=== PATIENT | male | born 1950 | race Caucasian/White ===

== ENCOUNTER 2023-08-09 17:52 | Inpatient (IN) | payer BC, MEDICARE ==
--- NOTE | 2023-08-09 18:50 | ED ---
Recheck HPI - General Chief Complaint: Chest Pain Stated Complaint: Chest Pain Time Seen by Provider: 08/09/23 18:09 Source: patient, EMS, RN notes reviewed, old records reviewed Mode of arrival: EMS Limitations: no limitations - History of Present Illness Initial Comments: This is a 73-year-old male accepted in transfer patient for elevated troponin wi th chest pain. Patient not feeling well persistent weakness. Patient persistent weakness chest pain shortness of breath. No significant complaints here in our ER except from being uncomfortable. Patient is accepted in transfer to Hospital for elevated troponin Complaint: abnormal lab (Elevated troponin) -: days(s) Initial Visit For: other (0) Returns Today for: Called Because of Abnormal Lab/Test, persistent/worsening pain related to initial visit Symptoms Since Prior Visit: worsening pain Context: called for abnormal lab result Associated Symptoms: shortness of breath, malaise, nausea Treatments Prior to Arrival: other (0) - Related Data Home Medications Medication Instructions Recorded Confirmed Cholecalciferol [Vitamin D3 (25 25 mcg PO DAILY 08/09/23 08/09/23 Mcg = 1000 Iu)] Clopidogrel [Plavix] 75 mg PO DAILY 08/09/23 08/09/23 Cyclobenzaprine [Flexeril] 10 mg PO TID PRN 08/09/23 08/09/23 Empagliflozin [Jardiance] 25 mg PO DAILY 08/09/23 08/09/23 Gabapentin [Neurontin] 100 mg PO TID PRN 08/09/23 08/10/23 HYDROcodone/APAP 7.5-325MG [[place] 1 tab PO Q6H PRN 08/09/23 08/09/23 7.5-325] Insulin Glargine,Hum.rec.anlog 15 units SQ DAILY 08/09/23 08/09/23 [Lantus Solostar Pen] Insulin Lispro [humaLOG Kwikpen] 8 - 10 unit SQ AC-TID MDD 30 units 08/09/23 08/09/23 Meloxicam [Mobic] 15 mg PO DAILY PRN 08/09/23 08/09/23 Midodrine [ProAmatine] 5 mg PO TID 08/09/23 08/09/23 Nystatin 100,000Unit/gm Cream 1 applic TOPICAL BID 08/09/23 08/09/23 [Mycostatin Cream] Propranolol HCl 80 mg PO DAILY 08/09/23 08/09/23 Rosuvastatin [Crestor] 20 mg PO HS 08/09/23 08/09/23 Triamcinolone 0.025% Cream 1 applic TOPICAL BID 08/09/23 08/09/23 [Kenalog 0.025% Cream] Vit C/E/Zn/Coppr/Lutein/Zeaxan 1 cap PO BID 08/09/23 08/09/23 [Preservision Areds 2 Softgel] metFORMIN HCL ER [Glucophage XR] 1,000 mg PO BID 08/09/23 08/09/23 Allergies Allergy/AdvReac Type Severity Reaction Status Date / Time No Known Allergies Allergy Verified 08/09/23 22:15 Review of Systems ROS Statement: Those systems with pertinent positive or pertinent negative responses have been documented in the HPI. ROS Other: All systems not noted in ROS Statement are negative. Past Medical History Past Medical History: Atrial Fibrillation, Diabetes Mellitus Additional Past Medical History / Comment(s): Unable to get proper history, sending hospital did not have any medical history information available. History of Any Multi-Drug Resistant Organisms: None Reported Past Surgical History: Unable to Obtain Additional Past Surgical History / Comment(s): Unable to obtain, no medical history sent from other hospital. Past Psychological History: Anxiety Smoking Status: Former smoker Past Alcohol Use History: Daily Past Drug Use History: None Reported - Past Family History Father Family Medical History: Diabetes Mellitus General Exam Limitations: no limitations General appearance: alert, in no apparent distress, anxious Head exam: Present: atraumatic, normocephalic, normal inspection Eye exam: Present: normal appearance, PERRL, EOMI. Absent: scleral icterus, conjunctival injection, periorbital swelling ENT exam: Present: normal exam, mucous membranes moist Neck exam: Present: normal inspection. Absent: tenderness, meningismus, lymphadenopathy Respiratory exam: Present: normal lung sounds bilaterally. Absent: respiratory distress, wheezes, rales, rhonchi, stridor Cardiovascular Exam: Present: regular rate, normal rhythm, normal heart sounds. Absent: systolic murmur, diastolic murmur, rubs, gallop, clicks GI/Abdominal exam: Present: soft, normal bowel sounds. Absent: distended, tenderness, guarding, rebound, rigid Extremities exam: Present: normal inspection, full ROM, normal capillary refill. Absent: tenderness, pedal edema, joint swelling, calf tenderness Back exam: Present: normal inspection Neurological exam: Present: alert, oriented X3, CN II-XII intact Psychiatric exam: Present: normal affect, normal mood Skin exam: Present: warm, dry, intact, normal color. Absent: rash Course Vital Signs 08/09/23 08/09/23 08/09/23 18:00 18:08 18:11 Temperature 98.2 F Pulse Rate 89 89 Pulse Rate [ 88 [employer] ] Respiratory 18 19 Rate Blood Pressure 126/80 O2 Sat by Pulse 92 L Oximetry 08/09/23 08/09/23 08/09/23 19:00 20:00 20:53 Temperature Pulse Rate 85 92 97 Pulse Rate [ [employer] ] Respiratory 16 18 18 Rate Blood Pressure 147/75 154/78 132/69 O2 Sat by Pulse 94 L 96 Oximetry 08/09/23 08/09/23 08/09/23 20:55 21:00 22:00 Temperature Pulse Rate 93 89 98 Pulse Rate [ [employer] ] Respiratory 19 19 18 Rate Blood Pressure 132/69 132/69 128/66 O2 Sat by Pulse 91 L 92 L Oximetry 08/09/23 08/10/23 08/10/23 23:00 00:00 01:00 Temperature Pulse Rate 98 101 H 78 Pulse Rate [ [employer] ] Respiratory 19 21 20 Rate Blood Pressure 149/84 147/78 115/67 O2 Sat by Pulse 91 L Oximetry 08/10/23 08/10/23 08/10/23 05:21 07:55 08:16 Temperature 102.7 F H Pulse Rate 102 H 114 H 99 Pulse Rate [ [employer] ] Respiratory 18 18 18 Rate Blood Pressure 153/63 148/83 O2 Sat by Pulse 90 L 94 L 91 L Oximetry 08/10/23 08/10/23 08/10/23 08:20 08:56 09:05 Temperature Pulse Rate 116 H 106 H 109 H Pulse Rate [ [employer] ] Respiratory 18 22 22 Rate Blood Pressure 136/63 138/81 129/105 O2 Sat by Pulse 91 L 92 L 93 L Oximetry 08/10/23 08/10/23 08/10/23 10:21 10:32 11:02 Temperature 98.7 F Pulse Rate 117 H 91 Pulse Rate [ [employer] ] Respiratory 18 18 Rate Blood Pressure 110/91 97/52 62/47 O2 Sat by Pulse 95 94 L Oximetry 08/10/23 08/10/23 08/10/23 11:10 12:22 12:41 Temperature Pulse Rate 86 80 87 Pulse Rate [ [employer] ] Respiratory 18 22 20 Rate Blood Pressure 91/61 89/59 72/46 O2 Sat by Pulse 95 93 L 96 Oximetry 08/10/23 08/10/23 08/10/23 13:03 13:18 13:36 Temperature Pulse Rate 101 H 103 H 110 H Pulse Rate [ [employer] ] Respiratory 20 20 22 Rate Blood Pressure 87/58 96/69 95/66 O2 Sat by Pulse 97 98 97 Oximetry 08/10/23 14:00 Temperature 98 F Pulse Rate 115 H Pulse Rate [ [employer] ] Respiratory 22 Rate Blood Pressure 126/76 O2 Sat by Pulse 96 Oximetry - Reevaluation(s) Reevaluation #1: 08/09/23 20:41 Medical records reviewed Transfer paperwork is reviewed Reevaluation #2: 08/09/23 20:41 Patient has no current chest pain Reevaluation #3: 08/09/23 20:41 Patient informed results questions answered Reevaluation #4: 08/09/23 20:41 Was pt. sent in by a medical professional or institution (, PA, DIET TECHNICIAN REGISTERED, urgent care, hospital, or longterm...) When possible be specific @ -no Did you speak to anyone other than the patient for history (EMS, parent, family, police, friend...)? What history was obtained from this source @ -no Did you review nursing and triage notes (agree or disagree)? Why? @ -agree Are old charts reviewed (outside hosp., previous admission, EMS record, old EKG, old radiological studies, urgent care reports/EKG's, longterm records)? Report findings @ -yes Differential Diagnosis (chest pain, altered mental status, abdominal pain women, abdominal pain men, vaginal bleeding, weakness, fever, dyspnea, syncope, headache, dizziness, GI bleed, back pain, seizure, CVA, palpatations, mental health, musculoskeletal)? @ -prior EKG interpreted by me (3pts min.). @ -yes X-rays interpreted by me (1pt min.). @ -yes CT interpreted by me (1pt min.). @ -no U/S interpreted by me (1pt. min.). @ -no What testing was considered but not performed or refused? (CT, X-rays, U/S, labs)? Why? @ -none What meds were considered but not given or refused? Why? @ -none Did you discuss the management of the patient with other professionals (professionals i.e. , PA, DIET TECHNICIAN REGISTERED, lab, RT, psych nurse, health care social worker, processor inspector, teacher, data officer, counter caser)? Give summary @ -no Was smoking cessation discussed for >3mins.? @ -no Was critical care preformed (if so, how long)? @ -yes31 Were there social determinants of health that impacted care today? How? (Homelessness, low income, unemployed, alcoholism, drug addiction, transportation, low edu. Level, literacy, decrease access to med. care, nursing home, rehab)? @ -none Was there de-escalation of care discussed even if they declined (Discuss DNR or withdrawal of care, Hospice)? DNR status @ -no What co-morbidities impacted this encounter? (DM, HTN, Smoking, COPD, CAD, Cancer, CVA, ARF, Chemo, Hep., AIDS, mental health diagnosis, sleep apnea, morbid obesity)? @ -none Was patient admitted / discharged? Hospital course, mention meds given and route, prescriptions, significant lab abnormalities, going to OR and other pertinent info. @ - 73 male be admitted for chest pain elevated troponin, non-ST elevated [place] cardiac evaluation persistent monitoring and anticoagulation Admitted Undiagnosed new problem with uncertain prognosis? @ -no Drug Therapy requiring intensive monitoring for toxicity (Heparin, Nitro, In sulin, Cardizem)? @ -no Were any procedures done? @ -no Diagnosis/symptom? @ -Non-STEMI Acute, or Chronic, or Acute on Chronic? @ -Acute Uncomplicated (without systemic symptoms) or Complicated (systemic symptoms)? @ -Complicated Side effects of treatment? @ -no Exacerbation, Progression, or Severe Exacerbation? @ -exacerbation Poses a threat to life or bodily function? How? (Chest pain, [place], [place], pneumonia, PE, COPD, DKA, ARF, appy, cholecystitis, CVA, Diverticulitis, Homicidal, Suicidal, threat to staff... and all critical care pts) @ -yes 08/16/23 00:12 Reevaluation #5: 08/09/23 20:41 Differential Chest Pain: Stable Angina, Unstable Angina, STEMI, NSTEMI Aortic Dissection, Pneumothorax, Musculoskeletal, Esophageal Spasm GERD, Cholecystitis, Pancreatitis, Zoster, this is not meant to be an all-inclusive list. - Consultations Consultation #1: Spoke with deann who agrees to admit the patient Medical Decision Making - Medical Decision Making 73 male be admitted for chest pain elevated troponin, non-ST elevated [place] cardiac evaluation persistent monitoring and anticoagulation - Lab Data Result diagrams: 08/15/23 05:24 08/15/23 05:24 Lab Results 08/09/23 08/09/23 08/09/23 Range/Units 19:00 19:00 19:00 WBC 11.4 H (3.8-10.6) k/uL RBC 4.37 (4.30-5.90) m/uL Hgb 13.6 (13.0-17.5) gm/dL Hct 41.1 (39.0-53.0) % MCV 93.9 (80.0-100.0) fL MCH 31.1 (25.0-35.0) pg MCHC 33.1 (31.0-37.0) g/dL RDW 14.2 (11.5-15.5) % Plt Count 112 L (150-450) k/uL MPV 8.7 Neutrophils % 92 % Lymphocytes % 2 % Monocytes % 4 % Eosinophils % 0 % Basophils % 0 % Neutrophils # 10.5 H (1.3-7.7) k/uL Lymphocytes # 0.3 L (1.0-4.8) k/uL Monocytes # 0.5 (0-1.0) k/uL Eosinophils # 0.0 (0-0.7) k/uL Basophils # 0.0 (0-0.2) k/uL PT 10.0 (10.0-12.5) sec INR 0.9 (<1.2) APTT 46.6 H (22.0-30.0) sec Sodium 136 L (137-145) mmol/L Potassium 4.2 (3.5-5.1) mmol/L Chloride 105 (98-107) mmol/L Carbon Dioxide 20 L (22-30) mmol/L Anion Gap 11 mmol/L BUN 35 H (9-20) mg/dL Creatinine 1.01 (0.66-1.25) mg/dL Est GFR (CKD-EPI)AfAm 84 (>60 ml/min/1.73 sqM) Est GFR (CKD-EPI)NonAf 73 (>60 ml/min/1.73 sqM) Glucose 126 H (74-99) mg/dL Calcium 8.4 (8.4-10.2) mg/dL Magnesium 2.3 (1.6-2.3) mg/dL Total Bilirubin 0.6 (0.2-1.3) mg/dL AST 33 (17-59) U/L ALT 19 (4-49) U/L Alkaline Phosphatase 84 (38-126) U/L Troponin I (0.000-0.034) ng/mL C-Reactive Protein (<1.0) mg/dL NT-Pro-B Natriuret Pep 5990 pg/mL Total Protein 6.2 L (6.3-8.2) g/dL Albumin 3.3 L (3.5-5.0) g/dL Lipase 18 L (23-300) U/L 08/09/23 08/09/23 Range/Units 19:00 19:00 WBC (3.8-10.6) k/uL RBC (4.30-5.90) m/uL Hgb (13.0-17.5) gm/dL Hct (39.0-53.0) % MCV (80.0-100.0) fL MCH (25.0-35.0) pg MCHC (31.0-37.0) g/dL RDW (11.5-15.5) % Plt Count (150-450) k/uL MPV Neutrophils % % Lymphocytes % % Monocytes % % Eosinophils % % Basophils % % Neutrophils # (1.3-7.7) k/uL Lymphocytes # (1.0-4.8) k/uL Monocytes # (0-1.0) k/uL Eosinophils # (0-0.7) k/uL Basophils # (0-0.2) k/uL PT (10.0-12.5) sec INR (<1.2) APTT (22.0-30.0) sec Sodium (137-145) mmol/L Potassium (3.5-5.1) mmol/L Chloride (98-107) mmol/L Carbon Dioxide (22-30) mmol/L Anion Gap mmol/L BUN (9-20) mg/dL Creatinine (0.66-1.25) mg/dL Est GFR (CKD-EPI)AfAm (>60 ml/min/1.73 sqM) Est GFR (CKD-EPI)NonAf (>60 ml/min/1.73 sqM) Glucose (74-99) mg/dL Calcium (8.4-10.2) mg/dL Magnesium (1.6-2.3) mg/dL Total Bilirubin (0.2-1.3) mg/dL AST (17-59) U/L ALT (4-49) U/L Alkaline Phosphatase (38-126) U/L Troponin I 0.070 H* (0.000-0.034) ng/mL C-Reactive Protein 42.3 H (<1.0) mg/dL NT-Pro-B Natriuret Pep pg/mL Total Protein (6.3-8.2) g/dL Albumin (3.5-5.0) g/dL Lipase (23-300) U/L - Radiology Data Radiology results: report reviewed (Chest x-rays negative for acute disease), image reviewed Critical Care Time Critical Care Time: Yes Total Critical Care Time: 31 Disposition Clinical Impression: Chest pain, Acute non-ST elevation myocardial infarction (NSTEMI) Disposition: ADMITTED IP TO THIS [facility] Condition: Serious Is patient prescribed a controlled substance at d/c from ED?: No Time of Disposition: 19:10
[2023-08-09 19:09] LABS: Basophils % (A) 0 %; Eosinophils % (A) 0 %; HCT 41.1 % (39.0-53.0); HGB 13.6 gm/dL (13.0-17.5); Lymphocytes # (A) 0.3 k/uL (1.0-4.8); Lymphocytes % (A) 2 %; MCH 31.1 pg (25.0-35.0); MCHC 33.1 g/dL (31.0-37.0); MCV 93.9 fL (80.0-100.0); Mean Platelet Volume 8.7; Monocytes # (A) 0.5 k/uL (0-1.0); Monocytes % (A) 4 %; Neutrophils # (A) 10.5 k/uL (1.3-7.7); Neutrophils % (A) 92 %; Platelet Count 112 k/uL (150-450); RBC 4.37 m/uL (4.30-5.90); RDW 14.2 % (11.5-15.5); WBC 11.4 k/uL (3.8-10.6)
[2023-08-09] MEDS ORDERED: NITROGLYCERIN SL TABS 0.4 MG TAB SUBLINGUAL PRN (19:09)
[2023-08-09] MEDS ORDERED: ASPIRIN 81 MG PO STA (19:09)
[2023-08-09 19:21] LABS: ALT 19 U/L (4-49); AST 33 U/L (17-59); African American GFR (CKD) 84 (>60 ml/min/1.73 sqM); Albumin 3.3 g/dL (3.5-5.0); Alkaline Phosphatase 84 U/L (38-126); Anion Gap 11 mmol/L; Blood Urea Nitrogen 35 mg/dL (9-20); Calcium 8.4 mg/dL (8.4-10.2); Carbon Dioxide 20 mmol/L (22-30); Chloride 105 mmol/L (98-107); Glucose 126 mg/dL (74-99); Lipase 18 U/L (23-300); Magnesium 2.3 mg/dL (1.6-2.3); Non-African American GFR(CKD) 73 (>60 ml/min/1.73 sqM); Potassium 4.2 mmol/L (3.5-5.1); Sodium 136 mmol/L (137-145); Total Bilirubin 0.6 mg/dL (0.2-1.3); Total Protein 6.2 g/dL (6.3-8.2)
[2023-08-09 19:24] LABS: INR 0.9 (<1.2); Partial Thromboplastin Time 46.6 sec (22.0-30.0)
[2023-08-09 19:29] LABS: NT-Pro-B-Type Natriuretic Pept 5990 pg/mL
[2023-08-09] MEDS: HEPARIN SOD,PORK IN 0.45% NACL 25,000 UNIT in 0.45% NACL 1 250ML.BAG IV SCH (19:32)
--- NOTE | 2023-08-09 19:51 | XR ---
EXAMINATION TYPE: XR chest 1V portable DATE OF EXAM: 08/09/2023 7:17 PM CLINICAL INDICATION:Male, 73 years old with history of chest pain; [facility] COMPARISON: None TECHNIQUE: XR chest 1V portable Frontal view of the chest. FINDINGS: Lungs/Pleura: There is flattening of the diaphragm with increased lucency of the lungs. No evidence o f pneumothorax, pleural effusion or focal consolidation. Pulmonary vascularity: Unremarkable. Heart/mediastinum: Cardiomediastinal silhouette is unremarkable. Two lead cardiac conduction device o verlying the left hemithorax with lead tips projecting over the right ventricle and right atrium. Musculoskeletal: No acute osseous pathology. IMPRESSION: 1. No acute cardiopulmonary disease process. 2. COPD changes.
[2023-08-09 21:47] LABS: Glucose,Whole Blood 126 mg/dL (70-110)
[2023-08-09] MEDS: MORPHINE SULFATE 4 MG/ML SYRINGE IV PRN (22:31)
--- NOTE | 2023-08-09 23:33 | P.HPIM ---
History of Present Illness H&P Date: 08/09/23 Patient is a 73-year-old male with a PMH of type II DM, hypertension, hyperlipidemia, status post pacemaker placement, and A. fib (not on anticoagulation, unknown reason) who was transferred from [facility] where the patient had presented earlier today with complaints of chest discomfort, shortness of breath, and generalized pain. At time of interview, patient reports sharp epigastric nonpleuritic discomfort, 5 out of 10 on maximal intensity, nonradiating, with no alleviating or exacerbating features. He also has been experiencing generalized pain involving most joints of his body over the past 2-3 days. Denies fever, chills, cough, nausea, vomiting, diarrhea. At [facility], the patient's high sensitivity troponin was elevated and he was subsequently sent to [place]. He denies any prior history of such discomfort. Denies any history of autoimmune diseases. Chest x-ray in the emergency room was unremarkable. EKG revealed of the paced rhythm at 89 bpm. Laboratory evaluation was remarkable for troponin 0.070, proBNP 5990, leukocytosis of 11.4, platelet count 112. ED documentation reviewed and case discussed with ED provider. Review of systems: Pertinent positives and negatives as discussed in HPI, a complete review of syst ems was performed and all other systems are negative. Physical examination: Vital signs reviewed General: non toxic, no distress, appears at stated age, normal weight Derm: no unusual rashes/lesions, warm Head: atraumatic, normocephalic, symmetric Eyes: EOMI, no lid lag, anicteric sclera, pupils equal round reactive to light ENT: Nose and ears atraumatic Neck: No cervical lymphadenopathy, trachea midline, supple Mouth: no lip lesion, mucus membranes moist Cardiovascular: S1S2 reg, no murmur, positive dorsalis pedis pulse bilateral, no edema Lungs: CTA bilateral, no rhonchi, no rales, no accessory muscle use Abdominal: soft, nontender to palpation, no guarding Ext: muscle strength 5 out of 5 in all 4 extremities grossly, no gross muscle atrophy, no contractures, Neuro: CN II-XI grossly intact, no gross focal neuro deficits Psych: Alert, oriented, appropriate affect Assessment: Non-ST elevation [place] Generalized arthralgias Leukocytosis, no signs of active infection at this time Thrombocytopenia, no baseline available for comparison Imaging: Chest x-ray in the emergency room was unremarkable. EKG revealed of the paced rhythm at 89 bpm. Data Review: Laboratory evaluation was remarkable for troponin 0.070, proBNP 5990, leukocytosis of 11.4, platelet count 112. Plan: Continue with heparin infusion Continue aspirin, statin Cardiac monitoring Cartilage consult Trend troponin Monitor CBC Echocardiogram DVT prophylaxis: Heparin infusion The patient is admitted with an anticipated greater than 2 midnight stay for evaluation of NSTEMI CODE STATUS: Full Code Discussed with: Patient Anticipated discharge place: Home Past Medical History Past Medical History: Atrial Fibrillation, Diabetes Mellitus Additional Past Medical History / Comment(s): Unable to get proper history, sending hospital did not have any medical history information available. History of Any Multi-Drug Resistant Organisms: None Reported Past Surgical History: Unable to Obtain Additional Past Surgical History / Comment(s): Unable to obtain, no medical history sent from other hospital. Past Psychological History: Anxiety Smoking Status: Former smoker Past Alcohol Use History: Daily Past Drug Use History: None Reported Medications and Allergies Home Medications Medication Instructions Recorded Confirmed Type Cholecalciferol [Vitamin D3 (25 25 mcg PO DAILY 08/09/23 08/09/23 History Mcg = 1000 Iu)] Clopidogrel [Plavix] 75 mg PO DAILY 08/09/23 08/09/23 History Cyclobenzaprine [Flexeril] 10 mg PO TID PRN 08/09/23 08/09/23 History Empagliflozin [Jardiance] 25 mg PO DAILY 08/09/23 08/09/23 History Gabapentin [Neurontin] 100 mg PO DIRECTED PRN 08/09/23 08/09/23 History HYDROcodone/APAP 7.5-325MG [[place] 1 tab PO Q6H PRN 08/09/23 08/09/23 History 7.5-325] Insulin Glargine,Hum.rec.anlog 15 units SQ DAILY 08/09/23 08/09/23 History [Lantus Solostar Pen] Insulin Lispro [humaLOG Kwikpen] 8 - 10 unit SQ AC-TID MDD 30 units 08/09/23 08/09/23 History Meloxicam [Mobic] 15 mg PO DAILY PRN 08/09/23 08/09/23 History Midodrine [ProAmatine] 5 mg PO TID 08/09/23 08/09/23 History Nystatin 100,000Unit/gm Cream 1 applic TOPICAL BID 08/09/23 08/09/23 History [Mycostatin Cream] Propranolol HCl 80 mg PO DAILY 08/09/23 08/09/23 History Rosuvastatin [Crestor] 20 mg PO HS 08/09/23 08/09/23 History Triamcinolone 0.025% Cream 1 applic TOPICAL BID 08/09/23 08/09/23 History [Kenalog 0.025% Cream] Vit C/E/Zn/Coppr/Lutein/Zeaxan 1 cap PO BID 08/09/23 08/09/23 History [Preservision Areds 2 Softgel] metFORMIN HCL ER [Glucophage XR] 1,000 mg PO BID 08/09/23 08/09/23 History Allergies Allergy/AdvReac Type Severity Reaction Status Date / Time No Known Allergies Allergy Verified 08/09/23 22:15 Physical Exam Vitals: Vital Signs Temp Pulse Pulse Resp BP Pulse Ox 08/09/23 20:53 97 18 132/69 96 08/09/23 20:00 92 18 154/78 08/09/23 19:00 85 16 147/75 94 L 08/09/23 18:11 88 08/09/23 18:08 89 19 08/09/23 18:00 98.2 F 89 18 126/80 92 L Intake and Output 08/09/23 08/09/23 08/10/23 14:59 22:59 06:59 Other: Weight 86.183 kg Results CBC & Chem 7: 08/09/23 19:00 08/09/23 19:00 Labs: Abnormal Lab Results - Last 24 Hours (Table) 08/09/23 08/09/23 08/09/23 Range/Units 19:00 19:00 19:00 WBC 11.4 H (3.8-10.6) k/uL Plt Count 112 L (150-450) k/uL Neutrophils # 10.5 H (1.3-7.7) k/uL Lymphocytes # 0.3 L (1.0-4.8) k/uL APTT 46.6 H (22.0-30.0) sec Sodium 136 L (137-145) mmol/L Carbon Dioxide 20 L (22-30) mmol/L BUN 35 H (9-20) mg/dL Glucose 126 H (74-99) mg/dL POC Glucose (mg/dL) (70-110) mg/dL Troponin I (0.000-0.034) ng/mL Total Protein 6.2 L (6.3-8.2) g/dL Albumin 3.3 L (3.5-5.0) g/dL Lipase 18 L (23-300) U/L 08/09/23 08/09/23 Range/Units 19:00 21:45 WBC (3.8-10.6) k/uL Plt Count (150-450) k/uL Neutrophils # (1.3-7.7) k/uL Lymphocytes # (1.0-4.8) k/uL APTT (22.0-30.0) sec Sodium (137-145) mmol/L Carbon Dioxide (22-30) mmol/L BUN (9-20) mg/dL Glucose (74-99) mg/dL POC Glucose (mg/dL) 126 H (70-110) mg/dL Troponin I 0.070 H* (0.000-0.034) ng/mL Total Protein (6.3-8.2) g/dL Albumin (3.5-5.0) g/dL Lipase (23-300) U/L
[2023-08-09] MEDS: ATORVASTATIN 80 MG TAB PO SCH (23:57)
[2023-08-10] MEDS: MORPHINE SULFATE 4 MG/ML SYRINGE IV PRN ×3 (02:55→16:09)
[2023-08-10 03:24] LABS: HCT 45.3 % (39.0-53.0); HGB 14.4 gm/dL (13.0-17.5); MCH 30.6 pg (25.0-35.0); MCHC 31.8 g/dL (31.0-37.0); MCV 96.2 fL (80.0-100.0); Mean Platelet Volume 9.4; Platelet Count 105 k/uL (150-450); RBC 4.71 m/uL (4.30-5.90); RDW 14.6 % (11.5-15.5); WBC 10.8 k/uL (3.8-10.6)
[2023-08-10] MEDS ORDERED: HEPARIN SODIUM 1,000 UN/ML (10ML VL) IV PRN (05:34)
[2023-08-10 06:18] LABS: Glucose,Whole Blood 142 mg/dL (70-110)
[2023-08-10] MEDS ORDERED: MIDODRINE 5 MG TAB PO SCH (07:30)
[2023-08-10] MEDS: ACETAMINOPHEN TAB 325 MG TAB PO PRN (09:00)
[2023-08-10] MEDS ORDERED: ASPIRIN 325 MG TAB PO SCH (09:00)
[2023-08-10] MEDS ORDERED: SODIUM CHLORIDE 0.9% 1,000 ML IV ONE (09:21)
--- NOTE | 2023-08-10 09:34 | CT ---
EXAMINATION TYPE: CT chest angio for PE CT DLP: 472.5 mGycm, Automated exposure control for dose reduction was used. DATE OF EXAM: 08/10/2023 9:01 AM COMPARISON: None CLINICAL INDICATION:Male, 73 years old with history of hypoxia, chest pain; Chest pain, SOB TECHNIQUE/CONTRAST: CTA scan of the thorax is performed with IV Contrast, patient injected with 100 mL of Isovue 300, MIP images are created and reviewed these are created on a separate workstation.. FINDINGS: Pulmonary Artery: There is no evidence for a filling defect within the pulmonary vasculature to sugge st acute pulmonary embolism. The pulmonary artery is of normal size. Lungs/Pleura: No evidence of focal consolidation, pleural effusion or pneumothorax. Centrilobular and paraseptal emphysema changes predominantly in the lung apices. Airway: Large airways are patent. Heart: Heart is within normal limits for size. Vasculature: No evidence of aortic aneurysm. Mediastinum: No gross evidence of adenopathy. Partially calcified lymph nodes in the right pulmonary hilum. Musculoskeletal: No acute osseous abnormalities Soft Tissues: Unremarkable. Lower neck: No significant findings. Upper Abdomen: Few calcified granulomas in the spleen. IMPRESSION: 1. No evidence of pulmonary embolism. 2. Moderate emphysema changes throughout the lungs.
[2023-08-10] MEDS ORDERED: FUROSEMIDE 10 MG/ML 4 ML VIAL IV STA (09:46)
[2023-08-10 09:54] LABS: Chol/HDL Ratio 3.34 Ratio; LDL Cholesterol,Calculated 24.5 mg/dL (0.0-131.0)
[2023-08-10] MEDS: AZITHROMYCIN 500 MG in SODIUM CHLORIDE 0.9% 250 ML IVPB SCH (09:54)
[2023-08-10] MEDS: ASPIRIN 81 MG PO SCH (10:07)
[2023-08-10] MEDS: FUROSEMIDE 10 MG/ML 2 ML VIAL IV STA ×2 (10:07→10:38)
[2023-08-10] MEDS: CLOPIDOGREL 75 MG TAB PO SCH (10:07)
[2023-08-10] MEDS: PROPRANOLOL 40 MG TAB PO SCH (10:17)
[2023-08-10 10:44] LABS: Appearance,Urine Cloudy (Clear); Bilirubin,Urine Negative (Negative); Blood,Urine Moderate (Negative); Color,Urine Light Yellow; Glucose,Urine (UA) 4+ (Negative); Leukocyte Esterase,Urine Negative (Negative); Mucus,Urine Rare /hpf; Nitrite,Urine Negative (Negative); PH, Urine 5.5 (5.0-8.0); Protein,Urine 2+ (Negative); RBC,Urine 11 /hpf (0-5); Specific Gravity,Urine 1.031 (1.001-1.035); Squamous Epithelial Cell,Urine <1 /hpf (0-4); Urobilinogen,Urine <2.0 mg/dL (<2.0); WBC,Urine 3 /hpf (0-5)
[2023-08-10 10:48] LABS: Ketones,Urine 2+ (Negative)
[2023-08-10] MEDS: NOREPINEPHRINE 4 MG in SODIUM CHLORIDE 0.9% 250 ML IV SCH (13:01)
--- NOTE | 2023-08-10 13:52 | P.CNPUL ---
History of Present Illness Consult date: 08/10/23 Requesting physician: Gustavo Bobby Reason for consult: dyspnea, hypoxemia Chief complaint: Chest pain, shortness of breath History of present illness: This is a pleasant 73-year-old male patient with a known history of diabetes mellitus, hypertension, hyperlipidemia, atrial fibrillation, left bundle branch block, post permanent pacemaker insertion 2 years ago in [place], peripheral vascular disease with stenting to the lower extremities, former smoker however quit 20 oh. 4 days ago the patient had complaints of significant low back pain and weakness and was seen in [facility] treated and discharged home. He represented there again yesterday with low back pain and was found to have elevated troponin levels and subsequently transferred to our emergency department. EKG reveals a ventricular paced rhythm. CT angiogram revealed no evidence of pulmonary embolism. There is moderate emphysematous changes throughout the lung jaquez but otherwise clear. Labs revealed a troponin of 0.076, 0.108. ProBNP 5990. Pro-calcitonin 38.40. Urinalysis with moderate blood and 4+ glucose, 2+ ketones. Influenza screen negative. RSV screen negative. COVID-19 screen negative. White count 10.8. Hemoglobin 14.4. Platelets 105. Sodium 136. Potassium 4.2. Bicarb 20. BUN 35. Creatinine 1.01. Glucose 126. He is seen today in consultation in the emergency department. He's currently sitting up in a stretcher. Awake and alert. He denies any chest pain currently. She denies any worsening shortness of breath however he is requiring 15 L per nonrebreather mask to maintain O2 saturations in the 90s. He was down to 82% at one point. Current O2 saturation 97%. He is febrile with temperature of 102.7. He is clammy. He's been initiated on a heparin drip and. Initiated on ceftriaxone and azithromycin. Echocardiogram is pending. Review of Systems REVIEW OF SYSTEMS: CONSTITUTIONAL: Denies any recent significant weight loss or weight gain. EYES: Denies change in vision. EARS, NOSE, MOUTH, THROAT: Denies headaches, denies sore throat. CARDIOVASCULAR: Positive for chest pain, palpitations no syncopal episodes. RESPIRATORY: Positive for shortness of breath, cough, congestion no hemoptysis. GASTROINTESTINAL: Denies change in appetite, denies abdominal pain GENITOURINARY: Denies hematuria, denies infections. MUSKULOSKELETAL: Positive for low back pain. INTEGUMENTARY: Denies rash, denies eczema. NEUROLOGICAL: Denies recent memory loss, no recent seizure activity. PSYCHIATRIC: Denies anxiety, denies depression. HEMATOLOGIC/LYMPHATIC: Denies anemia, denies enlarged lymph nodes. Past Medical History Past Medical History: Atrial Fibrillation, Chest Pain / Angina, COPD, Diabetes Mellitus, Hyperlipidemia, Hypertension, Myocardial Infarction (ID), Neurologic Disorder, Prostate Disorder, Sleep Apnea/CPAP/BIPAP, Syncope Additional Past Medical History / Comment(s): Has medication for both low and high blood pressure. Diabetic Neuropathy, History of Any Multi-Drug Resistant Organisms: None Reported Past Surgical History: Heart Catheterization With Stent, Joint Replacement, Pacemaker, Prostate Surgery Additional Past Surgical History / Comment(s): stent in lower extremity, prostate removal, with urinary control system. total right knee replacement, Past Psychological History: Anxiety Smoking Status: Former smoker Past Alcohol Use History: Daily Past Drug Use History: None Reported Medications and Allergies Home Medications Medication Instructions Recorded Confirmed Type Cholecalciferol [Vitamin D3 (25 25 mcg PO DAILY 08/09/23 08/09/23 History Mcg = 1000 Iu)] Clopidogrel [Plavix] 75 mg PO DAILY 08/09/23 08/09/23 History Cyclobenzaprine [Flexeril] 10 mg PO TID PRN 08/09/23 08/09/23 History Empagliflozin [Jardiance] 25 mg PO DAILY 08/09/23 08/09/23 History Gabapentin [Neurontin] 100 mg PO DIRECTED PRN 08/09/23 08/09/23 History HYDROcodone/APAP 7.5-325MG [[place] 1 tab PO Q6H PRN 08/09/23 08/09/23 History 7.5-325] Insulin Glargine,Hum.rec.anlog 15 units SQ DAILY 08/09/23 08/09/23 History [Lantus Solostar Pen] Insulin Lispro [humaLOG Kwikpen] 8 - 10 unit SQ AC-TID MDD 30 units 08/09/23 08/09/23 History Meloxicam [Mobic] 15 mg PO DAILY PRN 08/09/23 08/09/23 History Midodrine [ProAmatine] 5 mg PO TID 08/09/23 08/09/23 History Nystatin 100,000Unit/gm Cream 1 applic TOPICAL BID 08/09/23 08/09/23 History [Mycostatin Cream] Propranolol HCl 80 mg PO DAILY 08/09/23 08/09/23 History Rosuvastatin [Crestor] 20 mg PO HS 08/09/23 08/09/23 History Triamcinolone 0.025% Cream 1 applic TOPICAL BID 08/09/23 08/09/23 History [Kenalog 0.025% Cream] Vit C/E/Zn/Coppr/Lutein/Zeaxan 1 cap PO BID 08/09/23 08/09/23 History [Preservision Areds 2 Softgel] metFORMIN HCL ER [Glucophage XR] 1,000 mg PO BID 08/09/23 08/09/23 History Allergies Allergy/AdvReac Type Severity Reaction Status Date / Time No Known Allergies Allergy Verified 08/09/23 22:15 Physical Exam Vitals: Vital Signs Temp Pulse Pulse Resp BP Pulse Ox 08/10/23 13:18 103 H 20 96/69 98 08/10/23 13:03 101 H 20 87/58 97 08/10/23 12:41 87 20 72/46 96 08/10/23 12:22 80 22 89/59 93 L 08/10/23 11:10 86 18 91/61 95 08/10/23 11:02 62/47 08/10/23 10:32 98.7 F 91 18 97/52 94 L 08/10/23 10:21 117 H 18 110/91 95 08/10/23 09:05 109 H 22 129/105 93 L 08/10/23 08:56 106 H 22 138/81 92 L 08/10/23 08:20 116 H 18 136/63 91 L 08/10/23 08:16 99 18 91 L 08/10/23 07:55 102.7 F H 114 H 18 148/83 94 L 08/10/23 05:21 102 H 18 153/63 90 L 08/10/23 01:00 78 20 115/67 08/10/23 00:00 101 H 21 147/78 08/09/23 23:00 98 19 149/84 91 L 08/09/23 22:00 98 18 128/66 92 L 08/09/23 21:00 89 19 132/69 91 L 08/09/23 20:55 93 19 132/69 08/09/23 20:53 97 18 132/69 96 08/09/23 20:00 92 18 154/78 08/09/23 19:00 85 16 147/75 94 L 08/09/23 18:11 88 08/09/23 18:08 89 19 08/09/23 18:00 98.2 F 89 18 126/80 92 L Intake and Output 08/09/23 08/10/23 08/10/23 22:59 06:59 14:59 Intake Total 99.333 Balance 99.333 Intake: Intake, IV Titration 99.333 Amount Heparin Sod,Pork in 0.45% 99.333 NaCl 25,000 unit In 0.45 % NaCl 1 250ml.bag @ 11. 603 UNITS/KG/HR 10 mls/hr IV .Q24H [facility] Rx#: [id number] Other: Weight 86.183 kg GENERAL EXAM: Alert, pleasant 73-year-old male, on 15 L nonrebreather mask, fairly comfortable in no apparent distress. HEAD: Normocephalic. EYES: Normal reaction of pupils, equal size. NOSE: Clear with pink turbinates. THROAT: No erythema or exudates. NECK: No masses, no JVD. CHEST: No chest wall deformity. LUNGS: Equal air entry with no crackles, wheeze, rhonchi or dullness. CVS: S1 and S2 normal with no audible murmur, irregular rhythm. ABDOMEN: No hepatosplenomegaly, normal bowel sounds, no guarding or rigidity. SPINE: No scoliosis or deformity SKIN: No rashes CENTRAL NERVOUS SYSTEM: No focal deficits, tone is normal in all 4 extremities. EXTREMITIES: There is no peripheral edema. No clubbing, no cyanosis. Peripheral pulses are intact. Results - Laboratory Findings CBC and BMP: 08/10/23 02:41 08/09/23 19:00 PT/INR, D-dimer PT 10.0 sec (10.0-12.5) 08/09/23 19:00 INR 0.9 (<1.2) 08/09/23 19:00 Abnormal lab findings: Abnormal Labs 08/09/23 08/09/23 08/09/23 19:00 19:00 19:00 WBC 11.4 H Plt Count 112 L Neutrophils # 10.5 H Lymphocytes # 0.3 L ESR APTT 46.6 H Sodium 136 L Carbon Dioxide 20 L BUN 35 H Glucose 126 H POC Glucose (mg/dL) Plasma Lactic Acid Boy Troponin I C-Reactive Protein Total Protein 6.2 L Albumin 3.3 L Triglycerides VLDL Cholesterol, Calc HDL Cholesterol Lipase 18 L Procalcitonin Urine Protein Urine Glucose (UA) Urine Ketones Urine Blood Urine RBC Urine Mucus 08/09/23 08/09/23 08/09/23 19:00 19:00 21:45 WBC Plt Count Neutrophils # Lymphocytes # ESR APTT Sodium Carbon Dioxide BUN Glucose POC Glucose (mg/dL) 126 H Plasma Lactic Acid Boy Troponin I 0.070 H* C-Reactive Protein 42.3 H Total Protein Albumin Triglycerides VLDL Cholesterol, Calc HDL Cholesterol Lipase Procalcitonin Urine Protein Urine Glucose (UA) Urine Ketones Urine Blood Urine RBC Urine Mucus 08/09/23 08/10/23 08/10/23 22:56 02:41 02:41 WBC Plt Count Neutrophils # Lymphocytes # ESR APTT 40.9 H Sodium Carbon Dioxide BUN Glucose POC Glucose (mg/dL) Plasma Lactic Acid Boy Troponin I 0.076 H* 0.078 H* C-Reactive Protein Total Protein Albumin Triglycerides VLDL Cholesterol, Calc HDL Cholesterol Lipase Procalcitonin Urine Protein Urine Glucose (UA) Urine Ketones Urine Blood Urine RBC Urine Mucus 08/10/23 08/10/23 08/10/23 02:41 02:41 02:41 WBC 10.8 H Plt Count 105 L Neutrophils # Lymphocytes # ESR 63 H APTT Sodium Carbon Dioxide BUN Glucose POC Glucose (mg/dL) Plasma Lactic Acid Boy Troponin I C-Reactive Protein Total Protein Albumin Triglycerides 228.00 H VLDL Cholesterol, Calc 45.60 H HDL Cholesterol 29.90 L Lipase Procalcitonin Urine Protein Urine Glucose (UA) Urine Ketones Urine Blood Urine RBC Urine Mucus 08/10/23 08/10/23 08/10/23 02:58 06:16 07:57 WBC Plt Count Neutrophils # Lymphocytes # ESR APTT Sodium Carbon Dioxide BUN Glucose POC Glucose (mg/dL) 142 H Plasma Lactic Acid Boy Troponin I 0.108 H* C-Reactive Protein Total Protein Albumin Triglycerides VLDL Cholesterol, Calc HDL Cholesterol Lipase Procalcitonin 30.40 H Urine Protein Urine Glucose (UA) Urine Ketones Urine Blood Urine RBC Urine Mucus 08/10/23 08/10/23 08/10/23 08:20 10:20 10:50 WBC Plt Count Neutrophils # Lymphocytes # ESR APTT 57.5 H Sodium Carbon Dioxide BUN Glucose POC Glucose (mg/dL) Plasma Lactic Acid Boy 2.1 H* Troponin I C-Reactive Protein Total Protein Albumin Triglycerides VLDL Cholesterol, Calc HDL Cholesterol Lipase Procalcitonin Urine Protein 2+ H Urine Glucose (UA) 4+ H Urine Ketones 2+ H Urine Blood Moderate H Urine RBC 11 H Urine Mucus Rare H - Diagnostic Findings CT scan - chest: image reviewed Assessment and Plan Assessment: Acute hypoxemic respiratory failure secondary to acute suspected systolic versus diastolic congestive heart failure and possible underlying infection with elevated troponin Troponin leak in a patient with previous chest discomfort, initiated on a he emerson drip, echocardiogram pending Hypotension requiring pressors Mild leukocytosis Febrile illness of unclear etiology Diabetes mellitus Hypertension, history of Hyperlipidemia Atrial fibrillation History of bundle-branch block Status post permanent pacemaker implantation 2 years ago in [place] Peripheral vascular disease with previous stent to the lower extremity Former smoker however quit 20 years ago Plan: The patient was seen and evaluated Computed tomography scan, labs and medications reviewed Echocardiogram is pending Continue ceftriaxone and azithromycin Continue heparin drip Cardiology consulted Requiring pressors and admission to the intensive care unit We will continue to follow and make further recommendations based on his clinical status I have personally seen and examined the patient, performed the documentation and the assessment and plan as written. Number of minutes spent on the visit: 20.
[2023-08-10] MEDS ORDERED: NITROGLYCERIN SL TABS 0.4 MG TAB SUBLINGUAL PRN (13:55)
[2023-08-10] MEDS ORDERED: ALPRAZolam 0.25 MG TAB PO PRN (13:55)
[2023-08-10] MEDS ORDERED: ASPIRIN 325 MG TAB PO STA (13:55)
[2023-08-10] MEDS ORDERED: ATORVASTATIN 80 MG TAB PO STA (13:55)
[2023-08-10 14:06] LABS: Glucose,Whole Blood 276 mg/dL (70-110)
[2023-08-10] MEDS ORDERED: VERAPAMIL 2.5 MG/ML 2 ML AMP ONE (14:28)
--- NOTE | 2023-08-10 14:40 | CA ---
Transthoracic Echo Report Name: Dharmesh Flanagan Age: 73 Gender: M : 1950 Exam Date: 08/10/2023 11:39 Exam Location: [facility] Ht (in): 71 Wt (lb): 190 Ordering Physician: Sanchez Bailey Attending/Referring Phys: Reinsurance Claims Analyst Deanna Vizcarra RDCS Procedure CPT: Indications: nstemi Cardiac Hx: Technical Quality: Technically difficult study Contrast 1: Definity Total Dose (mL): 1 Contrast 2: Total Dose (mL): MEASUREMENTS (Male / Female) Normal Values 2D ECHO LV Diastolic Diameter PLAX 4.1 cm 4.2 - 5.9 / 3.9 - 5.3 cm LV Systolic Diameter PLAX 3.5 cm IVS Diastolic Thickness 1.5 cm 0.6 - 1.0 / 0.6 - 0.9 cm LVPW Diastolic Thickness 1.3 cm 0.6 - 1.0 / 0.6 - 0.9 cm LV Relative Wall Thickness 0.7 RV Internal Dim ED PLAX 3.5 cm LA Systolic Diameter LX 4.0 cm 3.0 - 4.0 / 2.7 - 3.8 cm LA Volume 53.0 cm??? 18 - 58 / 22 - 52 cm??? LA Volume Index 25.4 cm???/m??? 16 - 28 cm???/m??? M-MODE Aortic Root Diameter MM 3.2 cm AV Cusp Separation MM 1.9 cm DOPPLER AV Peak Velocity 102.2 cm/s AV Peak Gradient 4.2 mmHg MV Area PHT 4.4 cm??? MV Deceleration Time 193.0 ms TR Peak Velocity 236.7 cm/s TR Peak Gradient 22.4 mmHg Right Ventricular Systolic Press 27.0 mmHg FINDINGS Left Ventricle Left ventricular ejection fraction is estimated at 35-40 %. Left ventricular cavity size normal. Moderate concentric left ventricular hypertrophy. Right Ventricle Mild right ventricular dilatation. Right ventricular systolic pressure within normal limits. Right Atrium Normal right atrial size. Left Atrium Mildly increased left atrial area. Mitral Valve Mitral valve thickened. Mild mitral regurgitation. Aortic Valve Aortic valve not well visualized. No aortic regurgitation. Tricuspid Valve Structurally normal tricuspid valve. Mild tricuspid regurgitation. Pulmonic Valve Pulmonic valve not well visualized. Pericardium No pericardial effusion. Aorta Normal size aortic root and proximal ascending aorta. CONCLUSIONS Normal LV systolic function Mildly dilated right ventricle Mild mitral and tricuspid regurgitation Previewed by: Dr. Rishabh Cedillo MD (Electronically Signed) Final Date: 10 August 2023 14:39
[2023-08-10] MEDS ORDERED: IV FLUID CONTINUATION 1,000 ML IV ONE (14:46)
[2023-08-10] MEDS ORDERED: HEPARIN SODIUM 1,000 UN/ML (10ML VL) ONE (14:53)
[2023-08-10] MEDS ORDERED: LIDOCAINE 1% INJ 10MG/ML (20 ML MDV) SQ ONE (15:07)
[2023-08-10] MEDS ORDERED: MIDAZOLAM 2 MG/2 ML VIAL IVP ONE (15:08)
[2023-08-10] MEDS ORDERED: VERAPAMIL SYRINGE (5 MG/10 ML) INTRAARTER ONE (15:08)
[2023-08-10] MEDS ORDERED: IOPAMIDOL-370 100ML BTL INJ ONE (15:19)
[2023-08-10] MEDS ORDERED: RX INFO: IV CONTRAST WAS GIVEN 1 EACH MISC MISCELLANE PRN (15:22)
[2023-08-10] MEDS ORDERED: SODIUM CHLORIDE 0.9% 1,000 ML IV SCH (15:30)
--- NOTE | 2023-08-10 15:30 | P.PN ---
Subjective Progress Note Date: 08/10/23 Hospital course: Patient is a very pleasant 73-year-old male with a past medical history of left bundle branch block status post pacemaker placement, hypertension, hyperlipidemia, type 2 insulin-dependent diabetes mellitus, atrial fibrillation not on anticoagulation, and peripheral vascular disease status post stenting in right lower extremity. Patient was transferred to our facility overnight from [facility] for admission and further evaluation for elevated troponin levels. Patient reports he initially presented to the hospital for complaints of chest pain, shortness of breath, and generalized body aches. Patient reports he initially began experiencing these symptoms on and was seen by his PCP who tested him for Covid which she reports was negative. Patient reports he has had persistent generalized body aches, fatigue, chest pain, and shortness of breath since and progressively worsening. Upon arrival to our facility patient underwent evaluation. Labs were completed and reviewed. CBC revealing mild leukocytosis with WBC count of 11.4 and thrombocytopenia with platelet count of 112. BMP showing mild hypocarbia with bicarb of 20, prerenal azotemia with BUN of 35 and hyperglycemia with glucose of 126. Magnesium was normal findings at 2.3. Liver profile unremarkable. Troponin was elevated at 0.070. Patient was started on low intensity heparin infusion for treatment of NSTEMI and admitted under our services with consultation to cardiology. Troponins trended overnight resulting in 0.070, 0.076, and 0.078. Pro-calcitonin was elevated at 30.40. Physical exam: General: Nontoxic, no distress and appears stated age. Derm: Skin warm and dry, normal coloration for ethnicity. Head: Atraumatic, normocephalic and symmetric. Eyes: EOMs intact, no lid lag, and anicteric sclera Mouth: no lip lesions, mucus membranes moist Cardiovascular: Irregularly irregular with normal S1S2, no murmur, positive posterior tibial pulses bilaterally, and cap refill < 2 seconds. Lungs: Respirations even, regular, and unlabored on room air. Lungs diminished, no rhonchi, no rales, no wheezing, and no accessory muscle usage. Abdominal: soft, nontender to palpation, no guarding, no appreciable organomegaly Ext: ROM intact. No gross muscle atrophy, no edema, no contractures Neuro: Speech clear, face symmetrical and CN II-XII grossly intact with no noted focal neuro deficits Psych: Alert and oriented to person, place, time, and situation. Appropriate and pleasant affect. Assessment and Plan of Care: Received notification from RN stating patient reporting significantly worsening chest pain accompanied by shortness of breath and is now hypoxic 82% on 5 L and febrile with temp of 102.7F. Orders place for stat troponin, blood cultures, lactate, influenza A, influenza B, RSV, and Covid PCR. Orders also placed for stat CTA to rule out PE as Well's score showing high risk at 7.5. Acute hypoxic respiratory failure NSTEMI Sepsis with Fever of unknown origin History of left bundle branch block status post pacemaker placement Paroxysmal atrial fibrillation Peripheral vascular disease Hypertension Hyperlipidemia Type 2 insulin-dependent diabetes mellitus -Cardiology following and discussed plan of care with Dr. Saleh. -Consult placed to metal finish inspector and discussed plan of care with both Dr. River and Maria D COVERER -Orders place for stat troponin, blood cultures, lactate, influenza A, influenza B, RSV, and Covid PCR. -Orders also placed for stat CTA to rule out PE as Well's score showing high risk at 7.5. -Patient to remain on heparin infusion, cardiology planning to take patient for cardiac cath later today -Continuous telemetry monitoring -Pro-calcitonin significantly elevated at 30.40 and lactic acid of 2.1. Patient given a 1 L bolus and started on empiric antibiotics with azithromycin 500 mg daily and Rocephin 2 g daily pending further results. Data and imaging reviewed: -Follow up on ordered testing. CBC showing slight improvement of leukocytosis with WBC count of 10.8 and slightly worsening thrombocytopenia with platelet count of 105. ESR elevated at 63. Repeat lactate after bolus 1.8. Repeat troponin worsening at 0.108. -Urinalysis was negative for infection positive for protein, ketones, and blood only 3 WBCs. -Influenza A, influenza B, RSV, and Covid PCR were negative. -CTA negative for pulmonary emboli. Patient was evaluated by pulmonology and cardiology. Patient was given a one- time dose of Lasix 40 mg IVP. Shortly after patient had persistent hypotension with blood pressure dropping as low as 60 systolic. Patient was later started on levophed infusion and transferred to ICU. CODE STATUS: Full code DVT prophylaxis: Heparin Discussed with: Patient, patient's , RN, geophysical e logger, host/hostess restaurant, and pulmonary COVERER Anticipated discharge date: Clinical course to determine Anticipated discharge place: Clinical course to determine Patient was seen independently by Nurse Pracitioner. This document was prepared using [employer] dictation software. Please allow for errors in set painter, while rare they do occur. Sanchez Bailey, COVERER rendered care for this patient independently, reviewed the findings and plan as documented in the note above. I did not physically speak with or examine the patient on this date. Objective - Vital Signs Vital signs: Vital Signs Temp 98.2 F 08/09/23 18:00 Pulse 102 H 08/10/23 05:21 Resp 18 08/10/23 05:21 BP 153/63 08/10/23 05:21 Pulse Ox 90 L 08/10/23 05:21 FiO2 Intake & Output 08/09/23 08/10/23 08/10/23 18:59 06:59 18:59 Intake Total 99.333 Balance 99.333 Weight 86.183 kg Intake: Intake, IV Titration 99.333 Amount Heparin Sod,Pork in 0.45% 99.333 NaCl 25,000 unit In 0.45 % NaCl 1 250ml.bag @ 11. 603 UNITS/KG/HR 10 mls/hr IV .Q24H [facility] Rx#: [id number] - Labs CBC & Chem 7: 08/12/23 05:26 08/12/23 05:26 Labs: Abnormal Lab Results - Last 24 Hours (Table) 08/09/23 08/09/23 08/09/23 Range/Units 19:00 19:00 19:00 WBC 11.4 H (3.8-10.6) k/uL Plt Count 112 L (150-450) k/uL Neutrophils # 10.5 H (1.3-7.7) k/uL Lymphocytes # 0.3 L (1.0-4.8) k/uL APTT 46.6 H (22.0-30.0) sec Sodium 136 L (137-145) mmol/L Carbon Dioxide 20 L (22-30) mmol/L BUN 35 H (9-20) mg/dL Glucose 126 H (74-99) mg/dL POC Glucose (mg/dL) (70-110) mg/dL Troponin I (0.000-0.034) ng/mL C-Reactive Protein (<1.0) mg/dL Total Protein 6.2 L (6.3-8.2) g/dL Albumin 3.3 L (3.5-5.0) g/dL Lipase 18 L (23-300) U/L 08/09/23 08/09/23 08/09/23 Range/Units 19:00 19:00 21:45 WBC (3.8-10.6) k/uL Plt Count (150-450) k/uL Neutrophils # (1.3-7.7) k/uL Lymphocytes # (1.0-4.8) k/uL APTT (22.0-30.0) sec Sodium (137-145) mmol/L Carbon Dioxide (22-30) mmol/L BUN (9-20) mg/dL Glucose (74-99) mg/dL POC Glucose (mg/dL) 126 H (70-110) mg/dL Troponin I 0.070 H* (0.000-0.034) ng/mL C-Reactive Protein 42.3 H (<1.0) mg/dL Total Protein (6.3-8.2) g/dL Albumin (3.5-5.0) g/dL Lipase (23-300) U/L 08/09/23 08/10/23 08/10/23 Range/Units 22:56 02:41 02:41 WBC (3.8-10.6) k/uL Plt Count (150-450) k/uL Neutrophils # (1.3-7.7) k/uL Lymphocytes # (1.0-4.8) k/uL APTT 40.9 H (22.0-30.0) sec Sodium (137-145) mmol/L Carbon Dioxide (22-30) mmol/L BUN (9-20) mg/dL Glucose (74-99) mg/dL POC Glucose (mg/dL) (70-110) mg/dL Troponin I 0.076 H* 0.078 H* (0.000-0.034) ng/mL C-Reactive Protein (<1.0) mg/dL Total Protein (6.3-8.2) g/dL Albumin (3.5-5.0) g/dL Lipase (23-300) U/L 08/10/23 08/10/23 Range/Units 02:41 06:16 WBC 10.8 H (3.8-10.6) k/uL Plt Count 105 L (150-450) k/uL Neutrophils # (1.3-7.7) k/uL Lymphocytes # (1.0-4.8) k/uL APTT (22.0-30.0) sec Sodium (137-145) mmol/L Carbon Dioxide (22-30) mmol/L BUN (9-20) mg/dL Glucose (74-99) mg/dL POC Glucose (mg/dL) 142 H (70-110) mg/dL Troponin I (0.000-0.034) ng/mL C-Reactive Protein (<1.0) mg/dL Total Protein (6.3-8.2) g/dL Albumin (3.5-5.0) g/dL Lipase (23-300) U/L
--- NOTE | 2023-08-10 15:31 | P.PN ---
Progress Note - Text Progress Note Date: 08/10/23
[2023-08-10] MEDS ORDERED: GABAPENTIN 100 MG CAP PO PRN (15:34)
[2023-08-10] MEDS: SODIUM CHLORIDE 0.9% 1,000 ML in EMPTY BAG 1 BAG IV SCH ×2 (16:07→21:26)
[2023-08-10 17:42] LABS: Glucose,Whole Blood 307 mg/dL (70-110)
[2023-08-10] MEDS ORDERED: DEXTROSE 50% SYRINGE 50 ML IVP PRN ×2 (17:46)
--- NOTE | 2023-08-10 17:55 | P.CRDCN ---
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 He was transferred from another facility to this hospital for further evaluation of shortness of breath and chest discomfort and he underwent a workup at [facility] including troponin came in to be abnormal and for that reason the patient was referred. He was seen at bedside in the emergency department where he was having ongoing chest discomfort. The troponin was mildly elevated. The EKG showed LBBB. He was also experiencing shortness of breath and he was hypoxic. He was given Lasix and some morphine as well and his pressure dropped down. The patient was started on some norepinephrine with improvement in the blood pressure. Beside that the risks of the blood work beside troponin came in to be unremarkable. Further investigation was performed including an echo which revealed normal biventricular dimension and systolic function and no significant valvular abnormalities. Because he continues to have ongoing chest discomfort h e underwent a heart catheterization and that revealed normal coronaries with normal left-sided filling pressure. He was seen by the pulmonary/critical care service and he was diagnosed with acute hypoxic respiratory failure. He also might have a component of sepsis. He underwent urinary analysis and that showed what it seems to be possible UTI. The examination is remarkable for diminished breathing sounds bilaterally with regular rate and rhythm and distant heart sounds and mild bilateral lower extremity edema Assessment Acute hypoxic respiratory failure UTI/sepsis Hypotension requiring norepinephrine Elevated temperature/febrile illness Multiple comorbid conditions Evidence of myocardial injury History of lower extremities PAD Permanent pacemaker Multiple comorbid conditions Plan The echo revealed normal biventricular dimension and systolic function Continue supporting the blood pressure The heart catheterization showed normal coronaries was normal left-sided filling pressure Follow-up with the patient Past Medical History Past Medical History: Atrial Fibrillation, Atrial Flutter, Chest Pain / Angina, COPD, Diabetes Mellitus, Eye Disorder, Hyperlipidemia, Hypertension, Myocardial Infarction (CA), Neurologic Disorder, Prostate Disorder, Sleep Apnea/CPAP/BIPAP, Syncope Additional Past Medical History / Comment(s): Has medication for both low and high blood pressure. Diabetic Neuropathy, macular degeneration Last Myocardial Infarction Date:: unknown History of Any Multi-Drug Resistant Organisms: None Reported Past Surgical History: Heart Catheterization, Joint Replacement, Pacemaker, Prostate Surgery Additional Past Surgical History / Comment(s): stent in lower extremity, prostate removal, with urinary control system 2019. total right knee replacement Past Anesthesia/Blood Transfusion Reactions: No Reported Reaction Type of Cardiac Device: Permanent Pacemaker Device Placement Date:: aug 2021 Past Psychological History: Anxiety Smoking Status: Former smoker Past Alcohol Use History: Daily Past Drug Use History: None Reported - Past Family History Father Family Medical History: Diabetes Mellitus Medications and Allergies Home Medications Medication Instructions Recorded Confirmed Type Cholecalciferol [Vitamin D3 (25 25 mcg PO DAILY 08/09/23 08/09/23 History Mcg = 1000 Iu)] Clopidogrel [Plavix] 75 mg PO DAILY 08/09/23 08/09/23 History Cyclobenzaprine [Flexeril] 10 mg PO TID PRN 08/09/23 08/09/23 History Empagliflozin [Jardiance] 25 mg PO DAILY 08/09/23 08/09/23 History Gabapentin [Neurontin] 100 mg PO TID PRN 08/09/23 08/10/23 History HYDROcodone/APAP 7.5-325MG [[place] 1 tab PO Q6H PRN 08/09/23 08/09/23 History 7.5-325] Insulin Glargine,Hum.rec.anlog 15 units SQ DAILY 08/09/23 08/09/23 History [Lantus Solostar Pen] Insulin Lispro [humaLOG Kwikpen] 8 - 10 unit SQ AC-TID MDD 30 units 08/09/23 08/09/23 History Meloxicam [Mobic] 15 mg PO DAILY PRN 08/09/23 08/09/23 History Midodrine [ProAmatine] 5 mg PO TID 08/09/23 08/09/23 History Nystatin 100,000Unit/gm Cream 1 applic TOPICAL BID 08/09/23 08/09/23 History [Mycostatin Cream] Propranolol HCl 80 mg PO DAILY 08/09/23 08/09/23 History Rosuvastatin [Crestor] 20 mg PO HS 08/09/23 08/09/23 History Triamcinolone 0.025% Cream 1 applic TOPICAL BID 08/09/23 08/09/23 History [Kenalog 0.025% Cream] Vit C/E/Zn/Coppr/Lutein/Zeaxan 1 cap PO BID 08/09/23 08/09/23 History [Preservision Areds 2 Softgel] metFORMIN HCL ER [Glucophage XR] 1,000 mg PO BID 08/09/23 08/09/23 History Allergies Allergy/AdvReac Type Severity Reaction Status Date / Time No Known Allergies Allergy Verified 08/09/23 22:15 Physical Exam Vitals: Vital Signs Temp Pulse Pulse Resp BP Pulse Ox 08/10/23 17:00 87 17 94/63 08/10/23 16:45 112 H 23 102/64 93 L 08/10/23 16:30 92 22 118/67 08/10/23 16:15 92 20 08/10/23 16:00 96 25 H 127/86 98 08/10/23 15:45 98 18 120/81 08/10/23 15:30 97.8 F 104 H 18 116/83 96 08/10/23 14:00 98 F 115 H 22 126/76 96 08/10/23 13:36 110 H 22 95/66 97 08/10/23 13:18 103 H 20 96/69 98 08/10/23 13:03 101 H 20 87/58 97 08/10/23 12:41 87 20 72/46 96 08/10/23 12:22 80 22 89/59 93 L 08/10/23 11:10 86 18 91/61 95 08/10/23 11:02 62/47 08/10/23 10:32 98.7 F 91 18 97/52 94 L 08/10/23 10:21 117 H 18 110/91 95 08/10/23 09:05 109 H 22 129/105 93 L 08/10/23 08:56 106 H 22 138/81 92 L 08/10/23 08:20 116 H 18 136/63 91 L 08/10/23 08:16 99 18 91 L 08/10/23 07:55 102.7 F H 114 H 18 148/83 94 L 08/10/23 05:21 102 H 18 153/63 90 L 08/10/23 01:00 78 20 115/67 08/10/23 00:00 101 H 21 147/78 08/09/23 23:00 98 19 149/84 91 L 08/09/23 22:00 98 18 128/66 92 L 08/09/23 21:00 89 19 132/69 91 L 08/09/23 20:55 93 19 132/69 08/09/23 20:53 97 18 132/69 96 08/09/23 20:00 92 18 154/78 08/09/23 19:00 85 16 147/75 94 L 08/09/23 18:11 88 08/09/23 18:08 89 19 08/09/23 18:00 98.2 F 89 18 126/80 92 L Intake and Output 08/10/23 08/10/23 08/10/23 06:59 14:59 22:59 Intake Total 99.333 144.916 289.6 Output Total 500 Balance 99.333 144.916 -210.4 Intake: IV 30 Intake, IV Titration 99.333 114.916 169.6 Amount Heparin Sod,Pork in 0.45% 99.333 105.116 NaCl 25,000 unit In 0.45 % NaCl 1 250ml.bag @ 11. 603 UNITS/KG/HR 10 mls/hr IV .Q24H [facility] Rx#: [id number] Norepinephrine 4 mg In 9.8 19.6 Sodium Chloride 0.9% 250 ml @ 0.03 MCG/KG/MIN 9. 851 mls/hr IV .Q24H [facility] Rx#:[id number] Sodium Chloride 0.9% 1, 150 000 ml @ 75 mls/hr IV . [id number] [facility] Rx#:[id number] Oral 120 Output: Urine 500 Other: Weight 86.183 kg Results 08/10/23 02:41 08/09/23 19:00 Cardiac Enzymes 08/09/23 08/09/23 08/09/23 Range/Units 19:00 19:00 22:56 AST 33 (17-59) U/L Troponin I 0.070 H* 0.076 H* (0.000-0.034) ng/mL 08/10/23 08/10/23 Range/Units 02:41 07:57 AST (17-59) U/L Troponin I 0.078 H* 0.108 H* (0.000-0.034) ng/mL Coagulation 08/09/23 08/10/23 08/10/23 Range/Units 19:00 02:41 10:50 PT 10.0 (10.0-12.5) sec APTT 46.6 H 40.9 H 57.5 H (22.0-30.0) sec Lipids 08/10/23 Range/Units 02:41 Triglycerides 228.00 H (0.00-149.00) mg/dL Cholesterol 100.00 (0.00-200.00) mg/dL HDL Cholesterol 29.90 L (40.00-60.00) mg/dL Cholesterol/HDL Ratio 3.34 Ratio CBC 08/09/23 08/10/23 Range/Units 19:00 02:41 WBC 11.4 H 10.8 H (3.8-10.6) k/uL RBC 4.37 4.71 (4.30-5.90) m/uL Hgb 13.6 14.4 (13.0-17.5) gm/dL Hct 41.1 45.3 (39.0-53.0) % Plt Count 112 L 105 L (150-450) k/uL Comprehensive Metabolic Panel 08/09/23 Range/Units 19:00 Sodium 136 L (137-145) mmol/L Potassium 4.2 (3.5-5.1) mmol/L Chloride 105 (98-107) mmol/L Carbon Dioxide 20 L (22-30) mmol/L BUN 35 H (9-20) mg/dL Creatinine 1.01 (0.66-1.25) mg/dL Glucose 126 H (74-99) mg/dL Calcium 8.4 (8.4-10.2) mg/dL AST 33 (17-59) U/L ALT 19 (4-49) U/L Alkaline Phosphatase 84 (38-126) U/L Total Protein 6.2 L (6.3-8.2) g/dL Albumin 3.3 L (3.5-5.0) g/dL Current Medications Generic Name Dose Route Start Last Admin Trade Name Freq PRN Reason Stop Dose Admin Acetaminophen 650 mg 08/10/23 07:58 08/10/23 09:00 Acetaminophen Tab 325 Mg Tab PO 650 mg Q6HR PRN Administration Mild Pain or Fever > 100.5 Alprazolam 0.25 mg 08/10/23 13:55 Alprazolam 0.25 Mg Tab PO Q6HR PRN Mild Anxiety Alprazolam 0.5 mg 08/10/23 13:55 Alprazolam 0.5 Mg Tab PO Q6HR PRN Moderate Anxiety Aspirin 81 mg 08/10/23 09:00 08/10/23 10:07 Aspirin 81 Mg PO 81 mg DAILY YESSICA Administration Atorvastatin Calcium 80 mg 08/09/23 23:45 08/09/23 23:57 Atorvastatin 80 Mg Tab PO 80 mg HS YESSICA Administration Clopidogrel Bisulfate 75 mg 08/10/23 09:00 08/10/23 10:07 Clopidogrel 75 Mg Tab PO 75 mg DAILY YESSICA Administration Dextrose/Water 25 ml 08/10/23 17:46 Dextrose 50% Syringe 50 Ml IVP PER PROTOCOL PRN Hypoglycemia Protocol Dextrose/Water 50 ml 08/10/23 17:46 Dextrose 50% Syringe 50 Ml IVP PER PROTOCOL PRN Hypoglycemia Protocol Gabapentin 100 mg 08/10/23 15:34 Gabapentin 100 Mg Cap PO TID PRN Pain Heparin Sodium (Porcine) 0 unit 08/10/23 05:34 08/10/23 05:36 Heparin Sodium 1,000 Un/Ml (10ml Vl) IV 2,154 unit PER PROTOCOL PRN Administration Low PTT Protocol Heparin Sodium/Sodium Chloride 250 mls @ 10 mls/hr 08/09/23 19:30 08/10/23 14:26 25,000 unit/ Sodium Chloride IV 0 units/kg/hr .Q24H [facility] 0 mls/hr Titration Protocol 11.603 UNITS/KG/HR Azithromycin 500 mg/ Sodium 250 mls @ 250 mls/hr 08/10/23 09:30 08/10/23 0 9:54 Chloride IVPB 08/12/23 09:59 250 mls/hr DAILY YESSICA Administration Ceftriaxone Sodium 2 gm/ 50 mls @ 100 mls/hr 08/10/23 09:30 08/10/23 10:06 Sodium Chloride IVPB 100 mls/hr Q24HR [facility]ESS[facility] Administration Norepinephrine Bitartrate 4 mg 254 mls @ 9.851 mls/hr 08/10/23 12:45 08/10/23 13:01 / Sodium Chloride IV 0.03 mcg/kg/min .Q24H [facility] 9.851 mls/hr Administration Protocol 0.03 MCG/KG/MIN Heparin Sodium (Porcine) 10, 1,001 mls @ 999 mls/hr 08/11/23 07:00 000 unit/ Sodium Chloride IRRIGATION 08/11/23 23:00 ONCE PRN INTRA-OP Heparin Sodium (Porcine) 2,500 250.5 mls @ 250 mls/hr 08/11/23 07:00 unit/ Sodium Chloride IRRIGATION 08/11/23 23:00 ONCE PRN INTRA-OP Sodium Chloride 1,000 ml/ IV 1,000 mls @ 86.183 mls/hr 08/10/23 14:00 08/10/23 16:07 Solution IV Not Given .[id number] YESSICA 1 ML/KG/HR Sodium Chloride 1,000 mls @ 75 mls/hr 08/10/23 15:30 Saline 0.9% IV 08/10/23 20:31 .[id number] [facility] Insulin Aspart 0 unit 08/10/23 17:49 Insulin Aspart (Novolog) 100 Unit/Ml Vial SQ ACHS [facility] Protocol Miscellaneous Information 1 each 08/10/23 15:22 Rx Info: Iv Contrast Was Given 1 Each Misc MISCELLANE 08/12/23 15:22 DAILY PRN Per Protocol Morphine Sulfate 4 mg 08/09/23 19:09 08/10/23 16:09 Morphine Sulfate 4 Mg/Ml Syringe IV 4 mg Q4HR PRN Administration Chest Pain Nitroglycerin 0.4 mg 08/09/23 19:09 08/10/23 07:52 Nitroglycerin Sl Tabs 0.4 Mg Tab SUBLINGUAL 0.4 mg Q5M PRN Administration Chest Pain Nitroglycerin 0.4 mg 08/10/23 13:55 Nitroglycerin Sl Tabs 0.4 Mg Tab SUBLINGUAL Q5M PRN Chest Pain Propranolol HCl 80 mg 08/10/23 09:00 08/10/23 10:17 Propranolol 40 Mg Tab PO 80 mg DAILY YESSICA Administration Intake and Output 08/10/23 08/10/23 08/10/23 06:59 14:59 22:59 Intake Total 99.333 144.916 289.6 Output Total 500 Balance 99.333 144.916 -210.4 Intake: IV 30 Intake, IV Titration 99.333 114.916 169.6 Amount Heparin Sod,Pork in 0.45% 99.333 105.116 NaCl 25,000 unit In 0.45 % NaCl 1 250ml.bag @ 11. 603 UNITS/KG/HR 10 mls/hr IV .Q24H [facility] Rx#: [id number] Norepinephrine 4 mg In 9.8 19.6 Sodium Chloride 0.9% 250 ml @ 0.03 MCG/KG/MIN 9. 851 mls/hr IV .Q24H [facility] Rx#:[id number] Sodium Chloride 0.9% 1, 150 000 ml @ 75 mls/hr IV . [id number] [facility] Rx#:[id number] Oral 120 Output: Urine 500 Other: Weight 86.183 kg Patient Weight 08/11/23 06:59 Weight 86.183 kg 08/10/23 02:41 08/09/23 19:00
[2023-08-10] MEDS: INSULIN ASPART (NovoLOG) 100 UNIT/ML VIAL SQ SCH ×3 (17:58→20:05)
--- NOTE | 2023-08-10 18:16 | P.PCN ---
Date of Procedure: 08/10/23 Operative Findings: CARDIAC CATHETERIZATION PERFORMING PHYSICIAN: Babatunde Copeland MD, RPVI PROCEDURE PERFORMED: 1. Selective right and left coronary angiogram 2. Left heart catheterization 3. 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 Local anesthesia was performed using lidocaine subcutaneously. The right radial artery was cannulated using Seldinger technique, the guidewire passed easily, following that we advanced a 5-Polish sheath dilator assembly, the wire and dilator were removed and sheath was flushed. Selective right and left coronary angiogram using a 6-Polish JR4 and JL 3.5 catheters. Following that we did left heart catheterization using 6-Polish pigtail catheter. The procedure was completed there was no complication. SELECTIVE CORONARY ANGIOGRAM: The right coronary artery: Large-caliber vessel and a dominant vessel and appeared to be angiographically normal Left main: Is angiographically normal. Bifurcates into an LCx and LAD The left circumflex: Large caliber vessel nondominant vessel. Its angiographically normal. Gives rises into multiple obtuse marginal branches all appear to be normal The left anterior descending artery: The proximal LAD has mild disease only. The mid and distal LAD are normal HEMODYNAMICS: The LVEDP was 10 mmHg to 12 mmHg was no significant gradient across aortic valve CONCLUSION: 1. Mild CAD 2. Normal left-sided filling pressure POSTPROCEDURE MANAGEMENT: Medical treatment
[2023-08-10] MEDS: HEPARIN SOD,PORK IN 0.45% NACL 25,000 UNIT in 0.45% NACL 1 250ML.BAG IV SCH (18:40)
[2023-08-10 19:47] LABS: Glucose,Whole Blood 258 mg/dL (70-110)
[2023-08-10] MEDS: ATORVASTATIN 80 MG TAB PO SCH (20:04)
[2023-08-10] MEDS: VIT A,C & E-LUTEIN-MINERALS 1 EACH TAB PO SCH (20:04)
[2023-08-10] MEDS: INSULIN DETEMIR (LEVEMIR) 100 UNIT/ML SYR SQ SCH (20:29)
[2023-08-10] MEDS: ALPRAZolam 0.5 MG TAB PO PRN (21:56)
[2023-08-11] MEDS ORDERED: VANCOMYCIN IV PER PHARMACY 1 EACH MISC MISCELLANE PRN
[2023-08-11] MEDS ORDERED: VANCOMYCIN 1,750 MG in SODIUM CHLORIDE 0.9% 500 ML 500 ML IVPB ONE (01:00)
[2023-08-11 03:47] LABS: HCT 45.9 % (39.0-53.0); HGB 14.6 gm/dL (13.0-17.5); MCH 30.5 pg (25.0-35.0); MCHC 31.9 g/dL (31.0-37.0); MCV 95.5 fL (80.0-100.0); RBC 4.81 m/uL (4.30-5.90); RDW 14.3 % (11.5-15.5); WBC 7.3 k/uL (3.8-10.6)
[2023-08-11 04:01] LABS: African American GFR (CKD) 68 (>60 ml/min/1.73 sqM); Anion Gap 14 mmol/L; Blood Urea Nitrogen 48 mg/dL (9-20); Calcium 7.9 mg/dL (8.4-10.2); Carbon Dioxide 17 mmol/L (22-30); Chloride 107 mmol/L (98-107); Glucose 137 mg/dL (74-99); Non-African American GFR(CKD) 59 (>60 ml/min/1.73 sqM); Potassium 3.4 mmol/L (3.5-5.1); Sodium 138 mmol/L (137-145)
[2023-08-11 04:10] LABS: Band Neutrophils % 69 %; Lymphocytes # (M) 0.22 k/uL (1.0-4.8); Monocytes # (M) 0.07 k/uL (0-1.0); Neutrophils % (M) 27 %; Nucleated Red Blood Cells 0 /100 WBC (0-0); Total Cells Counted 200
[2023-08-11 04:11] LABS: Platelet Count 62 k/uL (150-450)
[2023-08-11] MEDS: POTASSIUM CHLORIDE ER 20 MEQ TAB.ER PO SCH ×2 (04:50→06:21)
[2023-08-11] MEDS: DILTIAZEM 125 MG in SODIUM CHLORIDE 0.9% 100 ML IV SCH ×2 (06:21→19:01)
[2023-08-11 06:31] LABS: Glucose,Whole Blood 122 mg/dL (70-110)
[2023-08-11] MEDS: INSULIN ASPART (NovoLOG) 100 UNIT/ML VIAL SQ SCH ×7 (06:33→20:02)
[2023-08-11] MEDS ORDERED: HEPARIN SODIUM,PORCINE 10,000 UNIT in SODIUM CHLORIDE 0.9% 1,000 ML IRRIGATION PRN (07:00)
[2023-08-11] MEDS ORDERED: HEPARIN SODIUM,PORCINE (1 ML) 2,500 UNIT in SODIUM CHLORIDE 0.9% 250 ML IRRIGATION PRN (07:00)
[2023-08-11] MEDS ORDERED: NON FORMULARY DRUG (Insulin Lispro [Humalog Kwikpen] 100 UNIT/ML Insuln.Pen) SQ SCH (07:30)
--- NOTE | 2023-08-11 08:24 | P.PN ---
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 He was transferred from another facility to this hospital for further evaluation of shortness of breath and chest discomfort and he underwent a workup at [facility] including troponin came in to be abnormal and for that reason the patient was referred. He was seen at bedside in the emergency department where he was having ongoing chest discomfort. The troponin was mildly elevated. The EKG showed LBBB. He was also experiencing shortness of breath and he was hypoxic. He was given Lasix and some morphine as well and his pressure dropped down. The patient was started on some norepinephrine with improvement in the blood pressure. Beside that the risks of the blood work beside troponin came in to be unremarkable. Further investigation was performed including an echo which revealed normal biventricular dimension and systolic function and no significant valvular abnormalities. Because he continues to have ongoing chest discomfort he underwent a heart catheterization and that revealed normal coronaries with normal left-sided filling pressure. He was seen by the pulmonary/critical care service and he was diagnosed with acute hypoxic respiratory failure. He also might have a component of sepsis. He underwent urinary analysis and that showed what it seems to be possible UTI. The examination is remarkable for diminished breathing sounds bilaterally with regular rate and rhythm and distant heart sounds and mild bilateral lower extremity edema 08/11/2023 The patient was seen and evaluated this morning. He is feeling better. The chest discomfort has resolved. He seems to be in atrial fibrillation on the monitor and I'm going to perform a 12 please EKG to confirm that. Meanwhile he is on Cardizem IV which I'm going to wean him from and start him on beta twin was Toprol tartrate. Also he will be started on oral anticoagulation. He is getting treated for possible sepsis as well. Hemodynamically he is stable and not on any vasopressors at this point. The echo revealed normal LV systolic function was no significant valvular abnormalities. The examination is r emarkable for regular rhythm with distant heart sounds and clear breathing sounds bilaterally and no lower extremity edema noted Assessment Acute hypoxic respiratory failure UTI/sepsis Atrial fibrillation Permanent pacemaker Multiple comorbid conditions Plan Try to wean the patient from Cardizem Start the patient on oral beta twin with metoprolol Start the patient on oral anticoagulation Performed 12 please EKG Follow-up with the patient Objective - Vital Signs Vital signs: Vital Signs Temp 97.6 F 08/11/23 04:00 Pulse 115 H 08/11/23 06:30 Resp 32 H 08/11/23 06:30 BP 119/72 08/11/23 06:30 Pulse Ox 95 08/11/23 06:30 FiO2 Intake & Output 08/10/23 08/11/23 08/11/23 18:59 06:59 18:59 Intake Total 679.920 817.000 Output Total 500 1200 Balance 179.920 -383.000 Weight 86.183 kg 88.4 kg Intake: IV 30 540 0.9 @ KVO 40 Vancomycin 1,750 mg In 500 Sodium Chloride 0.9% 500 ml 500 ml @ 167 mls/hr IVPB ONCE ONE Rx#: [id number] Intake, IV Titration 409.920 277.000 Amount Heparin Sod,Pork in 0.45% 105.116 NaCl 25,000 unit In 0.45 % NaCl 1 250ml.bag @ 11. 603 UNITS/KG/HR 10 mls/hr IV .Q24H [facility] Rx#: [id number] Norepinephrine 4 mg In 79.804 22.000 Sodium Chloride 0.9% 250 ml @ 0.03 MCG/KG/MIN 9. 851 mls/hr IV .Q24H [facility] Rx#:[id number] Sodium Chloride 0.9% 1, 225 255 000 ml @ 75 mls/hr IV . [id number] [facility] Rx#:[id number] Oral 240 Output: Urine 500 1200 Other: Voiding Method Urinal - Labs CBC & Chem 7: 08/11/23 03:00 08/11/23 03:00 Labs: Abnormal Lab Results - Last 24 Hours (Table) 08/10/23 08/10/23 08/10/23 Range/Units 02:41 02:41 02:58 Plt Count (150-450) k/uL Lymphocytes # (Manual) (1.0-4.8) k/uL ESR 63 H (0-20) mm/Hr APTT (22.0-30.0) sec Potassium (3.5-5.1) mmol/L Carbon Dioxide (22-30) mmol/L BUN (9-20) mg/dL Glucose (74-99) mg/dL POC Glucose (mg/dL) (70-110) mg/dL Plasma Lactic Acid Boy (0.7-2.0) mmol/L Calcium (8.4-10.2) mg/dL Troponin I (0.000-0.034) ng/mL Triglycerides 228.00 H (0.00-149.00) mg/dL VLDL Cholesterol, Calc 45.60 H (5.00-40.00) mg/dL HDL Cholesterol 29.90 L (40.00-60.00) mg/dL Procalcitonin 30.40 H (0.02-0.09) ng/mL Urine Protein (Negative) Urine Glucose (UA) (Negative) Urine Ketones (Negative) Urine Blood (Negative) Urine RBC (0-5) /hpf Urine Mucus (None) /hpf 08/10/23 08/10/23 08/10/23 Range/Units 07:57 08:20 10:20 Plt Count (150-450) k/uL Lymphocytes # (Manual) (1.0-4.8) k/uL ESR (0-20) mm/Hr APTT (22.0-30.0) sec Potassium (3.5-5.1) mmol/L Carbon Dioxide (22-30) mmol/L BUN (9-20) mg/dL Glucose (74-99) mg/dL POC Glucose (mg/dL) (70-110) mg/dL Plasma Lactic Acid Boy 2.1 H* (0.7-2.0) mmol/L Calcium (8.4-10.2) mg/dL Troponin I 0.108 H* (0.000-0.034) ng/mL Triglycerides (0.00-149.00) mg/dL VLDL Cholesterol, Calc (5.00-40.00) mg/dL HDL Cholesterol (40.00-60.00) mg/dL Procalcitonin (0.02-0.09) ng/mL Urine Protein 2+ H (Negative) Urine Glucose (UA) 4+ H (Negative) Urine Ketones 2+ H (Negative) Urine Blood Moderate H (Negative) Urine RBC 11 H (0-5) /hpf Urine Mucus Rare H (None) /hpf 08/10/23 08/10/23 08/10/23 Range/Units 10:50 14:03 17:41 Plt Count (150-450) k/uL Lymphocytes # (Manual) (1.0-4.8) k/uL ESR (0-20) mm/Hr APTT 57.5 H (22.0-30.0) sec Potassium (3.5-5.1) mmol/L Carbon Dioxide (22-30) mmol/L BUN (9-20) mg/dL Glucose (74-99) mg/dL POC Glucose (mg/dL) 276 H 307 H (70-110) mg/dL Plasma Lactic Acid Boy (0.7-2.0) mmol/L Calcium (8.4-10.2) mg/dL Troponin I (0.000-0.034) ng/mL Triglycerides (0.00-149.00) mg/dL VLDL Cholesterol, Calc (5.00-40.00) mg/dL HDL Cholesterol (40.00-60.00) mg/dL Procalcitonin (0.02-0.09) ng/mL Urine Protein (Negative) Urine Glucose (UA) (Negative) Urine Ketones (Negative) Urine Blood (Negative) Urine RBC (0-5) /hpf Urine Mucus (None) /hpf 08/10/23 08/11/23 08/11/23 Range/Units 19:46 03:00 03:00 Plt Count 62 L (150-450) k/uL Lymphocytes # (Manual) 0.22 L (1.0-4.8) k/uL ESR (0-20) mm/Hr APTT (22.0-30.0) sec Potassium 3.4 L (3.5-5.1) mmol/L Carbon Dioxide 17 L (22-30) mmol/L BUN 48 H (9-20) mg/dL Glucose 137 H (74-99) mg/dL POC Glucose (mg/dL) 258 H (70-110) mg/dL Plasma Lactic Acid Boy (0.7-2.0) mmol/L Calcium 7.9 L (8.4-10.2) mg/dL Troponin I (0.000-0.034) ng/mL Triglycerides (0.00-149.00) mg/dL VLDL Cholesterol, Calc (5.00-40.00) mg/dL HDL Cholesterol (40.00-60.00) mg/dL Procalcitonin (0.02-0.09) ng/mL Urine Protein (Negative) Urine Glucose (UA) (Negative) Urine Ketones (Negative) Urine Blood (Negative) Urine RBC (0-5) /hpf Urine Mucus (None) /hpf 08/11/23 Range/Units 06:29 Plt Count (150-450) k/uL Lymphocytes # (Manual) (1.0-4.8) k/uL ESR (0-20) mm/Hr APTT (22.0-30.0) sec Potassium (3.5-5.1) mmol/L Carbon Dioxide (22-30) mmol/L BUN (9-20) mg/dL Glucose (74-99) mg/dL POC Glucose (mg/dL) 122 H (70-110) mg/dL Plasma Lactic Acid Boy (0.7-2.0) mmol/L Calcium (8.4-10.2) mg/dL Troponin I (0.000-0.034) ng/mL Triglycerides (0.00-149.00) mg/dL VLDL Cholesterol, Calc (5.00-40.00) mg/dL HDL Cholesterol (40.00-60.00) mg/dL Procalcitonin (0.02-0.09) ng/mL Urine Protein (Negative) Urine Glucose (UA) (Negative) Urine Ketones (Negative) Urine Blood (Negative) Urine RBC (0-5) /hpf Urine Mucus (None) /hpf Microbiology - Last 24 Hours (Table) 08/10/23 08:10 Blood Culture Gram Stain - Preliminary Blood Blood Culture - Preliminary Presumptive Staph aureus 08/10/23 07:55 Blood Culture Gram Stain - Preliminary Blood
--- NOTE | 2023-08-11 09:29 | XR ---
EXAMINATION TYPE: XR chest 1V portable DATE OF EXAM: 08/11/2023 HISTORY: Shortness of breath. COMPARISON: 08/09/2023 TECHNIQUE: Single view of the chest is submitted. FINDINGS: Demonstrated are scattered senescent parenchymal change. There is no evidence for focal infiltrate. Left basilar atelectasis noted. The heart is stable. Hilar and mediastinal structures are within normal limits. Degenerative changes are seen of the dorsal spine. IMPRESSION: 1. Chronic changes without evidence for acute pulmonary disease.
[2023-08-11] MEDS: PROPRANOLOL 40 MG TAB PO SCH (09:53)
[2023-08-11] MEDS: VIT A,C & E-LUTEIN-MINERALS 1 EACH TAB PO SCH ×2 (09:53→20:03)
[2023-08-11] MEDS: APIXABAN 5 MG TAB PO SCH ×2 (09:53→20:03)
[2023-08-11] MEDS: CLOPIDOGREL 75 MG TAB PO SCH (09:53)
[2023-08-11] MEDS: ASPIRIN 81 MG PO SCH (09:53)
[2023-08-11] MEDS: AZITHROMYCIN 500 MG in SODIUM CHLORIDE 0.9% 250 ML IVPB SCH (09:53)
[2023-08-11] MEDS: METOPROLOL TARTRATE 25 MG TAB PO SCH ×2 (11:15→20:03)
--- NOTE | 2023-08-11 11:53 | P.PN ---
Subjective Progress Note Date: 08/11/23 Principal diagnosis: Acute hypoxic respiratory failure, acute gram-positive sepsis, new onset atrial fibrillation with RVR This is a pleasant 73-year-old male patient with a known history of diabetes mellitus, hypertension, hyperlipidemia, atrial fibrillation, left bundle branch block, post permanent pacemaker insertion 2 years ago in [place], peripheral vascular disease with stenting to the lower extremities, former smoker however quit 20 oh. 4 days ago the patient had complaints of significant low back pain and weakness and was seen in [facility] treated and discharged home. He represented there again yesterday with low back pain and was found to have el evated troponin levels and subsequently transferred to our emergency department. EKG reveals a ventricular paced rhythm. CT angiogram revealed no evidence of pulmonary embolism. There is moderate emphysematous changes throughout the lung jaquez but otherwise clear. Labs revealed a troponin of 0.076, 0.108. ProBNP 5990. Pro-calcitonin 38.40. Urinalysis with moderate blood and 4+ glucose, 2+ ketones. Influenza screen negative. RSV screen negative. COVID-19 screen negative. White count 10.8. Hemoglobin 14.4. Platelets 105. Sodium 136. Potassium 4.2. Bicarb 20. BUN 35. Creatinine 1.01. Glucose 126. He is seen today in consultation in the emergency department. He's currently sitting up in a stretcher. Awake and alert. He denies any chest pain currently. She denies any worsening shortness of breath however he is requiring 15 L per nonrebreather mask to maintain O2 saturations in the 90s. He was down to 82% at one point. Current O2 saturation 97%. He is febrile with temperature of 102.7. He is clammy. He's been initiated on a heparin drip and. Initiated on ceftriaxone and azithromycin. Echocardiogram is pending. Patient was reevaluated today on 08/11/23, remains in the ICU. Patient underwent cardiac catheterization yesterday and he was found to have normal coronaries, normal left ventricular end-diastolic pressures which basically rules out congestive heart failure patient was also found to have normal LV function according to Dr. Saleh, however after looking at the echocardiogram which was read by Dr. Vivas, he estimated his ejection fraction of 35-40%, and Dr. Saleh is going to reevaluate that echocardiogram and let us know if the report these to be modified. At any rate since yesterday the patient was found to have gram-positive bacteremia, presumptive staph aureus in the blood, and the patient is now on vancomycin empirically. In the meantime it is necessary to know the primary site of this infection, looking back at the clinical history, patient presented with severe acute onset back pain, which makes me concerned about the possibility of discitis causing his back pain/relatively new onset patient did have history of chronic back pain but this pain that he presented with was hyperacute and debilitating not to mention the patient came in with significantly elevated pro calcitonin level, and mild leukocytosis. His sed rate was 63 on admission. Hence I'm recommending CT of the lumbosacral spine, multiple recommending infectious disease consultation, and will continue to monitor her blood cultures in the meantime. Chest x-ray this morning showed chronic changes but no acute evidence of any active pulmonary disease and no evidence of congestive heart failure. Patient is now on Cardizem for atrial fibrillation with RVR but again no evidence of congestive heart failure. Asking the about his smoking history patient did have remote smoking history and at one point he did have inhalers for underlying COPD severity of which is not clear. Objective - Vital Signs Vital signs: Vital Signs Temp 102.0 F H 08/11/23 08:00 Pulse 85 08/11/23 11:00 Resp 12 08/11/23 11:00 BP 97/70 08/11/23 11:00 Pulse Ox 94 L 08/11/23 11:00 FiO2 Intake & Output 08/10/23 08/11/23 08/11/23 18:59 06:59 18:59 Intake Total 679.920 817.000 20 Output Total 500 1200 300 Balance 179.920 -383.000 -280 Weight 86.183 kg 88.4 kg Intake: IV 30 540 20 0.9 @ KVO 40 20 Vancomycin 1,750 mg In 500 Sodium Chloride 0.9% 500 ml 500 ml @ 167 mls/hr IVPB ONCE ONE Rx#: [id number] Intake, IV Titration 409.920 277.000 Amount Heparin Sod,Pork in 0.45% 105.116 NaCl 25,000 unit In 0.45 % NaCl 1 250ml.bag @ 11. 603 UNITS/KG/HR 10 mls/hr IV .Q24H [facility] Rx#: [id number] Norepinephrine 4 mg In 79.804 22.000 Sodium Chloride 0.9% 250 ml @ 0.03 MCG/KG/MIN 9. 851 mls/hr IV .Q24H [facility] Rx#:[id number] Sodium Chloride 0.9% 1, 225 255 000 ml @ 75 mls/hr IV . [id number] [facility] Rx#:[id number] Oral 240 Output: Urine 500 1200 300 Other: Voiding Method Urinal Urinal - Exam Physical Exam: Revealed 73-year-old white male in no distress, however he seems to be exhausted, and extremely weak. 4 L nasal cannula with O2 saturation of 9 4-95% HEENT:[Neck is supple.] [No neck masses.] [No thyromegaly.] [No JVD.] Chest: [Clear throughout, no crackles, no rhonchi, no wheezes.] Cardiac Exam: Irregular irregular rhythm [Normal S1 and S2, no S3 gallop, no murmur.] Abdomen: [Soft, nontender, no megaly, no rebound, no guarding, normal bowel sounds.] Extremities: [No clubbing, no edema, no cyanosis.] Neurological Exam: [No focal neurologic deficit.] However the patient is generally weak, he does have back pain. Psychiatric: Depressed mood, flat affect, normal mental status otherwise. Skin: No rashes. Patient does have areas of ecchymosis, no evidence of cellulitis - Labs CBC & Chem 7: 08/11/23 03:00 08/11/23 03:00 Labs: Abnormal Lab Results - Last 24 Hours (Table) 08/10/23 08/10/23 08/10/23 Range/Units 10:50 14:03 17:41 Plt Count (150-450) k/uL Lymphocytes # (Manual) (1.0-4.8) k/uL APTT 57.5 H (22.0-30.0) sec Potassium (3.5-5.1) mmol/L Carbon Dioxide (22-30) mmol/L BUN (9-20) mg/dL Glucose (74-99) mg/dL POC Glucose (mg/dL) 276 H 307 H (70-110) mg/dL Hemoglobin A1c (<=6.0) % Calcium (8.4-10.2) mg/dL 1108/11/23 08/11/23 Range/Units 19:46 03:00 03:00 Plt Count 62 L (150-450) k/uL Lymphocytes # (Manual) 0.22 L (1.0-4.8) k/uL APTT (22.0-30.0) sec Potassium (3.5-5.1) mmol/L Carbon Dioxide (22-30) mmol/L BUN (9-20) mg/dL Glucose (74-99) mg/dL POC Glucose (mg/dL) 258 H (70-110) mg/dL Hemoglobin A1c 7.7 H (<=6.0) % Calcium (8.4-10.2) mg/dL 08/11/23 08/11/23 Range/Units 03:00 06:29 Plt Count (150-450) k/uL Lymphocytes # (Manual) (1.0-4.8) k/uL APTT (22.0-30.0) sec Potassium 3.4 L (3.5-5.1) mmol/L Carbon Dioxide 17 L (22-30) mmol/L BUN 48 H (9-20) mg/dL Glucose 137 H (74-99) mg/dL POC Glucose (mg/dL) 122 H (70-110) mg/dL Hemoglobin A1c (<=6.0) % Calcium 7.9 L (8.4-10.2) mg/dL Microbiology - Last 24 Hours (Table) 08/10/23 08:10 Blood Culture Gram Stain - Preliminary Blood Blood Culture - Preliminary Presumptive Staph aureus 08/10/23 07:55 Blood Culture Gram Stain - Preliminary Blood Assessment and Plan Assessment: Impression: Acute gram-positive sepsis with presumptive staph aureus, further identification is pending. Acute hypoxemic respiratory failure secondary to above, and possible underlying component of COPD, no evidence of congestive heart failure on the chest x-ray and no evidence of pneumonia Hypotension secondary to sepsis/gram-positive sepsis Mild leukocytosis, secondary to above. Febrile illness secondary to above Diabetes mellitus Hypertension, history of Hyperlipidemia Atrial fibrillation, patient is on Cardizem this morning for atrial fibrillation with RVR History of bundle-branch block Status post permanent pacemaker implantation 2 years ago in [place] Peripheral vascular disease with previous stent to the lower extremity Former smoker however quit 20 years ago, questionable underlying COPD. Although clinically patient does not seem to have severe COPD. But has been on inhalers according to the in the past Recommendation: Continue vancomycin, will likely discontinue Rocephin when final blood cultures are available and urine cultures are available Consult infectious disease to address his gram-positive sepsis Continue Cardizem for atrial fibrillation with RVR Continue heparin Recheck of blood cultures Check CT of the lumbosacral spine looking for the potential source of his staph aureus infection, patient's initial chief complaint was back pain. And this was relatively sudden Discussed the patient's condition with Dr. Saleh, he will review his echocardiogram and modify the report, he did not feel the patient had LV dysfunction. No more diuretics for now. Continue metoprolol 25 twice a day Continue morphine sulfate when necessary for pain Continue IV fluids Continue to monitor renal profile Will follow Time with Patient: Less than 30
[2023-08-11 11:54] LABS: Glucose,Whole Blood 142 mg/dL (70-110)
[2023-08-11] MEDS: NOREPINEPHRINE 4 MG in SODIUM CHLORIDE 0.9% 250 ML IV SCH (11:59)
--- NOTE | 2023-08-11 12:25 | CT ---
EXAMINATION TYPE: CT lumbar spine wo con DATE OF EXAM: 08/11/2023 12:13 PM COMPARISON: None HISTORY: diskitis/abscess CT DLP: 1258.6 mGycm Automated exposure control for dose reduction was used. Unenhanced CT of the lumbar spine was performed. Bone and soft tissue window settings are submitted as well as coronal and sagittal reconstructions. L1-L2: There is evidence of vacuum disc. No disc herniation protrusion or central stenosis. No facet joint arthropathy. No evidence for foraminal encroachment. L2-L3: Severe degenerative disc space narrowing with vacuum disc. Moderate circumferential disc bulge with hypertrophy of the ligamentum flavum and facet joint arthropathy resulting in moderate central stenosis. Bilateral neural foraminal encroachment. L3-L4: Severe degenerative disc space narrowing with vacuum disc. Moderate circumferential disc bulge with hypertrophy of the ligamentum flavum and facet joint arthropathy resulting in severe central st enosis. Bilateral neural foraminal encroachment. L4-L5: Severe degenerative disc space narrowing with vacuum disc. Moderate circumferential disc bulge with hypertrophy of the ligamentum flavum and facet joint arthropathy resulting in severe central st enosis. Bilateral neural foraminal encroachment. L5-S1: Severe degenerative disc space narrowing with vacuum disc. Moderate circumferential disc bulge with hypertrophy of the ligamentum flavum and facet joint arthropathy resulting in moderate central stenosis. Bilateral neural foraminal encroachment. No evidence for bony destructive process to suggest discitis or osteomyelitis. If symptoms persist co nsider MRI. No fracture. Grade 1 retrolisthesis L1 on L2 of 3.5 mm. IMPRESSION: 1. No CT evidence to suggest discitis or osteomyelitis. Correlate with MRI if symptoms persist. 2. Multilevel degenerative disc disease and multilevel central stenosis as above.
[2023-08-11] MEDS ORDERED: VANCOMYCIN 1,750 MG in SODIUM CHLORIDE 0.9% 500 ML 500 ML IVPB SCH (13:00)
[2023-08-11] MEDS: SODIUM CHLORIDE 0.9% 1,000 ML in EMPTY BAG 1 BAG IV SCH ×2 (13:54→23:29)
[2023-08-11] MEDS: VANCOMYCIN 1,500 MG in SODIUM CHLORIDE 0.9% 500 ML 500 ML IVPB SCH (13:57)
--- NOTE | 2023-08-11 14:27 | P.PN ---
Subjective Progress Note Date: 08/11/23 Hospital Course: 73-year-old male with a past medical history of left bundle branch block status post pacemaker placement, hypertension, hyperlipidemia, type 2 insulin-dependent diabetes mellitus, atrial fibrillation not on anticoagulation, and peripheral vascular disease status post stenting in right lower extremity. Patient was transferred to our facility overnight from [facility] for admission and further evaluation for elevated troponin levels. Patient reports he in itially presented to the hospital for complaints of chest pain, shortness of breath, and generalized body aches. He was also complaining of significant back pain. Patient reports he initially began experiencing these symptoms on and was seen by his PCP who tested him for Covid which she reports was negative. Patient reports he has had persistent generalized body aches, fatigue, chest pain, and shortness of breath since and progressively worsening. Upon arrival to our facility patient underwent evaluation. Labs were completed and reviewed. CBC revealing mild leukocytosis with WBC count of 11.4 and thrombocytopenia with platelet count of 112. BMP showing mild hypocarb ia with bicarb of 20, prerenal azotemia with BUN of 35 and hyperglycemia with glucose of 126. Magnesium was normal findings at 2.3. Liver profile unremarkable. Troponin was elevated at 0.070. Patient was started on low intensity heparin infusion for treatment of NSTEMI and admitted under our ser vices with consultation to cardiology. Troponins trended overnight resulting in 0.070, 0.076, and 0.078. Pro-calcitonin was elevated at 30.40. Patient did go into shock, initially thought to be cardiogenic. Cardiac cath showed mild CAD, LVEDP was 10-12. Echocardiogram showed LVEF of 35-40%. Blood cultures came back positive for staph aureus. ID consulted. Currently patient is on IV cefazolin and vancomycin. No longer requiring pressors. Subjective: Patient seen and examined at bedside. No acute events overnight. He claims that he is doing a lot better today. Pertinent positives and negatives as discussed above, a complete review of systems was performed and all other systems are negative. Vitals Signs Reviewed. General: nontoxic, no distress, appears at stated age Derm: warm, dry Head: atraumatic, normocephalic, symmetric Eyes: EOMI, no lid lag, anicteric sclera Mouth: no lip lesion, mucus membranes moist Cardiovascular: S1S2 reg, no murmur Lungs: CTA bilateral, no rhonchi, no rales , no accessory muscle use, supplemental oxygen Abdominal: soft, nontender to palpation, no guarding, no appreciable organomegaly Ext: no gross muscle atrophy, no edema, no contractures Neuro: CN II-XI grossly intact, no focal neuro deficits Psych: Alert, oriented, appropriate affect Data Reviewed Today: Pertinent Labs: WBC 7.3, hemoglobin 14.6, platelets 62, potassium 3.4, c reatinine 1.2, A1c 7.7, blood sugars range between 122-258 Imaging: Lumbar CT does not show any evidence of discitis or osteomyelitis, chest x-ray independently interpreted, no acute process Assessment and Plan: Staph aureus bacteremia Septic shock, resolved Acute hypoxic respiratory failure NSTEMI History of left bundle branch block status post pacemaker placement Paroxysmal atrial fibrillation with RVR Peripheral vascular disease Hypertension Hyperlipidemia Type 2 insulin-dependent diabetes mellitus Thrombocytopenia -No longer on pressors -ID consulted -Currently on IV cefazolin 2 g every 8 hours, and IV vancomycin, monitor for renal toxicity -Repeat blood cultures pending -Lumbar CT did not show any discitis or osteomyelitis -No vegetation was noted on echocardiogram -Cardiology note reviewed, wean patient off of Cardizem, started on metoprolol 25 BID, eliquis 5 BID -continue statin , aspirin, Plavix -levemir 15 units at night, aspart 8 units 3 times a day, sliding scale insulin, monitor for hypoglycemia -repeat CBC tomorrow -no active bleeding DVT ppx: Eliquis Code status: Full code Anticipated discharge place: Pending clinical course Anticipated discharge time: Pending clinical course Objective - Vital Signs Vital signs: Vital Signs Temp 98.5 F 08/11/23 12:00 Pulse 96 08/11/23 13:00 Resp 17 08/11/23 13:00 BP 104/93 08/11/23 13:00 Pulse Ox 94 L 08/11/23 13:00 FiO2 Intake & Output 08/10/23 08/11/23 08/11/23 18:59 06:59 18:59 Intake Total 679.920 817.000 336.583 Output Total 500 1200 300 Balance 179.920 -383.000 36.583 Weight 86.183 kg 88.4 kg Intake: IV 30 540 290 0.9 @ KVO 40 40 Azithromycin 500 mg In 250 Sodium Chloride 0.9% 250 ml @ 250 mls/hr IVPB DAILY [facility] Rx#:[id number] Vancomycin 1,750 mg In 500 Sodium Chloride 0.9% 500 ml 500 ml @ 167 mls/hr IVPB ONCE ONE Rx#: [id number] Intake, IV Titration 409.920 277.000 46.583 Amount Diltiazem 125 mg In 46.583 Sodium Chloride 0.9% 100 ml @ 10 MG/HR 10 mls/hr IV .[id number] [facility] Rx#: [id number] Heparin Sod,Pork in 0.45% 105.116 NaCl 25,000 unit In 0.45 % NaCl 1 250ml.bag @ 11. 603 UNITS/KG/HR 10 mls/hr IV .Q24H [facility] Rx#: [id number] Norepinephrine 4 mg In 79.804 22.000 Sodium Chloride 0.9% 250 ml @ 0.03 MCG/KG/MIN 9. 851 mls/hr IV .Q24H [facility] Rx#:[id number] Sodium Chloride 0.9% 1, 225 255 000 ml @ 75 mls/hr IV . [id number] [facility] Rx#:[id number] Oral 240 Output: Urine 500 1200 300 Other: Voiding Method Urinal Urinal - Labs CBC & Chem 7: 08/11/23 03:00 08/11/23 03:00 Labs: Abnormal Lab Results - Last 24 Hours (Table) 08/10/23 08/10/23 08/11/23 Range/Units 17:41 19:46 03:00 Plt Count (150-450) k/uL Lymphocytes # (Manual) (1.0-4.8) k/uL Potassium (3.5-5.1) mmol/L Carbon Dioxide (22-30) mmol/L BUN (9-20) mg/dL Glucose (74-99) mg/dL POC Glucose (mg/dL) 307 H 258 H (70-110) mg/dL Hemoglobin A1c 7.7 H (<=6.0) % Calcium (8.4-10.2) mg/dL 08/11/23 08/11/23 08/11/23 Range/Units 03:00 03:00 06:29 Plt Count 62 L (150-450) k/uL Lymphocytes # (Manual) 0.22 L (1.0-4.8) k/uL Potassium 3.4 L (3.5-5.1) mmol/L Carbon Dioxide 17 L (22-30) mmol/L BUN 48 H (9-20) mg/dL Glucose 137 H (74-99) mg/dL POC Glucose (mg/dL) 122 H (70-110) mg/dL Hemoglobin A1c (<=6.0) % Calcium 7.9 L (8.4-10.2) mg/dL 08/11/23 Range/Units 11:52 Plt Count (150-450) k/uL Lymphocytes # (Manual) (1.0-4.8) k/uL Potassium (3.5-5.1) mmol/L Carbon Dioxide (22-30) mmol/L BUN (9-20) mg/dL Glucose (74-99) mg/dL POC Glucose (mg/dL) 142 H (70-110) mg/dL Hemoglobin A1c (<=6.0) % Calcium (8.4-10.2) mg/dL Microbiology - Last 24 Hours (Table) 08/10/23 08:10 Blood Culture Gram Stain - Preliminary Blood Blood Culture - Preliminary Presumptive Staph aureus 08/10/23 07:55 Blood Culture Gram Stain - Preliminary Blood
[2023-08-11 16:22] LABS: Glucose,Whole Blood 131 mg/dL (70-110)
[2023-08-11 19:59] LABS: Glucose,Whole Blood 180 mg/dL (70-110)
[2023-08-11] MEDS: ATORVASTATIN 80 MG TAB PO SCH (20:03)
[2023-08-11] MEDS: INSULIN DETEMIR (LEVEMIR) 100 UNIT/ML SYR SQ SCH (20:46)
--- NOTE | 2023-08-11 22:39 | P.CONS ---
History of Present Illness - Reason for Consult Consult date: 08/11/23 - History of Present Illness Patient is a 73-year-old male with a past medical history significant for diabetes mellitus hypertension hyperlipidemia ME COPD atrial fibrillation patient presenting to the hospital on 08/09/2023 for evaluation of weakness symptoms discomfort and shortness of breath patient apparently has been complaining of lower back pain that has caught worse the day of presentation to the hospital no history of any trauma patient describes the pain to be more of a sharp nature intensity is almost 10-10 without any significant radiation or any weakness to the lower extremity no bowel or bladder problems patient denies having any headache or URI symptoms he is currently breathing comfortably on 5 L nasal cannula oxygen denies any chest pain or significant cough no abdominal pain no diarrhea no urinary symptoms patient on presentation to the hospital did have a fever of 102.7 F and he did have a fever of 102 this morning patient also have tachycardia mild hypertension or need for supplemental oxygen he did have white level 9.4 in addition creatinine is 1.20 lactic acid was elevated troponins are elevated liver isms are normal procalcitonin 30.40 patient did have a CT angiogram of the chest that was negative for PE did shows moderate emphysematous changes but no acute infiltrate patient has been on Rocephin and Zithromax. Blood cultures coming back positive with MSSA infectious disease was consulted for further management of her biotherapy Past Medical History Past Medical History: Atrial Fibrillation, Atrial Flutter, Chest Pain / Angina, COPD, Diabetes Mellitus, Eye Disorder, Hyperlipidemia, Hypertension, Myocardial Infarction (ME), Neurologic Disorder, Prostate Disorder, Sleep Apnea/CPAP/BIPAP, Syncope Additional Past Medical History / Comment(s): Has medication for both low and high blood pressure. Diabetic Neuropathy, macular degeneration Last Myocardial Infarction Date:: unknown History of Any Multi-Drug Resistant Organisms: None Reported Past Surgical History: Heart Catheterization, Joint Replacement, Pacemaker, Pros torres Surgery Additional Past Surgical History / Comment(s): stent in lower extremity, prostate removal, with urinary control system 2019. total right knee replacement Past Anesthesia/Blood Transfusion Reactions: No Reported Reaction Type of Cardiac Device: Permanent Pacemaker Device Placement Date:: aug 2021 Past Psychological History: Anxiety Smoking Status: Former smoker Past Alcohol Use History: Daily Past Drug Use History: None Reported - Past Family History Father Family Medical History: Diabetes Mellitus Medications and Allergies Home Medications Medication Instructions Recorded Confirmed Type Cholecalciferol [Vitamin D3 (25 25 mcg PO DAILY 08/09/23 08/09/23 History Mcg = 1000 Iu)] Clopidogrel [Plavix] 75 mg PO DAILY 08/09/23 08/09/23 History Cyclobenzaprine [Flexeril] 10 mg PO TID PRN 08/09/23 08/09/23 History Empagliflozin [Jardiance] 25 mg PO DAILY 08/09/23 08/09/23 History Gabapentin [Neurontin] 100 mg PO TID PRN 08/09/23 08/10/23 History HYDROcodone/APAP 7.5-325MG [Sterling 1 tab PO Q6H PRN 08/09/23 08/09/23 History 7.5-325] Insulin Glargine,Hum.rec.anlog 15 units SQ DAILY 08/09/23 08/09/23 History [Lantus Solostar Pen] Insulin Lispro [humaLOG Kwikpen] 8 - 10 unit SQ AC-TID MDD 30 units 08/09/23 08/09/23 History Meloxicam [Mobic] 15 mg PO DAILY PRN 08/09/23 08/09/23 History Midodrine [ProAmatine] 5 mg PO TID 08/09/23 08/09/23 History Nystatin 100,000Unit/gm Cream 1 applic TOPICAL BID 08/09/23 08/09/23 History [Mycostatin Cream] Propranolol HCl 80 mg PO DAILY 08/09/23 08/09/23 History Rosuvastatin [Crestor] 20 mg PO HS 08/09/23 08/09/23 History Triamcinolone 0.025% Cream 1 applic TOPICAL BID 08/09/23 08/09/23 History [Kenalog 0.025% Cream] Vit C/E/Zn/Coppr/Lutein/Zeaxan 1 cap PO BID 08/09/23 08/09/23 History [Preservision Areds 2 Softgel] metFORMIN HCL ER [Glucophage XR] 1,000 mg PO BID 08/09/23 08/09/23 History Allergies Allergy/AdvReac Type Severity Reaction Status Date / Time No Known Allergies Allergy Verified 08/09/23 22:15 Physical Exam Vitals: Vital Signs Temp Pulse Resp BP Pulse Ox 08/11/23 11:00 85 12 97/70 94 L 08/11/23 10:30 91 15 113/62 95 08/11/23 10:00 101 H 21 103/73 93 L 08/11/23 09:30 106 H 17 130/90 92 L 08/11/23 09:00 89 18 102/76 93 L 08/11/23 08:30 96 17 102/76 91 L 08/11/23 08:00 102.0 F H 107 H 13 119/70 94 L 08/11/23 07:30 107 H 17 139/94 08/11/23 07:00 117 H 25 H 114/74 94 L 08/11/23 06:30 115 H 32 H 119/72 95 08/11/23 06:00 128 H 26 H 135/88 95 08/11/23 05:30 107 H 32 H 104/77 96 08/11/23 05:00 94 22 117/70 95 08/11/23 04:30 106 H 24 108/71 94 L 08/11/23 04:00 97.6 F 106 H 23 131/81 94 L 08/11/23 03:30 104 H 21 131/70 93 L 08/11/23 03:00 110 H 20 101/79 94 L 08/11/23 02:30 110 H 24 103/91 92 L 08/11/23 02:00 118 H 12 137/73 91 L 08/11/23 01:30 102 H 23 119/74 93 L 08/11/23 01:15 97 12 143/118 90 L 08/11/23 01:00 117 H 20 146/83 90 L 08/11/23 00:45 109 H 20 132/93 90 L 08/11/23 00:30 113 H 14 106/75 89 L 08/11/23 00:15 101 H 18 128/76 90 L 08/11/23 00:00 97.7 F 120 H 14 112/87 91 L 08/10/23 23:45 95 16 114/71 92 L 08/10/23 23:30 104 H 12 106/66 92 L 08/10/23 23:15 95 12 90/76 91 L 08/10/23 23:00 94 18 112/66 93 L 08/10/23 22:45 91 21 111/74 93 L 08/10/23 22:30 85 12 91/56 93 L 08/10/23 22:15 90 12 111/65 94 L 08/10/23 22:00 86 14 133/87 93 L 08/10/23 21:45 97 16 120/69 85 L 08/10/23 21:30 104 H 11 L 111/57 92 L 08/10/23 21:15 98 15 114/81 93 L 08/10/23 21:00 101 H 5 L 101/67 93 L 08/10/23 20:45 92 15 110/67 93 L 08/10/23 20:30 85 14 109/82 95 08/10/23 20:15 77 18 108/62 96 08/10/23 20:00 97.9 F 94 12 115/68 95 08/10/23 19:45 89 20 107/65 94 L 08/10/23 19:30 90 17 137/80 94 L 08/10/23 19:00 100 20 110/77 92 L 08/10/23 18:45 92 23 132/71 94 L 08/10/23 18:30 82 21 108/85 94 L 08/10/23 18:15 105 H 20 115/71 95 08/10/23 18:00 104 H 18 102/68 93 L 08/10/23 17:45 93 16 104/64 08/10/23 17:30 104 H 18 105/83 92 L 08/10/23 17:15 98 21 93/61 91 L 08/10/23 17:00 87 17 94/63 08/10/23 16:45 112 H 23 102/64 93 L 08/10/23 16:30 92 22 118/67 08/10/23 16:15 92 20 08/10/23 16:00 96 25 H 127/86 98 08/10/23 15:45 98 18 120/81 08/10/23 15:30 97.8 F 104 H 18 116/83 96 08/10/23 14:00 98 F 115 H 22 126/76 96 08/10/23 13:36 110 H 22 95/66 97 08/10/23 13:18 103 H 20 96/69 98 08/10/23 13:03 101 H 20 87/58 97 08/10/23 12:41 87 20 72/46 96 08/10/23 12:22 80 22 89/59 93 L Intake and Output 08/10/23 08/11/23 08/11/23 22:59 06:59 14:59 Intake Total 792.004 560 20 Output Total 1000 700 300 Balance -207.996 -140 -280 Intake: IV 540 20 0.9 @ KVO 40 20 Vancomycin 1,750 mg In 500 Sodium Chloride 0.9% 500 ml 500 ml @ 167 mls/hr IVPB ONCE ONE Rx#: [id number] Intake, IV Titration 552.004 20 Amount Norepinephrine 4 mg In 92.004 Sodium Chloride 0.9% 250 ml @ 0.03 MCG/KG/MIN 9. 851 mls/hr IV .Q24H [facility] Rx#:[id number] Sodium Chloride 0.9% 1, 460 20 000 ml @ 75 mls/hr IV . [id number] [facility] Rx#:[id number] Oral 240 Output: Urine 1000 700 300 Other: Voiding Method Urinal Urinal Urinal Weight 86.183 kg 88.4 kg Results CBC & Chem 7: 08/11/23 03:00 08/11/23 03:00 Labs: Abnormal Lab Results - Last 24 Hours (Table) 08/10/23 08/10/23 08/10/23 Range/Units 10:50 14:03 17:41 Plt Count (150-450) k/uL Lymphocytes # (Manual) (1.0-4.8) k/uL APTT 57.5 H (22.0-30.0) sec Potassium (3.5-5.1) mmol/L Carbon Dioxide (22-30) mmol/L BUN (9-20) mg/dL Glucose (74-99) mg/dL POC Glucose (mg/dL) 276 H 307 H (70-110) mg/dL Hemoglobin A1c (<=6.0) % Calcium (8.4-10.2) mg/dL 08/10/23 08/11/23 08/11/23 Range/Units 19:46 03:00 03:00 Plt Count 62 L (150-450) k/uL Lymphocytes # (Manual) 0.22 L (1.0-4.8) k/uL APTT (22.0-30.0) sec Potassium (3.5-5.1) mmol/L Carbon Dioxide (22-30) mmol/L BUN (9-20) mg/dL Glucose (74-99) mg/dL POC Glucose (mg/dL) 258 H (70-110) mg/dL Hemoglobin A1c 7.7 H (<=6.0) % Calcium (8.4-10.2) mg/dL 08/11/23 08/11/23 Range/Units 03:00 06:29 Plt Count (150-450) k/uL Lymphocytes # (Manual) (1.0-4.8) k/uL APTT (22.0-30.0) sec Potassium 3.4 L (3.5-5.1) mmol/L Carbon Dioxide 17 L (22-30) mmol/L BUN 48 H (9-20) mg/dL Glucose 137 H (74-99) mg/dL POC Glucose (mg/dL) 122 H (70-110) mg/dL Hemoglobin A1c (<=6.0) % Calcium 7.9 L (8.4-10.2) mg/dL Microbiology - Last 24 Hours (Table) 08/10/23 08:10 Blood Culture Gram Stain - Preliminary Blood Blood Culture - Preliminary Presumptive Staph aureus 08/10/23 07:55 Blood Culture Gram Stain - Preliminary Blood Assessment and Plan Plan: 1patient with excruciating lower back pain in this patient who did have a fever elevated white count elevated lactic acid meeting criteria for sepsis/SIRS now with evidence of MSSA bacteremia high clinical suspicious for lumbosacral spine disease such as discitis osteomyelitis 2-blood cultures will be repeated document clearance of bacteremia 3-patient benefit from MRI of the lower back with contrast to better define underlying pathology 4-we will discontinue Rocephin and Zithromax 5-start the patient cefazolin 2 g every 8 hours We will follow on clinical condition and cultures to further adjust medication if needed Thank you for this consultation we will follow the patient along with you Dictation was produced using [employer] dictation software. please excuse any grammatical, word or spelling errors. Time with Patient: Greater than 30
[2023-08-12] MEDS: VANCOMYCIN 1,500 MG in SODIUM CHLORIDE 0.9% 500 ML 500 ML IVPB SCH ×2 (00:40→12:14)
[2023-08-12 05:54] LABS: African American GFR (CKD) 71 (>60 ml/min/1.73 sqM); Anion Gap 11 mmol/L; Blood Urea Nitrogen 61 mg/dL (9-20); Calcium 8.1 mg/dL (8.4-10.2); Carbon Dioxide 18 mmol/L (22-30); Chloride 111 mmol/L (98-107); Glucose 162 mg/dL (74-99); Non-African American GFR(CKD) 62 (>60 ml/min/1.73 sqM); Potassium 3.6 mmol/L (3.5-5.1); Sodium 140 mmol/L (137-145)
[2023-08-12 06:17] LABS: HCT 38.8 % (39.0-53.0); HGB 12.8 gm/dL (13.0-17.5); MCH 31.3 pg (25.0-35.0); MCV 94.9 fL (80.0-100.0); Mean Platelet Volume 10.6; RBC 4.09 m/uL (4.30-5.90); RDW 14.7 % (11.5-15.5); WBC 8.4 k/uL (3.8-10.6)
[2023-08-12 06:18] LABS: Platelet Count 81 k/uL (150-450)
[2023-08-12 06:45] LABS: Glucose,Whole Blood 166 mg/dL (70-110)
[2023-08-12] MEDS: INSULIN ASPART (NovoLOG) 100 UNIT/ML VIAL SQ SCH ×7 (06:48→20:25)
[2023-08-12] MEDS: DILTIAZEM 125 MG in SODIUM CHLORIDE 0.9% 100 ML IV SCH ×2 (06:49→17:01)
[2023-08-12] MEDS ORDERED: POTASSIUM CHLORIDE ER 20 MEQ TAB.ER PO SCH (07:00)
[2023-08-12] MEDS: APIXABAN 5 MG TAB PO SCH ×2 (08:11→19:38)
[2023-08-12] MEDS: VIT A,C & E-LUTEIN-MINERALS 1 EACH TAB PO SCH ×2 (08:11→19:53)
[2023-08-12] MEDS: METOPROLOL TARTRATE 25 MG TAB PO SCH ×2 (08:11→19:38)
[2023-08-12] MEDS: CLOPIDOGREL 75 MG TAB PO SCH (08:11)
[2023-08-12] MEDS: ASPIRIN 81 MG PO SCH (08:11)
[2023-08-12] MEDS: SODIUM CHLORIDE 0.9% 1,000 ML in EMPTY BAG 1 BAG IV SCH (08:13)
--- NOTE | 2023-08-12 08:55 | P.PN ---
Subjective Progress Note Date: 08/12/23 Principal diagnosis: Abnormal cardiac enzymes/atrial fibrillation The patient is a 73-year-old gentleman who sees a certified genetic counselor out of this area with a past medical history significant for diabetes and hypertension and dyslipidemia and left bundle branch block and permanent pacemaker as well as lower extremities peripheral arterial disease and history of smoking. He was transferred from another facility to this hospital for further evaluation of shortness of breath and chest discomfort and he underwent a workup at [facility] including troponin came in to be abnormal and for that reason the patient was referred. He was seen at bedside in the emergency department where he was having ongoing chest discomfort. The troponin was mildly elevated. The EKG showed LBBB. He was also experiencing shortness of breath and he was hypoxic. He was given Lasix and some morphine as well and his pressure dropped down. The patient was started on some norepinephrine with improvement in the blood pressure. Beside that the risks of the blood work beside troponin came in to be unremarkable. Further investigation was performed including an echo which revealed normal biventricular dimension and systolic function and no significant valvular abnormalities. Because he continues to have ongoing chest discomfort he underwent a heart catheterization and that revealed normal coronaries with normal left-sided filling pressure. He was seen by the pulmonary/critical care service and he was diagnosed with acute hypoxic respiratory failure. He also might have a component of sepsis. He underwent urinary analysis and that showed what it seems to be possible UTI. The examination is remarkable for diminished breathing sounds bilaterally with regular rate and rhythm and distant heart sounds and mild bilateral lower extremity edema 08/11/2023 The patient was seen and evaluated this morning. He is feeling better. The chest discomfort has resolved. He seems to be in atrial fibrillation on the monitor and I'm going to perform a 12 please EKG to confirm that. Meanwhile he is on Cardizem IV which I'm going to wean him from and start him on beta twin was Toprol tartrate. Also he will be started on oral anticoagulation. He is getting treated for possible sepsis as well. Hemodynamically he is stable and not on any vasopressors at this point. The echo revealed normal LV systolic function was no significant valvular abnormalities. The examination is r emarkable for regular rhythm with distant heart sounds and clear breathing sounds bilaterally and no lower extremity edema noted 08/12/2023 Patient was seen and evaluated this morning. Hemodynamically is stable. He is in atrial fibrillation with controlled heart rate. He is on metoprolol and he is on oral anticoagulation. Beside that he is still hypoxic requiring 2 L of oxygen. The chest x-ray did not show any acute abnormalities from yesterday. He has no pain in the chest. We need to review his echocardiogram to determine the exact ejection fraction. There is concern about an infection etiology and that is in process of workup on it. The examination is remarkable for irregular rhythm with diminished breathing sounds bilaterally and no edema in the lower extremities Assessment Acute hypoxic respiratory failure UTI/sepsis Atrial fibrillation Permanent pacemaker Multiple comorbid conditions Plan Continue the current medical regimen Continue the current dose of metoprolol and oral anticoagulation Review the echocardiogram Follow-up with the patient Objective - Vital Signs Vital signs: Vital Signs Temp 98.5 F 08/12/23 08:00 Pulse 97 08/12/23 08:30 Resp 26 H 08/12/23 08:30 BP 140/99 08/12/23 08:30 Pulse Ox 95 08/12/23 08:30 FiO2 Intake & Output 08/11/23 08/12/23 08/12/23 18:59 06:59 18:59 Intake Total 906.583 640 10 Output Total 500 700 0 Balance 406.583 -60 10 Weight 88.6 kg Intake: IV 860 640 10 0.9 @ KVO 60 90 10 Azithromycin 500 mg In 250 Sodium Chloride 0.9% 250 ml @ 250 mls/hr IVPB DAILY [facility] Rx#:[id number] Vancomycin 1,500 mg In 500 Sodium Chloride 0.9% 500 ml 500 ml @ 167 mls/hr IVPB Q12H [facility] Rx#: [id number] Vancomycin 1,750 mg In 500 Sodium Chloride 0.9% 500 ml 500 ml @ 167 mls/hr IVPB ONCE ONE Rx#: [id number] ceFAZolin 2 gm In Sodium 50 50 Chloride 0.9% 50 ml @ 100 mls/hr IVPB Q8HR [facility] Rx# :[id number] Intake, IV Titration 46.583 Amount Diltiazem 125 mg In 46.583 Sodium Chloride 0.9% 100 ml @ 10 MG/HR 10 mls/hr IV .[id number] [facility] Rx#: [id number] Output: Urine 500 700 0 Other: Voiding Method Urinal Urinal Urinal - Labs CBC & Chem 7: 08/12/23 05:26 08/12/23 05:26 Labs: Abnormal Lab Results - Last 24 Hours (Table) 08/11/23 08/11/23 08/11/23 Range/Units 03:00 11:52 16:21 RBC (4.30-5.90) m/uL Hgb (13.0-17.5) gm/dL Hct (39.0-53.0) % Plt Count (150-450) k/uL Chloride (98-107) mmol/L Carbon Dioxide (22-30) mmol/L BUN (9-20) mg/dL Glucose (74-99) mg/dL POC Glucose (mg/dL) 142 H 131 H (70-110) mg/dL Hemoglobin A1c 7.7 H (<=6.0) % Calcium (8.4-10.2) mg/dL 08/11/23 08/12/23 08/12/23 Range/Units 19:57 05:26 05:26 RBC 4.09 L (4.30-5.90) m/uL Hgb 12.8 L (13.0-17.5) gm/dL Hct 38.8 L (39.0-53.0) % Plt Count 81 L (150-450) k/uL Chloride 111 H (98-107) mmol/L Carbon Dioxide 18 L (22-30) mmol/L BUN 61 H (9-20) mg/dL Glucose 162 H (74-99) mg/dL POC Glucose (mg/dL) 180 H (70-110) mg/dL Hemoglobin A1c (<=6.0) % Calcium 8.1 L (8.4-10.2) mg/dL 08/12/23 Range/Units 06:44 RBC (4.30-5.90) m/uL Hgb (13.0-17.5) gm/dL Hct (39.0-53.0) % Plt Count (150-450) k/uL Chloride (98-107) mmol/L Carbon Dioxide (22-30) mmol/L BUN (9-20) mg/dL Glucose (74-99) mg/dL POC Glucose (mg/dL) 166 H (70-110) mg/dL Hemoglobin A1c (<=6.0) % Calcium (8.4-10.2) mg/dL Microbiology - Last 24 Hours (Table) 08/11/23 03:05 Blood Culture Gram Stain - Preliminary Blood 08/10/23 08:10 Blood Culture Gram Stain - Preliminary Blood Blood Culture - Preliminary Presumptive Staph aureus
[2023-08-12 11:18] LABS: Glucose,Whole Blood 130 mg/dL (70-110)
--- NOTE | 2023-08-12 11:26 | P.PN ---
Subjective Progress Note Date: 08/12/23 Hospital Course: 73-year-old male with a past medical history of left bundle branch block status post pacemaker placement, hypertension, hyperlipidemia, type 2 insulin-dependent diabetes mellitus, atrial fibrillation not on anticoagulation, and peripheral vascular disease status post stenting in right lower extremity. Patient was transferred to our facility overnight from [facility] for admission and further evaluation for elevated troponin levels. Patient reports he initially presented to the hospital for complaints of chest pain, shortness of breath, and generalized body aches. He was also complaining of significant back pain. Patient reports he initially began experiencing these symptoms on and was seen by his PCP who tested him for Covid which she reports was negative. Patient reports he has had persistent generalized body aches, fatigue, chest pain, and shortness of breath since and progressively worsening. Upon arrival to our facility patient underwent evaluation. Labs were completed and reviewed. CBC revealing mild leukocytosis with WBC count of 11.4 and thrombocytopenia with platelet count of 112. BMP showing mild hypocarbia with bicarb of 20, prerenal azotemia with BUN of 35 and hyperglycemia with glucose of 126. Magnesium was normal findings at 2.3. Liver profile unremarkable. Troponin was elevated at 0.070. Patient was started on low intensity heparin infusion for treatment of NSTEMI and admitted under our services with consultation to cardiology. Troponins trended overnight resulting in 0.070, 0.076, and 0.078. Pro-calcitonin was elevated at 30.40. Patient did go into shock, initially thought to be cardiogenic. Cardiac cath showed mild CAD, LVEDP was 10-12. Echocardiogram showed LVEF of 35-40%. Blood cultures came back positive for staph aureus. ID consulted. Currently patient is on IV cefazolin and vancomycin. No longer requiring pressors. Lumbar CT did not show any evidence of discitis or osteomyelitis. Lumbar spine MRI pending. Subjective: Patient seen and examined at bedside. No acute events overnight. He claims that he is doing a lot better today. He does have some pain in his right knee. Pertinent positives and negatives as discussed above, a complete review of systems was performed and all other systems are negative. Vitals Signs Reviewed. General: nontoxic, no distress, appears at stated age Derm: warm, dry Head: atraumatic, normocephalic, symmetric Eyes: EOMI, no lid lag, anicteric sclera Mouth: no lip lesion, mucus membranes moist Cardiovascular: S1S2 reg, no murmur Lungs: CTA bilateral, no rhonchi, no rales , no accessory muscle use, supplemental oxygen Abdominal: soft, nontender to palpation, no guarding, no appreciable organomegaly Ext: no gross muscle atrophy, no edema, no contractures Neuro: CN II-XI grossly intact, no focal neuro deficits Psych: Alert, oriented, appropriate affect Data Reviewed Today: Pertinent Labs: WBC 8.4, hemoglobin 12.8, platelet 81, bicarb 18, creatinine 1.16, blood sugars range between 10/19/2079 Imaging: No new imaging Assessment and Plan: MSSA bacteremia Septic shock, resolved Acute hypoxic respiratory failure NSTEMI History of left bundle branch block status post pacemaker placement Paroxysmal atrial fibrillation with RVR Peripheral vascular disease Hypertension Hyperlipidemia Type 2 insulin-dependent diabetes mellitus Thrombocytopenia, resolving -ID following, lumbar spine MRI pending -Currently on IV cefazolin 2 g every 8 hours, and IV vancomycin, monitor for renal toxicity -Repeat blood cultures pending -In terms of foreign bodies, patient has a bladder stimulator, right knee replacement, and pacemaker -Unclear source of bacteremia -Patient also had routine dental cleaning about 3 weeks ago. -Lumbar spine pending, if negative, should consider a WBC tagged scan -No vegetation was noted on echocardiogram -Cardiology note reviewed, continue metoprolol 25 BID, eliquis 5 BID -continue statin , aspirin, Plavix -Consider discontinuing one of the antiplatelet -levemir 15 units at night, aspart 8 units 3 times a day, sliding scale insulin, monitor for hypoglycemia -repeat CBC and BMP tomorrow -no active bleeding DVT ppx: Eliquis Code status: Full code Anticipated discharge place: Pending clinical course Anticipated discharge time: Pending clinical course Objective - Vital Signs Vital signs: Vital Signs Temp 98.5 F 08/12/23 08:00 Pulse 98 08/12/23 11:00 Resp 23 08/12/23 11:00 BP 136/78 08/12/23 11:00 Pulse Ox 95 08/12/23 11:00 FiO2 Intake & Output 08/11/23 08/12/23 08/12/23 18:59 06:59 18:59 Intake Total 906.583 640 40 Output Total 500 700 400 Balance 406.583 -60 -360 Weight 88.6 kg Intake: IV 860 640 40 0.9 @ KVO 60 90 40 Azithromycin 500 mg In 250 Sodium Chloride 0.9% 250 ml @ 250 mls/hr IVPB DAILY [facility] Rx#:[id number] Vancomycin 1,500 mg In 500 Sodium Chloride 0.9% 500 ml 500 ml @ 167 mls/hr IVPB Q12H [facility] Rx#: [id number] Vancomycin 1,750 mg In 500 Sodium Chloride 0.9% 500 ml 500 ml @ 167 mls/hr IVPB ONCE ONE Rx#: [id number] ceFAZolin 2 gm In Sodium 50 50 Chloride 0.9% 50 ml @ 100 mls/hr IVPB Q8HR [facility] Rx# :[id number] Intake, IV Titration 46.583 Amount Diltiazem 125 mg In 46.583 Sodium Chloride 0.9% 100 ml @ 10 MG/HR 10 mls/hr IV .[id number] [facility] Rx#: [id number] Output: Urine 500 700 400 Other: Voiding Method Urinal Urinal Urinal - Labs CBC & Chem 7: 08/12/23 05:26 08/12/23 05:26 Labs: Abnormal Lab Results - Last 24 Hours (Table) 08/11/23 08/11/23 08/11/23 Range/Units 11:52 16:21 19:57 RBC (4.30-5.90) m/uL Hgb (13.0-17.5) gm/dL Hct (39.0-53.0) % Plt Count (150-450) k/uL Chloride (98-107) mmol/L Carbon Dioxide (22-30) mmol/L BUN (9-20) mg/dL Glucose (74-99) mg/dL POC Glucose (mg/dL) 142 H 131 H 180 H (70-110) mg/dL Calcium (8.4-10.2) mg/dL 08/12/23 08/12/23 08/12/23 Range/Units 05:26 05:26 06:44 RBC 4.09 L (4.30-5.90) m/uL Hgb 12.8 L (13.0-17.5) gm/dL Hct 38.8 L (39.0-53.0) % Plt Count 81 L (150-450) k/uL Chloride 111 H (98-107) mmol/L Carbon Dioxide 18 L (22-30) mmol/L BUN 61 H (9-20) mg/dL Glucose 162 H (74-99) mg/dL POC Glucose (mg/dL) 166 H (70-110) mg/dL Calcium 8.1 L (8.4-10.2) mg/dL 08/12/23 Range/Units 11:16 RBC (4.30-5.90) m/uL Hgb (13.0-17.5) gm/dL Hct (39.0-53.0) % Plt Count (150-450) k/uL Chloride (98-107) mmol/L Carbon Dioxide (22-30) mmol/L BUN (9-20) mg/dL Glucose (74-99) mg/dL POC Glucose (mg/dL) 130 H (70-110) mg/dL Calcium (8.4-10.2) mg/dL Microbiology - Last 24 Hours (Table) 08/11/23 03:05 Blood Culture Gram Stain - Preliminary Blood Blood Culture - Preliminary Presumptive Staph aureus 08/10/23 08:10 Blood Culture Gram Stain - Preliminary Blood Blood Culture - Preliminary Presumptive Staph aureus
[2023-08-12] MEDS: NOREPINEPHRINE 4 MG in SODIUM CHLORIDE 0.9% 250 ML IV SCH (11:53)
--- NOTE | 2023-08-12 14:13 | P.PN ---
Subjective Progress Note Date: 08/12/23 Principal diagnosis: Acute hypoxic respiratory failure, acute gram-positive sepsis, new onset atrial fibrillation with RVR This is a pleasant 73-year-old male patient with a known history of diabetes mellitus, hypertension, hyperlipidemia, atrial fibrillation, left bundle branch block, post permanent pacemaker insertion 2 years ago in [place], peripheral vascular disease with stenting to the lower extremities, former smoker however quit 20 oh. 4 days ago the patient had complaints of significant low back pain and weakness and was seen in [facility] treated and discharged home. He represented there again yesterday with low back pain and was found to have el evated troponin levels and subsequently transferred to our emergency department. EKG reveals a ventricular paced rhythm. CT angiogram revealed no evidence of pulmonary embolism. There is moderate emphysematous changes throughout the lung jaquez but otherwise clear. Labs revealed a troponin of 0.076, 0.108. ProBNP 5990. Pro-calcitonin 38.40. Urinalysis with moderate blood and 4+ glucose, 2+ ketones. Influenza screen negative. RSV screen negative. COVID-19 screen negative. White count 10.8. Hemoglobin 14.4. Platelets 105. Sodium 136. Potassium 4.2. Bicarb 20. BUN 35. Creatinine 1.01. Glucose 126. He is seen today in consultation in the emergency department. He's currently sitting up in a stretcher. Awake and alert. He denies any chest pain currently. She denies any worsening shortness of breath however he is requiring 15 L per nonrebreather mask to maintain O2 saturations in the 90s. He was down to 82% at one point. Current O2 saturation 97%. He is febrile with temperature of 102.7. He is clammy. He's been initiated on a heparin drip and. Initiated on ceftriaxone and azithromycin. Echocardiogram is pending. Patient was reevaluated today on 08/11/23, remains in the ICU. Patient underwent cardiac catheterization yesterday and he was found to have normal coronaries, normal left ventricular end-diastolic pressures which basically rules out congestive heart failure patient was also found to have normal LV function according to Dr. Saleh, however after looking at the echocardiogram which was read by Dr. Vivas, he estimated his ejection fraction of 35-40%, and Dr. Saleh is going to reevaluate that echocardiogram and let us know if the report these to be modified. At any rate since yesterday the patient was found to have gram-positive bacteremia, presumptive staph aureus in the blood, and the patient is now on vancomycin empirically. In the meantime it is necessary to know the primary site of this infection, looking back at the clinical history, patient presented with severe acute onset back pain, which makes me concerned about the possibility of discitis causing his back pain/relatively new onset patient did have history of chronic back pain but this pain that he presented with was hyperacute and debilitating not to mention the patient came in with significantly elevated pro calcitonin level, and mild leukocytosis. His sed rate was 63 on admission. Hence I'm recommending CT of the lumbosacral spine, multiple recommending infectious disease consultation, and will continue to monitor her blood cultures in the meantime. Chest x-ray this morning showed chronic changes but no acute evidence of any active pulmonary disease and no evidence of congestive heart failure. Patient is now on Cardizem for atrial fibrillation with RVR but again no evidence of congestive heart failure. Asking the about his smoking history patient did have remote smoking history and at one point he did have inhalers for underlying COPD severity of which is not clear. Reevaluated today on 08/12/23, patient remains in the ICU, he was in December, continues to have positive blood cultures/MSSA, we are still trying to determine the primary site of infection, differential diagnoses includes lumbar/sacral discitis or osteomyelitis or abscess although CT of the lumbosacral spine was unremarkable and did not show such findings. Infectious diseases recommending MRI of the spine, and that is pending. In the meantime the patient is on antibiotics, his transthoracic echo did not reveal any vegetations, however if we continue to have no answer to explain the site of his bacteremia, the patient may have to have a transesophageal echocardiogram repeat blood cultures again came back positive and that is concerning. Clinically however the patient is feeling better, breathing easier, his CBC is relatively normal basic metabolic profile is normal BUN is 61 and creatinine 1.16, slightly improved compared to yesterday of 1.20. is at bedside, and I updated the and the patient on where we are and our concern about his gram-positive bacteremia and would like to find the source Objective - Vital Signs Vital signs: Vital Signs Temp 99.0 F 08/12/23 12:00 Pulse 96 08/12/23 14:00 Resp 17 08/12/23 14:00 BP 121/70 08/12/23 14:00 Pulse Ox 97 08/12/23 14:00 FiO2 Intake & Output 08/11/23 08/12/23 08/12/23 18:59 06:59 18:59 Intake Total 906.583 640 70 Output Total 500 700 750 Balance 406.583 -60 -680 Weight 88.6 kg Intake: IV 860 640 70 0.9 @ KVO 60 90 70 Azithromycin 500 mg In 250 Sodium Chloride 0.9% 250 ml @ 250 mls/hr IVPB DAILY [facility] Rx#:[id number] Vancomycin 1,500 mg In 500 Sodium Chloride 0.9% 500 ml 500 ml @ 167 mls/hr IVPB Q12H [facility] Rx#: [id number] Vancomycin 1,750 mg In 500 Sodium Chloride 0.9% 500 ml 500 ml @ 167 mls/hr IVPB ONCE ONE Rx#: [id number] ceFAZolin 2 gm In Sodium 50 50 Chloride 0.9% 50 ml @ 100 mls/hr IVPB Q8HR [facility] Rx# :[id number] Intake, IV Titration 46.583 Amount Diltiazem 125 mg In 46.583 Sodium Chloride 0.9% 100 ml @ 10 MG/HR 10 mls/hr IV .[id number] [facility] Rx#: [id number] Output: Urine 500 700 750 Other: Voiding Method Urinal Urinal Urinal # Voids 1 - Exam Physical Exam: Revealed 73-year-old white male in no distress, however he seems to be exhausted, and extremely weak. 4 L nasal cannula with O2 saturation 97% HEENT:[Neck is supple.] [No neck masses.] [No thyromegaly.] [No JVD.] Chest: [Clear throughout, no crackles, no rhonchi, no wheezes.] Cardiac Exam: Irregular irregular rhythm [Normal S1 and S2, no S3 gallop, no murmur.] Abdomen: [Soft, nontender, no megaly, no rebound, no guarding, normal bowel sounds.] Extremities: [No clubbing, no edema, no cyanosis.] Neurological Exam: [No focal neurologic deficit.] However the patient is generally weak, he does have back pain. Psychiatric: Depressed mood, flat affect, normal mental status otherwise. Skin: No rashes. Patient does have areas of ecchymosis, no evidence of cellulitis - Labs CBC & Chem 7: 08/12/23 05:26 08/12/23 05:26 Labs: Abnormal Lab Results - Last 24 Hours (Table) 08/11/23 08/11/23 08/12/23 Range/Units 16:21 19:57 05:26 RBC 4.09 L (4.30-5.90) m/uL Hgb 12.8 L (13.0-17.5) gm/dL Hct 38.8 L (39.0-53.0) % Plt Count 81 L (150-450) k/uL Chloride (98-107) mmol/L Carbon Dioxide (22-30) mmol/L BUN (9-20) mg/dL Glucose (74-99) mg/dL POC Glucose (mg/dL) 131 H 180 H (70-110) mg/dL Calcium (8.4-10.2) mg/dL 08/12/23 08/12/23 08/12/23 Range/Units 05:26 06:44 11:16 RBC (4.30-5.90) m/uL Hgb (13.0-17.5) gm/dL Hct (39.0-53.0) % Plt Count (150-450) k/uL Chloride 111 H (98-107) mmol/L Carbon Dioxide 18 L (22-30) mmol/L BUN 61 H (9-20) mg/dL Glucose 162 H (74-99) mg/dL POC Glucose (mg/dL) 166 H 130 H (70-110) mg/dL Calcium 8.1 L (8.4-10.2) mg/dL Microbiology - Last 24 Hours (Table) 08/10/23 08:10 Blood Culture Gram Stain - Final Blood Blood Culture - Final Staphylococcus aureus 08/10/23 07:55 Blood Culture Gram Stain - Final Blood Blood Culture - Final Staphylococcus aureus 08/11/23 03:05 Blood Culture Gram Stain - Preliminary Blood Blood Culture - Preliminary Presumptive Staph aureus Assessment and Plan Assessment: Impression: Acute gram-positive sepsis /MSSA Acute hypoxemic respiratory failure secondary to above, and possible underlying component of COPD, no evidence of congestive heart failure on the chest x-ray and no evidence of pneumonia Hypotension secondary to sepsis/gram-positive sepsis/MSSA Mild leukocytosis, resolved Febrile illness secondary to above Diabetes mellitus Hypertension, history of Hyperlipidemia Atrial fibrillation, being addressed by cardiology on the case History of bundle-branch block Status post permanent pacemaker implantation 2 years ago in [place] Peripheral vascular disease with previous stent to the lower extremity Former smoker however quit 20 years ago, questionable underlying COPD. inactive. Recommendation: Continue cefazolin and discontinue vancomycin Continue heparin Continue to monitor blood culture Agree with MRI of the spine Updated the on his condition and our concern at this point is to find out to the primary source of his gram-positive bacteremia Continue metoprolol 25 twice a day Continue morphine sulfate when necessary for pain Continue IV fluids, hold diuretics If the patient continues to have positive blood cultures, and could not find the source in the back, may have to consider LAURA Keep patient in the ICU for now Will follow Time with Patient: Less than 30
--- NOTE | 2023-08-12 15:10 | P.PN ---
Subjective Progress Note Date: 08/12/23 Principal diagnosis: Reason for follow-up is MSSA bacteremia Patient is a 73-year-old male with a past medical history significant for diabetes mellitus hypertension hyperlipidemia SC COPD atrial fibrillation patient presenting to the hospital on 08/09/2023 for evaluation of weakness and significant pain to the lower back area patient was febrile and did have a positive blood culture with MSSA, CT of the lumbar spine without contrast no evidence of discitis or osteomyelitis MRI could not be done as the patient did have a pacemaker On today's visit and that is08/12/2023, the patient denies any fever or any chills, the patient is breathing comfortably on 4 L nasal cannula supplemental oxygen, patient denies chest pain has been complaining of shortness of breath and no significant cough or sputum production, patient denies Abdominal pain, no nausea/vomiting and denies having any diarrhea, still complaining of lower back pain Patient white count is 8.4, creatinine 1.16, blood cultures 08/10/2023 as well as 08/11/2023 are positive Objective - Vital Signs Vital signs: Vital Signs Temp 98.5 F 08/12/23 08:00 Pulse 98 08/12/23 11:00 Resp 23 08/12/23 11:00 BP 136/78 08/12/23 11:00 Pulse Ox 95 08/12/23 11:00 FiO2 Intake & Output 08/11/23 08/12/23 08/12/23 18:59 06:59 18:59 Intake Total 906.583 640 40 Output Total 500 700 400 Balance 406.583 -60 -360 Weight 88.6 kg Intake: IV 860 640 40 0.9 @ KVO 60 90 40 Azithromycin 500 mg In 250 Sodium Chloride 0.9% 250 ml @ 250 mls/hr IVPB DAILY [facility] Rx#:[id number] Vancomycin 1,500 mg In 500 Sodium Chloride 0.9% 500 ml 500 ml @ 167 mls/hr IVPB Q12H [facility] Rx#: [id number] Vancomycin 1,750 mg In 500 Sodium Chloride 0.9% 500 ml 500 ml @ 167 mls/hr IVPB ONCE ONE Rx#: [id number] ceFAZolin 2 gm In Sodium 50 50 Chloride 0.9% 50 ml @ 100 mls/hr IVPB Q8HR [facility] Rx# :[id number] Intake, IV Titration 46.583 Amount Diltiazem 125 mg In 46.583 Sodium Chloride 0.9% 100 ml @ 10 MG/HR 10 mls/hr IV .[id number] [facility] Rx#: [id number] Output: Urine 500 700 400 Other: Voiding Method Urinal Urinal Urinal - Exam GENERAL DESCRIPTION: An elderly male lying in bed in no distress RESPIRATORY SYSTEM: Unlabored breathing , decreased breath sound at the base HEART: S1 S2 regular rate and rhythm , ABDOMEN: Soft , no tenderness EXTREMITIES: No edema feet - Labs CBC & Chem 7: 08/12/23 05:26 08/12/23 05:26 Labs: Abnormal Lab Results - Last 24 Hours (Table) 08/11/23 08/11/23 08/12/23 Range/Units 16:21 19:57 05:26 RBC 4.09 L (4.30-5.90) m/uL Hgb 12.8 L (13.0-17.5) gm/dL Hct 38.8 L (39.0-53.0) % Plt Count 81 L (150-450) k/uL Chloride (98-107) mmol/L Carbon Dioxide (22-30) mmol/L BUN (9-20) mg/dL Glucose (74-99) mg/dL POC Glucose (mg/dL) 131 H 180 H (70-110) mg/dL Calcium (8.4-10.2) mg/dL 08/12/23 08/12/23 08/12/23 Range/Units 05:26 06:44 11:16 RBC (4.30-5.90) m/uL Hgb (13.0-17.5) gm/dL Hct (39.0-53.0) % Plt Count (150-450) k/uL Chloride 111 H (98-107) mmol/L Carbon Dioxide 18 L (22-30) mmol/L BUN 61 H (9-20) mg/dL Glucose 162 H (74-99) mg/dL POC Glucose (mg/dL) 166 H 130 H (70-110) mg/dL Calcium 8.1 L (8.4-10.2) mg/dL Microbiology - Last 24 Hours (Table) 08/11/23 03:05 Blood Culture Gram Stain - Preliminary Blood Blood Culture - Preliminary Presumptive Staph aureus Assessment and Plan (1) MSSA bacteremia Current Visit: Yes Status: Acute Code(s): R78.81 - BACTEREMIA; B95.61 - METHICILLIN SUSCEP STAPH INFCT CAUSING DIS CLASSD [id number] SNOMED Code(s): 651318614 (2) Sepsis Current Visit: Yes Status: Acute Code(s): A41.9 - SEPSIS, UNSPECIFIED ORGANISM SNOMED Code(s): 59975072 Plan: 1patient with excruciating lower back pain in this patient who did have a fever elevated white count elevated lactic acid meeting criteria for sepsis/SIRS now with evidence of MSSA bacteremia high clinical suspicious for lumbosacral spine disease such as discitis osteomyelitis 2-blood cultures repeated on 08/11/2023 a coming back positive, blood culture be repeated daily to document clearance 3-patient benefit from MRI of the lower back with contrast to better define underlying pathology, however MRI could not be done at this facility as the patient did have a pacemaker 4-patient to continue with cefazolin 2 g every 8 hours, if persistent bacteremia patient will need LAURA Dictation was produced using [employer] dictation software. please excuse any grammatical, word or spelling errors.
[2023-08-12] MEDS: ACETAMINOPHEN TAB 325 MG TAB PO PRN (15:36)
[2023-08-12 16:59] LABS: Glucose,Whole Blood 146 mg/dL (70-110)
[2023-08-12 19:49] LABS: Glucose,Whole Blood 153 mg/dL (70-110)
[2023-08-12] MEDS: ATORVASTATIN 80 MG TAB PO SCH (19:53)
[2023-08-12] MEDS ORDERED: SODIUM CHLORIDE 0.9% 1,000 ML IV SCH (20:00)
[2023-08-12] MEDS: INSULIN DETEMIR (LEVEMIR) 100 UNIT/ML SYR SQ SCH (20:25)
[2023-08-13] MEDS: ACETAMINOPHEN TAB 325 MG TAB PO PRN ×2 (05:00→17:53)
[2023-08-13 06:24] LABS: Basophils % (A) 0 %; Eosinophils % (A) 0 %; HCT 39.1 % (39.0-53.0); HGB 12.6 gm/dL (13.0-17.5); Lymphocytes # (A) 0.4 k/uL (1.0-4.8); Lymphocytes % (A) 5 %; MCH 30.3 pg (25.0-35.0); MCHC 32.2 g/dL (31.0-37.0); MCV 94.1 fL (80.0-100.0); Mean Platelet Volume 11.1; Monocytes # (A) 0.4 k/uL (0-1.0); Monocytes % (A) 4 %; Neutrophils # (A) 8.3 k/uL (1.3-7.7); Neutrophils % (A) 87 %; RBC 4.15 m/uL (4.30-5.90); RDW 14.6 % (11.5-15.5); WBC 9.5 k/uL (3.8-10.6)
[2023-08-13 06:26] LABS: Platelet Count 88 k/uL (150-450)
[2023-08-13 06:30] LABS: Glucose,Whole Blood 110 mg/dL (70-110)
[2023-08-13] MEDS: INSULIN ASPART (NovoLOG) 100 UNIT/ML VIAL SQ SCH ×7 (06:33→20:08)
[2023-08-13 06:42] LABS: African American GFR (CKD) 76 (>60 ml/min/1.73 sqM); Anion Gap 13 mmol/L; Blood Urea Nitrogen 61 mg/dL (9-20); Calcium 8.4 mg/dL (8.4-10.2); Carbon Dioxide 16 mmol/L (22-30); Chloride 115 mmol/L (98-107); Glucose 114 mg/dL (74-99); Non-African American GFR(CKD) 65 (>60 ml/min/1.73 sqM); Potassium 3.6 mmol/L (3.5-5.1); Sodium 144 mmol/L (137-145)
[2023-08-13] MEDS: POTASSIUM CHLORIDE 10 MEQ in WATER FOR INJECTION 1 100ML.BAG IVPB SCH ×4 (06:56→17:54)
[2023-08-13] MEDS: ASPIRIN 81 MG PO SCH (08:47)
[2023-08-13] MEDS: METOPROLOL TARTRATE 25 MG TAB PO SCH (08:47)
[2023-08-13] MEDS: VIT A,C & E-LUTEIN-MINERALS 1 EACH TAB PO SCH ×2 (08:47→20:08)
[2023-08-13] MEDS: APIXABAN 5 MG TAB PO SCH ×2 (08:47→20:02)
[2023-08-13] MEDS: CLOPIDOGREL 75 MG TAB PO SCH (08:47)
[2023-08-13] MEDS: DILTIAZEM 125 MG in SODIUM CHLORIDE 0.9% 100 ML IV SCH ×2 (08:48→20:08)
--- NOTE | 2023-08-13 09:10 | P.PN ---
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 He was transferred from another facility to this hospital for further evaluation of shortness of breath and chest discomfort and he underwent a workup at [facility] including troponin came in to be abnormal and for that reason the patient was referred. He was seen at bedside in the emergency department where he was having ongoing chest discomfort. The troponin was mildly elevated. The EKG showed LBBB. He was also experiencing shortness of breath and he was hypoxic. He was given Lasix and some morphine as well and his pressure dropped down. The patient was started on some norepinephrine with improvement in the blood pressure. Beside that the risks of the blood work beside troponin came in to be unremarkable. Further investigation was performed including an echo which revealed normal biventricular dimension and systolic function and no significant valvular abnormalities. Because he continues to have ongoing chest discomfort he underwent a heart catheterization and that revealed normal coronaries with normal left-sided filling pressure. He was seen by the pulmonary/critical care service and he was diagnosed with acute hypoxic respiratory failure. He also might have a component of sepsis. He underwent urinary analysis and that showed what it seems to be possible UTI. The examination is remarkable for diminished breathing sounds bilaterally with regular rate and rhythm and distant heart sounds and mild bilateral lower extremity edema 08/11/2023 The patient was seen and evaluated this morning. He is feeling better. The chest discomfort has resolved. He seems to be in atrial fibrillation on the monitor and I'm going to perform a 12 please EKG to confirm that. Meanwhile he is on Cardizem IV which I'm going to wean him from and start him on beta twin was Toprol tartrate. Also he will be started on oral anticoagulation. He is getting treated for possible sepsis as well. Hemodynamically he is stable and not on any vasopressors at this point. The echo revealed normal LV systolic function was no significant valvular abnormalities. The examination is remarkable for regular rhythm with distant heart sounds and clear breathing sounds bilaterally and no lower extremity edema noted 08/12/2023 Patient was seen and evaluated this morning. Hemodynamically is stable. He is in atrial fibrillation with controlled heart rate. He is on metoprolol and he is on oral anticoagulation. Beside that he is still hypoxic requiring 2 L of oxygen. The chest x-ray did not show any acute abnormalities from yesterday. He has no pain in the chest. We need to review his echocardiogram to determine the exact ejection fraction. There is concern about an infection etiology and that is in process of workup on it. The examination is remarkable for irregular rhythm with diminished breathing sounds bilaterally and no edema in the lower extremities 08/13/2023 The patient was seen and evaluated this morning. He still tachycardic with heart rate above 100 treatment. Her pressure is stable. I'm going to increase the dose of metoprolol. Continue oral anticoagulation. The source of infection is still not clear as of yet. This possible need for transesophageal echocardiogram which is not unreasonable. The patient continues to be weak. Physical therapy is on the case. The examination is remarkable for irregular rhythm with diminished breathing sounds bilaterally and no lower extremity is edema noted. Assessment Acute hypoxic respiratory failure Sepsis of unknown source Atrial fibrillation Permanent pacemaker Multiple comorbid conditions Plan Continue the current medical regimen Possible need for transesophageal echocardiogram Increase the dose of metoprolol Objective - Vital Signs Vital signs: Vital Signs Temp 97.7 F 08/13/23 04:00 Pulse 117 H 08/13/23 07:00 Resp 21 08/13/23 07:00 BP 138/86 08/13/23 07:00 Pulse Ox 98 08/13/23 07:00 FiO2 Intake & Output 08/12/23 08/13/23 08/13/23 18:59 06:59 18:59 Intake Total 160 820 Output Total 950 700 Balance -790 120 Weight 89.9 kg Intake: IV 160 820 0.9 @ KVO 110 120 Potassium Chloride 10 meq 100 In Water For Injection 1 100ml.bag @ 100 mls/hr IVPB Q1H [facility] Rx#: [id number] Sodium Chloride 0.9% 1, 550 000 ml @ 50 mls/hr IV . Q20H [facility] Rx#:[id number] ceFAZolin 2 gm In Sodium 50 50 Chloride 0.9% 50 ml @ 100 mls/hr IVPB Q8HR [facility] Rx# :[id number] Output: Urine 950 700 Other: Voiding Method Urinal Urinal # Voids 1 - Labs CBC & Chem 7: 08/13/23 05:46 08/13/23 05:46 Labs: Abnormal Lab Results - Last 24 Hours (Table) 08/12/23 08/12/23 08/12/23 Range/Units 11:16 16:58 19:48 RBC (4.30-5.90) m/uL Hgb (13.0-17.5) gm/dL Plt Count (150-450) k/uL Neutrophils # (1.3-7.7) k/uL Lymphocytes # (1.0-4.8) k/uL Chloride (98-107) mmol/L Carbon Dioxide (22-30) mmol/L BUN (9-20) mg/dL Glucose (74-99) mg/dL POC Glucose (mg/dL) 130 H 146 H 153 H (70-110) mg/dL 08/13/23 08/13/23 Range/Units 05:46 05:46 RBC 4.15 L (4.30-5.90) m/uL Hgb 12.6 L (13.0-17.5) gm/dL Plt Count 88 L (150-450) k/uL Neutrophils # 8.3 H (1.3-7.7) k/uL Lymphocytes # 0.4 L (1.0-4.8) k/uL Chloride 115 H (98-107) mmol/L Carbon Dioxide 16 L (22-30) mmol/L BUN 61 H (9-20) mg/dL Glucose 114 H (74-99) mg/dL POC Glucose (mg/dL) (70-110) mg/dL Microbiology - Last 24 Hours (Table) 08/11/23 11:04 Blood Culture - Preliminary Blood 08/11/23 11:03 Blood Culture Gram Stain - Preliminary Blood 08/10/23 08:10 Blood Culture Gram Stain - Final Blood Blood Culture - Final Staphylococcus aureus 08/10/23 07:55 Blood Culture Gram Stain - Final Blood Blood Culture - Final Staphylococcus aureus 08/11/23 03:05 Blood Culture Gram Stain - Preliminary Blood Blood Culture - Preliminary Presumptive Staph aureus
[2023-08-13 12:11] LABS: Glucose,Whole Blood 155 mg/dL (70-110)
[2023-08-13] MEDS: NOREPINEPHRINE 4 MG in SODIUM CHLORIDE 0.9% 250 ML IV SCH (12:57)
[2023-08-13] MEDS ORDERED: MIDAZOLAM 1 MG/ML 5 ML VIAL IV ONE (13:00)
[2023-08-13] MEDS ORDERED: fentaNYL (PF) 50 MCG/ML 2 ML AMP IVP ONE ×2 (13:00→13:20)
--- NOTE | 2023-08-13 13:24 | P.PN ---
Subjective Progress Note Date: 08/13/23 Hospital Course: 73-year-old male with a past medical history of left bundle branch block status post pacemaker placement, hypertension, hyperlipidemia, type 2 insulin-dependent diabetes mellitus, atrial fibrillation not on anticoagulation, and peripheral vascular disease status post stenting in right lower extremity. Patient was transferred to our facility overnight from [facility] for admission and further evaluation for elevated troponin levels. Patient reports he emmett craig presented to the hospital for complaints of chest pain, shortness of breath, and generalized body aches. He was also complaining of significant back pain. Patient reports he initially began experiencing these symptoms on and was seen by his PCP who tested him for Covid which she reports was negative. Patient reports he has had persistent generalized body aches, fatigue, chest pain, and shortness of breath since and progressively worsening. Upon arrival to our facility patient underwent evaluation. Labs were completed and reviewed. CBC revealing mild leukocytosis with WBC count of 11.4 and thrombocytopenia with platelet count of 112. BMP showing mild hypocarbia with bicarb of 20, prerenal azotemia with BUN of 35 and hyperglycemia with glucose of 126. Magnesium was normal findings at 2.3. Liver profile unremarkable. Troponin was elevated at 0.070. Patient was started on low intensity heparin infusion for treatment of NSTEMI and admitted under our serv ices with consultation to cardiology. Troponins trended overnight resulting in 0.070, 0.076, and 0.078. Pro-calcitonin was elevated at 30.40. Patient did go into shock, initially thought to be cardiogenic. Cardiac cath showed mild CAD, LVEDP was 10-12. Echocardiogram showed LVEF of 35-40%. Blood cultures came back positive for staph aureus. ID consulted. Currently patient is on IV cefazolin and vancomycin. No longer requiring pressors. Lumbar CT did not show any evidence of discitis or osteomyelitis. Unable to get lumbar spine MRI given pacemaker. Source of Gram-positive bacteremia still not clear Subjective: Patient seen and examined at bedside. No acute events overnight. He does have significant cervical stiffness. Pertinent positives and negatives as discussed above, a complete review of systems was performed and all other systems are negative. Vitals Signs Reviewed. General: nontoxic, in mild distress, appears at stated age Derm: warm, dry Head: atraumatic, normocephalic, symmetric, significant cervical stiffness and reduced range of motion Eyes: EOMI, no lid lag, anicteric sclera Mouth: no lip lesion, mucus membranes moist Cardiovascular: S1S2 reg, no murmur Lungs: CTA bilateral, no rhonchi, no rales , no accessory muscle use, supplemental oxygen Abdominal: soft, nontender to palpation, no guarding, no appreciable organomegaly Ext: no gross muscle atrophy, no edema, no contractures Neuro: CN II-XI grossly intact, no focal neuro deficits Psych: Alert, oriented, appropriate affect Data Reviewed Today: Pertinent Labs: WBC 9.5, hemoglobin 12.6, platelet 88, bicarb 16, BUN 61, creatinine 1.1, blood sugars range between 114-155 Imaging: No new imaging Assessment and Plan: MSSA bacteremia Septic shock, resolved Acute hypoxic respiratory failure NSTEMI History of left bundle branch block status post pacemaker placement Paroxysmal atrial fibrillation with RVR Peripheral vascular disease Hypertension Hyperlipidemia Type 2 insulin-dependent diabetes mellitus Thrombocytopenia, resolving Metabolic acidosis, non-anion gap -ID following, unable to get MRI due to pacemaker, pending LAURA -Currently on IV cefazolin 2 g every 8 hours -Repeat blood cultures no growth to date -In terms of foreign bodies, patient has a bladder stimulator, right knee replacement, and pacemaker -Unclear source of bacteremia at the moment -Patient also had routine dental cleaning about 3 weeks ago. -If LAURA negative, should consider WBC tagged scan -Cardiology note reviewed, increase metoprolol to 50 BID, eliquis 5 BID -continue statin , aspirin, Plavix -Consider discontinuing one of the antiplatelet -levemir 15 units at night, aspart 8 units 3 times a day, sliding scale insulin, monitor for hypoglycemia -repeat CBC and BMP tomorrow -no active bleeding -ICU following. DVT ppx: Eliquis Code status: Full code Anticipated discharge place: Pending clinical course Anticipated discharge time: Pending clinical course Objective - Vital Signs Vital signs: Vital Signs Temp 97.7 F 08/13/23 08:00 Pulse 110 H 08/13/23 12:00 Resp 16 08/13/23 12:00 BP 105/83 08/13/23 12:00 Pulse Ox 96 08/13/23 12:00 FiO2 Intake & Output 08/12/23 08/13/23 08/13/23 18:59 06:59 18:59 Intake Total 160 820 250 Output Total 950 700 200 Balance -790 120 50 Weight 89.9 kg Intake: IV 160 820 200 0.9 @ KVO 110 120 50 Potassium Chloride 10 meq 100 100 In Water For Injection 1 100ml.bag @ 100 mls/hr IVPB Q1H [facility] Rx#: [id number] Sodium Chloride 0.9% 1, 550 0 000 ml @ 50 mls/hr IV . Q20H [facility] Rx#:[id number] ceFAZolin 2 gm In Sodium 50 50 50 Chloride 0.9% 50 ml @ 100 mls/hr IVPB Q8HR [facility] Rx# :[id number] Tube Feeding 50 Output: Urine 950 700 200 Other: Voiding Method Urinal Urinal Urinal # Voids 1 - Labs CBC & Chem 7: 08/13/23 05:46 08/13/23 05:46 Labs: Abnormal Lab Results - Last 24 Hours (Table) 08/12/23 08/12/23 08/13/23 Range/Units 16:58 19:48 05:46 RBC 4.15 L (4.30-5.90) m/uL Hgb 12.6 L (13.0-17.5) gm/dL Plt Count 88 L (150-450) k/uL Neutrophils # 8.3 H (1.3-7.7) k/uL Lymphocytes # 0.4 L (1.0-4.8) k/uL Chloride (98-107) mmol/L Carbon Dioxide (22-30) mmol/L BUN (9-20) mg/dL Glucose (74-99) mg/dL POC Glucose (mg/dL) 146 H 153 H (70-110) mg/dL 08/13/23 08/13/23 Range/Units 05:46 12:10 RBC (4.30-5.90) m/uL Hgb (13.0-17.5) gm/dL Plt Count (150-450) k/uL Neutrophils # (1.3-7.7) k/uL Lymphocytes # (1.0-4.8) k/uL Chloride 115 H (98-107) mmol/L Carbon Dioxide 16 L (22-30) mmol/L BUN 61 H (9-20) mg/dL Glucose 114 H (74-99) mg/dL POC Glucose (mg/dL) 155 H (70-110) mg/dL Microbiology - Last 24 Hours (Table) 08/11/23 11:04 Blood Culture - Preliminary Blood 08/11/23 11:03 Blood Culture Gram Stain - Preliminary Blood 08/10/23 08:10 Blood Culture Gram Stain - Final Blood Blood Culture - Final Staphylococcus aureus 08/10/23 07:55 Blood Culture Gram Stain - Final Blood Blood Culture - Final Staphylococcus aureus 08/11/23 03:05 Blood Culture Gram Stain - Preliminary Blood Blood Culture - Preliminary Presumptive Staph aureus
--- NOTE | 2023-08-13 13:28 | P.PN ---
Subjective Progress Note Date: 08/13/23 Principal diagnosis: Acute hypoxic respiratory failure, acute gram-positive sepsis, new onset atrial fibrillation with RVR This is a pleasant 73-year-old male patient with a known history of diabetes mellitus, hypertension, hyperlipidemia, atrial fibrillation, left bundle branch block, post permanent pacemaker insertion 2 years ago in [place], peripheral vascular disease with stenting to the lower extremities, former smoker however quit 20 oh. 4 days ago the patient had complaints of significant low back pain and weakness and was seen in [facility] treated and discharged home. He represented there again yesterday with low back pain and was found to have el evated troponin levels and subsequently transferred to our emergency department. EKG reveals a ventricular paced rhythm. CT angiogram revealed no evidence of pulmonary embolism. There is moderate emphysematous changes throughout the lung jaquez but otherwise clear. Labs revealed a troponin of 0.076, 0.108. ProBNP 5990. Pro-calcitonin 38.40. Urinalysis with moderate blood and 4+ glucose, 2+ ketones. Influenza screen negative. RSV screen negative. COVID-19 screen negative. White count 10.8. Hemoglobin 14.4. Platelets 105. Sodium 136. Potassium 4.2. Bicarb 20. BUN 35. Creatinine 1.01. Glucose 126. He is seen today in consultation in the emergency department. He's currently sitting up in a stretcher. Awake and alert. He denies any chest pain currently. She denies any worsening shortness of breath however he is requiring 15 L per nonrebreather mask to maintain O2 saturations in the 90s. He was down to 82% at one point. Current O2 saturation 97%. He is febrile with temperature of 102.7. He is clammy. He's been initiated on a heparin drip and. Initiated on ceftriaxone and azithromycin. Echocardiogram is pending. Patient was reevaluated today on 08/11/23, remains in the ICU. Patient underwent cardiac catheterization yesterday and he was found to have normal coronaries, normal left ventricular end-diastolic pressures which basically rules out congestive heart failure patient was also found to have normal LV function according to Dr. Saleh, however after looking at the echocardiogram which was read by Dr. Vivas, he estimated his ejection fraction of 35-40%, and Dr. Saleh is going to reevaluate that echocardiogram and let us know if the report these to be modified. At any rate since yesterday the patient was found to have gram-positive bacteremia, presumptive staph aureus in the blood, and the patient is now on vancomycin empirically. In the meantime it is necessary to know the primary site of this infection, looking back at the clinical history, patient presented with severe acute onset back pain, which makes me concerned about the possibility of discitis causing his back pain/relatively new onset patient did have history of chronic back pain but this pain that he presented with was hyperacute and debilitating not to mention the patient came in with significantly elevated pro calcitonin level, and mild leukocytosis. His sed rate was 63 on admission. Hence I'm recommending CT of the lumbosacral spine, multiple recommending infectious disease consultation, and will continue to monitor her blood cultures in the meantime. Chest x-ray this morning showed chronic changes but no acute evidence of any active pulmonary disease and no evidence of congestive heart failure. Patient is now on Cardizem for atrial fibrillation with RVR but again no evidence of congestive heart failure. Asking the about his smoking history patient did have remote smoking history and at one point he did have inhalers for underlying COPD severity of which is not clear. Reevaluated today on 08/12/23, patient remains in the ICU, he was in December, continues to have positive blood cultures/MSSA, we are still trying to determine the primary site of infection, differential diagnoses includes lumbar/sacral discitis or osteomyelitis or abscess although CT of the lumbosacral spine was unremarkable and did not show such findings. Infectious diseases recommending MRI of the spine, and that is pending. In the meantime the patient is on antibiotics, his transthoracic echo did not reveal any vegetations, however if we continue to have no answer to explain the site of his bacteremia, the patient may have to have a transesophageal echocardiogram repeat blood cultures again came back positive and that is concerning. Clinically however the patient is feeling better, breathing easier, his CBC is relatively normal basic metabolic profile is normal BUN is 61 and creatinine 1.16, slightly improved compared to yesterday of 1.20. is at bedside, and I updated the and the patient on where we are and our concern about his gram-positive bacteremia and would like to find the source reevaluated today on 08/13/23, patient remains in the ICU, he is extremely weak, and now he has severe cervical pain, and low back pain, continues to have positive blood cultures patient is on antibiotics for his MSSA bacteremia, could not apparently have MRI because of his pacemaker although the glue jointer operator cleared him to have an MRI, but radiology declined. Considering the persistent positive blood cultures I'm recommending CT of the cervical spine and I'm also recommending LAURA on this patient, discussed this with Dr. Saleh on the case. Labs today W says 9.5 hemoglobin 12.6 basic metabolic profile is normal bicarb is 16 BUN is 61 creatinine 1.1 Objective - Vital Signs Vital signs: Vital Signs Temp 97.7 F 08/13/23 08:00 Pulse 110 H 08/13/23 12:00 Resp 16 08/13/23 12:00 BP 105/83 08/13/23 12:00 Pulse Ox 96 08/13/23 12:00 FiO2 Intake & Output 08/12/23 08/13/23 08/13/23 18:59 06:59 18:59 Intake Total 160 820 250 Output Total 950 700 200 Balance -790 120 50 Weight 89.9 kg Intake: IV 160 820 200 0.9 @ KVO 110 120 50 Potassium Chloride 10 meq 100 100 In Water For Injection 1 100ml.bag @ 100 mls/hr IVPB Q1H [facility] Rx#: [id number] Sodium Chloride 0.9% 1, 550 0 000 ml @ 50 mls/hr IV . Q20H [facility] Rx#:[id number] ceFAZolin 2 gm In Sodium 50 50 50 Chloride 0.9% 50 ml @ 100 mls/hr IVPB Q8HR [facility] Rx# :[id number] Tube Feeding 50 Output: Urine 950 700 200 Other: Voiding Method Urinal Urinal Urinal # Voids 1 - Exam Physical Exam: Revealed 73-year-old white male in no distress, however he seems to be exhausted, and extremely weak. On room air HEENT:[Neck is stiff today..] [No neck masses.] [No thyromegaly.] [No JVD.] Patient seems to have significant limitation and moving his neck with cervical spine pain Chest: [Clear throughout, no crackles, no rhonchi, no wheezes.] Cardiac Exam: Irregular irregular rhythm [Normal S1 and S2, no S3 gallop, no murmur.] Abdomen: [Soft, nontender, no megaly, no rebound, no guarding, normal bowel sounds.] Extremities: [No clubbing, no edema, no cyanosis.] Neurological Exam: [No focal neurologic deficit.] However the patient is generally weak, he does have back pain. Psychiatric: Depressed mood, flat affect, normal mental status otherwise. Skin: No rashes. Patient does have areas of ecchymosis, no evidence of celluli tis - Labs CBC & Chem 7: 08/13/23 05:46 08/13/23 05:46 Labs: Abnormal Lab Results - Last 24 Hours (Table) 08/12/23 08/12/23 08/13/23 Range/Units 16:58 19:48 05:46 RBC 4.15 L (4.30-5.90) m/uL Hgb 12.6 L (13.0-17.5) gm/dL Plt Count 88 L (150-450) k/uL Neutrophils # 8.3 H (1.3-7.7) k/uL Lymphocytes # 0.4 L (1.0-4.8) k/uL Chloride (98-107) mmol/L Carbon Dioxide (22-30) mmol/L BUN (9-20) mg/dL Glucose (74-99) mg/dL POC Glucose (mg/dL) 146 H 153 H (70-110) mg/dL 08/13/23 08/13/23 Range/Units 05:46 12:10 RBC (4.30-5.90) m/uL Hgb (13.0-17.5) gm/dL Plt Count (150-450) k/uL Neutrophils # (1.3-7.7) k/uL Lymphocytes # (1.0-4.8) k/uL Chloride 115 H (98-107) mmol/L Carbon Dioxide 16 L (22-30) mmol/L BUN 61 H (9-20) mg/dL Glucose 114 H (74-99) mg/dL POC Glucose (mg/dL) 155 H (70-110) mg/dL Microbiology - Last 24 Hours (Table) 08/11/23 11:04 Blood Culture - Preliminary Blood 08/11/23 11:03 Blood Culture Gram Stain - Preliminary Blood 08/10/23 08:10 Blood Culture Gram Stain - Final Blood Blood Culture - Final Staphylococcus aureus 08/10/23 07:55 Blood Culture Gram Stain - Final Blood Blood Culture - Final Staphylococcus aureus 08/11/23 03:05 Blood Culture Gram Stain - Preliminary Blood Blood Culture - Preliminary Presumptive Staph aureus Assessment and Plan Assessment: Impression: Acute gram-positive sepsis /MSSA Acute hypoxemic respiratory failure secondary to above, and possible underlying component of COPD, no evidence of congestive heart failure on the chest x-ray and no evidence of pneumonia Hypotension secondary to sepsis/gram-positive sepsis/MSSA Mild leukocytosis, resolved Febrile illness secondary to above Diabetes mellitus Hypertension, history of Hyperlipidemia Atrial fibrillation, being addressed by cardiology on the case History of bundle-branch block Status post permanent pacemaker implantation 2 years ago in [place] Peripheral vascular disease with previous stent to the lower extremity Former smoker however quit 20 years ago, questionable underlying COPD. inactive. Severe cervical spine pain and limitation in range of motion of cervical spine hence I'm recommending his CT of the cervical spine and orthopedic consultation with Dr. dr wynn Recommendation: CT cervical spine, rule out abscess, rule out osteomyelitis Transesophageal echocardiogram, rule out vegetations Continue cefazolin Continue heparin Continue to monitor blood culture Discussed his condition with him and his as well as Dr. Saleh Continue metoprolol , being addressed by cardiology Continue morphine sulfate when necessary for pain Continue IV fluids, hold diuretics Keep patient in the ICU for now Will follow Time with Patient: Less than 30
--- NOTE | 2023-08-13 16:13 | P.PCN ---
Date of Procedure: 08/13/23 Operative Findings: TRANSESOPHAGEAL ECHOCARDIOGRAM POULTRY HELPER: MOHAMUD JUAREZ MD, RPVI INDICATION: Rule out infective endocarditis SEDATION: Conscious sedation COMPLICATION: None LEVEL OF SEDATION Moderate to sedation length of 15 minutes PROCEDURE DESCRIPTION: The procedure was performed in the ICU after obtaining an informed consent. Pulse oximetry and heart monitors were attached to the patient. The patient throat was sprayed using lidocaine. The patient was turned into left lateral position. After that a bite guard was placed. After an appropriate conscious sedation was initiated, the transesophageal echocardiogram was advanced through a bite guard into the mid esophagus. A 2-D echocardiogram images, color Doppler images, continuous wave images, pulse-wave images, of various cardiac structure were performed. After that the transesophageal echocardiogram probe was advanced into the stomach and fixed to obtain transgastric view was. The probe was brought into the mid esophagus. Inter-atrial septum was interrogated using 2D images, color Doppler images, and then contrast study. After that transesophageal echocardiogram was withdrawn out and upon withdrawing the descending thoracic aorta all the way up to the arch was evaluated. CONCLUSION: 1. No evidence of endocarditis 2. Mildly impaired LV function with EF around 40-45% 3. Aortic sclerosis was no stenosis with mild insufficiency 4. Mildly thickened mitral valve leaflets with mild MR 5. Normal tricuspid valve and pulmonic valve 6. Intact interatrial septum
[2023-08-13 16:22] LABS: Glucose,Whole Blood 94 mg/dL (70-110)
--- NOTE | 2023-08-13 16:52 | P.PN ---
Subjective Progress Note Date: 08/13/23 Principal diagnosis: Reason for follow-up is MSSA bacteremia Patient is a 73-year-old male with a past medical history significant for diabetes mellitus hypertension hyperlipidemia AL COPD atrial fibrillation patient presenting to the hospital on 08/09/2023 for evaluation of weakness and significant pain to the lower back area patient was febrile and did have a positive blood culture with MSSA, CT of the lumbar spine without contrast no evidence of discitis or osteomyelitis MRI could not be done as the patient did have a pacemaker On today's visit and that is 08/13/2023, the patient did have a low grade fever of 99.5, , the patient is breathing comfortably on 2 L nasal cannula supplemental oxygen, patient denies chest pain still complaining of shortness of breath and no significant cough or sputum production, patient denies Abdominal pain, no nausea/vomiting and denies having any diarrhea, pt has been c/o lower back pain Patient white count is 9.5, creatinine 1.10, blood cultures 08/10/2023 as well as 08/11/2023 are positive Objective - Vital Signs Vital signs: Vital Signs Temp 97.7 F 08/13/23 08:00 Pulse 90 08/13/23 10:00 Resp 23 08/13/23 10:00 BP 143/84 08/13/23 10:00 Pulse Ox 96 08/13/23 10:00 FiO2 Intake & Output 08/12/23 08/13/23 08/13/23 18:59 06:59 18:59 Intake Total 160 820 230 Output Total 950 700 200 Balance -790 120 30 Weight 89.9 kg Intake: IV 160 820 180 0.9 @ KVO 110 120 30 Potassium Chloride 10 meq 100 100 In Water For Injection 1 100ml.bag @ 100 mls/hr IVPB Q1H [facility] Rx#: [id number] Sodium Chloride 0.9% 1, 550 0 000 ml @ 50 mls/hr IV . Q20H [facility] Rx#:[id number] ceFAZolin 2 gm In Sodium 50 50 50 Chloride 0.9% 50 ml @ 100 mls/hr IVPB Q8HR [facility] Rx# :[id number] Tube Feeding 50 Output: Urine 950 700 200 Other: Voiding Method Urinal Urinal Urinal # Voids 1 - Exam GENERAL DESCRIPTION: An elderly male lying in bed in no distress RESPIRATORY SYSTEM: Unlabored breathing , decreased breath sound at the base HEART: S1 S2 regular rate and rhythm , ABDOMEN: Soft , no tenderness EXTREMITIES: No edema feet - Labs CBC & Chem 7: 08/13/23 05:46 08/13/23 15:54 Labs: Abnormal Lab Results - Last 24 Hours (Table) 08/12/23 08/12/23 08/12/23 Range/Units 11:16 16:58 19:48 RBC (4.30-5.90) m/uL Hgb (13.0-17.5) gm/dL Plt Count (150-450) k/uL Neutrophils # (1.3-7.7) k/uL Lymphocytes # (1.0-4.8) k/uL Chloride (98-107) mmol/L Carbon Dioxide (22-30) mmol/L BUN (9-20) mg/dL Glucose (74-99) mg/dL POC Glucose (mg/dL) 130 H 146 H 153 H (70-110) mg/dL 08/13/23 08/13/23 Range/Units 05:46 05:46 RBC 4.15 L (4.30-5.90) m/uL Hgb 12.6 L (13.0-17.5) gm/dL Plt Count 88 L (150-450) k/uL Neutrophils # 8.3 H (1.3-7.7) k/uL Lymphocytes # 0.4 L (1.0-4.8) k/uL Chloride 115 H (98-107) mmol/L Carbon Dioxide 16 L (22-30) mmol/L BUN 61 H (9-20) mg/dL Glucose 114 H (74-99) mg/dL POC Glucose (mg/dL) (70-110) mg/dL Microbiology - Last 24 Hours (Table) 08/11/23 11:04 Blood Culture - Preliminary Blood 08/11/23 11:03 Blood Culture Gram Stain - Preliminary Blood 08/10/23 08:10 Blood Culture Gram Stain - Final Blood Blood Culture - Final Staphylococcus aureus 08/10/23 07:55 Blood Culture Gram Stain - Final Blood Blood Culture - Final Staphylococcus aureus 08/11/23 03:05 Blood Culture Gram Stain - Preliminary Blood Blood Culture - Preliminary Presumptive Staph aureus Assessment and Plan (1) MSSA bacteremia Current Visit: Yes Status: Acute Code(s): R78.81 - BACTEREMIA; B95.61 - METHICILLIN SUSCEP STAPH INFCT CAUSING DIS CLASSD [id number] SNOMED Code(s): 534355662 (2) Sepsis Current Visit: Yes Status: Acute Code(s): A41.9 - SEPSIS, UNSPECIFIED ORG ANISM SNOMED Code(s): 90425423 Plan: 1patient with excruciating lower back pain in this patient who did have a fever elevated white count elevated lactic acid meeting criteria for sepsis/SIRS now with evidence of MSSA bacteremia high clinical suspicious for lumbosacral spine disease such as discitis osteomyelitis 2-blood cultures repeated on 08/11/2023 a coming back positive, blood culture has been repeated to document clearance 3-patient benefit from MRI of the lower back with contrast to better define underlying pathology, however MRI could not be done at this facility as the patient did have a pacemaker 4-patient to continue with cefazolin 2 g every 8 hours, Pt is scheduled for LAURA this afternoon per nursing staff Dictation was produced using [employer] dictation software. please excuse any grammatical, word or spelling errors. Time with Patient: Less than 30
[2023-08-13] MEDS ORDERED: Potassium Replacement Protocol 1 EACH MISC MISCELLANE PRN (16:54)
--- NOTE | 2023-08-13 17:41 | CT ---
EXAMINATION TYPE: CT cervical spine wo con DATE OF EXAM: 08/13/2023 COMPARISON: 08/09/2023 from outside institution. HISTORY: bacteremia/severe cervical pain CT DLP: 332.1 mGycm Automated exposure control for dose reduction was used. TECHNIQUE: CT scan of the cervical spine is obtained without contrast, axial images are obtained, sa gittal and coronal reformatted images are also reviewed. FINDINGS: The craniovertebral junction relationships and prevertebral soft tissues are normal. The cervical vertebral segments are normal in height and alignment and there is no fracture subluxati on. There is marked degenerative disease at C5-6 level where there is marked disc space narrowing and spo ndylosis. There is mild degenerative disease at the C4-5 and C6-7 levels. Secondary to posterior spondylosis C5-6 level there is moderate to severe cervical stenosis. There is severe neural foraminal encroachment at C5-6 on the right secondary to degeneration of the uncoverte bral joint. There is moderate facet arthropathy and moderate degenerative change of the uncovertebral joints at t he C4-5, C5-6 and C6-7 levels. The paraspinal soft tissues are unremarkable. IMPRESSION: 1. Degenerative changes as described above. 2. Moderate to severe cervical stenosis at C5-6 secondary to marked posterior hypertrophic spurring a t C5-6. 3. severe neural foraminal stenosis at C5-6 on the right.
[2023-08-13] MEDS: METOPROLOL TARTRATE 50 MG TAB PO SCH (20:02)
[2023-08-13] MEDS: ATORVASTATIN 80 MG TAB PO SCH (20:02)
[2023-08-13] MEDS: INSULIN DETEMIR (LEVEMIR) 100 UNIT/ML SYR SQ SCH (20:03)
[2023-08-13 20:06] LABS: Glucose,Whole Blood 112 mg/dL (70-110)
[2023-08-14 06:23] LABS: Basophils % (A) 0 %; Eosinophils % (A) 0 %; HGB 12.4 gm/dL (13.0-17.5); Hypochromasia Slight; Lymphocytes # (A) 0.6 k/uL (1.0-4.8); Lymphocytes % (A) 5 %; MCH 30.8 pg (25.0-35.0); MCHC 32.5 g/dL (31.0-37.0); MCV 94.5 fL (80.0-100.0); Mean Platelet Volume 10.3; Monocytes # (A) 0.5 k/uL (0-1.0); Monocytes % (A) 4 %; Neutrophils # (A) 10.8 k/uL (1.3-7.7); Neutrophils % (A) 87 %; Platelet Count 130 k/uL (150-450); RBC 4.02 m/uL (4.30-5.90); RDW 14.8 % (11.5-15.5); WBC 12.5 k/uL (3.8-10.6)
[2023-08-14 06:35] LABS: African American GFR (CKD) 80 (>60 ml/min/1.73 sqM); Anion Gap 13 mmol/L; Blood Urea Nitrogen 53 mg/dL (9-20); Calcium 8.4 mg/dL (8.4-10.2); Carbon Dioxide 17 mmol/L (22-30); Chloride 117 mmol/L (98-107); Glucose 112 mg/dL (74-99); Magnesium 2.4 mg/dL (1.6-2.3); Non-African American GFR(CKD) 69 (>60 ml/min/1.73 sqM); Potassium 3.8 mmol/L (3.5-5.1); Sodium 147 mmol/L (137-145)
[2023-08-14 06:40] LABS: Glucose,Whole Blood 109 mg/dL (70-110)
[2023-08-14] MEDS: INSULIN ASPART (NovoLOG) 100 UNIT/ML VIAL SQ SCH ×7 (06:42→20:31)
[2023-08-14] MEDS: POTASSIUM CHLORIDE 10 MEQ in WATER FOR INJECTION 1 100ML.BAG IVPB SCH ×2 (06:43→09:14)
[2023-08-14] MEDS: VIT A,C & E-LUTEIN-MINERALS 1 EACH TAB PO SCH ×2 (09:14→20:35)
[2023-08-14] MEDS: ASPIRIN 81 MG PO SCH (09:15)
[2023-08-14] MEDS: APIXABAN 5 MG TAB PO SCH ×2 (09:15→20:31)
[2023-08-14] MEDS: CLOPIDOGREL 75 MG TAB PO SCH (09:15)
[2023-08-14] MEDS: METOPROLOL TARTRATE 50 MG TAB PO SCH ×2 (09:15→20:30)
[2023-08-14] MEDS: DILTIAZEM 125 MG in SODIUM CHLORIDE 0.9% 100 ML IV SCH (09:15)
[2023-08-14] MEDS: ACETAMINOPHEN TAB 325 MG TAB PO PRN ×2 (09:27→21:30)
--- NOTE | 2023-08-14 12:00 | P.PN ---
Subjective Progress Note Date: 08/14/23 Hospital Course: 73-year-old male with a past medical history of left bundle branch block status post pacemaker placement, hypertension, hyperlipidemia, type 2 insulin-dependent diabetes mellitus, atrial fibrillation not on anticoagulation, and peripheral vascular disease status post stenting in right lower extremity. Patient was transferred to our facility overnight from [facility] for admission and further evaluation for elevated troponin levels. Patient reports he in itially presented to the hospital for complaints of chest pain, shortness of breath, and generalized body aches. He was also complaining of significant back pain. Patient reports he initially began experiencing these symptoms on and was seen by his PCP who tested him for Covid which she reports was negative. Patient reports he has had persistent generalized body aches, fatigue, chest pain, and shortness of breath since and progressively worsening. Upon arrival to our facility patient underwent evaluation. Labs were completed and reviewed. CBC revealing mild leukocytosis with WBC count of 11.4 and thrombocytopenia with platelet count of 112. BMP showing mild hypocarb ia with bicarb of 20, prerenal azotemia with BUN of 35 and hyperglycemia with glucose of 126. Magnesium was normal findings at 2.3. Liver profile unremarkable. Troponin was elevated at 0.070. Patient was started on low intensity heparin infusion for treatment of NSTEMI and admitted under our ser vices with consultation to cardiology. Troponins trended overnight resulting in 0.070, 0.076, and 0.078. Pro-calcitonin was elevated at 30.40. Patient did go into shock, initially thought to be cardiogenic. Cardiac cath showed mild CAD, LVEDP was 10-12. Echocardiogram showed LVEF of 35-40%. Blood cultures came back positive for staph aureus. ID consulted. Currently patient is on IV cefazolin and vancomycin. No longer requiring pressors. Lumbar CT did not show any evidence of discitis or osteomyelitis. Unable to get lumbar spine MRI given pacemaker. Source of Gram-positive bacteremia still not clear. LAURA did not show any evidence of which patient or endocarditis Subjective: Patient seen and examined at bedside. No acute events overnight. Pertinent positives and negatives as discussed above, a complete review of systems was performed and all other systems are negative. Vitals Signs Reviewed. General: nontoxic, in mild distress, appears at stated age Derm: warm, dry Head: atraumatic, normocephalic, symmetric, significant cervical stiffness and reduced range of motion Eyes: EOMI, no lid lag, anicteric sclera Mouth: no lip lesion, mucus membranes moist Cardiovascular: S1S2 reg, no murmur Lungs: CTA bilateral, no rhonchi, no rales , no accessory muscle use, sup plemental oxygen Abdominal: soft, nontender to palpation, no guarding, no appreciable organomegaly Ext: no gross muscle atrophy, no edema, no contractures Neuro: CN II-XI grossly intact, no focal neuro deficits Psych: Alert, oriented, appropriate affect Data Reviewed Today: Pertinent Labs: WBC 9.5, hemoglobin 12.6, platelet 88, bicarb 16, BUN 61, creatinine 1.1, blood sugars range between 114-155 Imaging: Cervical spine CT report reviewed, shows severe neural foraminal stenosis at C5 to 6 on the right, moderate to severe cervical stenosis at C5 to 6, degenerative disc disease Assessment and Plan: MSSA bacteremia, unclear source Septic shock, resolved Acute hypoxic respiratory failure NSTEMI History of left bundle branch block status post pacemaker placement Paroxysmal atrial fibrillation with RVR Peripheral vascular disease Hypertension Hyperlipidemia Type 2 insulin-dependent diabetes mellitus Thrombocytopenia, resolving Metabolic acidosis, non-anion gap Cervical stenosis, severe -Discussed management with infectious disease, recommending nafcillin 2 g IV every 4 hours, we'll need to confirm with regards to MRI compatibility for his pacemaker on Tuesday. -Repeat blood cultures -Discussed management with cardiology, reviewed images for LAURA, no evidence of endocarditis or vegetation on the valves or pacer leads. May need to repeat LAURA in 48 hours -Continue metoprolol to 50 BID, eliquis 5 BID -continue statin , aspirin, Plavix -Consider discontinuing one of the antiplatelet -levemir 15 units at night, aspart 8 units 3 times a day, sliding scale insulin, monitor for hypoglycemia -repeat CBC and BMP tomorrow -no active bleeding -ICU following -Neck pain improved, orthospine has been consulted. DVT ppx: Eliquis Code status: Full code Anticipated discharge place: Pending clinical course Anticipated discharge time: Pending clinical course Objective - Vital Signs Vital signs: Vital Signs Temp 99.1 F 08/14/23 08:00 Pulse 105 H 08/14/23 11:00 Resp 26 H 08/14/23 11:00 BP 107/70 08/14/23 11:00 Pulse Ox 97 08/14/23 11:00 FiO2 Intake & Output 08/13/23 08/14/23 08/14/23 18:59 06:59 18:59 Intake Total 410 700 400 Output Total 1050 600 300 Balance -640 100 100 Weight 87.6 kg Intake: IV 260 700 250 0.9 @ KVO 110 50 200 Potassium Chloride 10 meq 100 100 In Water For Injection 1 100ml.bag @ 100 mls/hr IVPB Q1H YESSICA Rx#: [id number] Sodium Chloride 0.9% 1, 0 500 000 ml @ 50 mls/hr IV . Q20H YESSICA Rx#:[id number] ceFAZolin 2 gm In Sodium 50 50 50 Chloride 0.9% 50 ml @ 100 mls/hr IVPB Q8HR YESSICA Rx# :[id number] Intake, IV Titration 100 Amount Potassium Chloride 10 meq 100 In Water For Injection 1 100ml.bag @ 100 mls/hr IVPB Q1H YESSICA Rx#: [id number] Oral 50 Tube Feeding 150 Output: Urine 1050 600 300 Other: Voiding Method Urinal Urinal Urinal - Labs CBC & Chem 7: 08/14/23 06:00 08/14/23 06:00 Labs: Abnormal Lab Results - Last 24 Hours (Table) 08/13/23 08/13/23 08/14/23 Range/Units 12:10 20:05 06:00 WBC 12.5 H (3.8-10.6) k/uL RBC 4.02 L (4.30-5.90) m/uL Hgb 12.4 L (13.0-17.5) gm/dL Hct 38.0 L (39.0-53.0) % Plt Count 130 L (150-450) k/uL Neutrophils # 10.8 H (1.3-7.7) k/uL Lymphocytes # 0.6 L (1.0-4.8) k/uL Sodium (137-145) mmol/L Chloride (98-107) mmol/L Carbon Dioxide (22-30) mmol/L BUN (9-20) mg/dL Glucose (74-99) mg/dL POC Glucose (mg/dL) 155 H 112 H (70-110) mg/dL Magnesium (1.6-2.3) mg/dL 08/14/23 Range/Units 06:00 WBC (3.8-10.6) k/uL RBC (4.30-5.90) m/uL Hgb (13.0-17.5) gm/dL Hct (39.0-53.0) % Plt Count (150-450) k/uL Neutrophils # (1.3-7.7) k/uL Lymphocytes # (1.0-4.8) k/uL Sodium 147 H (137-145) mmol/L Chloride 117 H (98-107) mmol/L Carbon Dioxide 17 L (22-30) mmol/L BUN 53 H (9-20) mg/dL Glucose 112 H (74-99) mg/dL POC Glucose (mg/dL) (70-110) mg/dL Magnesium 2.4 H (1.6-2.3) mg/dL Microbiology - Last 24 Hours (Table) 08/11/23 11:04 Blood Culture - Preliminary Blood 08/11/23 11:03 Blood Culture Gram Stain - Final Blood Blood Culture - Final Staphylococcus aureus 08/11/23 03:05 Blood Culture Gram Stain - Final Blood Blood Culture - Final Staphylococcus aureus
[2023-08-14 12:37] LABS: Glucose,Whole Blood 131 mg/dL (70-110)
[2023-08-14] MEDS: NAFCILLIN 2 GM in DEXTROSE 5% IN WATER 100 ML IVPB SCH ×6 (12:37→20:35)
--- NOTE | 2023-08-14 14:20 | P.PN ---
Subjective Progress Note Date: 08/14/23 Principal diagnosis: Acute hypoxic respiratory failure, acute gram-positive sepsis, new onset atrial fibrillation with RVR This is a pleasant 73-year-old male patient with a known history of diabetes mellitus, hypertension, hyperlipidemia, atrial fibrillation, left bundle branch block, post permanent pacemaker insertion 2 years ago in [place], peripheral vascular disease with stenting to the lower extremities, former smoker however quit 20 oh. 4 days ago the patient had complaints of significant low back pain and weakness and was seen in [facility] treated and discharged home. He represented there again yesterday with low back pain and was found to have el evated troponin levels and subsequently transferred to our emergency department. EKG reveals a ventricular paced rhythm. CT angiogram revealed no evidence of pulmonary embolism. There is moderate emphysematous changes throughout the lung jaquez but otherwise clear. Labs revealed a troponin of 0.076, 0.108. ProBNP 5990. Pro-calcitonin 38.40. Urinalysis with moderate blood and 4+ glucose, 2+ ketones. Influenza screen negative. RSV screen negative. COVID-19 screen negative. White count 10.8. Hemoglobin 14.4. Platelets 105. Sodium 136. Potassium 4.2. Bicarb 20. BUN 35. Creatinine 1.01. Glucose 126. He is seen today in consultation in the emergency department. He's currently sitting up in a stretcher. Awake and alert. He denies any chest pain currently. She denies any worsening shortness of breath however he is requiring 15 L per nonrebreather mask to maintain O2 saturations in the 90s. He was down to 82% at one point. Current O2 saturation 97%. He is febrile with temperature of 102.7. He is clammy. He's been initiated on a heparin drip and. Initiated on ceftriaxone and azithromycin. Echocardiogram is pending. Patient was reevaluated today on 08/11/23, remains in the ICU. Patient underwent cardiac catheterization yesterday and he was found to have normal coronaries, normal left ventricular end-diastolic pressures which basically rules out congestive heart failure patient was also found to have normal LV function according to Dr. Saleh, however after looking at the echocardiogram which was read by Dr. Vivas, he estimated his ejection fraction of 35-40%, and Dr. Saleh is going to reevaluate that echocardiogram and let us know if the report these to be modified. At any rate since yesterday the patient was found to have gram-positive bacteremia, presumptive staph aureus in the blood, and the patient is now on vancomycin empirically. In the meantime it is necessary to know the primary site of this infection, looking back at the clinical history, patient presented with severe acute onset back pain, which makes me concerned about the possibility of discitis causing his back pain/relatively new onset patient did have history of chronic back pain but this pain that he presented with was hyperacute and debilitating not to mention the patient came in with significantly elevated pro calcitonin level, and mild leukocytosis. His sed rate was 63 on admission. Hence I'm recommending CT of the lumbosacral spine, multiple recommending infectious disease consultation, and will continue to monitor her blood cultures in the meantime. Chest x-ray this morning showed chronic changes but no acute evidence of any active pulmonary disease and no evidence of congestive heart failure. Patient is now on Cardizem for atrial fibrillation with RVR but again no evidence of congestive heart failure. Asking the about his smoking history patient did have remote smoking history and at one point he did have inhalers for underlying COPD severity of which is not clear. Reevaluated today on 08/12/23, patient remains in the ICU, he was in December, continues to have positive blood cultures/MSSA, we are still trying to determine the primary site of infection, differential diagnoses includes lumbar/sacral discitis or osteomyelitis or abscess although CT of the lumbosacral spine was unremarkable and did not show such findings. Infectious diseases recommending MRI of the spine, and that is pending. In the meantime the patient is on antibiotics, his transthoracic echo did not reveal any vegetations, however if we continue to have no answer to explain the site of his bacteremia, the patient may have to have a transesophageal echocardiogram repeat blood cultures again came back positive and that is concerning. Clinically however the patient is feeling better, breathing easier, his CBC is relatively normal basic metabolic profile is normal BUN is 61 and creatinine 1.16, slightly improved compared to yesterday of 1.20. is at bedside, and I updated the and the patient on where we are and our concern about his gram-positive bacteremia and would like to find the source reevaluated today on 08/13/23, patient remains in the ICU, he is extremely weak, and now he has severe cervical pain, and low back pain, continues to have positive blood cultures patient is on antibiotics for his MSSA bacteremia, could not apparently have MRI because of his pacemaker although the automotive service management teacher cleared him to have an MRI, but radiology declined. Considering the persistent positive blood cultures I'm recommending CT of the cervical spine and I'm also recommending LAURA on this patient, discussed this with Dr. Saleh on the case. Labs today W says 9.5 hemoglobin 12.6 basic metabolic profile is normal bicarb is 16 BUN is 61 creatinine 1.1 Reevaluated today on 08/14/23, patient is about the same, remains in the ICU, presently on room air, CT of the cervical spine is also nondiagnostic for his gram-positive sepsis, his LAURA showed no evidence of vegetations, patient didn't have significant findings on the cervical spine explaining his cervical pain, showed mostly degenerative changes and moderate severe stenosis at C5-C6 and spurring at C5-C6 with severe neural foraminal stenosis at C5-C6, but no osteomyelitis and no abscess is still believe the patient will likely need an MRI of the spine however radiology is reluctant to agree to MRI because of his pacemaker although the patient had a pacemaker which is compatible with MRI and should be no problem. Cardiology felt strongly that the patient could have MRI and should be no issue with the pacemaker in addition to this the told me that the patient had MRI in the past without any problems. WBC count today is 12.5 hemoglobin 12.4 basic metabolic profile is normal bicarb is a bit low at 17 BUN is 53 creatinine 1.06. Her blood cultures remain positive. And more blood cultures are pending from the Objective - Vital Signs Vital signs: Vital Signs Temp 98 F 08/14/23 12:00 Pulse 107 H 08/14/23 13:00 Resp 29 H 08/14/23 13:00 BP 95/61 08/14/23 13:00 Pulse Ox 96 08/14/23 13:00 FiO2 Intake & Output 08/13/23 08/14/23 08/14/23 18:59 06:59 18:59 Intake Total 410 700 500 Output Total 1050 600 300 Balance -640 100 200 Weight 87.6 kg Intake: IV 260 700 350 0.9 @ KVO 110 50 300 Potassium Chloride 10 meq 100 100 In Water For Injection 1 100ml.bag @ 100 mls/hr IVPB Q1H YESSICA Rx#: [id number] Sodium Chloride 0.9% 1, 0 500 000 ml @ 50 mls/hr IV . Q20H YESSICA Rx#:[id number] ceFAZolin 2 gm In Sodium 50 50 50 Chloride 0.9% 50 ml @ 100 mls/hr IVPB Q8HR YESSICA Rx# :[id number] Intake, IV Titration 100 Amount Potassium Chloride 10 meq 100 In Water For Injection 1 100ml.bag @ 100 mls/hr IVPB Q1H YESSICA Rx#: [id number] Oral 50 Tube Feeding 150 Output: Urine 1050 600 300 Other: Voiding Method Urinal Urinal Urinal - Exam Physical Exam: Revealed 73-year-old white male in no distress, generally weak. On room air, no pulmonary distress HEENT:[Neck is stiff today..] [No neck masses.] [No thyromegaly.] [No JVD.] Patient seems to have significant limitation and moving his neck with cervical spine pain Chest: [Clear throughout, no crackles, no rhonchi, no wheezes.] Cardiac Exam: Irregular irregular rhythm [Normal S1 and S2, no S3 gallop, no m urmur.] Abdomen: [Soft, nontender, no megaly, no rebound, no guarding, normal bowel sounds.] Extremities: [No clubbing, no edema, no cyanosis.] Neurological Exam: [No focal neurologic deficit.] However the patient is generally weak, he does have back pain. Psychiatric: Depressed mood, flat affect, normal mental status otherwise. Skin: No rashes. Patient does have areas of ecchymosis, no evidence of cellulitis - Labs CBC & Chem 7: 08/14/23 06:00 08/14/23 06:00 Labs: Abnormal Lab Results - Last 24 Hours (Table) 08/13/23 08/14/23 08/14/23 Range/Units 20:05 06:00 06:00 WBC 12.5 H (3.8-10.6) k/uL RBC 4.02 L (4.30-5.90) m/uL Hgb 12.4 L (13.0-17.5) gm/dL Hct 38.0 L (39.0-53.0) % Plt Count 130 L (150-450) k/uL Neutrophils # 10.8 H (1.3-7.7) k/uL Lymphocytes # 0.6 L (1.0-4.8) k/uL Sodium 147 H (137-145) mmol/L Chloride 117 H (98-107) mmol/L Carbon Dioxide 17 L (22-30) mmol/L BUN 53 H (9-20) mg/dL Glucose 112 H (74-99) mg/dL POC Glucose (mg/dL) 112 H (70-110) mg/dL Magnesium 2.4 H (1.6-2.3) mg/dL 08/14/23 Range/Units 12:36 WBC (3.8-10.6) k/uL RBC (4.30-5.90) m/uL Hgb (13.0-17.5) gm/dL Hct (39.0-53.0) % Plt Count (150-450) k/uL Neutrophils # (1.3-7.7) k/uL Lymphocytes # (1.0-4.8) k/uL Sodium (137-145) mmol/L Chloride (98-107) mmol/L Carbon Dioxide (22-30) mmol/L BUN (9-20) mg/dL Glucose (74-99) mg/dL POC Glucose (mg/dL) 131 H (70-110) mg/dL Magnesium (1.6-2.3) mg/dL Microbiology - Last 24 Hours (Table) 08/13/23 05:46 Blood Culture - Preliminary Blood 08/11/23 11:04 Blood Culture - Preliminary Blood 08/11/23 11:03 Blood Culture Gram Stain - Final Blood Blood Culture - Final Staphylococcus aureus 08/11/23 03:05 Blood Culture Gram Stain - Final Blood Blood Culture - Final Staphylococcus aureus Assessment and Plan Assessment: Impression: Acute gram-positive sepsis /MSSA Acute hypoxemic respiratory failure secondary to above, and possible underlying component of COPD, resolved presently on room air Hypotension secondary to sepsis/gram-positive sepsis/MSSA Mild leukocytosis, resolved Febrile illness secondary to above Diabetes mellitus Hypertension, history of Hyperlipidemia Atrial fibrillation, being addressed by cardiology on the case History of bundle-branch block Status post permanent pacemaker implantation 2 years ago in [place] Peripheral vascular disease with previous stent to the lower extremity Former smoker however quit 20 years ago, questionable underlying COPD. inactive. Severe cervical spine pain and limitation in range of motion of cervical spine hence I'm recommending his CT of the cervical spine and orthopedic consultation with Dr. dr wynn Recommendation: Reviewed the results of the cervical spine CT Reviewed the results of this transesophageal echo, and obviously no vegetations Still recommend MRI of the spine Still recommend evaluation by spine surgery for his severe pain Continue cefazolin Heparin was changed to eliquis Continue to monitor blood culture Discussed his condition with him and his as well as Dr. Saleh Continue morphine sulfate when necessary for pain Continue IV fluids, no diuretics are felt necessary Keep patient in the ICU for now Will follow Time with Patient: Less than 30
--- NOTE | 2023-08-14 15:16 | P.PN ---
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 He was transferred from another facility to this hospital for further evaluation of shortness of breath and chest discomfort and he underwent a workup at [facility] including troponin came in to be abnormal and for that reason the patient was referred. He was seen at bedside in the emergency department where he was having ongoing chest discomfort. The troponin was mildly elevated. The EKG showed LBBB. He was also experiencing shortness of breath and he was hypoxic. He was given Lasix and some morphine as well and his pressure dropped down. The patient was started on some norepinephrine with improvement in the blood pressure. Beside that the risks of the blood work beside troponin came in to be unremarkable. Further investigation was performed including an echo which revealed normal biventricular dimension and systolic function and no significant valvular abnormalities. Because he continues to have ongoing chest discomfort he underwent a heart catheterization and that revealed normal coronaries with normal left-sided filling pressure. He was seen by the pulmonary/critical care service and he was diagnosed with acute hypoxic respiratory failure. He also might have a component of sepsis. He underwent urinary analysis and that showed what it seems to be possible UTI. The examination is remarkable for diminished breathing sounds bilaterally with regular rate and rhythm and distant heart sounds and mild bilateral lower extremity edema 08/11/2023 The patient was seen and evaluated this morning. He is feeling better. The chest discomfort has resolved. He seems to be in atrial fibrillation on the monitor and I'm going to perform a 12 please EKG to confirm that. Meanwhile he is on Cardizem IV which I'm going to wean him from and start him on beta twin was Toprol tartrate. Also he will be started on oral anticoagulation. He is getting treated for possible sepsis as well. Hemodynamically he is stable and not on any vasopressors at this point. The echo revealed normal LV systolic function was no significant valvular abnormalities. The examination is r emarkable for regular rhythm with distant heart sounds and clear breathing sounds bilaterally and no lower extremity edema noted 08/12/2023 Patient was seen and evaluated this morning. Hemodynamically is stable. He is in atrial fibrillation with controlled heart rate. He is on metoprolol and he is on oral anticoagulation. Beside that he is still hypoxic requiring 2 L of oxygen. The chest x-ray did not show any acute abnormalities from yesterday. He has no pain in the chest. We need to review his echocardiogram to determine the exact ejection fraction. There is concern about an infection etiology and that is in process of workup on it. The examination is remarkable for irregular rhythm with diminished breathing sounds bilaterally and no edema in the lower extremities 08/13/2023 The patient was seen and evaluated this morning. He still tachycardic with heart rate above 100 treatment. Her pressure is stable. I'm going to increase the dose of metoprolol. Continue oral anticoagulation. The source of infection is still not clear as of yet. This possible need for transesophageal echocardiogram which is not unreasonable. The patient continues to be weak. Physical therapy is on the case. The examination is remarkable for irregular rhythm with diminished breathing sounds bilaterally and no lower extremity is edema noted. 08/14/2023 The patient was seen and evaluated this morning. He remains stable beside mild tachycardia with atrial fibrillation but the pressure remains a stable. He is on metoprolol as well as oral anticoagulation. The LAURA was performed yesterday and showed no evidence of endocarditis. The pacer lead appeared to have no vegetation attached to it. I would suggest continue workup to find that the source of infection meanwhile we can consider repeating the transesophageal echocardiogram in 48 hours to see if there is any changes. Meanwhile continue the current medical regimen. The examination is remarkable for irregular rhythm with diminished breathing sounds bilaterally and no lower extremity is edema noted Assessment Acute hypoxic respiratory failure Sepsis of unknown source Atrial fibrillation Permanent pacemaker Multiple comorbid conditions Plan Continue the current medical regimen Consider repeating that there is no identified source of infection Objective - Vital Signs Vital signs: Vital Signs Temp 98 F 08/14/23 12:00 Pulse 125 H 08/14/23 15:00 Resp 18 08/14/23 15:00 BP 112/66 08/14/23 15:00 Pulse Ox 96 08/14/23 15:00 FiO2 Intake & Output 08/13/23 08/14/23 08/14/23 18:59 06:59 18:59 Intake Total 410 700 600 Output Total 1050 600 500 Balance -640 100 100 Weight 87.6 kg Intake: IV 260 700 450 0.9 @ KVO 110 50 400 Potassium Chloride 10 meq 100 100 In Water For Injection 1 100ml.bag @ 100 mls/hr IVPB Q1H YESSICA Rx#: [id number] Sodium Chloride 0.9% 1, 0 500 000 ml @ 50 mls/hr IV . Q20H YESSICA Rx#:[id number] ceFAZolin 2 gm In Sodium 50 50 50 Chloride 0.9% 50 ml @ 100 mls/hr IVPB Q8HR YESSICA Rx# :[id number] Intake, IV Titration 100 Amount Potassium Chloride 10 meq 100 In Water For Injection 1 100ml.bag @ 100 mls/hr IVPB Q1H YESSICA Rx#: [id number] Oral 50 Tube Feeding 150 Output: Urine 1050 600 500 Other: Voiding Method Urinal Urinal Urinal - Labs CBC & Chem 7: 08/14/23 06:00 08/14/23 06:00 Labs: Abnormal Lab Results - Last 24 Hours (Table) 08/13/23 08/14/23 08/14/23 Range/Units 20:05 06:00 06:00 WBC 12.5 H (3.8-10.6) k/uL RBC 4.02 L (4.30-5.90) m/uL Hgb 12.4 L (13.0-17.5) gm/dL Hct 38.0 L (39.0-53.0) % Plt Count 130 L (150-450) k/uL Neutrophils # 10.8 H (1.3-7.7) k/uL Lymphocytes # 0.6 L (1.0-4.8) k/uL Sodium 147 H (137-145) mmol/L Chloride 117 H (98-107) mmol/L Carbon Dioxide 17 L (22-30) mmol/L BUN 53 H (9-20) mg/dL Glucose 112 H (74-99) mg/dL POC Glucose (mg/dL) 112 H (70-110) mg/dL Magnesium 2.4 H (1.6-2.3) mg/dL 08/14/23 Range/Units 12:36 WBC (3.8-10.6) k/uL RBC (4.30-5.90) m/uL Hgb (13.0-17.5) gm/dL Hct (39.0-53.0) % Plt Count (150-450) k/uL Neutrophils # (1.3-7.7) k/uL Lymphocytes # (1.0-4.8) k/uL Sodium (137-145) mmol/L Chloride (98-107) mmol/L Carbon Dioxide (22-30) mmol/L BUN (9-20) mg/dL Glucose (74-99) mg/dL POC Glucose (mg/dL) 131 H (70-110) mg/dL Magnesium (1.6-2.3) mg/dL Microbiology - Last 24 Hours (Table) 08/13/23 05:46 Blood Culture - Preliminary Blood 08/11/23 11:04 Blood Culture - Preliminary Blood 08/11/23 11:03 Blood Culture Gram Stain - Final Blood Blood Culture - Final Staphylococcus aureus 08/11/23 03:05 Blood Culture Gram Stain - Final Blood Blood Culture - Final Staphylococcus aureus
[2023-08-14 17:24] LABS: Glucose,Whole Blood 155 mg/dL (70-110)
[2023-08-14 20:28] LABS: Glucose,Whole Blood 181 mg/dL (70-110)
[2023-08-14] MEDS: ALPRAZolam 0.5 MG TAB PO PRN (20:30)
[2023-08-14] MEDS: ATORVASTATIN 80 MG TAB PO SCH (20:31)
[2023-08-14] MEDS: INSULIN DETEMIR (LEVEMIR) 100 UNIT/ML SYR SQ SCH (20:31)
[2023-08-15] MEDS: NAFCILLIN 2 GM in DEXTROSE 5% IN WATER 100 ML IVPB SCH ×12 (00:50→20:48)
[2023-08-15] MEDS: MORPHINE SULFATE 4 MG/ML SYRINGE IV PRN ×2 (00:50→10:14)
[2023-08-15 05:48] LABS: Basophils % (A) 0 %; Eosinophils # (A) 0.1 k/uL (0-0.7); Eosinophils % (A) 0 %; HCT 36.1 % (39.0-53.0); HGB 11.5 gm/dL (13.0-17.5); Hypochromasia Slight; Lymphocytes # (A) 0.9 k/uL (1.0-4.8); Lymphocytes % (A) 6 %; MCH 30.3 pg (25.0-35.0); MCHC 31.8 g/dL (31.0-37.0); MCV 95.2 fL (80.0-100.0); Mean Platelet Volume 10.4; Monocytes # (A) 0.6 k/uL (0-1.0); Monocytes % (A) 4 %; Neutrophils # (A) 11.9 k/uL (1.3-7.7); Neutrophils % (A) 85 %; RBC 3.79 m/uL (4.30-5.90); RDW 15.2 % (11.5-15.5)
[2023-08-15 05:52] LABS: Platelet Count 200 k/uL (150-450)
[2023-08-15] MEDS: DILTIAZEM 125 MG in SODIUM CHLORIDE 0.9% 100 ML IV SCH ×2 (06:08→13:39)
[2023-08-15 06:32] LABS: Glucose,Whole Blood 176 mg/dL (70-110)
[2023-08-15 06:34] LABS: African American GFR (CKD) 67 (>60 ml/min/1.73 sqM); Anion Gap 8 mmol/L; Blood Urea Nitrogen 68 mg/dL (9-20); Calcium 8.2 mg/dL (8.4-10.2); Carbon Dioxide 21 mmol/L (22-30); Chloride 116 mmol/L (98-107); Glucose 215 mg/dL (74-99); Magnesium 2.5 mg/dL (1.6-2.3); Non-African American GFR(CKD) 58 (>60 ml/min/1.73 sqM); Potassium 4.4 mmol/L (3.5-5.1); Sodium 145 mmol/L (137-145)
[2023-08-15] MEDS: INSULIN ASPART (NovoLOG) 100 UNIT/ML VIAL SQ SCH ×7 (06:44→20:49)
[2023-08-15] MEDS: CLOPIDOGREL 75 MG TAB PO SCH (08:23)
[2023-08-15] MEDS: ASPIRIN 81 MG PO SCH (08:23)
[2023-08-15] MEDS: APIXABAN 5 MG TAB PO SCH ×2 (08:23→20:48)
[2023-08-15] MEDS: VIT A,C & E-LUTEIN-MINERALS 1 EACH TAB PO SCH ×2 (08:27→20:48)
[2023-08-15] MEDS: METOPROLOL TARTRATE 50 MG TAB PO SCH ×2 (08:28→20:48)
--- NOTE | 2023-08-15 11:15 | P.PN ---
Subjective Progress Note Date: 08/15/23 Hospital Course: 73-year-old male with a past medical history of left bundle branch block status post pacemaker placement, hypertension, hyperlipidemia, type 2 insulin-dependent diabetes mellitus, atrial fibrillation not on anticoagulation, and peripheral vascular disease status post stenting in right lower extremity. Patient was transferred to our facility overnight from [facility] for admission and further evaluation for elevated troponin levels. Patient reports he in itially presented to the hospital for complaints of chest pain, shortness of breath, and generalized body aches. He was also complaining of significant back pain. Patient reports he initially began experiencing these symptoms on and was seen by his PCP who tested him for Covid which she reports was negative. Patient reports he has had persistent generalized body aches, fatigue, chest pain, and shortness of breath since and progressively worsening. Upon arrival to our facility patient underwent evaluation. Labs were completed and reviewed. CBC revealing mild leukocytosis with WBC count of 11.4 and thrombocytopenia with platelet count of 112. BMP showing mild hypocarb ia with bicarb of 20, prerenal azotemia with BUN of 35 and hyperglycemia with glucose of 126. Magnesium was normal findings at 2.3. Liver profile unremarkable. Troponin was elevated at 0.070. Patient was started on low intensity heparin infusion for treatment of NSTEMI and admitted under our ser vices with consultation to cardiology. Troponins trended overnight resulting in 0.070, 0.076, and 0.078. Pro-calcitonin was elevated at 30.40. Patient did go into shock, initially thought to be cardiogenic. Cardiac cath showed mild CAD, LVEDP was 10-12. Echocardiogram showed LVEF of 35-40%. Blood cultures came back positive for staph aureus. ID consulted. Currently patient is on IV cefazolin and vancomycin. No longer requiring pressors. Lumbar CT did not show any evidence of discitis or osteomyelitis, but did show multilevel degenerative disc disease and multilevel central canal stenosis. Unable to get lumbar spine MRI given pacemaker. Source of Gram-positive bacteremia still not clear. LAURA did not show any evidence of which patient or endocarditis. Cervical spine CT report reviewed, shows severe neural foraminal stenosis at C5 to 6 on the right, moderate to severe cervical stenosis at C5 to 6, degenerative disc disease. Orthospine also consulted. Subjective: Patient seen and examined at bedside. No acute events overnight. Went into A. fib with RVR this morning, started back on Cardizem drip. Pertinent positives and negatives as discussed above, a complete review of systems was performed and all other systems are negative. Vitals Signs Reviewed. General: nontoxic, in mild distress, appears at stated age Derm: warm, dry Head: atraumatic, normocephalic, symmetric, significant cervical stiffness and reduced range of motion Eyes: EOMI, no lid lag, anicteric sclera Mouth: no lip lesion, mucus membranes moist Cardiovascular: S1S2, tachycardic, irregular no murmur Lungs: CTA bilateral, no rhonchi, no rales , no accessory muscle use, supplemental oxygen Abdominal: soft, nontender to palpation, no guarding, no appreciable organomegaly Ext: no gross muscle atrophy, bilateral upper extremities edema, no contractures Neuro: CN II-XI grossly intact, no focal neuro deficits Psych: Alert, oriented, appropriate affect Data Reviewed Today: Pertinent Labs: WBC 14, hemoglobin 11, bicarb 21, creatinine 1.22, blood glucose range between 131 to 215 Imaging: No new imaging Assessment and Plan: Patient remains critically ill, prognosis guarded MSSA bacteremia, unclear source Leukocytosis Septic shock, resolved Acute hypoxic respiratory failure NSTEMI History of left bundle branch block status post pacemaker placement Paroxysmal atrial fibrillation with RVR Peripheral vascular disease Hypertension Hyperlipidemia Type 2 insulin-dependent diabetes mellitus Thrombocytopenia, resolved Metabolic acidosis, non-anion gap, improving Cervical and lumbar spinal stenosis, severe -Discussed management with infectious disease, on nafcillin 2 g IV every 4 hours -Had a discussion with electronic development technician, they will reach out to radiologist on site to see if patient can get MRI lumbar spine with his pacemaker -Cardiology following, no evidence of endocarditis or vegetation on the valves or pacer leads. May need to repeat LAURA in 48 hours -Continue metoprolol to 50 BID, eliquis 5 BID -Consider increasing metoprolol, currently on Cardizem drip, monitor blood press ure -continue statin , aspirin, Plavix -Consider discontinuing one of the antiplatelet -levemir 15 units at night, aspart 8 units 3 times a day, sliding scale insulin, monitor for hypoglycemia -repeat CBC and BMP tomorrow -ICU following -Orthospine surgery consulted DVT ppx: Eliquis Code status: Full code Anticipated discharge place: Pending clinical course Anticipated discharge time: Pending clinical course Objective - Vital Signs Vital signs: Vital Signs Temp 98.2 F 08/15/23 00:00 Pulse 144 H 08/15/23 07:00 Resp 18 08/15/23 07:00 BP 108/74 08/15/23 07:00 Pulse Ox 94 L 08/15/23 07:00 FiO2 Intake & Output 08/14/23 08/15/23 08/15/23 18:59 06:59 18:59 Intake Total 750 900 64.833 Output Total 700 400 150 Balance 50 500 -85.167 Weight 89.1 kg Intake: IV 600 900 50 0.9 @ KVO 550 600 50 Nafcillin 2 gm In 300 Dextrose 5% in Water 100 ml @ 50 mls/hr IVPB Q4HR YESSICA Rx#:[id number] ceFAZolin 2 gm In Sodium 50 Chloride 0.9% 50 ml @ 100 mls/hr IVPB Q8HR YESSICA Rx# :[id number] Intake, IV Titration 100 14.833 Amount Diltiazem 125 mg In 14.833 Sodium Chloride 0.9% 100 ml @ Per Protocol IV .Q0M YESSICA Rx#:[id number] Potassium Chloride 10 meq 100 In Water For Injection 1 100ml.bag @ 100 mls/hr IVPB Q1H YESSICA Rx#: [id number] Oral 50 Output: Urine 700 400 150 Other: Voiding Method Urinal Urinal # Voids 0 1 - Labs CBC & Chem 7: 08/15/23 05:24 08/15/23 05:24 Labs: Abnormal Lab Results - Last 24 Hours (Table) 08/14/23 08/14/23 08/14/23 Range/Units 12:36 17:23 20:27 WBC (3.8-10.6) k/uL RBC (4.30-5.90) m/uL Hgb (13.0-17.5) gm/dL Hct (39.0-53.0) % Neutrophils # (1.3-7.7) k/uL Lymphocytes # (1.0-4.8) k/uL Chloride (98-107) mmol/L Carbon Dioxide (22-30) mmol/L BUN (9-20) mg/dL Glucose (74-99) mg/dL POC Glucose (mg/dL) 131 H 155 H 181 H (70-110) mg/dL Calcium (8.4-10.2) mg/dL Magnesium (1.6-2.3) mg/dL 08/15/23 08/15/23 08/15/23 Range/Units 05:24 05:24 06:31 WBC 14.0 H (3.8-10.6) k/uL RBC 3.79 L (4.30-5.90) m/uL Hgb 11.5 L (13.0-17.5) gm/dL Hct 36.1 L (39.0-53.0) % Neutrophils # 11.9 H (1.3-7.7) k/uL Lymphocytes # 0.9 L (1.0-4.8) k/uL Chloride 116 H (98-107) mmol/L Carbon Dioxide 21 L (22-30) mmol/L BUN 68 H (9-20) mg/dL Glucose 215 H (74-99) mg/dL POC Glucose (mg/dL) 176 H (70-110) mg/dL Calcium 8.2 L (8.4-10.2) mg/dL Magnesium 2.5 H (1.6-2.3) mg/dL Microbiology - Last 24 Hours (Table) 08/11/23 11:04 Blood Culture - Preliminary Blood 08/13/23 05:46 Blood Culture - Preliminary Blood
[2023-08-15 11:32] LABS: Glucose,Whole Blood 273 mg/dL (70-110)
--- NOTE | 2023-08-15 11:38 | P.PN ---
Subjective Progress Note Date: 08/15/23 This is a pleasant 73-year-old male patient with a known history of diabetes mellitus, hypertension, hyperlipidemia, atrial fibrillation, left bundle branch block, post permanent pacemaker insertion 2 years ago in [place], peripheral vascular disease with stenting to the lower extremities, former smoker however quit 20 oh. 4 days ago the patient had complaints of significant low back pain and weakness and was seen in [facility] treated and discharged home. He represented there again yesterday with low back pain and was found to have elevated troponin levels and subsequently transferred to our emergency department. EKG reveals a ventricular paced rhythm. CT angiogram revealed no evidence of pulmonary embolism. There is moderate emphysematous changes throughout the lung jaquez but otherwise clear. Labs revealed a troponin of 0.076, 0.108. ProBNP 5990. Pro-calcitonin 38.40. Urinalysis with moderate blood and 4+ glucose, 2+ ketones. Influenza screen negative. RSV screen ne gative. COVID-19 screen negative. White count 10.8. Hemoglobin 14.4. Platelets 105. Sodium 136. Potassium 4.2. Bicarb 20. BUN 35. Creatinine 1.01. Glucose 126. He is seen today in consultation in the emergency department. He's currently sitting up in a stretcher. Awake and alert. He de nies any chest pain currently. She denies any worsening shortness of breath however he is requiring 15 L per nonrebreather mask to maintain O2 saturations in the 90s. He was down to 82% at one point. Current O2 saturation 97%. He is febrile with temperature of 102.7. He is clammy. He's been initiated on a heparin drip and. Initiated on ceftriaxone and azithromycin. Echocardiogram is pending. Patient was reevaluated today on 08/11/23, remains in the ICU. Patient underwent cardiac catheterization yesterday and he was found to have normal coronaries, normal left ventricular end-diastolic pressures which basically rules out congestive heart failure patient was also found to have normal LV function according to Dr. Saleh, however after looking at the echocardiogram which was read by Dr. Vivas, he estimated his ejection fraction of 35-40%, and Dr. Saleh is going to reevaluate that echocardiogram and let us know if the report these to be modified. At any rate since yesterday the patient was found to have gram-positive bacteremia, presumptive staph aureus in the blood, and the patient is now on vancomycin empirically. In the meantime it is necessary to know the primary site of this infection, looking back at the clinical history, patient presented with severe acute onset back pain, which makes me concerned about the possibility of discitis causing his back pain/relatively new onset patient did have history of chronic back pain but this pain that he presented with was hyperacute and debilitating not to mention the patient came in with significantly elevated pro calcitonin level, and mild leukocytosis. His sed rate was 63 on admission. Hence I'm recommending CT of the lumbosacral spine, multiple recommending infectious disease consultation, and will continue to monitor her blood cultures in the meantime. Chest x-ray this morning showed chronic changes but no acute evidence of any active pulmonary disease and no evidence of congestive heart failure. Patient is now on Cardizem for atrial fibrillation with RVR but again no evidence of congestive heart failure. Asking the about his smoking history patient did have remote smoking history and at one point he did have inhalers for underlying COPD severity of which is not clear. Reevaluated today on 08/12/23, patient remains in the ICU, he was in December, continues to have positive blood cultures/MSSA, we are still trying to determine the primary site of infection, differential diagnoses includes lumbar/sacral discitis or osteomyelitis or abscess although CT of the lumbosacral spine was unremarkable and did not show such findings. Infectious diseases recommending MRI of the spine, and that is pending. In the meantime the patient is on antibiotics, his transthoracic echo did not reveal any vegetations, however if we continue to have no answer to explain the site of his bacteremia, the patient may have to have a transesophageal echocardiogram repeat blood cultures again came back positive and that is concerning. Clinically however the patient is feeling better, breathing easier, his CBC is relatively normal basic metabolic profile is normal BUN is 61 and creatinine 1.16, slightly improved compared to yesterday of 1.20. is at bedside, and I updated the and the patient on where we are and our concern about his gram-positive bacteremia and would like to find the source reevaluated today on 08/13/23, patient remains in the ICU, he is extremely weak, and now he has severe cervical pain, and low back pain, continues to have positive blood cultures patient is on antibiotics for his MSSA bacteremia, could not apparently have MRI because of his pacemaker although the human resources trainer cleared him to have an MRI, but radiology declined. Considering the persistent positive blood cultures I'm recommending CT of the cervical spine and I'm also recommending LAURA on this patient, discussed this with Dr. Saleh on the case. Labs today W says 9.5 hemoglobin 12.6 basic metabolic profile is normal bicarb is 16 BUN is 61 creatinine 1.1 Reevaluated today on 08/14/23, patient is about the same, remains in the ICU, presently on room air, CT of the cervical spine is also nondiagnostic for his gram-positive sepsis, his LAURA showed no evidence of vegetations, patient didn't have significant findings on the cervical spine explaining his cervical pain, showed mostly degenerative changes and moderate severe stenosis at C5-C6 and spurring at C5-C6 with severe neural foraminal stenosis at C5-C6, but no osteomyelitis and no abscess is still believe the patient will likely need an MRI of the spine however radiology is reluctant to agree to MRI because of his pacemaker although the patient had a pacemaker which is compatible with MRI and should be no problem. Cardiology felt strongly that the patient could have MRI and should be no issue with the pacemaker in addition to this the told me that the patient had MRI in the past without any problems. WBC count today is 12.5 hemoglobin 12.4 basic metabolic profile is normal bicarb is a bit low at 17 BUN is 53 creatinine 1.06. Her blood cultures remain positive. And more blood cultures are pending from the The patient is seen today 08/15/2023 in follow-up in the intensive care unit. He is currently resting in bed. Awake and alert. Maintaining good O2 saturations in the 90s on room air. He's afebrile. He is still quite uncomfortable with his neck pain and back pain. His blood cultures are positive for methicillin sensitive Staphylococcus aureus. Follow-up blood cultures are pending. White count 14.0. Hemoglobin 11.5. Platelets 200,000. Sodium 145. Potassium 4.4. Bicarb 21. BUN 68. Creatinine 1.22. Glucose 215. He is continued on nafcillin. Anticoagulated with Eliquis. Still trying to identify the source of his infection. Cervical C-spine, lumbar C-spine and LAURA rule out infection. MRI is recommended. He is currently tolerating a dysphagia level II ground diet with one-to-one supervision. Aspiration precautions remain in place. Objective - Vital Signs Vital signs: Vital Signs Temp 98.2 F 08/15/23 00:00 Pulse 144 H 08/15/23 07:00 Resp 18 08/15/23 07:00 BP 108/74 08/15/23 07:00 Pulse Ox 94 L 08/15/23 07:00 FiO2 Intake & Output 08/14/23 08/15/23 08/15/23 18:59 06:59 18:59 Intake Total 750 900 64.833 Output Total 700 400 150 Balance 50 500 -85.167 Weight 89.1 kg 89.1 kg Intake: IV 600 900 50 0.9 @ KVO 550 600 50 Nafcillin 2 gm In 300 Dextrose 5% in Water 100 ml @ 50 mls/hr IVPB Q4HR YESSICA Rx#:[id number] ceFAZolin 2 gm In Sodium 50 Chloride 0.9% 50 ml @ 100 mls/hr IVPB Q8HR YESSICA Rx# :[id number] Intake, IV Titration 100 14.833 Amount Diltiazem 125 mg In 14.833 Sodium Chloride 0.9% 100 ml @ Per Protocol IV .Q0M YESSICA Rx#:[id number] Potassium Chloride 10 meq 100 In Water For Injection 1 100ml.bag @ 100 mls/hr IVPB Q1H YESSICA Rx#: [id number] Oral 50 Output: Urine 700 400 150 Other: Voiding Method Urinal Urinal # Voids 0 1 - Exam GENERAL EXAM: Alert, frail 73-year-old male, on room air, fairly comfortable in no apparent distress. HEAD: Normocephalic. EYES: Normal reaction of pupils, equal size. NOSE: Clear with pink turbinates. THROAT: No erythema or exudates. NECK: No masses, no JVD. CHEST: No chest wall deformity. LUNGS: Equal air entry with no crackles, wheeze, rhonchi or dullness. CVS: S1 and S2 normal with no audible murmur, regular rhythm. ABDOMEN: No hepatosplenomegaly, normal bowel sounds, no guarding or rigidity. SPINE: Neck and low spine pain SKIN: No rashes CENTRAL NERVOUS SYSTEM: No focal deficits, tone is normal in all 4 extremities. EXTREMITIES: There is no peripheral edema. No clubbing, no cyanosis. Peripheral pulses are intact. - Labs CBC & Chem 7: 08/15/23 05:24 08/15/23 05:24 Labs: Abnormal Lab Results - Last 24 Hours (Table) 08/14/23 08/14/23 08/14/23 Range/Units 12:36 17:23 20:27 WBC (3.8-10.6) k/uL RBC (4.30-5.90) m/uL Hgb (13.0-17.5) gm/dL Hct (39.0-53.0) % Neutrophils # (1.3-7.7) k/uL Lymphocytes # (1.0-4.8) k/uL Chloride (98-107) mmol/L Carbon Dioxide (22-30) mmol/L BUN (9-20) mg/dL Glucose (74-99) mg/dL POC Glucose (mg/dL) 131 H 155 H 181 H (70-110) mg/dL Calcium (8.4-10.2) mg/dL Magnesium (1.6-2.3) mg/dL 08/15/23 08/15/23 08/15/23 Range/Units 05:24 05:24 06:31 WBC 14.0 H (3.8-10.6) k/uL RBC 3.79 L (4.30-5.90) m/uL Hgb 11.5 L (13.0-17.5) gm/dL Hct 36.1 L (39.0-53.0) % Neutrophils # 11.9 H (1.3-7.7) k/uL Lymphocytes # 0.9 L (1.0-4.8) k/uL Chloride 116 H (98-107) mmol/L Carbon Dioxide 21 L (22-30) mmol/L BUN 68 H (9-20) mg/dL Glucose 215 H (74-99) mg/dL POC Glucose (mg/dL) 176 H (70-110) mg/dL Calcium 8.2 L (8.4-10.2) mg/dL Magnesium 2.5 H (1.6-2.3) mg/dL Microbiology - Last 24 Hours (Table) 08/11/23 11:04 Blood Culture - Preliminary Blood 08/13/23 05:46 Blood Culture - Preliminary Blood Assessment and Plan Assessment: Acute gram-positive sepsis /MSSA of unclear etiology Acute hypoxemic respiratory failure secondary to above, and possible underlying component of COPD, resolved presently on room air Hypotension secondary to sepsis/gram-positive sepsis/MSSA Mild leukocytosis, resolved Febrile illness secondary to above Diabetes mellitus Hypertension, history of Hyperlipidemia Atrial fibrillation, being addressed by cardiology on the case History of bundle-branch block Status post permanent pacemaker implantation 2 years ago in [place] Peripheral vascular disease with previous stent to the lower extremity Former smoker however quit 20 years ago, questionable underlying COPD. inactive. Severe cervical spine pain and limitation in range of motion of cervical spine hence I'm recommending his CT of the cervical spine and orthopedic consultation with Dr. dr wynn Plan: The patient was seen and evaluated Labs and medications reviewed Continue nafcillin Anticoagulated with Eliquis Remains stable and on room air We will continue to follow I have personally seen and examined the patient, performed the documentation and the assessment and plan as written. Number of minutes spent on the visit: 10.
--- NOTE | 2023-08-15 13:54 | P.CNOR ---
History of Present Illness - HPI Consult date: 08/15/23 Consult reason: neck pain History of present illness: Dharmesh is a 73-year-old male who has been in the ICU at [facility] after a NSTEMI. He has had global weakness since admission. He has been complaining of severe n venecia pain over the past several days. He denies any neurologic symptoms or pain to his upper extremities.He has had a CT scan of the C-spine. He has had a slightly elevated white blood cell count for the past couple of days. His blood cell count today is 14. He had a slightly elevated plasma lactic acid and sedimentation rate/CRP. He also has a positive blood culture for MSSA bacteremia. LAURA performed was negative for vegetations. We are consulted for Orthopedic spine evaluation. Past Medical History Past Medical History: Atrial Fibrillation, Atrial Flutter, Chest Pain / Angina, COPD, Diabetes Mellitus, Eye Disorder, Hyperlipidemia, Hypertension, Myocardial Infarction (IA), Neurologic Disorder, Prostate Disorder, Sleep Apnea/CPAP/BIPAP, Syncope Additional Past Medical History / Comment(s): Has medication for both low and high blood pressure. Diabetic Neuropathy, macular degeneration Last Myocardial Infarction Date:: unknown History of Any Multi-Drug Resistant Organisms: None Reported Past Surgical History: Heart Catheterization, Joint Replacement, Pacemaker, Prostate Surgery Additional Past Surgical History / Comment(s): stent in lower extremity, prostate removal, with urinary control system 2019. total right knee replacement Past Anesthesia/Blood Transfusion Reactions: No Reported Reaction Type of Cardiac Device: Permanent Pacemaker Device Placement Date:: aug 2021 Past Psychological History: Anxiety Smoking Status: Former smoker Past Alcohol Use History: Daily Past Drug Use History: None Reported - Past Family History Father Family Medical History: Diabetes Mellitus Medications and Allergies Home Medications Medication Instructions Recorded Confirmed Type Cholecalciferol [Vitamin D3 (25 25 mcg PO DAILY 08/09/23 08/09/23 History Mcg = 1000 Iu)] Clopidogrel [Plavix] 75 mg PO DAILY 08/09/23 08/09/23 History Cyclobenzaprine [Flexeril] 10 mg PO TID PRN 08/09/23 08/09/23 History Empagliflozin [Jardiance] 25 mg PO DAILY 08/09/23 08/09/23 History Gabapentin [Neurontin] 100 mg PO TID PRN 08/09/23 08/10/23 History HYDROcodone/APAP 7.5-325MG [Rogers 1 tab PO Q6H PRN 08/09/23 08/09/23 History 7.5-325] Insulin Glargine,Hum.rec.anlog 15 units SQ DAILY 08/09/23 08/09/23 History [Lantus Solostar Pen] Insulin Lispro [humaLOG Kwikpen] 8 - 10 unit SQ AC-TID MDD 30 units 08/09/23 08/09/23 History Meloxicam [Mobic] 15 mg PO DAILY PRN 08/09/23 08/09/23 History Midodrine [ProAmatine] 5 mg PO TID 08/09/23 08/09/23 History Nystatin 100,000Unit/gm Cream 1 applic TOPICAL BID 08/09/23 08/09/23 History [Mycostatin Cream] Propranolol HCl 80 mg PO DAILY 08/09/23 08/09/23 History Rosuvastatin [Crestor] 20 mg PO HS 08/09/23 08/09/23 History Triamcinolone 0.025% Cream 1 applic TOPICAL BID 08/09/23 08/09/23 History [Kenalog 0.025% Cream] Vit C/E/Zn/Coppr/Lutein/Zeaxan 1 cap PO BID 08/09/23 08/09/23 History [Preservision Areds 2 Softgel] metFORMIN HCL ER [Glucophage XR] 1,000 mg PO BID 08/09/23 08/09/23 History Allergies Allergy/AdvReac Type Severity Reaction Status Date / Time No Known Allergies Allergy Verified 08/09/23 22:15 Physical Examination This is a pleasant 73-year-old male in no acute distress. There is obvious discomfort from the cervical spine. He has difficulty with cervical rotation. His is present at bedside. Exam of the head and neck reveal no obvious deformity or trauma. He has significantly limited cervical rotation, side bend and flexion and extension. With attempts to passively flex the cervical spine he has significant pain consistent with nuchal rigidity. Exam of the upper extremities reveals no obvious deformity. He has full forward flexion at the shoulders with full elbow, wrist and finger motion bilaterally. There is significant weakness to both arms. No obvious neurologic deficits to the upper extremities. Exam of the lower extremities reveals no obvious deformity. He is able to lift each leg off the bed independently. There is slight pain with straight leg raise on the right. He has full foot and ankle motion bilaterally without pain or difficulty. Neurovascular status to the lower extremities is intact. Results CT scan of the cervical spine reveals degenerative changes with loss of disc height at C5-6 and anterior spurring. There is foraminal stenosis noted throughout the cervical spine. No obvious abscess or fluid collection noted. No acute fracture noted. Blood culture positive for MSSA. - Labs Labs: Abnormal Lab Results - Last 24 Hours (Table) 08/14/23 08/14/23 08/15/23 Range/Units 17:23 20:27 05:24 WBC 14.0 H (3.8-10.6) k/uL RBC 3.79 L (4.30-5.90) m/uL Hgb 11.5 L (13.0-17.5) gm/dL Hct 36.1 L (39.0-53.0) % Neutrophils # 11.9 H (1.3-7.7) k/uL Lymphocytes # 0.9 L (1.0-4.8) k/uL Chloride (98-107) mmol/L Carbon Dioxide (22-30) mmol/L BUN (9-20) mg/dL Glucose (74-99) mg/dL POC Glucose (mg/dL) 155 H 181 H (70-110) mg/dL Calcium (8.4-10.2) mg/dL Magnesium (1.6-2.3) mg/dL 08/15/23 08/15/23 08/15/23 Range/Units 05:24 06:31 11:31 WBC (3.8-10.6) k/uL RBC (4.30-5.90) m/uL Hgb (13.0-17.5) gm/dL Hct (39.0-53.0) % Neutrophils # (1.3-7.7) k/uL Lymphocytes # (1.0-4.8) k/uL Chloride 116 H (98-107) mmol/L Carbon Dioxide 21 L (22-30) mmol/L BUN 68 H (9-20) mg/dL Glucose 215 H (74-99) mg/dL POC Glucose (mg/dL) 176 H 273 H (70-110) mg/dL Calcium 8.2 L (8.4-10.2) mg/dL Magnesium 2.5 H (1.6-2.3) mg/dL Microbiology - Last 24 Hours (Table) 08/14/23 06:00 Blood Culture - Preliminary Blood 08/13/23 05:46 Blood Culture - Preliminary Blood 08/11/23 11:04 Blood Culture - Preliminary Blood H & H 08/09/23 08/10/23 08/11/23 Range/Units 19:00 02:41 03:00 Hgb 13.6 14.4 14.6 (13.0-17.5) gm/dL Hct 41.1 45.3 45.9 (39.0-53.0) % 08/12/23 08/13/23 08/14/23 Range/Units 05:26 05:46 06:00 Hgb 12.8 L 12.6 L 12.4 L (13.0-17.5) gm/dL Hct 38.8 L 39.1 38.0 L (39.0-53.0) % 08/15/23 Range/Units 05:24 Hgb 11.5 L (13.0-17.5) gm/dL Hct 36.1 L (39.0-53.0) % Coagulation 08/09/23 Range/Units 19:00 INR 0.9 (<1.2) Result Diagrams: 08/15/23 05:24 08/15/23 05:24 Assessment and Plan (1) Cervicalgia Current Visit: Yes Status: Acute Code(s): M54.2 - CERVICALGIA SNOMED Code(s): 31035296 (2) Acute non-ST elevation myocardial infarction (NSTEMI) Current Visit: Yes Status: Acute Code(s): I21.4 - NON-ST ELEVATION (NSTEMI) MYOCARDIAL INFARCTION SNOMED Code(s): 788547355 (3) Chest pain Current Visit: Yes Status: Acute Code(s): R07.9 - CHEST PAIN, UNSPECIFIED SNOMED Code(s): 63984207 (4) MSSA bacteremia Current Visit: Yes Status: Acute Code(s): R78.81 - BACTEREMIA; B95.61 - METHICILLIN SUSCEP STAPH INFCT CAUSING DIS CLASSD [id number] SNOMED Code(s): 980040455 Plan: The clinical and radiographic findings are discussed with the patient and his . The patient is evaluated by Dr. Olivares as well today who agrees that he currently has no neurologic deficits to the upper extremities and is experiencing no radiculopathy at this time. In order to rule out a discitis or epidural abscess he does need an MRI. He apparently May be unable to have the MRI at [facility] due to his pacemaker. If that is the case, I would suggest transfer to a tertiary care center that may be able to perform the MRI. His states that he did have an MRI in [place] not too long ago. I would also suggest a lumbar puncture to rule out meningitis secondary to his nuchal rigidity.
[2023-08-15] MEDS: NOREPINEPHRINE 4 MG in SODIUM CHLORIDE 0.9% 250 ML IV SCH (14:43)
[2023-08-15] MEDS ORDERED: METOPROLOL TARTRATE 50 MG TAB PO STA (15:08)
[2023-08-15] MEDS ORDERED: MIDODRINE 5 MG TAB PO ONE (15:09)
[2023-08-15 16:52] LABS: Glucose,Whole Blood 257 mg/dL (70-110)
[2023-08-15 20:11] LABS: Glucose,Whole Blood 280 mg/dL (70-110)
[2023-08-15] MEDS: INSULIN DETEMIR (LEVEMIR) 100 UNIT/ML SYR SQ SCH (20:48)
[2023-08-15] MEDS: ACETAMINOPHEN TAB 325 MG TAB PO PRN (20:48)
[2023-08-15] MEDS: ATORVASTATIN 80 MG TAB PO SCH (20:48)
[2023-08-16] MEDS: NAFCILLIN 2 GM in DEXTROSE 5% IN WATER 100 ML IVPB SCH ×12 (00:30→21:45)
--- NOTE | 2023-08-16 01:44 | PN ---
PROGRESS NOTE HISTORY OF PRESENT ILLNESS: This is a 73-year-old gentleman who I am seeing for the first time. The patient had been in the hospital since . He had an echocardiogram that did not reveal any vegetation. Subsequently, Dr. Copeland performed a cardiac catheterization that revealed mild nonobstructive CAD and a LAURA that did not reveal any evidence of endocarditis. The patient remains in atrial fibrillation with poorly controlled ventricular rate and his blood pressures were marginal. The exact source Staph aureus bacteremia is unclear. He is currently in the process of being transferred to [facility] for further care. We will start the patient on Levophed for better blood pressure control. PHYSICAL EXAMINATION: VITAL SIGNS: On exam, heart rate is around 130 beats per minute. Blood pressure is 90/60, respiratory rate is 20, O2 saturation is 97%. CHEST: Reveals good air entry bilaterally. I do not hear any crackles or rhonchi. HEART: Reveals first and second heart sounds. Irregular rhythm. ABDOMEN: Soft. EXTREMITIES: Exam of extremities did not reveal any edema. LABORATORY DATA: Labs show a white cell count is elevated. Hemoglobin is 11.5, platelet count is 200. Potassium is 4.4, BUN is 68, creatinine is 1.2. ASSESSMENT: Persistent atrial fibrillation with poorly controlled ventricular rate, history of permanent pacemaker, diabetes, hypertension, dyslipidemia, Staph aureus septicemia. PLAN: The patient is on antibiotic. Transesophageal echo did not reveal evidence of vegetation. He is to be transferred to a tertiary care center for further care. MMODL / IJN: [id number] /
[2023-08-16] MEDS: MORPHINE SULFATE 4 MG/ML SYRINGE IV PRN ×3 (02:02→19:08)
[2023-08-16] MEDS ORDERED: polyethylene glycoL 3350 17 GM POWD.PACK PO STA (05:50)
[2023-08-16 07:40] LABS: Glucose,Whole Blood 181 mg/dL (70-110)
[2023-08-16 07:44] LABS: Basophils % (A) 0 %; Eosinophils % (A) 0 %; HCT 34.5 % (39.0-53.0); HGB 11.2 gm/dL (13.0-17.5); Lymphocytes # (A) 0.8 k/uL (1.0-4.8); Lymphocytes % (A) 4 %; MCH 30.4 pg (25.0-35.0); MCHC 32.4 g/dL (31.0-37.0); Mean Platelet Volume 10.7; Monocytes # (A) 1.3 k/uL (0-1.0); Monocytes % (A) 7 %; Neutrophils # (A) 16.4 k/uL (1.3-7.7); Neutrophils % (A) 87 %; Platelet Count 278 k/uL (150-450); RBC 3.67 m/uL (4.30-5.90); RDW 15.4 % (11.5-15.5); WBC 18.9 k/uL (3.8-10.6)
[2023-08-16 07:52] LABS: African American GFR (CKD) 41 (>60 ml/min/1.73 sqM); Anion Gap 11 mmol/L; Blood Urea Nitrogen 77 mg/dL (9-20); Calcium 7.7 mg/dL (8.4-10.2); Carbon Dioxide 17 mmol/L (22-30); Chloride 119 mmol/L (98-107); Glucose 233 mg/dL (74-99); Magnesium 2.6 mg/dL (1.6-2.3); Non-African American GFR(CKD) 36 (>60 ml/min/1.73 sqM); Potassium 3.9 mmol/L (3.5-5.1); Sodium 147 mmol/L (137-145)
[2023-08-16] MEDS ORDERED: bisacodyL 10 MG SUPP RECTAL STA (08:34)
[2023-08-16] MEDS: INSULIN ASPART (NovoLOG) 100 UNIT/ML VIAL SQ SCH ×7 (09:33→21:18)
[2023-08-16] MEDS: CLOPIDOGREL 75 MG TAB PO SCH (09:34)
[2023-08-16] MEDS: ASPIRIN 81 MG PO SCH (09:34)
[2023-08-16] MEDS: APIXABAN 5 MG TAB PO SCH ×2 (09:34→21:45)
[2023-08-16] MEDS: METOPROLOL TARTRATE 50 MG TAB PO SCH ×2 (09:35→21:45)
[2023-08-16] MEDS: VIT A,C & E-LUTEIN-MINERALS 1 EACH TAB PO SCH ×2 (09:35→21:46)
--- NOTE | 2023-08-16 10:57 | P.PN ---
Subjective Progress Note Date: 08/16/23 This is a pleasant 73-year-old male patient with a known history of diabetes mellitus, hypertension, hyperlipidemia, atrial fibrillation, left bundle branch block, post permanent pacemaker insertion 2 years ago in [place], peripheral vascular disease with stenting to the lower extremities, former smoker however quit 20 oh. 4 days ago the patient had complaints of significant low back pain and weakness and was seen in [facility] treated and discharged home. He represented there again yesterday with low back pain and was found to have elevated troponin levels and subsequently transferred to our emergency department. EKG reveals a ventricular paced rhythm. CT angiogram revealed no evidence of pulmonary embolism. There is moderate emphysematous changes throughout the lung jaquez but otherwise clear. Labs revealed a troponin of 0.076, 0.108. ProBNP 5990. Pro-calcitonin 38.40. Urinalysis with moderate blood and 4+ glucose, 2+ ketones. Influenza screen negative. RSV screen ne gative. COVID-19 screen negative. White count 10.8. Hemoglobin 14.4. Platelets 105. Sodium 136. Potassium 4.2. Bicarb 20. BUN 35. Creatinine 1.01. Glucose 126. He is seen today in consultation in the emergency department. He's currently sitting up in a stretcher. Awake and alert. He de nies any chest pain currently. She denies any worsening shortness of breath however he is requiring 15 L per nonrebreather mask to maintain O2 saturations in the 90s. He was down to 82% at one point. Current O2 saturation 97%. He is febrile with temperature of 102.7. He is clammy. He's been initiated on a heparin drip and. Initiated on ceftriaxone and azithromycin. Echocardiogram is pending. Patient was reevaluated today on 08/11/23, remains in the ICU. Patient underwent cardiac catheterization yesterday and he was found to have normal coronaries, normal left ventricular end-diastolic pressures which basically rules out congestive heart failure patient was also found to have normal LV function according to Dr. Saleh, however after looking at the echocardiogram which was read by Dr. Vivas, he estimated his ejection fraction of 35-40%, and Dr. Saleh is going to reevaluate that echocardiogram and let us know if the report these to be modified. At any rate since yesterday the patient was found to have gram-positive bacteremia, presumptive staph aureus in the blood, and the patient is now on vancomycin empirically. In the meantime it is necessary to know the primary site of this infection, looking back at the clinical history, patient presented with severe acute onset back pain, which makes me concerned about the possibility of discitis causing his back pain/relatively new onset patient did have history of chronic back pain but this pain that he presented with was hyperacute and debilitating not to mention the patient came in with significantly elevated pro calcitonin level, and mild leukocytosis. His sed rate was 63 on admission. Hence I'm recommending CT of the lumbosacral spine, multiple recommending infectious disease consultation, and will continue to monitor her blood cultures in the meantime. Chest x-ray this morning showed chronic changes but no acute evidence of any active pulmonary disease and no evidence of congestive heart failure. Patient is now on Cardizem for atrial fibrillation with RVR but again no evidence of congestive heart failure. Asking the about his smoking history patient did have remote smoking history and at one point he did have inhalers for underlying COPD severity of which is not clear. Reevaluated today on 08/12/23, patient remains in the ICU, he was in December, continues to have positive blood cultures/MSSA, we are still trying to determine the primary site of infection, differential diagnoses includes lumbar/sacral discitis or osteomyelitis or abscess although CT of the lumbosacral spine was unremarkable and did not show such findings. Infectious diseases recommending MRI of the spine, and that is pending. In the meantime the patient is on antibiotics, his transthoracic echo did not reveal any vegetations, however if we continue to have no answer to explain the site of his bacteremia, the patient may have to have a transesophageal echocardiogram repeat blood cultures again came back positive and that is concerning. Clinically however the patient is feeling better, breathing easier, his CBC is relatively normal basic metabolic profile is normal BUN is 61 and creatinine 1.16, slightly improved compared to yesterday of 1.20. is at bedside, and I updated the and the patient on where we are and our concern about his gram-positive bacteremia and would like to find the source reevaluated today on 08/13/23, patient remains in the ICU, he is extremely weak, and now he has severe cervical pain, and low back pain, continues to have positive blood cultures patient is on antibiotics for his MSSA bacteremia, could not apparently have MRI because of his pacemaker although the machine ii cutter cleared him to have an MRI, but radiology declined. Considering the persistent positive blood cultures I'm recommending CT of the cervical spine and I'm also recommending LAURA on this patient, discussed this with Dr. Saleh on the case. Labs today W says 9.5 hemoglobin 12.6 basic metabolic profile is normal bicarb is 16 BUN is 61 creatinine 1.1 Reevaluated today on 08/14/23, patient is about the same, remains in the ICU, presently on room air, CT of the cervical spine is also nondiagnostic for his gram-positive sepsis, his LAURA showed no evidence of vegetations, patient didn't have significant findings on the cervical spine explaining his cervical pain, showed mostly degenerative changes and moderate severe stenosis at C5-C6 and spurring at C5-C6 with severe neural foraminal stenosis at C5-C6, but no osteomyelitis and no abscess is still believe the patient will likely need an MRI of the spine however radiology is reluctant to agree to MRI because of his pacemaker although the patient had a pacemaker which is compatible with MRI and should be no problem. Cardiology felt strongly that the patient could have MRI and should be no issue with the pacemaker in addition to this the told me that the patient had MRI in the past without any problems. WBC count today is 12.5 hemoglobin 12.4 basic metabolic profile is normal bicarb is a bit low at 17 BUN is 53 creatinine 1.06. Her blood cultures remain positive. And more blood cultures are pending from the The patient is seen today 08/15/2023 in follow-up in the intensive care unit. He is currently resting in bed. Awake and alert. Maintaining good O2 saturations in the 90s on room air. He's afebrile. He is still quite uncomfortable with his neck pain and back pain. His blood cultures are positive for methicillin sensitive Staphylococcus aureus. Follow-up blood cultures are pending. White count 14.0. Hemoglobin 11.5. Platelets 200,000. Sodium 145. Potassium 4.4. Bicarb 21. BUN 68. Creatinine 1.22. Glucose 215. He is continued on nafcillin. Anticoagulated with Eliquis. Still trying to identify the source of his infection. Cervical C-spine, lumbar C-spine and LAURA rule out infection. MRI is recommended. He is currently tolerating a dysphagia level II ground diet with one-to-one supervision. Aspiration precautions remain in place. The patient is seen today 08/16/2023 in follow-up in the intensive care unit. He is currently awake and alert. Continues with complaints of neck and low back pain. Initial blood cultures were positive for methicillin sensitive Staphylococcus aureus. Source still pending. White count 18.9. Hemoglobin 11.2. Platelets 278. Sodium 147. Potassium 3.9. Bicarb 17. BUN 77. Creatinine 1.81. Glucose 233. He remains on nafcillin. Anticoagulated with Eliquis. Objective - Vital Signs Vital signs: Vital Signs Temp 98.9 F 08/16/23 08:00 Pulse 106 H 08/16/23 10:00 Resp 18 08/16/23 10:00 BP 106/61 08/16/23 10:00 Pulse Ox 95 08/16/23 10:00 FiO2 Intake & Output 08/15/23 08/16/23 08/16/23 18:59 06:59 18:59 Intake Total 5236.913 6977.333 300 Output Total 900 200 0 Balance 117.723 9373.333 300 Weight 89.1 kg 88.3 kg Intake: IV 850 900 300 0.9 @ KVO 50 Nafcillin 2 gm In 300 300 100 Dextrose 5% in Water 100 ml @ 50 mls/hr IVPB Q4HR YESSICA Rx#:[id number] Sodium Chloride 0.9% 1, 500 600 200 000 ml @ 50 mls/hr IV . Q20H YESSICA Rx#:[id number] Intake, IV Titration 154.882 34.333 Amount Diltiazem 125 mg In 135.249 34.333 Sodium Chloride 0.9% 100 ml @ Per Protocol IV .Q0M YESSICA Rx#:[id number] Norepinephrine 4 mg In 19.633 Sodium Chloride 0.9% 250 ml @ 0.03 MCG/KG/MIN 10. 184 mls/hr IV .Q24H YESSICA Rx#:[id number] Oral 500 Output: Urine 900 200 0 Other: Voiding Method Urinal Urinal # Voids 1 0 1 - Exam GENERAL EXAM: Alert, 73-year-old male, resting in bed, on room air, fairly comfortable in no apparent distress. HEAD: Normocephalic. EYES: Normal reaction of pupils, equal size. NOSE: Clear with pink turbinates. THROAT: No erythema or exudates. NECK: No masses, no JVD. CHEST: No chest wall deformity. LUNGS: Equal air entry with no crackles, wheeze, rhonchi or dullness. CVS: S1 and S2 normal with no audible murmur, regular rhythm. ABDOMEN: No hepatosplenomegaly, normal bowel sounds, no guarding or rigidity. SPINE: Neck and low spine pain SKIN: No rashes CENTRAL NERVOUS SYSTEM: No focal deficits, tone is normal in all 4 extremities. EXTREMITIES: There is no peripheral edema. No clubbing, no cyanosis. Peripheral pulses are intact. - Labs CBC & Chem 7: 08/16/23 07:24 08/16/23 07:24 Labs: Abnormal Lab Results - Last 24 Hours (Table) 08/15/23 08/15/23 08/15/23 Range/Units 11:31 16:50 20:09 WBC (3.8-10.6) k/uL RBC (4.30-5.90) m/uL Hgb (13.0-17.5) gm/dL Hct (39.0-53.0) % Neutrophils # (1.3-7.7) k/uL Lymphocytes # (1.0-4.8) k/uL Monocytes # (0-1.0) k/uL Sodium (137-145) mmol/L Chloride (98-107) mmol/L Carbon Dioxide (22-30) mmol/L BUN (9-20) mg/dL Creatinine (0.66-1.25) mg/dL Glucose (74-99) mg/dL POC Glucose (mg/dL) 273 H 257 H 280 H (70-110) mg/dL Calcium (8.4-10.2) mg/dL Magnesium (1.6-2.3) mg/dL 08/16/23 08/16/23 08/16/23 Range/Units 07:24 07:24 07:39 WBC 18.9 H (3.8-10.6) k/uL RBC 3.67 L (4.30-5.90) m/uL Hgb 11.2 L (13.0-17.5) gm/dL Hct 34.5 L (39.0-53.0) % Neutrophils # 16.4 H (1.3-7.7) k/uL Lymphocytes # 0.8 L (1.0-4.8) k/uL Monocytes # 1.3 H (0-1.0) k/uL Sodium 147 H (137-145) mmol/L Chloride 119 H (98-107) mmol/L Carbon Dioxide 17 L (22-30) mmol/L BUN 77 H (9-20) mg/dL Creatinine 1.81 H (0.66-1.25) mg/dL Glucose 233 H (74-99) mg/dL POC Glucose (mg/dL) 181 H (70-110) mg/dL Calcium 7.7 L (8.4-10.2) mg/dL Magnesium 2.6 H (1.6-2.3) mg/dL Microbiology - Last 24 Hours (Table) 08/14/23 06:00 Blood Culture - Preliminary Blood 08/13/23 05:46 Blood Culture - Preliminary Blood Assessment and Plan Assessment: Acute gram-positive sepsis /MSSA of unclear etiology Acute hypoxemic respiratory failure secondary to above, and possible underlying component of COPD, resolved and on room air Hypotension secondary to sepsis/gram-positive sepsis/MSSA Mild leukocytosis, resolved Febrile illness secondary to above Diabetes mellitus Hypertension, history of Hyperlipidemia Atrial fibrillation, being addressed by cardiology on the case History of bundle-branch block Status post permanent pacemaker implantation 2 years ago in [place] Peripheral vascular disease with previous stent to the lower extremity Former smoker however quit 20 years ago, questionable underlying COPD. inactive. Severe cervical spine pain and limitation in range of motion of cervical spine Plan: The patient was seen and evaluated Labs and medications reviewed Continue nafcillin Anticoagulated with Eliquis Plan as transferred to [facility] for further workup I have personally seen and examined the patient, performed the documentation and the assessment and plan as written. Number of minutes spent on the visit: 10.
[2023-08-16 12:00] LABS: Glucose,Whole Blood 185 mg/dL (70-110)
[2023-08-16] MEDS ORDERED: NA PHOS,M-B/NA PHOS,DI-BA 133 ML ENEMA RECTAL ONE (12:00)
--- NOTE | 2023-08-16 14:43 | P.PN ---
Subjective Progress Note Date: 08/16/23 Hospital Course: 73-year-old male with a past medical history of left bundle branch block status post pacemaker placement, hypertension, hyperlipidemia, type 2 insulin-dependent diabetes mellitus, atrial fibrillation not on anticoagulation, and peripheral vascular disease status post stenting in right lower extremity. Patient was transferred to our facility overnight from [facility] for admission and further evaluation for elevated troponin levels. Patient reports he in itially presented to the hospital for complaints of chest pain, shortness of breath, and generalized body aches. He was also complaining of significant back pain. Patient reports he initially began experiencing these symptoms on and was seen by his PCP who tested him for Covid which she reports was negative. Patient reports he has had persistent generalized body aches, fatigue, chest pain, and shortness of breath since and progressively worsening. Upon arrival to our facility patient underwent evaluation. Labs were completed and reviewed. CBC revealing mild leukocytosis with WBC count of 11.4 and thrombocytopenia with platelet count of 112. BMP showing mild hypocarb ia with bicarb of 20, prerenal azotemia with BUN of 35 and hyperglycemia with glucose of 126. Magnesium was normal findings at 2.3. Liver profile unremarkable. Troponin was elevated at 0.070. Patient was started on low intensity heparin infusion for treatment of NSTEMI and admitted under our ser vices with consultation to cardiology. Troponins trended overnight resulting in 0.070, 0.076, and 0.078. Pro-calcitonin was elevated at 30.40. Patient did go into shock, initially thought to be cardiogenic. Cardiac cath showed mild CAD, LVEDP was 10-12. Echocardiogram showed LVEF of 35-40%. Blood cultures came back positive for staph aureus. ID consulted. Currently patient is on IV cefazolin and vancomycin. No longer requiring pressors. Lumbar CT did not show any evidence of discitis or osteomyelitis, but did show multilevel degenerative disc disease and multilevel central canal stenosis. Unable to get lumbar spine MRI at our facility given pacemaker. Source of Gram-positive bacteremia still not clear. LAURA did not show any evidence of which patient or endocarditis. Cervical spine CT report reviewed, shows severe neural foraminal stenosis at C5 to 6 on the right, moderate to severe cervical stenosis at C5 to 6, degenerative disc disease. Orthospine also consulted. Attempted to get patient transferred to [facility]. Currently in cue for ICU bed, the patient may be able to go to [facility] floor with telemetry at [facility]. Subjective: Patient seen and examined at bedside. No acute events overnight. He has not had a bowel movement. Currently off of vasopressors and Pertinent positives and negatives as discussed above, a complete review of s ystems was performed and all other systems are negative. Vitals Signs Reviewed. General: nontoxic, in mild distress, appears at stated age Derm: warm, dry Head: atraumatic, normocephalic, symmetric, significant cervical stiffness and reduced range of motion Eyes: EOMI, no lid lag, anicteric sclera Mouth: no lip lesion, mucus membranes moist Cardiovascular: S1S2, reg, irregular no murmur Lungs: CTA bilateral, no rhonchi, no rales , no accessory muscle use, supplemental oxygen Abdominal: soft, nontender to palpation, no guarding, no appreciable organomegaly Ext: no gross muscle atrophy, bilateral upper extremities edema, no contractures Neuro: CN II-XI grossly intact, no focal neuro deficits Psych: Alert, oriented, appropriate affect Data Reviewed Today: Pertinent Labs: WBC 18.9, hemoglobin 11.2, sodium 147, potassium 3.9, bicarb 17, creatinine 1.81, blood glucose range between 185-280, magnesium 2.6 Imaging: No new imaging Assessment and Plan: Patient remains critically ill, prognosis guarded MSSA bacteremia, unclear source Leukocytosis Septic shock, resolved Acute hypoxic respiratory failure NSTEMI, mild CAD Paroxysmal atrial fibrillation with RVR History of pacemaker Peripheral vascular disease History of Hypertension Hyperlipidemia Type 2 insulin-dependent diabetes mellitus Thrombocytopenia, resolved Metabolic acidosis, non-anion gap, improving Cervical and lumbar spinal stenosis, severe Acute kidney injury, likely postrenal Mild hypernatremia Constipation -Discussed management with infectious disease, on nafcillin 2 g IV every 4 hours, patient definitely needs an MRI lumbar spine -Attempting transfer to [facility], currently accepted to ICU but no bed available -Cardiology following, no evidence of endocarditis or vegetation on the valves or pacer leads. -Continue metoprolol to 50 BID, eliquis 5 BID -Consider increasing metoprolol, no longer requiring Cardizem drip or vasopressors -continue statin , aspirin, Plavix -Consider discontinuing one of the antiplatelet -levemir 15 units at night, aspart 8 units 3 times a day, sliding scale insulin, monitor for hypoglycemia -repeat CBC and BMP tomorrow -ICU note reviewed, continue current management -Orthospine surgery following, patient needs an MRI -Patient had malfunctioned bladder stimulator, urology consulted, now resolved -Able to urinate, continue to monitor urine function -Given suppository bisacodyl once, and Fleet enema DVT ppx: Eliquis Code status: Full code Anticipated discharge place: Pending clinical course Anticipated discharge time: Pending clinical course Objective - Vital Signs Vital signs: Vital Signs Temp 98.9 F 08/16/23 12:00 Pulse 100 08/16/23 13:00 Resp 17 08/16/23 13:00 BP 110/65 08/16/23 13:00 Pulse Ox 95 08/16/23 13:00 FiO2 Intake & Output 08/15/23 08/16/23 08/16/23 18:59 06:59 18:59 Intake Total 1793.798 3094.333 550 Output Total 900 200 0 Balance 806.369 5560.333 550 Weight 89.1 kg 88.3 kg Intake: IV 850 900 550 0.9 @ KVO 50 Nafcillin 2 gm In 300 300 200 Dextrose 5% in Water 100 ml @ 50 mls/hr IVPB Q4HR YESSICA Rx#:[id number] Sodium Chloride 0.9% 1, 500 600 350 000 ml @ 50 mls/hr IV . Q20H YESSICA Rx#:[id number] Intake, IV Titration 154.882 34.333 Amount Diltiazem 125 mg In 135.249 34.333 Sodium Chloride 0.9% 100 ml @ Per Protocol IV .Q0M YESSICA Rx#:[id number] Norepinephrine 4 mg In 19.633 Sodium Chloride 0.9% 250 ml @ 0.03 MCG/KG/MIN 10. 184 mls/hr IV .Q24H YESSICA Rx#:[id number] Oral 500 Output: Urine 900 200 0 Other: Voiding Method Urinal Urinal # Voids 1 0 1 # Bowel Movements 2 - Labs CBC & Chem 7: 08/16/23 07:24 08/16/23 07:24 Labs: Abnormal Lab Results - Last 24 Hours (Table) 08/15/23 08/15/23 08/16/23 Range/Units 16:50 20:09 07:24 WBC 18.9 H (3.8-10.6) k/uL RBC 3.67 L (4.30-5.90) m/uL Hgb 11.2 L (13.0-17.5) gm/dL Hct 34.5 L (39.0-53.0) % Neutrophils # 16.4 H (1.3-7.7) k/uL Lymphocytes # 0.8 L (1.0-4.8) k/uL Monocytes # 1.3 H (0-1.0) k/uL Sodium (137-145) mmol/L Chloride (98-107) mmol/L Carbon Dioxide (22-30) mmol/L BUN (9-20) mg/dL Creatinine (0.66-1.25) mg/dL Glucose (74-99) mg/dL POC Glucose (mg/dL) 257 H 280 H (70-110) mg/dL Calcium (8.4-10.2) mg/dL Magnesium (1.6-2.3) mg/dL 08/16/23 08/16/23 08/16/23 Range/Units 07:24 07:39 11:59 WBC (3.8-10.6) k/uL RBC (4.30-5.90) m/uL Hgb (13.0-17.5) gm/dL Hct (39.0-53.0) % Neutrophils # (1.3-7.7) k/uL Lymphocytes # (1.0-4.8) k/uL Monocytes # (0-1.0) k/uL Sodium 147 H (137-145) mmol/L Chloride 119 H (98-107) mmol/L Carbon Dioxide 17 L (22-30) mmol/L BUN 77 H (9-20) mg/dL Creatinine 1.81 H (0.66-1.25) mg/dL Glucose 233 H (74-99) mg/dL POC Glucose (mg/dL) 181 H 185 H (70-110) mg/dL Calcium 7.7 L (8.4-10.2) mg/dL Magnesium 2.6 H (1.6-2.3) mg/dL Microbiology - Last 24 Hours (Table) 08/15/23 05:24 Blood Culture - Preliminary Blood 08/14/23 06:00 Blood Culture - Preliminary Blood 08/13/23 05:46 Blood Culture - Preliminary Blood
--- NOTE | 2023-08-16 14:54 | P.PN ---
Subjective Progress Note Date: 08/14/23 Principal diagnosis: Reason for follow-up is MSSA bacteremia Patient is a 73-year-old male with a past medical history significant for diabetes mellitus hypertension hyperlipidemia [place] COPD atrial fibrillation patient presenting to the hospital on 08/09/2023 for evaluation of weakness and significant pain to the lower back area patient was febrile and did have a positive blood culture with MSSA, CT of the lumbar spine without contrast no evidence of discitis or osteomyelitis MRI could not be done as the patient did have a pacemaker, patient did have a LAURA that was negative for any vegetation On today's visit and that is 08/14/2023, the patient denies any fever or any chills, the patient is breathing comfortably on 2 L nasal cannula supplemental oxygen, patient denies chest pain shortness of breath and no significant cough or sputum production, patient denies Abdominal pain, no nausea/vomiting and denies having any diarrhea, patient still complaining of lower back pain Patient white count is 12.5, creatinine is 1.06, blood cultures 08/10/2023 as well as 08/11/2023 are positive, blood cultures is 08/13/2023 and 08/14/2023 so far negative Objective - Vital Signs Vital signs: Vital Signs Temp 99 F 08/14/23 04:00 Pulse 104 H 08/14/23 07:00 Resp 27 H 08/14/23 07:00 BP 136/75 08/14/23 07:00 Pulse Ox 92 L 08/14/23 07:00 FiO2 Intake & Output 08/13/23 08/14/23 08/14/23 18:59 06:59 18:59 Intake Total 410 700 Output Total 1050 600 Balance -640 100 Weight 87.6 kg Intake: IV 260 700 0.9 @ KVO 110 50 Potassium Chloride 10 meq 100 100 In Water For Injection 1 100ml.bag @ 100 mls/hr IVPB Q1H YESSICA Rx#: [id number] Sodium Chloride 0.9% 1, 0 500 000 ml @ 50 mls/hr IV . Q20H YESSICA Rx#:[id number] ceFAZolin 2 gm In Sodium 50 50 Chloride 0.9% 50 ml @ 100 mls/hr IVPB Q8HR YESSICA Rx# :[id number] Tube Feeding 150 Output: Urine 1050 600 Other: Voiding Method Urinal Urinal - Exam GENERAL DESCRIPTION: An elderly male lying in bed in no distress RESPIRATORY SYSTEM: Unlabored breathing , decreased breath sound at the base HEART: S1 S2 regular rate and rhythm , ABDOMEN: Soft , no tenderness EXTREMITIES: No edema feet - Labs CBC & Chem 7: 08/16/23 07:24 08/16/23 07:24 Labs: Abnormal Lab Results - Last 24 Hours (Table) 08/13/23 08/13/23 08/14/23 Range/Units 12:10 20:05 06:00 WBC 12.5 H (3.8-10.6) k/uL RBC 4.02 L (4.30-5.90) m/uL Hgb 12.4 L (13.0-17.5) gm/dL Hct 38.0 L (39.0-53.0) % Plt Count 130 L (150-450) k/uL Neutrophils # 10.8 H (1.3-7.7) k/uL Lymphocytes # 0.6 L (1.0-4.8) k/uL Sodium (137-145) mmol/L Chloride (98-107) mmol/L Carbon Dioxide (22-30) mmol/L BUN (9-20) mg/dL Glucose (74-99) mg/dL POC Glucose (mg/dL) 155 H 112 H (70-110) mg/dL Magnesium (1.6-2.3) mg/dL 08/14/23 Range/Units 06:00 WBC (3.8-10.6) k/uL RBC (4.30-5.90) m/uL Hgb (13.0-17.5) gm/dL Hct (39.0-53.0) % Plt Count (150-450) k/uL Neutrophils # (1.3-7.7) k/uL Lymphocytes # (1.0-4.8) k/uL Sodium 147 H (137-145) mmol/L Chloride 117 H (98-107) mmol/L Carbon Dioxide 17 L (22-30) mmol/L BUN 53 H (9-20) mg/dL Glucose 112 H (74-99) mg/dL POC Glucose (mg/dL) (70-110) mg/dL Magnesium 2.4 H (1.6-2.3) mg/dL Microbiology - Last 24 Hours (Table) 08/11/23 11:04 Blood Culture - Preliminary Blood 08/11/23 11:03 Blood Culture Gram Stain - Final Blood Blood Culture - Final Staphylococcus aureus 08/11/23 03:05 Blood Culture Gram Stain - Final Blood Blood Culture - Final Staphylococcus aureus Assessment and Plan (1) MSSA bacteremia Current Visit: Yes Status: Acute Code(s): R78.81 - BACTEREMIA; B95.61 - METHICILLIN SUSCEP STAPH INFCT CAUSING DIS CLASSD ELSWHR SNOMED Code(s): 685116021 (2) Sepsis Current Visit: Yes Status: Acute Code(s): A41.9 - SEPSIS, UNSPECIFIED ORGANISM SNOMED Code(s): 90860088 Plan: 1patient with excruciating lower back pain in this patient who did have a fever elevated white count elevated lactic acid meeting criteria for sepsis/SIRS now with evidence of MSSA bacteremia high clinical suspicious for lumbosacral spine disease such as discitis osteomyelitis 2-blood cultures repeated on 08/11/2023 a coming back positive, blood culture has been repeated to document clearance 3-patient benefit from MRI of the lower back with contrast to better define underlying pathology, however MRI could not be done at this facility as the patient did have a pacemaker, possible transfer to tertiary care 4Patient antibiotics has been adjusted to Naficillin to continue Dictation was produced using [employer] dictation software. please excuse any grammatical, word or spelling errors. Time with Patient: Less than 30
--- NOTE | 2023-08-16 14:55 | P.PN ---
Subjective Progress Note Date: 08/15/23 Principal diagnosis: Reason for follow-up is MSSA bacteremia Patient is a 73-year-old male with a past medical history significant for diabetes mellitus hypertension hyperlipidemia [place] COPD atrial fibrillation patient presenting to the hospital on 08/09/2023 for evaluation of weakness and significant pain to the lower back area patient was febrile and did have a positive blood culture with MSSA, CT of the lumbar spine without contrast no evidence of discitis or osteomyelitis MRI could not be done as the patient did have a pacemaker, patient did have a LAURA that was negative for any vegetation On today's visit and that is 08/15/2023, the patient remains to be afebrile, the patient is breathing comfortably on room air and denies any shortness of breath, the patient denies any chest pain, no significant cough or sputum production, patient denies nausea/vomiting /diarrhea and no abdominal pain, the patient lower back pain has slightly decreased in intensity Patient white count is 14k, creatinine 1.22, blood cultures 08/10/2023 as well as 08/11/2023 are positive, blood culture from 08/13/2023 at 08/14/2023 are so far negative Objective - Vital Signs Vital signs: Vital Signs Temp 98.2 F 08/15/23 00:00 Pulse 144 H 08/15/23 07:00 Resp 18 08/15/23 07:00 BP 108/74 08/15/23 07:00 Pulse Ox 94 L 08/15/23 07:00 FiO2 Intake & Output 08/14/23 08/15/23 08/15/23 18:59 06:59 18:59 Intake Total 750 900 64.833 Output Total 700 400 150 Balance 50 500 -85.167 Weight 89.1 kg 89.1 kg Intake: IV 600 900 50 0.9 @ KVO 550 600 50 Nafcillin 2 gm In 300 Dextrose 5% in Water 100 ml @ 50 mls/hr IVPB Q4HR YESSICA Rx#:[id number] ceFAZolin 2 gm In Sodium 50 Chloride 0.9% 50 ml @ 100 mls/hr IVPB Q8HR YESSICA Rx# :[id number] Intake, IV Titration 100 14.833 Amount Diltiazem 125 mg In 14.833 Sodium Chloride 0.9% 100 ml @ Per Protocol IV .Q0M YESSICA Rx#:[id number] Potassium Chloride 10 meq 100 In Water For Injection 1 100ml.bag @ 100 mls/hr IVPB Q1H YESSICA Rx#: [id number] Oral 50 Output: Urine 700 400 150 Other: Voiding Method Urinal Urinal # Voids 0 1 - Exam GENERAL DESCRIPTION: An elderly male lying in bed in no distress RESPIRATORY SYSTEM: Unlabored breathing , decreased breath sound at the base HEART: S1 S2 regular rate and rhythm , ABDOMEN: Soft , no tenderness EXTREMITIES: No edema feet - Labs CBC & Chem 7: 08/16/23 07:24 08/16/23 07:24 Labs: Abnormal Lab Results - Last 24 Hours (Table) 08/14/23 08/14/23 08/14/23 Range/Units 12:36 17:23 20:27 WBC (3.8-10.6) k/uL RBC (4.30-5.90) m/uL Hgb (13.0-17.5) gm/dL Hct (39.0-53.0) % Neutrophils # (1.3-7.7) k/uL Lymphocytes # (1.0-4.8) k/uL Chloride (98-107) mmol/L Carbon Dioxide (22-30) mmol/L BUN (9-20) mg/dL Glucose (74-99) mg/dL POC Glucose (mg/dL) 131 H 155 H 181 H (70-110) mg/dL Calcium (8.4-10.2) mg/dL Magnesium (1.6-2.3) mg/dL 08/15/23 08/15/23 08/15/23 Range/Units 05:24 05:24 06:31 WBC 14.0 H (3.8-10.6) k/uL RBC 3.79 L (4.30-5.90) m/uL Hgb 11.5 L (13.0-17.5) gm/dL Hct 36.1 L (39.0-53.0) % Neutrophils # 11.9 H (1.3-7.7) k/uL Lymphocytes # 0.9 L (1.0-4.8) k/uL Chloride 116 H (98-107) mmol/L Carbon Dioxide 21 L (22-30) mmol/L BUN 68 H (9-20) mg/dL Glucose 215 H (74-99) mg/dL POC Glucose (mg/dL) 176 H (70-110) mg/dL Calcium 8.2 L (8.4-10.2) mg/dL Magnesium 2.5 H (1.6-2.3) mg/dL 08/15/23 Range/Units 11:31 WBC (3.8-10.6) k/uL RBC (4.30-5.90) m/uL Hgb (13.0-17.5) gm/dL Hct (39.0-53.0) % Neutrophils # (1.3-7.7) k/uL Lymphocytes # (1.0-4.8) k/uL Chloride (98-107) mmol/L Carbon Dioxide (22-30) mmol/L BUN (9-20) mg/dL Glucose (74-99) mg/dL POC Glucose (mg/dL) 273 H (70-110) mg/dL Calcium (8.4-10.2) mg/dL Magnesium (1.6-2.3) mg/dL Microbiology - Last 24 Hours (Table) 08/11/23 11:04 Blood Culture - Preliminary Blood 08/13/23 05:46 Blood Culture - Preliminary Blood Assessment and Plan (1) MSSA bacteremia Current Visit: Yes Status: Acute Code(s): R78.81 - BACTEREMIA; B95.61 - METHICILLIN SUSCEP STAPH INFCT CAUSING DIS CLASSD ELSWHR SNOMED Code(s): 422616345 (2) Sepsis Current Visit: Yes Status: Acute Code(s): A41.9 - SEPSIS, UNSPECIFIED ORGANISM SNOMED Code(s): 83815208 Plan: 1patient with excruciating lower back pain in this patient who did have a fever elevated white count elevated lactic acid meeting criteria for sepsis/SIRS now with evidence of MSSA bacteremia high clinical suspicious for lumbosacral spine disease such as discitis osteomyelitis 2-blood cultures repeated on 08/11/2023 a coming back positive, blood culture has been repeated to document clearance 3-patient benefit from MRI of the lower back with contrast to better define underlying pathology, however MRI could not be done at this facility as the patient did have a pacemaker , even though MRI machine is compatible with pacemaker 4Patient to continue with Naficillin and monitor clinical course closely Dictation was produced using [employer] dictation software. please excuse any grammatical, word or spelling errors. Time with Patient: Less than 30
--- NOTE | 2023-08-16 14:57 | P.PN ---
Subjective Progress Note Date: 08/16/23 Principal diagnosis: Reason for follow-up is MSSA bacteremia Patient is a 73-year-old male with a past medical history significant for diabetes mellitus hypertension hyperlipidemia [place] COPD atrial fibrillation patient presenting to the hospital on 08/09/2023 for evaluation of weakness and significant pain to the lower back area patient was febrile and did have a positive blood culture with MSSA, CT of the lumbar spine without contrast no evidence of discitis or osteomyelitis MRI could not be done as the patient did have a pacemaker, patient did have a LAURA that was negative for any vegetation On today's visit and that is 08/16/2023, the patient denies any fever or any chills, the patient is breathing comfortably on room air, patient denies chest pain shortness of breath, the patient denies cough or sputum production, patient denies Abdominal pain, no nausea/vomiting or diarrhea, the patient lower back pain has slightly decreased in intensity, no new symptoms Patient white count is is up to 18.9 , creatinine 1.81 , blood cultures 08/10/2023 as well as 08/11/2023 are positive, blood culture from 08/13/2023 at 08/14/2023 are so far negative Objective - Vital Signs Vital signs: Vital Signs Temp 98.9 F 08/16/23 12:00 Pulse 100 08/16/23 13:00 Resp 17 08/16/23 13:00 BP 110/65 08/16/23 13:00 Pulse Ox 95 08/16/23 13:00 FiO2 Intake & Output 08/15/23 08/16/23 08/16/23 18:59 06:59 18:59 Intake Total 8999.850 4408.333 550 Output Total 900 200 0 Balance 404.184 6347.333 550 Weight 89.1 kg 88.3 kg Intake: IV 850 900 550 0.9 @ KVO 50 Nafcillin 2 gm In 300 300 200 Dextrose 5% in Water 100 ml @ 50 mls/hr IVPB Q4HR YESSICA Rx#:[id number] Sodium Chloride 0.9% 1, 500 600 350 000 ml @ 50 mls/hr IV . Q20H YESSICA Rx#:[id number] Intake, IV Titration 154.882 34.333 Amount Diltiazem 125 mg In 135.249 34.333 Sodium Chloride 0.9% 100 ml @ Per Protocol IV .Q0M YESSICA Rx#:[id number] Norepinephrine 4 mg In 19.633 Sodium Chloride 0.9% 250 ml @ 0.03 MCG/KG/MIN 10. 184 mls/hr IV .Q24H YESSICA Rx#:[id number] Oral 500 Output: Urine 900 200 0 Other: Voiding Method Urinal Urinal # Voids 1 0 1 # Bowel Movements 2 - Exam GENERAL DESCRIPTION: An elderly male lying in bed in no distress RESPIRATORY SYSTEM: Unlabored breathing , decreased breath sound at the base HEART: S1 S2 regular rate and rhythm , ABDOMEN: Soft , no tenderness EXTREMITIES: No edema feet - Labs CBC & Chem 7: 08/16/23 07:24 08/16/23 07:24 Labs: Abnormal Lab Results - Last 24 Hours (Table) 08/15/23 08/15/23 08/16/23 Range/Units 16:50 20:09 07:24 WBC 18.9 H (3.8-10.6) k/uL RBC 3.67 L (4.30-5.90) m/uL Hgb 11.2 L (13.0-17.5) gm/dL Hct 34.5 L (39.0-53.0) % Neutrophils # 16.4 H (1.3-7.7) k/uL Lymphocytes # 0.8 L (1.0-4.8) k/uL Monocytes # 1.3 H (0-1.0) k/uL Sodium (137-145) mmol/L Chloride (98-107) mmol/L Carbon Dioxide (22-30) mmol/L BUN (9-20) mg/dL Creatinine (0.66-1.25) mg/dL Glucose (74-99) mg/dL POC Glucose (mg/dL) 257 H 280 H (70-110) mg/dL Calcium (8.4-10.2) mg/dL Magnesium (1.6-2.3) mg/dL 08/16/23 08/16/23 08/16/23 Range/Units 07:24 07:39 11:59 WBC (3.8-10.6) k/uL RBC (4.30-5.90) m/uL Hgb (13.0-17.5) gm/dL Hct (39.0-53.0) % Neutrophils # (1.3-7.7) k/uL Lymphocytes # (1.0-4.8) k/uL Monocytes # (0-1.0) k/uL Sodium 147 H (137-145) mmol/L Chloride 119 H (98-107) mmol/L Carbon Dioxide 17 L (22-30) mmol/L BUN 77 H (9-20) mg/dL Creatinine 1.81 H (0.66-1.25) mg/dL Glucose 233 H (74-99) mg/dL POC Glucose (mg/dL) 181 H 185 H (70-110) mg/dL Calcium 7.7 L (8.4-10.2) mg/dL Magnesium 2.6 H (1.6-2.3) mg/dL Microbiology - Last 24 Hours (Table) 08/15/23 05:24 Blood Culture - Preliminary Blood 08/14/23 06:00 Blood Culture - Preliminary Blood 08/13/23 05:46 Blood Culture - Preliminary Blood Assessment and Plan (1) MSSA bacteremia Current Visit: Yes Status: Acute Code(s): R78.81 - BACTEREMIA; B95.61 - METHICILLIN SUSCEP STAPH INFCT CAUSING DIS CLASSD ELSWHR SNOMED Code(s): 000694195 (2) Sepsis Current Visit: Yes Status: Acute Code(s): A41.9 - SEPSIS, UNSPECIFIED ORGANISM SNOMED Code(s): 65991245 Plan: 1patient with excruciating lower back pain in this patient who did have a fever elevated white count elevated lactic acid meeting criteria for sepsis/SIRS now with evidence of MSSA bacteremia high clinical suspicious for lumbosacral spine disease such as discitis osteomyelitis 2-blood cultures repeated on 08/11/2023 a coming back positive, blood culture has been repeated to document clearance 3-patient benefit from MRI of the lower back with contrast to better define underlying pathology, however MRI could not be done at this facility as the patient did have a pacemaker, possible plan is for transfer the patient to tertiary care 4Patient to continue with Naficillin, patient did have slight worsening of his white count also notices slight worsening of his kidney function is well and both were monitored closely Dictation was produced using [employer] dictation software. please excuse any grammatical, word or spelling errors. Time with Patient: Less than 30
--- NOTE | 2023-08-16 15:14 | P.GSCN ---
History of Present Illness Consult date: 08/16/23 Reason for Consult: Urinary incontinence, AUS malfunction History of present illness: This is a 73-year-old male with history of urinary incontinence, had an artificial urinary sphincter placed approximately 6 years ago at an outside facility. Urology was consulted for urinary incontinence. It was noticed that the AUS device appeared to be deactivated, attempted to reactivate the device by the patient and the nursing was unsuccessful, subsequent urology was consulted. Per patient His AUS was placed approximately 6 years ago, and has not had any issues with urinary incontinence or device malfunction since insertion. Indicated earlier the hospital admission he was able to cycle the device without any difficulties, but noticed to be deactivated this morning and is unable to the reactivate it . He is currently incontinent, denies any dysuria or gross hematuria Review of Systems - Constitutional Denies fever, Denies weight loss - EENT Ears, nose, mouth and throat: Denies dysphagia - Cardiovascular Denies chest pain, Denies shortness of breath - Respiratory Denies cough, Denies 7 - Gastrointestinal Reports as per HPI - Genitourinary Reports incontinence, Denies dysuria, Denies flank pain, Denies hematuria - Neurological Denies headaches, Denies syncope Past Medical History Past Medical History: Atrial Fibrillation, Diabetes Mellitus Additional Past Medical History / Comment(s): Unable to get proper history, sending hospital did not have any medical history information available. Last Myocardial Infarction Date:: unknown History of Any Multi-Drug Resistant Organisms: None Reported Past Surgical History: Unable to Obtain Additional Past Surgical History / Comment(s): Unable to obtain, no medical history sent from other hospital. Past Anesthesia/Blood Transfusion Reactions: No Reported Reaction Type of Cardiac Device: Permanent Pacemaker Device Placement Date:: aug 2021 Past Psychological History: Anxiety Smoking Status: Former smoker Past Alcohol Use History: Daily Past Drug Use History: None Reported - Past Family History Father Family Medical History: Diabetes Mellitus Medications and Allergies Home Medications Medication Instructions Recorded Confirmed Type Cholecalciferol [Vitamin D3 (25 25 mcg PO DAILY 08/09/23 08/09/23 History Mcg = 1000 Iu)] Clopidogrel [Plavix] 75 mg PO DAILY 08/09/23 08/09/23 History Cyclobenzaprine [Flexeril] 10 mg PO TID PRN 08/09/23 08/09/23 History Empagliflozin [Jardiance] 25 mg PO DAILY 08/09/23 08/09/23 History Gabapentin [Neurontin] 100 mg PO TID PRN 08/09/23 08/10/23 History HYDROcodone/APAP 7.5-325MG [Estelline 1 tab PO Q6H PRN 08/09/23 08/09/23 History 7.5-325] Insulin Glargine,Hum.rec.anlog 15 units SQ DAILY 08/09/23 08/09/23 History [Lantus Solostar Pen] Insulin Lispro [humaLOG Kwikpen] 8 - 10 unit SQ AC-TID MDD 30 units 08/09/23 08/09/23 History Meloxicam [Mobic] 15 mg PO DAILY PRN 08/09/23 08/09/23 History Midodrine [ProAmatine] 5 mg PO TID 08/09/23 08/09/23 History Nystatin 100,000Unit/gm Cream 1 applic TOPICAL BID 08/09/23 08/09/23 History [Mycostatin Cream] Propranolol HCl 80 mg PO DAILY 08/09/23 08/09/23 History Rosuvastatin [Crestor] 20 mg PO HS 08/09/23 08/09/23 History Triamcinolone 0.025% Cream 1 applic TOPICAL BID 08/09/23 08/09/23 History [Kenalog 0.025% Cream] Vit C/E/Zn/Coppr/Lutein/Zeaxan 1 cap PO BID 08/09/23 08/09/23 History [Preservision Areds 2 Softgel] metFORMIN HCL ER [Glucophage XR] 1,000 mg PO BID 08/09/23 08/09/23 History Allergies Allergy/AdvReac Type Severity Reaction Status Date / Time No Known Allergies Allergy Verified 08/09/23 22:15 Surgical - Exam Vital Signs Temp Pulse Resp BP Pulse Ox 98.2 F 89 18 126/80 92 L 08/09/23 18:00 08/09/23 18:00 08/09/23 18:00 08/09/23 18:00 08/09/23 18:00 - General no distress, no pain - Eyes normal ocular movement, no pale - ENT normal nares, normal mucosa - Respiratory normal expansion, normal respiratory effort - Abdomen Abdomen: soft, non tender - Genitourinary AUS pump palpated, it's in a deactivated state normal penis with no external lesions - Psychiatric oriented to time, oriented to person, oriented to place Results - Labs 08/16/23 07:24 08/16/23 07:24 Abnormal Lab Results - Last 24 Hours (Table) 08/15/23 08/15/23 08/16/23 Range/Units 16:50 20:09 07:24 WBC 18.9 H (3.8-10.6) k/uL RBC 3.67 L (4.30-5.90) m/uL Hgb 11.2 L (13.0-17.5) gm/dL Hct 34.5 L (39.0-53.0) % Neutrophils # 16.4 H (1.3-7.7) k/uL Lymphocytes # 0.8 L (1.0-4.8) k/uL Monocytes # 1.3 H (0-1.0) k/uL Sodium (137-145) mmol/L Chloride (98-107) mmol/L Carbon Dioxide (22-30) mmol/L BUN (9-20) mg/dL Creatinine (0.66-1.25) mg/dL Glucose (74-99) mg/dL POC Glucose (mg/dL) 257 H 280 H (70-110) mg/dL Calcium (8.4-10.2) mg/dL Magnesium (1.6-2.3) mg/dL 08/16/23 08/16/23 08/16/23 Range/Units 07:24 07:39 11:59 WBC (3.8-10.6) k/uL RBC (4.30-5.90) m/uL Hgb (13.0-17.5) gm/dL Hct (39.0-53.0) % Neutrophils # (1.3-7.7) k/uL Lymphocytes # (1.0-4.8) k/uL Monocytes # (0-1.0) k/uL Sodium 147 H (137-145) mmol/L Chloride 119 H (98-107) mmol/L Carbon Dioxide 17 L (22-30) mmol/L BUN 77 H (9-20) mg/dL Creatinine 1.81 H (0.66-1.25) mg/dL Glucose 233 H (74-99) mg/dL POC Glucose (mg/dL) 181 H 185 H (70-110) mg/dL Calcium 7.7 L (8.4-10.2) mg/dL Magnesium 2.6 H (1.6-2.3) mg/dL Microbiology - Last 24 Hours (Table) 08/15/23 05:24 Blood Culture - Preliminary Blood 08/14/23 06:00 Blood Culture - Preliminary Blood 08/13/23 05:46 Blood Culture - Preliminary Blood Diabetes panel 08/16/23 Range/Units 07:24 Sodium 147 H (137-145) mmol/L Potassium 3.9 (3.5-5.1) mmol/L Chloride 119 H (98-107) mmol/L Carbon Dioxide 17 L (22-30) mmol/L BUN 77 H (9-20) mg/dL Creatinine 1.81 H (0.66-1.25) mg/dL Glucose 233 H (74-99) mg/dL Calcium 7.7 L (8.4-10.2) mg/dL Calcium panel 08/16/23 Range/Units 07:24 Calcium 7.7 L (8.4-10.2) mg/dL Pituitary panel 08/16/23 Range/Units 07:24 Sodium 147 H (137-145) mmol/L Potassium 3.9 (3.5-5.1) mmol/L Chloride 119 H (98-107) mmol/L Carbon Dioxide 17 L (22-30) mmol/L BUN 77 H (9-20) mg/dL Creatinine 1.81 H (0.66-1.25) mg/dL Glucose 233 H (74-99) mg/dL Calcium 7.7 L (8.4-10.2) mg/dL Adrenal panel 08/16/23 Range/Units 07:24 Sodium 147 H (137-145) mmol/L Potassium 3.9 (3.5-5.1) mmol/L Chloride 119 H (98-107) mmol/L Carbon Dioxide 17 L (22-30) mmol/L BUN 77 H (9-20) mg/dL Creatinine 1.81 H (0.66-1.25) mg/dL Glucose 233 H (74-99) mg/dL Calcium 7.7 L (8.4-10.2) mg/dL Assessment and Plan Assessment: 73-year-old male history of urinary incontinence be in managed by an artificial urinary sphincter, on evaluation the device is deactivated. I was able to reactivate the device, after evacuating the device the device was cycled without any difficulties. -Keep the AUS in a activated state, patient can cycle when he needs to void. If there is any further difficulties with his device urology can be called back
[2023-08-16] MEDS: NOREPINEPHRINE 4 MG in SODIUM CHLORIDE 0.9% 250 ML IV SCH (16:28)
[2023-08-16 17:21] LABS: Glucose,Whole Blood 284 mg/dL (70-110)
--- NOTE | 2023-08-16 17:44 | P.PN ---
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 He was transferred from another facility to this hospital for further evaluation of shortness of breath and chest discomfort and he underwent a workup at [facility] including troponin came in to be abnormal and for that reason the patient was referred. He was seen at bedside in the emergency department where he was having ongoing chest discomfort. The troponin was mildly elevated. The EKG showed LBBB. He was also experiencing shortness of breath and he was hypoxic. He was given Lasix and some morphine as well and his pressure dropped down. The patient was started on some norepinephrine with improvement in the blood pressure. Beside that the risks of the blood work beside troponin came in to be unremarkable. Further investigation was performed including an echo which revealed normal biventricular dimension and systolic function and no significant valvular abnormalities. Because he continues to have ongoing chest discomfort he underwent a heart catheterization and that revealed normal coronaries with normal left-sided filling pressure. He was seen by the pulmonary/critical care service and he was diagnosed with acute hypoxic respiratory failure. He also might have a component of sepsis. He underwent urinary analysis and that showed what it seems to be possible UTI. The examination is remarkable for diminished breathing sounds bilaterally with regular rate and rhythm and distant heart sounds and mild bilateral lower extremity edema 08/11/2023 The patient was seen and evaluated this morning. He is feeling better. The chest discomfort has resolved. He seems to be in atrial fibrillation on the monitor and I'm going to perform a 12 please EKG to confirm that. Meanwhile he is on Cardizem IV which I'm going to wean him from and start him on beta twin was Toprol tartrate. Also he will be started on oral anticoagulation. He is getting treated for possible sepsis as well. Hemodynamically he is stable and not on any vasopressors at this point. The echo revealed normal LV systolic function was no significant valvular abnormalities. The examination is remarkable for regular rhythm with distant heart sounds and clear breathing sounds bilaterally and no lower extremity edema noted 08/12/2023 Patient was seen and evaluated this morning. Hemodynamically is stable. He is in atrial fibrillation with controlled heart rate. He is on metoprolol and he is on oral anticoagulation. Beside that he is still hypoxic requiring 2 L of oxygen. The chest x-ray did not show any acute abnormalities from yesterday. He has no pain in the chest. We need to review his echocardiogram to determine the exact ejection fraction. There is concern about an infection etiology and that is in process of workup on it. The examination is remarkable for irregular rhythm with diminished breathing sounds bilaterally and no edema in the lower extremities 08/13/2023 The patient was seen and evaluated this morning. He still tachycardic with heart rate above 100 treatment. Her pressure is stable. I'm going to increase the dose of metoprolol. Continue oral anticoagulation. The source of infection is still not clear as of yet. This possible need for transesophageal echocardiogram which is not unreasonable. The patient continues to be weak. Physical therapy is on the case. The examination is remarkable for irregular rhythm with diminished breathing sounds bilaterally and no lower extremity is edema noted. 08/14/2023 The patient was seen and evaluated this morning. He remains stable beside mild tachycardia with atrial fibrillation but the pressure remains a stable. He is on metoprolol as well as oral anticoagulation. The LAURA was performed yesterday and showed no evidence of endocarditis. The pacer lead appeared to have no vegetation attached to it. I would suggest continue workup to find that the source of infection meanwhile we can consider repeating the transesophageal echocardiogram in 48 hours to see if there is any changes. Meanwhile continue the current medical regimen. The examination is remarkable for irregular rhythm with diminished breathing sounds bilaterally and no lower extremity is edema noted 08/16/23 Patient continues to be in atrial fibrillation with rate controlled heart rate. Previously was on Cardizem drip and norepinephrine drip. He has been off these drips were last 24 hours. There is a plan for possible obtaining an MRI for number abscess evaluation in setting of bacteremia without any obvious source. As he is not able to get his MRI at [facility] due to a PPM, plan is to possibly transfer him to Center which is more comfortable doing inpatient MRI with PPM in place. His pacemaker is compatible. Assessment Acute hypoxic respiratory failure Metabolic encephalopathy Sepsis of unknown source, LAURA negative for any evidence of endocarditis Cardiomyopathy with EF 35-40%, moderate LVH, unknown eitology Atrial fibrillation, rate controlled Permanent pacemaker Multiple comorbid conditions PAD smoker HTN Type II DM Plan Continue the current medical regimen Patient is cleared to undergo MRI from cardiac vessel standpoint. His pacemaker is compatible with MRI. IV antibiotics and other comorbidities management as per primary team. Patient would benefit from rhythm control strategy especially due to his underlying cardiomyopathy. Would reevaluate him. He is not the best candidate for amiodarone therapy due to metabolic encephalopathy. Best time to offer rhythm control would be once his infection improves and his blood cultures are negative Prognosis is guarded Objective - Vital Signs Vital signs: Vital Signs Temp 99.6 F 08/16/23 16:00 Pulse 102 H 08/16/23 17:00 Resp 16 08/16/23 17:00 BP 118/72 08/16/23 17:00 Pulse Ox 95 08/16/23 17:00 FiO2 Intake & Output 08/15/23 08/16/23 08/16/23 18:59 06:59 18:59 Intake Total 0060.496 6748.333 850 Output Total 900 200 100 Balance 754.149 4930.333 750 Weight 89.1 kg 88.3 kg Intake: IV 850 900 850 0.9 @ KVO 50 Nafcillin 2 gm In 300 300 300 Dextrose 5% in Water 100 ml @ 50 mls/hr IVPB Q4HR YESSICA Rx#:[id number] Sodium Chloride 0.9% 1, 500 600 550 000 ml @ 50 mls/hr IV . Q20H YESSICA Rx#:[id number] Intake, IV Titration 154.882 34.333 Amount Diltiazem 125 mg In 135.249 34.333 Sodium Chloride 0.9% 100 ml @ Per Protocol IV .Q0M YESSICA Rx#:[id number] Norepinephrine 4 mg In 19.633 Sodium Chloride 0.9% 250 ml @ 0.03 MCG/KG/MIN 10. 184 mls/hr IV .Q24H YESSICA Rx#:[id number] Oral 500 Output: Urine 900 200 100 Other: Voiding Method Urinal Urinal # Voids 1 0 1 # Bowel Movements 3 - Labs CBC & Chem 7: 08/16/23 07:24 08/16/23 07:24 Labs: Abnormal Lab Results - Last 24 Hours (Table) 08/15/23 08/16/23 08/16/23 Range/Units 20:09 07:24 07:24 WBC 18.9 H (3.8-10.6) k/uL RBC 3.67 L (4.30-5.90) m/uL Hgb 11.2 L (13.0-17.5) gm/dL Hct 34.5 L (39.0-53.0) % Neutrophils # 16.4 H (1.3-7.7) k/uL Lymphocytes # 0.8 L (1.0-4.8) k/uL Monocytes # 1.3 H (0-1.0) k/uL Sodium 147 H (137-145) mmol/L Chloride 119 H (98-107) mmol/L Carbon Dioxide 17 L (22-30) mmol/L BUN 77 H (9-20) mg/dL Creatinine 1.81 H (0.66-1.25) mg/dL Glucose 233 H (74-99) mg/dL POC Glucose (mg/dL) 280 H (70-110) mg/dL Calcium 7.7 L (8.4-10.2) mg/dL Magnesium 2.6 H (1.6-2.3) mg/dL 08/16/23 08/16/23 08/16/23 Range/Units 07:39 11:59 17:20 WBC (3.8-10.6) k/uL RBC (4.30-5.90) m/uL Hgb (13.0-17.5) gm/dL Hct (39.0-53.0) % Neutrophils # (1.3-7.7) k/uL Lymphocytes # (1.0-4.8) k/uL Monocytes # (0-1.0) k/uL Sodium (137-145) mmol/L Chloride (98-107) mmol/L Carbon Dioxide (22-30) mmol/L BUN (9-20) mg/dL Creatinine (0.66-1.25) mg/dL Glucose (74-99) mg/dL POC Glucose (mg/dL) 181 H 185 H 284 H (70-110) mg/dL Calcium (8.4-10.2) mg/dL Magnesium (1.6-2.3) mg/dL Microbiology - Last 24 Hours (Table) 08/15/23 05:24 Blood Culture - Preliminary Blood 08/14/23 06:00 Blood Culture - Preliminary Blood 08/13/23 05:46 Blood Culture - Preliminary Blood
[2023-08-16 20:02] LABS: Glucose,Whole Blood 121 mg/dL (70-110)
[2023-08-16] MEDS: ATORVASTATIN 80 MG TAB PO SCH (21:45)
[2023-08-16] MEDS: INSULIN DETEMIR (LEVEMIR) 100 UNIT/ML SYR SQ SCH (21:46)
[2023-08-16] MEDS: ACETAMINOPHEN TAB 325 MG TAB PO PRN (21:51)
[2023-08-17] MEDS: NAFCILLIN 2 GM in DEXTROSE 5% IN WATER 100 ML IVPB SCH ×12 (00:30→21:07)
[2023-08-17 06:21] LABS: Glucose,Whole Blood 39 mg/dL (70-110)
[2023-08-17 06:22] LABS: Glucose,Whole Blood 30 mg/dL (70-110)
[2023-08-17 06:46] LABS: Glucose,Whole Blood 146 mg/dL (70-110)
[2023-08-17] MEDS: INSULIN ASPART (NovoLOG) 100 UNIT/ML VIAL SQ SCH ×5 (06:53→21:13)
[2023-08-17] MEDS: CLOPIDOGREL 75 MG TAB PO SCH (08:06)
[2023-08-17] MEDS: ASPIRIN 81 MG PO SCH (08:06)
[2023-08-17] MEDS: VIT A,C & E-LUTEIN-MINERALS 1 EACH TAB PO SCH ×2 (08:06→21:08)
[2023-08-17] MEDS: METOPROLOL TARTRATE 50 MG TAB PO SCH ×2 (08:06→21:08)
[2023-08-17] MEDS: APIXABAN 5 MG TAB PO SCH ×2 (08:06→21:08)
[2023-08-17] MEDS: ACETAMINOPHEN TAB 325 MG TAB PO PRN ×2 (08:10→21:08)
[2023-08-17 08:54] LABS: ALT 24 U/L (4-49); African American GFR (CKD) 34 (>60 ml/min/1.73 sqM); Anion Gap 14 mmol/L; Blood Urea Nitrogen 88 mg/dL (9-20); Carbon Dioxide 14 mmol/L (22-30); Chloride 121 mmol/L (98-107); Glucose 192 mg/dL (74-99); Non-African American GFR(CKD) 30 (>60 ml/min/1.73 sqM); Sodium 149 mmol/L (137-145); Total Bilirubin 2.2 mg/dL (0.2-1.3)
[2023-08-17 08:55] LABS: AST 79 U/L (17-59)
[2023-08-17 08:56] LABS: Albumin 1.9 g/dL (3.5-5.0); Alkaline Phosphatase 130 U/L (38-126); Potassium 4.6 mmol/L (3.5-5.1); Total Protein 4.9 g/dL (6.3-8.2)
[2023-08-17 09:21] LABS: HCT 35.6 % (39.0-53.0); Hypochromasia Slight; MCH 31.9 pg (25.0-35.0); MCHC 33.7 g/dL (31.0-37.0); MCV 94.6 fL (80.0-100.0); Mean Platelet Volume 10.1; Platelet Count 288 k/uL (150-450); RBC 3.76 m/uL (4.30-5.90); RDW 15.1 % (11.5-15.5)
[2023-08-17] MEDS ORDERED: SODIUM CHLORIDE 0.9% 1,000 ML IV SCH (09:30)
--- NOTE | 2023-08-17 10:17 | XR ---
EXAMINATION TYPE: XR knee complete RT DATE OF EXAM: 08/17/2023 COMPARISON: NONE HISTORY: Soft tissue swelling TECHNIQUE: Three views are submitted. FINDINGS: Postsurgical changes compatible with total knee replacement surgery. Vascular calcifications are seen . There is ectasia of the distal superficial femoral artery measuring 11 mm.. Osseous structures are intact. No acute fracture seen. IMPRESSION: 1. No acute fracture or dislocation. 2. Postsurgical change. 3. There is fusiform prominence of the distal left superficial femoral artery measuring 11 mm.
[2023-08-17 10:34] LABS: Band Neutrophils % 4 %; Lymphocytes # (M) 1.32 k/uL (1.0-4.8); Monocytes # (M) 1.76 k/uL (0-1.0); Neutrophils % (M) 90 %; Nucleated Red Blood Cells 0 /100 WBC (0-0); Total Cells Counted 200
[2023-08-17 10:37] LABS: Toxic Vacuolation Present
[2023-08-17 11:11] LABS: C Reactive Protein 19.4 mg/dL (<1.0)
[2023-08-17 11:31] LABS: Toxic Granulation Present
[2023-08-17] MEDS ORDERED: FUROSEMIDE 10 MG/ML 4 ML VIAL IV STA (11:33)
--- NOTE | 2023-08-17 11:35 | P.PN ---
Subjective Progress Note Date: 08/17/23 This is a pleasant 73-year-old male patient with a known history of diabetes mellitus, hypertension, hyperlipidemia, atrial fibrillation, left bundle branch block, post permanent pacemaker insertion 2 years ago in [place], peripheral vascular disease with stenting to the lower extremities, former smoker however quit 20 oh. 4 days ago the patient had complaints of significant low back pain and weakness and was seen in [facility] treated and discharged home. He represented there again yesterday with low back pain and was found to have elevated troponin levels and subsequently transferred to our emergency department. EKG reveals a ventricular paced rhythm. CT angiogram revealed no evidence of pulmonary embolism. There is moderate emphysematous changes throughout the lung jaquez but otherwise clear. Labs revealed a troponin of 0.076, 0.108. ProBNP 5990. Pro-calcitonin 38.40. Urinalysis with moderate blood and 4+ glucose, 2+ ketones. Influenza screen negative. RSV screen ne gative. COVID-19 screen negative. White count 10.8. Hemoglobin 14.4. Platelets 105. Sodium 136. Potassium 4.2. Bicarb 20. BUN 35. Creatinine 1.01. Glucose 126. He is seen today in consultation in the emergency department. He's currently sitting up in a stretcher. Awake and alert. He de nies any chest pain currently. She denies any worsening shortness of breath however he is requiring 15 L per nonrebreather mask to maintain O2 saturations in the 90s. He was down to 82% at one point. Current O2 saturation 97%. He is febrile with temperature of 102.7. He is clammy. He's been initiated on a heparin drip and. Initiated on ceftriaxone and azithromycin. Echocardiogram is pending. Patient was reevaluated today on 08/11/23, remains in the ICU. Patient underwent cardiac catheterization yesterday and he was found to have normal coronaries, normal left ventricular end-diastolic pressures which basically rules out congestive heart failure patient was also found to have normal LV function according to Dr. Saleh, however after looking at the echocardiogram which was read by Dr. Vivas, he estimated his ejection fraction of 35-40%, and Dr. Saleh is going to reevaluate that echocardiogram and let us know if the report these to be modified. At any rate since yesterday the patient was found to have gram-positive bacteremia, presumptive staph aureus in the blood, and the patient is now on vancomycin empirically. In the meantime it is necessary to know the primary site of this infection, looking back at the clinical history, patient presented with severe acute onset back pain, which makes me concerned about the possibility of discitis causing his back pain/relatively new onset patient did have history of chronic back pain but this pain that he presented with was hyperacute and debilitating not to mention the patient came in with significantly elevated pro calcitonin level, and mild leukocytosis. His sed rate was 63 on admission. Hence I'm recommending CT of the lumbosacral spine, multiple recommending infectious disease consultation, and will continue to monitor her blood cultures in the meantime. Chest x-ray this morning showed chronic changes but no acute evidence of any active pulmonary disease and no evidence of congestive heart failure. Patient is now on Cardizem for atrial fibrillation with RVR but again no evidence of congestive heart failure. Asking the about his smoking history patient did have remote smoking history and at one point he did have inhalers for underlying COPD severity of which is not clear. Reevaluated today on 08/12/23, patient remains in the ICU, he was in December, continues to have positive blood cultures/MSSA, we are still trying to determine the primary site of infection, differential diagnoses includes lumbar/sacral discitis or osteomyelitis or abscess although CT of the lumbosacral spine was unremarkable and did not show such findings. Infectious diseases recommending MRI of the spine, and that is pending. In the meantime the patient is on antibiotics, his transthoracic echo did not reveal any vegetations, however if we continue to have no answer to explain the site of his bacteremia, the patient may have to have a transesophageal echocardiogram repeat blood cultures again came back positive and that is concerning. Clinically however the patient is feeling better, breathing easier, his CBC is relatively normal basic metabolic profile is normal BUN is 61 and creatinine 1.16, slightly improved compared to yesterday of 1.20. is at bedside, and I updated the and the patient on where we are and our concern about his gram-positive bacteremia and would like to find the source reevaluated today on 08/13/23, patient remains in the ICU, he is extremely weak, and now he has severe cervical pain, and low back pain, continues to have positive blood cultures patient is on antibiotics for his MSSA bacteremia, could not apparently have MRI because of his pacemaker although the cash accountant cleared him to have an MRI, but radiology declined. Considering the persistent positive blood cultures I'm recommending CT of the cervical spine and I'm also recommending LAURA on this patient, discussed this with Dr. Saleh on the case. Labs today W says 9.5 hemoglobin 12.6 basic metabolic profile is normal bicarb is 16 BUN is 61 creatinine 1.1 Reevaluated today on 08/14/23, patient is about the same, remains in the ICU, presently on room air, CT of the cervical spine is also nondiagnostic for his gram-positive sepsis, his LAURA showed no evidence of vegetations, patient didn't have significant findings on the cervical spine explaining his cervical pain, showed mostly degenerative changes and moderate severe stenosis at C5-C6 and spurring at C5-C6 with severe neural foraminal stenosis at C5-C6, but no osteomyelitis and no abscess is still believe the patient will likely need an MRI of the spine however radiology is reluctant to agree to MRI because of his pacemaker although the patient had a pacemaker which is compatible with MRI and should be no problem. Cardiology felt strongly that the patient could have MRI and should be no issue with the pacemaker in addition to this the told me that the patient had MRI in the past without any problems. WBC count today is 12.5 hemoglobin 12.4 basic metabolic profile is normal bicarb is a bit low at 17 BUN is 53 creatinine 1.06. Her blood cultures remain positive. And more blood cultures are pending from the The patient is seen today 08/15/2023 in follow-up in the intensive care unit. He is currently resting in bed. Awake and alert. Maintaining good O2 saturations in the 90s on room air. He's afebrile. He is still quite uncomfortable with his neck pain and back pain. His blood cultures are positive for methicillin sensitive Staphylococcus aureus. Follow-up blood cultures are pending. White count 14.0. Hemoglobin 11.5. Platelets 200,000. Sodium 145. Potassium 4.4. Bicarb 21. BUN 68. Creatinine 1.22. Glucose 215. He is continued on nafcillin. Anticoagulated with Eliquis. Still trying to identify the source of his infection. Cervical C-spine, lumbar C-spine and LAURA rule out infection. MRI is recommended. He is currently tolerating a dysphagia level II ground diet with one-to-one supervision. Aspiration precautions remain in place. The patient is seen today 08/16/2023 in follow-up in the intensive care unit. He is currently awake and alert. Continues with complaints of neck and low back pain. Initial blood cultures were positive for methicillin sensitive Staphylococcus aureus. Source still pending. White count 18.9. Hemoglobin 11.2. Platelets 278. Sodium 147. Potassium 3.9. Bicarb 17. BUN 77. Creatinine 1.81. Glucose 233. He remains on nafcillin. Anticoagulated with Eliquis. The patient is seen today 08/17/2023 in follow-up in the intensive care unit. He is currently resting in bed. Awake and alert. Maintaining O2 saturations in the mid to upper 90s on 2 L/m per nasal cannula. Afebrile. Hemodynamically stable. He has normal saline at 50 MLS per hour. White count 44.0. Hemoglobin 12.0. Platelets 288. Sodium 149. Potassium 4.6. Bicarb 14. BUN 88. Creatinine 2.19. Glucose 192. AST 79. ALT 24. Alk phos 130. C-reactive protein 19.4. He remains on nafcillin. Anticoagulated with Eliquis. He did have some swelling of the right knee. X-ray revealed no acute fracture or dislocation. He does have an artificial urinary sphincter that had not been functioning. Urology had seen and consulted yesterday and was able to reactivate the device. Objective - Vital Signs Vital signs: Vital Signs Temp 99.5 F 08/17/23 08:00 Pulse 96 08/17/23 11:00 Resp 25 H 08/17/23 11:00 BP 103/57 08/17/23 11:00 Pulse Ox 98 08/17/23 11:00 FiO2 Intake & Output 08/16/23 08/17/23 08/17/23 18:59 06:59 18:59 Intake Total 900 650 350 Output Total 100 550 350 Balance 800 100 0 Weight 86 kg Intake: IV 900 650 250 0.9 250 Nafcillin 2 gm In 300 300 Dextrose 5% in Water 100 ml @ 50 mls/hr IVPB Q4HR YESSICA Rx#:[id number] Sodium Chloride 0.9% 1, 600 350 000 ml @ 50 mls/hr IV . Q20H YESSICA Rx#:[id number] Oral 100 Output: Urine 100 550 350 Other: Voiding Method Urinal Urinal Urinal # Voids 1 0 # Bowel Movements 1 1 - Exam GENERAL EXAM: Alert, frail 73-year-old male, resting in bed, on 2 L nasal cannula, fairly comfortable in no apparent distress. HEAD: Normocephalic. EYES: Normal reaction of pupils, equal size. NOSE: Clear with pink turbinates. THROAT: No erythema or exudates. NECK: No masses, no JVD. CHEST: No chest wall deformity. LUNGS: Equal air entry with no crackles, wheeze, rhonchi or dullness. CVS: S1 and S2 normal with no audible murmur, regular rhythm. ABDOMEN: No hepatosplenomegaly, normal bowel sounds, no guarding or rigidity. SPINE: Neck and low spine pain SKIN: No rashes CENTRAL NERVOUS SYSTEM: No focal deficits, tone is normal in all 4 extremities. EXTREMITIES: There is no peripheral edema. No clubbing, no cyanosis. Peripheral pulses are intact. - Labs CBC & Chem 7: 08/17/23 08:09 08/17/23 08:09 Labs: Abnormal Lab Results - Last 24 Hours (Table) 08/16/23 08/16/23 08/16/23 Range/Units 11:59 17:20 20:01 WBC (3.8-10.6) k/uL RBC (4.30-5.90) m/uL Hgb (13.0-17.5) gm/dL Hct (39.0-53.0) % Sodium (137-145) mmol/L Chloride (98-107) mmol/L Carbon Dioxide (22-30) mmol/L BUN (9-20) mg/dL Creatinine (0.66-1.25) mg/dL Glucose (74-99) mg/dL POC Glucose (mg/dL) 185 H 284 H 121 H (70-110) mg/dL Calcium (8.4-10.2) mg/dL Total Bilirubin (0.2-1.3) mg/dL AST (17-59) U/L Alkaline Phosphatase (38-126) U/L C-Reactive Protein (<1.0) mg/dL Total Protein (6.3-8.2) g/dL Albumin (3.5-5.0) g/dL 08/17/23 08/17/23 08/17/23 Range/Units 06:19 06:21 06:44 WBC (3.8-10.6) k/uL RBC (4.30-5.90) m/uL Hgb (13.0-17.5) gm/dL Hct (39.0-53.0) % Sodium (137-145) mmol/L Chloride (98-107) mmol/L Carbon Dioxide (22-30) mmol/L BUN (9-20) mg/dL Creatinine (0.66-1.25) mg/dL Glucose (74-99) mg/dL POC Glucose (mg/dL) 39 L 30 L 146 H (70-110) mg/dL Calcium (8.4-10.2) mg/dL Total Bilirubin (0.2-1.3) mg/dL AST (17-59) U/L Alkaline Phosphatase (38-126) U/L C-Reactive Protein (<1.0) mg/dL Total Protein (6.3-8.2) g/dL Albumin (3.5-5.0) g/dL 08/17/23 08/17/23 Range/Units 08:09 08:09 WBC 44.0 H (3.8-10.6) k/uL RBC 3.76 L (4.30-5.90) m/uL Hgb 12.0 L (13.0-17.5) gm/dL Hct 35.6 L (39.0-53.0) % Sodium 149 H (137-145) mmol/L Chloride 121 H (98-107) mmol/L Carbon Dioxide 14 L (22-30) mmol/L BUN 88 H (9-20) mg/dL Creatinine 2.12 H (0.66-1.25) mg/dL Glucose 192 H (74-99) mg/dL POC Glucose (mg/dL) (70-110) mg/dL Calcium 7.0 L (8.4-10.2) mg/dL Total Bilirubin 2.2 H (0.2-1.3) mg/dL AST 79 H (17-59) U/L Alkaline Phosphatase 130 H (38-126) U/L C-Reactive Protein 19.4 H (<1.0) mg/dL Total Protein 4.9 L (6.3-8.2) g/dL Albumin 1.9 L (3.5-5.0) g/dL Microbiology - Last 24 Hours (Table) 08/11/23 11:04 Blood Culture - Final Blood 08/15/23 05:24 Blood Culture Gram Stain - Preliminary Blood Blood Culture - Preliminary 08/14/23 06:00 Blood Culture - Preliminary Blood 08/13/23 05:46 Blood Culture - Preliminary Blood Assessment and Plan Assessment: Acute gram-positive sepsis /MSSA of unclear etiology Acute hypoxemic respiratory failure secondary to above, and possible underlying component of COPD, improved on 2 L nasal cannula Hypotension secondary to sepsis/gram-positive sepsis/MSSA Recurrent significant leukocytosis, currently white count 44.0, on nafcillin. Febrile illness secondary to above Diabetes mellitus Hypertension, history of Hyperlipidemia Atrial fibrillation, being addressed by cardiology on the case History of bundle-branch block Status post permanent pacemaker implantation 2 years ago in [place] Peripheral vascular disease with previous stent to the lower extremity Former smoker however quit 20 years ago, questionable underlying COPD. inactive. Severe cervical spine pain and limitation in range of motion of cervical spine Artificial urinary sphincter placed approximately 6 years ago, reactivated by urology 08/16/2023 Plan: The patient was seen and evaluated Labs and medications reviewed Continue nafcillin, ID is following Anticoagulated with Eliquis AUS was reactivated by urology Plan as still transfer to [facility] for further workup I have personally seen and examined the patient, performed the documentation and the assessment and plan as written. Number of minutes spent on the visit: 10.
[2023-08-17] MEDS ORDERED: SODIUM BICARB 8.4% 50 ML SYR (1 MEQ/ML) IV STA (11:41)
--- NOTE | 2023-08-17 11:45 | P.NPCON ---
History of Present Illness - Reason for Consult acute renal failure - History of Present Illness Reason for consultation: Acute kidney injury History of present illness: Patient is a 73-year-old male seen in consultation for acute kidney injury. Patient presented to another facility with chest pain and was subsequently transferred here. Patient denies syncopal episodes or any falls. Patient underwent CT angiogram on 08/10/2023 which showed no evidence of PE. He also underwent cardiac catheterization on 08/10/2023 which revealed mild coronary artery disease. LAURA was done on 08/13/2023 which showed mild aortic insufficiency and ejection fraction of 40-45%. Patient is noted to have persistent MSSA bacteremia and is maintained on IV antibiotics. He's been followed by infectious disease. MRI of the back is being considered but due to pacemaker he will need to be transferred to another facility. Patient denies history of kidney disease. Creatinine on admission was 1.01 and is up to 2.12 today. Patient did require Levophed and Cardizem drip temporarily but both are discontinued at this time. Sodium today is 149 and bicarb is 14. He denies vomiting or diarrhea. Oral intake is just fair. Patient has history of artificial urinary sphincter for urinary incontinence which was evaluated and activated by urology this admission. He does admit to taking Modic daily. He denies history of coronary artery disease. He does have history of diabetes. Patient does admit to taking mobic daily at home. Denies gross hematuria. Family present at bedside. He's currently on normal saline. Vital signs are stable. Blood pressure on the lower side. General: No acute distress. HEENT: Head exam is unremarkable. On nasal cannula. LUNGS: No audible rhonchi or wheezes. HEART: Rate and Rhythm are regular. ABDOMEN: Nontender. EXTREMITITES: 2+ edema right lower extremity. Trace edema left lower extremity. Past Medical History Past Medical History: Atrial Fibrillation, Diabetes Mellitus Additional Past Medical History / Comment(s): Unable to get proper history, sending hospital did not have any medical history information available. Last Myocardial Infarction Date:: unknown History of Any Multi-Drug Resistant Organisms: None Reported Past Surgical History: Unable to Obtain Additional Past Surgical History / Comment(s): Unable to obtain, no medical history sent from other hospital. Past Anesthesia/Blood Transfusion Reactions: No Reported Reaction Type of Cardiac Device: Permanent Pacemaker Device Placement Date:: aug 2021 Past Psychological History: Anxiety Smoking Status: Former smoker Past Alcohol Use History: Daily Past Drug Use History: None Reported - Past Family History Father Family Medical History: Diabetes Mellitus Medications and Allergies Home Medications Medication Instructions Recorded Confirmed Type Cholecalciferol [Vitamin D3 (25 25 mcg PO DAILY 08/09/23 08/09/23 History Mcg = 1000 Iu)] Clopidogrel [Plavix] 75 mg PO DAILY 08/09/23 08/09/23 History Cyclobenzaprine [Flexeril] 10 mg PO TID PRN 08/09/23 08/09/23 History Empagliflozin [Jardiance] 25 mg PO DAILY 08/09/23 08/09/23 History Gabapentin [Neurontin] 100 mg PO TID PRN 08/09/23 08/10/23 History HYDROcodone/APAP 7.5-325MG [Fate 1 tab PO Q6H PRN 08/09/23 08/09/23 History 7.5-325] Insulin Glargine,Hum.rec.anlog 15 units SQ DAILY 08/09/23 08/09/23 History [Lantus Solostar Pen] Insulin Lispro [humaLOG Kwikpen] 8 - 10 unit SQ AC-TID MDD 30 units 08/09/23 08/09/23 History Meloxicam [Mobic] 15 mg PO DAILY PRN 08/09/23 08/09/23 History Midodrine [ProAmatine] 5 mg PO TID 08/09/23 08/09/23 History Nystatin 100,000Unit/gm Cream 1 applic TOPICAL BID 08/09/23 08/09/23 History [Mycostatin Cream] Propranolol HCl 80 mg PO DAILY 08/09/23 08/09/23 History Rosuvastatin [Crestor] 20 mg PO HS 08/09/23 08/09/23 History Triamcinolone 0.025% Cream 1 applic TOPICAL BID 08/09/23 08/09/23 History [Kenalog 0.025% Cream] Vit C/E/Zn/Coppr/Lutein/Zeaxan 1 cap PO BID 08/09/23 08/09/23 History [Preservision Areds 2 Softgel] metFORMIN HCL ER [Glucophage XR] 1,000 mg PO BID 08/09/23 08/09/23 History Allergies Allergy/AdvReac Type Severity Reaction Status Date / Time No Known Allergies Allergy Verified 08/09/23 22:15 Physical Exam Vitals: Vital Signs Temp Pulse Resp BP Pulse Ox 08/17/23 11:00 96 25 H 103/57 98 08/17/23 10:00 89 23 96/58 97 08/17/23 09:07 97 08/17/23 09:00 114 H 12 90/71 96 08/17/23 08:00 99.5 F 101 H 12 110/81 98 08/17/23 07:00 128 H 16 89/71 98 08/17/23 06:00 110 H 13 89/72 97 08/17/23 05:00 104 H 14 116/82 94 L 08/17/23 04:00 97.2 F L 98 16 87/77 96 08/17/23 03:00 100 15 100/68 94 L 08/17/23 02:00 92 13 97/55 94 L 08/17/23 01:00 96 19 96/54 94 L 08/17/23 00:00 99.4 F 91 20 93/53 98 08/16/23 23:15 92 19 100/57 97 08/16/23 23:00 110 H 20 101/60 97 08/16/23 22:00 141 H 19 102/64 95 08/16/23 21:00 102 H 16 120/68 95 08/16/23 20:00 99 F 97 19 114/77 94 L 08/16/23 19:00 95 18 107/59 94 L 08/16/23 18:00 104 H 21 107/62 94 L 08/16/23 17:00 102 H 16 118/72 95 08/16/23 16:00 99.6 F 103 H 21 125/75 97 08/16/23 15:44 97 08/16/23 15:00 96 15 100/78 98 08/16/23 14:00 107 H 26 H 97/55 97 08/16/23 13:00 100 17 110/65 95 08/16/23 12:00 98.9 F 96 18 96/79 96 Intake and Output 08/16/23 08/17/23 08/17/23 22:59 06:59 14:59 Intake Total 600 350 350 Output Total 200 450 350 Balance 400 -100 0 Intake: IV 600 350 250 0.9 250 Nafcillin 2 gm In 200 200 Dextrose 5% in Water 100 ml @ 50 mls/hr IVPB Q4HR [facility] Rx#:[id number] Sodium Chloride 0.9% 1, 400 150 000 ml @ 50 mls/hr IV . Q20H [facility] Rx#:[id number] Oral 100 Output: Urine 200 450 350 Other: Voiding Method Urinal Urinal Urinal # Voids 1 0 # Bowel Movements 1 1 Weight 86 kg Results - Lab Results Most recent lab results Calcium 7.0 mg/dL (8.4-10.2) L 08/17/23 08:09 Magnesium 2.6 mg/dL (1.6-2.3) H 08/16/23 07:24 08/17/23 08:09 08/17/23 08:09 Assessment and Plan Plan: Assessment: 1. Acute kidney injury secondary to ATN secondary to severe sepsis. Also rec eived IV contrast on August 10 for CTA and cardiac catheterization. Creatinine 1 on admission and is up to 2.12 today. 2. MSSA bacteremia being followed by ID. Possible source knee versus lower b ack. No vegetation noted on LAURA. 3. Acute on chronic systolic CHF ejection fraction of 40-45% with mild aortic insufficiency. 4. Lower extremity edema. 5. Hypernatremia from lack of oral water intake. 6. Metabolic acidosis secondary to acute kidney injury and IV fluids. 7. A. fib. Currently rate controlled. 8. Diabetes mellitus. 9. Urinary incontinence. Patient has an artificial urinary sphincter. Seen by urology. Plan: Stop normal saline. Start D5W at 75 mL an hour. 2 A sodium bicarbonate IV push now. Add oral bicarb. Lasix 40 mg IV once now. Add midodrine. Hold for systolic blood pressure greater than 110. Check renal ultrasound. Check bladder scan to rule out urinary retention. Avoid nephrotoxins. Continue to monitor renal function and urine output. Thank you for the consultation. I will continue to follow the patient with you during his hospital stay.
[2023-08-17 11:53] LABS: Glucose,Whole Blood 149 mg/dL (70-110)
[2023-08-17] MEDS: DEXTROSE 5% IN WATER 1,000 ML IV SCH (12:15)
[2023-08-17] MEDS: MIDODRINE 5 MG TAB PO SCH ×2 (12:15→16:30)
[2023-08-17] MEDS: SODIUM BICARBONATE TAB 650 MG TAB PO SCH ×3 (12:16→21:13)
--- NOTE | 2023-08-17 12:33 | P.PN ---
Progress Note - Text no acute overnight events, as able to use the AUS without any difficulties. No further intervention from urology standpoint , if there is any difficulties with the AUS we can be contacted
--- NOTE | 2023-08-17 12:55 | US ---
EXAMINATION TYPE: US renals and bladder DATE OF EXAM: 08/17/2023 COMPARISON: NONE CLINICAL INDICATION: Male, 73 years old with history of brett; BRETT EXAM MEASUREMENTS: Right Kidney: 10.4 x 5.2 x 5.3 cm Left Kidney: 9.7 x 5.6 x 5.0 cm Right Kidney: No hydronephrosis or masses seen Left Kidney: No evidence of hydro, limited views due to overlying bowel gas and immobile pt in ICU Bladder: wnl Bilateral Jets seen: No There is no evidence for hydronephrosis at this point in time. No nephrolithiasis is seen. No timo s are identified. The urinary bladder is anechoic. Bilateral ureteral jets are seen. IMPRESSION: 1. No evidence of hydronephrosis or shadowing renal stones. 2. No solid renal mass identified.
[2023-08-17] MEDS ORDERED: IOPAMIDOL CONTRAST (ORAL USE) VIAL PO PRN (12:59)
--- NOTE | 2023-08-17 13:06 | P.PN ---
Subjective Progress Note Date: 08/17/23 Principal diagnosis: Right knee Patient is seen at bedside this morning at request to evaluate his right knee for possible septic joint/origin of his sepsis. He is s/p right TKA 20 years ago done elsewhere. He states that he is not having pain at the right knee and denies trauma to it. Objective - Vital Signs Vital signs: Vital Signs Temp 97.4 F L 08/17/23 12:00 Pulse 82 08/17/23 12:00 Resp 12 08/17/23 12:00 BP 94/61 08/17/23 12:00 Pulse Ox 94 L 08/17/23 12:00 FiO2 Intake & Output 08/16/23 08/17/23 08/17/23 18:59 06:59 18:59 Intake Total 900 650 350 Output Total 100 550 450 Balance 800 100 -100 Weight 86 kg 86 kg Intake: IV 900 650 250 0.9 250 Nafcillin 2 gm In 300 300 Dextrose 5% in Water 100 ml @ 50 mls/hr IVPB Q4HR [facility] Rx#:[id number] Sodium Chloride 0.9% 1, 600 350 000 ml @ 50 mls/hr IV . Q20H [facility] Rx#:[id number] Oral 100 Output: Urine 100 550 450 Other: Voiding Method Urinal Urinal Urinal # Voids 1 0 # Bowel Movements 1 1 - Exam Inspection of the right knee reveals a well healed benign surgical wound. There is a mild effusion. It is not red or overly hot to touch. It is nontender. He has no pain with passive ROM with Flexion to 100 degrees and extension to 0 degreees. The knee is ligamentously stable. Neurovascular status appears grossly intact throughout the lower extremity with motor and sensation. Calf is soft and nontender. 2+ dorsalis pedis pulse and less than 2 second cap refill is present. - Constitutional General appearance: Present: no acute distress - Labs CBC & Chem 7: 08/18/23 07:55 08/18/23 07:55 Labs: Abnormal Lab Results - Last 24 Hours (Table) 08/16/23 08/16/23 08/17/23 Range/Units 17:20 20:01 06:19 WBC (3.8-10.6) k/uL RBC (4.30-5.90) m/uL Hgb (13.0-17.5) gm/dL Hct (39.0-53.0) % Neutrophils # (Manual) (1.3-7.7) k/uL Monocytes # (Manual) (0-1.0) k/uL Sodium (137-145) mmol/L Chloride (98-107) mmol/L Carbon Dioxide (22-30) mmol/L BUN (9-20) mg/dL Creatinine (0.66-1.25) mg/dL Glucose (74-99) mg/dL POC Glucose (mg/dL) 284 H 121 H 39 L (70-110) mg/dL Calcium (8.4-10.2) mg/dL Total Bilirubin (0.2-1.3) mg/dL AST (17-59) U/L Alkaline Phosphatase (38-126) U/L C-Reactive Protein (<1.0) mg/dL Total Protein (6.3-8.2) g/dL Albumin (3.5-5.0) g/dL 08/17/23 08/17/23 08/17/23 Range/Units 06:21 06:44 08:09 WBC 44.0 H (3.8-10.6) k/uL RBC 3.76 L (4.30-5.90) m/uL Hgb 12.0 L (13.0-17.5) gm/dL Hct 35.6 L (39.0-53.0) % Neutrophils # (Manual) 41.30 H (1.3-7.7) k/uL Monocytes # (Manual) 1.76 H (0-1.0) k/uL Sodium (137-145) mmol/L Chloride (98-107) mmol/L Carbon Dioxide (22-30) mmol/L BUN (9-20) mg/dL Creatinine (0.66-1.25) mg/dL Glucose (74-99) mg/dL POC Glucose (mg/dL) 30 L 146 H (70-110) mg/dL Calcium (8.4-10.2) mg/dL Total Bilirubin (0.2-1.3) mg/dL AST (17-59) U/L Alkaline Phosphatase (38-126) U/L C-Reactive Protein (<1.0) mg/dL Total Protein (6.3-8.2) g/dL Albumin (3.5-5.0) g/dL 08/17/23 08/17/23 Range/Units 08:09 11:52 WBC (3.8-10.6) k/uL RBC (4.30-5.90) m/uL Hgb (13.0-17.5) gm/dL Hct (39.0-53.0) % Neutrophils # (Manual) (1.3-7.7) k/uL Monocytes # (Manual) (0-1.0) k/uL Sodium 149 H (137-145) mmol/L Chloride 121 H (98-107) mmol/L Carbon Dioxide 14 L (22-30) mmol/L BUN 88 H (9-20) mg/dL Creatinine 2.12 H (0.66-1.25) mg/dL Glucose 192 H (74-99) mg/dL POC Glucose (mg/dL) 149 H (70-110) mg/dL Calcium 7.0 L (8.4-10.2) mg/dL Total Bilirubin 2.2 H (0.2-1.3) mg/dL AST 79 H (17-59) U/L Alkaline Phosphatase 130 H (38-126) U/L C-Reactive Protein 19.4 H (<1.0) mg/dL Total Protein 4.9 L (6.3-8.2) g/dL Albumin 1.9 L (3.5-5.0) g/dL Microbiology - Last 24 Hours (Table) 08/15/23 05:24 Blood Culture Gram Stain - Preliminary Blood Blood Culture - Preliminary Presumptive Staph aureus 08/11/23 11:04 Blood Culture - Final Blood 08/14/23 06:00 Blood Culture - Preliminary Blood 08/13/23 05:46 Blood Culture - Preliminary Blood - Imaging and Cardiology xrays show stable TKA components, no fractures. No gas Assessment and Plan (1) Sepsis Narrative/Plan: Patient reviewed with Dr. Olivares. We don't feel the right knee is septic at this point or warrants an aspiration given his history of TKA and bacteremia/sepsis as this may introduce infection to the knee. Should his knee worsen and or become symptomatic we will revisit. Current Visit: Yes Status: Acute Priority: Medium Code(s): A41.9 - SEPSIS, UNSPECIFIED ORGANISM SNOMED Code(s): 36805960 Plan: I was able to evaluate the patient yesterday and I agree with the dictation above. There is no clinical appearance of infection at the knee at this point and with his medical status I think that may put his knee at some risk if we were to try aspiration at bedside. Time with Patient: Less than 30
[2023-08-17 13:10] VITALS: BMI 26.4
--- NOTE | 2023-08-17 13:19 | P.PN ---
Progress Note - Text Progress Note Date: 08/17/23 We evaluated the patient's knee in regards to his increased white blood count. He has a history of total knee arthroplasty and x-rays reviewed. It does not show evidence of bony erosion loosening or significant effusion. On exam he does not clinically appear to have a septic knee. There is no significant erythema there is no redness there it is not hot. It is not particularly painful to move. He has some diffuse stiffness around his legs and hips which is essentially unchanged. Clinically it does not appear to be septic. Given the patient's condition with sepsis and the implants involved I think that it puts the patient at increased risk if he were to have aspiration rather than allowing us to have further information towards possibility of infectious process. I think that there is risk of infecting his total knee prosthesis if we provide aspiration and I think that he is not clinically infected at his knee toward aspiration at bedside in the sense of care unit. He should continue with this management and evaluation workup. I do not think that there is orthopedic issue for sepsis has knee at this point.
[2023-08-17] MEDS ORDERED: SENNOSIDES 8.6 MG TAB PO PRN (14:25)
--- NOTE | 2023-08-17 14:27 | P.PN ---
Subjective Progress Note Date: 08/17/23 Hospital Course: 73-year-old male with a past medical history of left bundle branch block status post pacemaker placement, hypertension, hyperlipidemia, type 2 insulin-dependent diabetes mellitus, atrial fibrillation not on anticoagulation, and peripheral vascular disease status post stenting in right lower extremity. Patient was transferred to our facility overnight from [facility] for admission and further evaluation for elevated troponin levels. Patient reports he in itially presented to the hospital for complaints of chest pain, shortness of breath, and generalized body aches. He was also complaining of significant back pain. Patient reports he initially began experiencing these symptoms on and was seen by his PCP who tested him for Covid which she reports was negative. Patient reports he has had persistent generalized body aches, fatigue, chest pain, and shortness of breath since and progressively worsening. Upon arrival to our facility patient underwent evaluation. Labs were completed and reviewed. CBC revealing mild leukocytosis with WBC count of 11.4 and thrombocytopenia with platelet count of 112. BMP showing mild hypocarb ia with bicarb of 20, prerenal azotemia with BUN of 35 and hyperglycemia with glucose of 126. Magnesium was normal findings at 2.3. Liver profile unremarkable. Troponin was elevated at 0.070. Patient was started on low intensity heparin infusion for treatment of NSTEMI and admitted under our ser vices with consultation to cardiology. Troponins trended overnight resulting in 0.070, 0.076, and 0.078. Pro-calcitonin was elevated at 30.40. Patient did go into shock, initially thought to be cardiogenic. Cardiac cath showed mild CAD, LVEDP was 10-12. Echocardiogram showed LVEF of 35-40%. Blood cultures came back positive for staph aureus. ID consulted. Currently patient is on IV cefazolin and vancomycin. No longer requiring pressors. Lumbar CT did not show any evidence of discitis or osteomyelitis, but did show multilevel degenerative disc disease and multilevel central canal stenosis. Unable to get lumbar spine MRI at our facility given pacemaker. Source of Gram-positive bacteremia still not clear. LAURA did not show any evidence of which patient or endocarditis. Cervical spine CT report reviewed, shows severe neural foraminal stenosis at C5 to 6 on the right, moderate to severe cervical stenosis at C5 to 6, degenerative disc disease. [facility] also consulted. Attempted to get patient transferred to [facility]. Currently in cue for ICU bed, [facility]. We will attempt to get an MRI at our facility today. Subjective: Patient seen and examined at bedside. No acute events overnight. Remains off of vasopressors. Continues to have cervical spine pain, right knee pain as well as low back pain. Pertinent positives and negatives as discussed above, a complete review of syste ms was performed and all other systems are negative. Vitals Signs Reviewed. General: nontoxic, in mild distress, appears at stated age Derm: warm, dry Head: atraumatic, normocephalic, symmetric, significant cervical stiffness and reduced range of motion Eyes: EOMI, no lid lag, anicteric sclera Mouth: no lip lesion, mucus membranes moist Cardiovascular: S1S2, reg, irregular no murmur Lungs: CTA bilateral, no rhonchi, no rales , no accessory muscle use, supplemental oxygen Abdominal: soft, nontender to palpation, no guarding, no appreciable organomegaly Ext: no gross muscle atrophy, bilateral upper extremities edema, no contractures, right knee edematous and tender to palpation Neuro: CN II-XI grossly intact, no focal neuro deficits Psych: Alert, oriented, appropriate affect Data Reviewed Today: Pertinent Labs: WBC 44, hemoglobin 12, sodium 149, creatinine 2.12, blood sugars range between 30-192 Imaging: Renal ultrasound shows no hydronephrosis or renal stones Assessment and Plan: Patient remains critically ill, prognosis guarded Persistent MSSA bacteremia, unclear source, Severe Leukocytosis Septic shock, resolved Acute hypoxic respiratory failure NSTEMI, mild CAD Paroxysmal atrial fibrillation with RVR History of pacemaker Peripheral vascular disease History of Hypertension Hyperlipidemia Type 2 insulin-dependent diabetes mellitus Hypoglycemia while on insulin Thrombocytopenia, resolved Metabolic acidosis, non-anion gap, improving Cervical and lumbar spinal stenosis, severe Acute kidney injury, likely postrenal, worsening Mild hypernatremia Constipation -Discussed management with infectious disease, on nafcillin 2 g IV every 4 hours, we'll attempt to get an MRI cervical spine and lumbar spine without without contrast here -Cardiology following, no evidence of endocarditis or vegetation on the valves or pacer leads. -Continue metoprolol 50 BID, eliquis 5 BID -continue statin , aspirin, Plavix -Consider discontinuing one of the antiplatelet -Discontinued Levemir and scheduled aspart, continue sliding scale insulin, monitor for hypoglycemia -repeat CBC and BMP tomorrow -ICU note reviewed, continue current management -Orthopedic surgery note reviewed, knee unlikely to be the source of sepsis -Patient had malfunctioned bladder stimulator, urology consulted, now resolved -Discussed management with nephrology, was given sodium bicarbonate, started on D5 water at 75 mL an hour and also given 40 of IV Lasix monitoring also added -Senna twice a day as needed DVT ppx: Eliquis Code status: Full code Anticipated discharge place: Pending clinical course Anticipated discharge time: Pending clinical course Objective - Vital Signs Vital signs: Vital Signs Temp 97.4 F L 08/17/23 12:00 Pulse 92 08/17/23 14:00 Resp 12 08/17/23 14:00 BP 95/36 08/17/23 14:00 Pulse Ox 95 08/17/23 14:00 FiO2 Intake & Output 08/16/23 08/17/23 08/17/23 18:59 06:59 18:59 Intake Total 900 650 500 Output Total 100 550 650 Balance 800 100 -150 Weight 86 kg 86 kg Intake: IV 900 650 400 0.9 250 Dextrose 5% in Water 1, 150 000 ml @ 75 mls/hr IV . [id number] [facility] Rx#:[id number] Nafcillin 2 gm In 300 300 Dextrose 5% in Water 100 ml @ 50 mls/hr IVPB Q4HR [facility] Rx#:[id number] Sodium Chloride 0.9% 1, 600 350 000 ml @ 50 mls/hr IV . Q20H [facility] Rx#:[id number] Oral 100 Output: Urine 100 550 650 Other: Voiding Method Urinal Urinal Urinal # Voids 1 0 # Bowel Movements 1 1 - Labs CBC & Chem 7: 08/17/23 08:09 08/17/23 08:09 Labs: Abnormal Lab Results - Last 24 Hours (Table) 08/16/23 08/16/23 08/17/23 Range/Units 17:20 20:01 06:19 WBC (3.8-10.6) k/uL RBC (4.30-5.90) m/uL Hgb (13.0-17.5) gm/dL Hct (39.0-53.0) % Neutrophils # (Manual) (1.3-7.7) k/uL Monocytes # (Manual) (0-1.0) k/uL Sodium (137-145) mmol/L Chloride (98-107) mmol/L Carbon Dioxide (22-30) mmol/L BUN (9-20) mg/dL Creatinine (0.66-1.25) mg/dL Glucose (74-99) mg/dL POC Glucose (mg/dL) 284 H 121 H 39 L (70-110) mg/dL Calcium (8.4-10.2) mg/dL Total Bilirubin (0.2-1.3) mg/dL AST (17-59) U/L Alkaline Phosphatase (38-126) U/L C-Reactive Protein (<1.0) mg/dL Total Protein (6.3-8.2) g/dL Albumin (3.5-5.0) g/dL 08/17/23 08/17/23 08/17/23 Range/Units 06:21 06:44 08:09 WBC 44.0 H (3.8-10.6) k/uL RBC 3.76 L (4.30-5.90) m/uL Hgb 12.0 L (13.0-17.5) gm/dL Hct 35.6 L (39.0-53.0) % Neutrophils # (Manual) 41.30 H (1.3-7.7) k/uL Monocytes # (Manual) 1.76 H (0-1.0) k/uL Sodium (137-145) mmol/L Chloride (98-107) mmol/L Carbon Dioxide (22-30) mmol/L BUN (9-20) mg/dL Creatinine (0.66-1.25) mg/dL Glucose (74-99) mg/dL POC Glucose (mg/dL) 30 L 146 H (70-110) mg/dL Calcium (8.4-10.2) mg/dL Total Bilirubin (0.2-1.3) mg/dL AST (17-59) U/L Alkaline Phosphatase (38-126) U/L C-Reactive Protein (<1.0) mg/dL Total Protein (6.3-8.2) g/dL Albumin (3.5-5.0) g/dL 08/17/23 08/17/23 Range/Units 08:09 11:52 WBC (3.8-10.6) k/uL RBC (4.30-5.90) m/uL Hgb (13.0-17.5) gm/dL Hct (39.0-53.0) % Neutrophils # (Manual) (1.3-7.7) k/uL Monocytes # (Manual) (0-1.0) k/uL Sodium 149 H (137-145) mmol/L Chloride 121 H (98-107) mmol/L Carbon Dioxide 14 L (22-30) mmol/L BUN 88 H (9-20) mg/dL Creatinine 2.12 H (0.66-1.25) mg/dL Glucose 192 H (74-99) mg/dL POC Glucose (mg/dL) 149 H (70-110) mg/dL Calcium 7.0 L (8.4-10.2) mg/dL Total Bilirubin 2.2 H (0.2-1.3) mg/dL AST 79 H (17-59) U/L Alkaline Phosphatase 130 H (38-126) U/L C-Reactive Protein 19.4 H (<1.0) mg/dL Total Protein 4.9 L (6.3-8.2) g/dL Albumin 1.9 L (3.5-5.0) g/dL Microbiology - Last 24 Hours (Table) 08/14/23 06:00 Blood Culture - Preliminary Blood 08/15/23 05:24 Blood Culture Gram Stain - Preliminary Blood Blood Culture - Preliminary Presumptive Staph aureus 08/11/23 11:04 Blood Culture - Final Blood 08/13/23 05:46 Blood Culture - Preliminary Blood
--- NOTE | 2023-08-17 15:52 | CT ---
EXAMINATION: CT ABDOMEN AND PELVIS WITHOUT IV CONTRAST DATE OF EXAMINATION: 08/17/2023. COMPARISON: None available. INDICATION: Sepsis. Abdominal pain. PROCEDURE: Axial CT of the abdomen and pelvis was performed with sagittal and coronal reformatted i mages without contrast enhancement. The exam is limited because some types of pathology may not be ad equately demonstrated due to lack of contrast enhancement. CT dose lowering techniques were used, to include: automated exposure control, adjustment for patient size, and/or use of iterative reconstruct ion. There are small bilateral pleural effusions. FINDINGS: LOWER CHEST : The lung bases otherwise appear clear. There is no pericardial effusion. ABDOMEN: Liver and Biliary system: Normal. Adrenal glands: Normal. Kidneys and ureters: There are no renal stones or hydronephrosis. No ureteral stones are present.. Spleen: Normal. Pancreas: Normal. Gallbladder: Normal. Lymph nodes, Peritoneum and mesentery: There is no mesenteric or retroperitoneal lymphadenopathy. Gastrointestinal tract: There are no dilated loops of bowel or free intraperitoneal air. . The appe ndix is normal. Aorta/IVC: There is moderate vascular calcification throughout the abdominal aorta without evidence of aneurysmal dilation. IVC normal. Abdominal wall: Normal. PELVIS: Fluid: There is no free fluid in the pelvis. Lymph Nodes: There is no pelvic or inguinal lymphadenopathy.. Urinary bladder: Normal. BONES: Scattered degenerative disc and facet changes are seen throughout the spine. There are no acu te osseous abnormalities. ADDITIONAL SIGNIFICANT FINDINGS: Penile implant reservoir is seen within the right inguinal region. . IMPRESSION: 1. No renal stones or hydronephrosis.. 2. No bowel obstruction or appendicitis. 3. Small bilateral pleural effusions.
[2023-08-17 16:04] LABS: Glucose,Whole Blood 173 mg/dL (70-110)
[2023-08-17 16:19] LABS: Appearance,Urine Clear (Clear); Bacteria,Urine Rare /hpf; Bilirubin,Urine Negative (Negative); Blood,Urine Trace (Negative); Color,Urine Light Yellow; Glucose,Urine (UA) 2+ (Negative); Ketones,Urine Negative (Negative); Leukocyte Esterase,Urine Negative (Negative); Mucus,Urine Rare /hpf; Nitrite,Urine Negative (Negative); PH, Urine 5.5 (5.0-8.0); Protein,Urine Negative (Negative); RBC,Urine <1 /hpf (0-5); Urobilinogen,Urine <2.0 mg/dL (<2.0); WBC,Urine 6 /hpf (0-5)
--- NOTE | 2023-08-17 18:05 | P.PN ---
Subjective Progress Note Date: 08/17/23 Abnormal cardiac enzymes/atrial fibrillation The patient is a 73-year-old gentleman who sees a mop man out of this area with a past medical history significant for diabetes and hypertension and dyslip idemia and left bundle branch block and permanent pacemaker as well as lower extremities peripheral arterial disease and history of smoking. He was transferred from another facility to this hospital for further evaluation of shortness of breath and chest discomfort and he underwent a workup at [facility] including troponin came in to be abnormal and for that reason the patient was referred. He was seen at bedside in the emergency department where he was having ongoing chest discomfort. The troponin was mildly elevated. The EKG showed LBBB. He was also experiencing shortness of breath and he was hypoxic. He was given Lasix and some morphine as well and his pressure dropped down. The patient was started on some norepinephrine with improvement in the blood pressure. Beside that the risks of the blood work beside troponin came in to be unremarkable. Further investigation was performed including an echo which revealed normal biventricular dimension and systolic function and no significant valvular abnormalities. Because he continues to have ongoing chest discomfort he underwent a heart catheterization and that revealed normal coronaries with normal left-sided filling pressure. He was seen by the pulmonary/critical care service and he was diagnosed with acute hypoxic respiratory failure. He also might have a component of sepsis. He underwent urinary analysis and that showed what it seems to be possible UTI. The examination is remarkable for diminished breathing sounds bilaterally with regular rate and rhythm and distant heart sounds and mild bilateral lower extremity edema 08/11/2023 The patient was seen and evaluated this morning. He is feeling better. The chest discomfort has resolved. He seems to be in atrial fibrillation on the monitor and I'm going to perform a 12 please EKG to confirm that. Meanwhile he is on Cardizem IV which I'm going to wean him from and start him on beta twin was Toprol tartrate. Also he will be started on oral anticoagulation. He is getting treated for possible sepsis as well. Hemodynamically he is stable and not on any vasopressors at this point. The echo revealed normal LV systolic function was no significant valvular abnormalities. The examination is remarkable for regular rhythm with distant heart sounds and clear breathing sounds bilaterally and no lower extremity edema noted 08/12/2023 Patient was seen and evaluated this morning. Hemodynamically is stable. He is in atrial fibrillation with controlled heart rate. He is on metoprolol and he is on oral anticoagulation. Beside that he is still hypoxic requiring 2 L of oxygen. The chest x-ray did not show any acute abnormalities from yesterday. He has no pain in the chest. We need to review his echocardiogram to determine the exact ejection fraction. There is concern about an infection etiology and that is in process of workup on it. The examination is remarkable for irregular rhythm with diminished breathing sounds bilaterally and no edema in the lower extremities 08/13/2023 The patient was seen and evaluated this morning. He still tachycardic with heart rate above 100 treatment. Her pressure is stable. I'm going to increase the dose of metoprolol. Continue oral anticoagulation. The source of infection is still not clear as of yet. This possible need for transesophageal echocardiogram which is not unreasonable. The patient continues to be weak. Physical therapy is on the case. The examination is remarkable for irregular rhythm with diminished breathing sounds bilaterally and no lower extremity is edema noted. 08/14/2023 The patient was seen and evaluated this morning. He remains stable beside mild tachycardia with atrial fibrillation but the pressure remains a stable. He is on metoprolol as well as oral anticoagulation. The LAURA was performed yesterday and showed no evidence of endocarditis. The pacer lead appeared to have no vegetation attached to it. I would suggest continue workup to find that the source of infection meanwhile we can consider repeating the transesophageal echocardiogram in 48 hours to see if there is any changes. Meanwhile continue the current medical regimen. The examination is remarkable for irregular rhythm with diminished breathing sounds bilaterally and no lower extremity is edema noted 08/16/23 Patient continues to be in atrial fibrillation with rate controlled heart rate. Previously was on Cardizem drip and norepinephrine drip. He has been off these drips were last 24 hours. There is a plan for possible obtaining an MRI for spinal abscess evaluation in setting of bacteremia without any obvious source. As he is not able to get his MRI at [facility] due to a PPM, plan is to possibly transfer him to Center which is more comfortable doing inpatient MRI with PPM in place. His pacemaker is compatible. 08/17/2023 Patient continues to be in rate controlled atrial fibrillation. Blood pressure 109/65, heart rate 98. Creatinine 2.1-20. Yesterday was 1.8. Patient received 1 dose of 40 mg of IV Lasix as per Dr. Galdamez today. Patient has isolated right lower extremity swelling 1+ pitting edema. No swelling and left lower extremity. Patient is on appropriate dose of anticoagulation. Assessment Acute hypoxic respiratory failure Metabolic encephalopathy Sepsis of unknown source, LAURA negative for any evidence of endocarditis Cardiomyopathy with EF 35-40%, moderate LVH, unknown eitology Atrial fibrillation, rate controlled Permanent pacemaker Multiple comorbid conditions PAD smoker HTN Type II DM Plan Continue the current medical regimen Patient would benefit from rhythm control strategy especially due to his underlying cardiomyopathy. He is not the best candidate for amiodarone therapy due to metabolic encephalopathy. Best time to offer rhythm control would be once his infection improves and his blood cultures are negative Patient is cleared to undergo MRI from cardiac vessel standpoint. His pacemaker is compatible with MRI. We are not able to perform MRI because of lack of appropriate equipment daily with pacemakers at this time. If patient has high suspicion of spinal abscess, he should be transferred to a higher level of care facility where he can get surgical source control (spinal surgery) IV antibiotics and other comorbidities management as per primary team. Prognosis is guarded Objective - Vital Signs Vital signs: Vital Signs Temp 98.3 F 08/17/23 16:00 Pulse 98 08/17/23 17:00 Resp 12 08/17/23 17:00 BP 101/80 08/17/23 17:00 Pulse Ox 96 08/17/23 17:00 FiO2 Intake & Output 08/16/23 08/17/23 08/17/23 18:59 06:59 18:59 Intake Total 900 650 900 Output Total 047 764 5750 Balance 800 100 -215 Weight 86 kg 86 kg Intake: IV 900 650 700 0.9 250 Dextrose 5% in Water 1, 450 000 ml @ 75 mls/hr IV . [id number] YESSICA Rx#:[id number] Nafcillin 2 gm In 300 300 Dextrose 5% in Water 100 ml @ 50 mls/hr IVPB Q4HR YESSICA Rx#:[id number] Sodium Chloride 0.9% 1, 600 350 000 ml @ 50 mls/hr IV . Q20H YESSICA Rx#:[id number] Oral 200 Output: Urine 287 521 3302 Other: Voiding Method Urinal Urinal Urinal # Voids 1 0 # Bowel Movements 1 1 - Labs CBC & Chem 7: 08/17/23 08:09 08/17/23 08:09 Labs: Abnormal Lab Results - Last 24 Hours (Table) 08/16/23 08/17/23 08/17/23 Range/Units 20:01 06:19 06:21 WBC (3.8-10.6) k/uL RBC (4.30-5.90) m/uL Hgb (13.0-17.5) gm/dL Hct (39.0-53.0) % Neutrophils # (Manual) (1.3-7.7) k/uL Monocytes # (Manual) (0-1.0) k/uL Sodium (137-145) mmol/L Chloride (98-107) mmol/L Carbon Dioxide (22-30) mmol/L BUN (9-20) mg/dL Creatinine (0.66-1.25) mg/dL Glucose (74-99) mg/dL POC Glucose (mg/dL) 121 H 39 L 30 L (70-110) mg/dL Calcium (8.4-10.2) mg/dL Total Bilirubin (0.2-1.3) mg/dL AST (17-59) U/L Alkaline Phosphatase (38-126) U/L C-Reactive Protein (<1.0) mg/dL Total Protein (6.3-8.2) g/dL Albumin (3.5-5.0) g/dL Urine Glucose (UA) (Negative) Urine Blood (Negative) Urine WBC (0-5) /hpf Urine Bacteria (None) /hpf Urine Mucus (None) /hpf 08/17/23 08/17/23 08/17/23 Range/Units 06:44 08:09 08:09 WBC 44.0 H (3.8-10.6) k/uL RBC 3.76 L (4.30-5.90) m/uL Hgb 12.0 L (13.0-17.5) gm/dL Hct 35.6 L (39.0-53.0) % Neutrophils # (Manual) 41.30 H (1.3-7.7) k/uL Monocytes # (Manual) 1.76 H (0-1.0) k/uL Sodium 149 H (137-145) mmol/L Chloride 121 H (98-107) mmol/L Carbon Dioxide 14 L (22-30) mmol/L BUN 88 H (9-20) mg/dL Creatinine 2.12 H (0.66-1.25) mg/dL Glucose 192 H (74-99) mg/dL POC Glucose (mg/dL) 146 H (70-110) mg/dL Calcium 7.0 L (8.4-10.2) mg/dL Total Bilirubin 2.2 H (0.2-1.3) mg/dL AST 79 H (17-59) U/L Alkaline Phosphatase 130 H (38-126) U/L C-Reactive Protein 19.4 H (<1.0) mg/dL Total Protein 4.9 L (6.3-8.2) g/dL Albumin 1.9 L (3.5-5.0) g/dL Urine Glucose (UA) (Negative) Urine Blood (Negative) Urine WBC (0-5) /hpf Urine Bacteria (None) /hpf Urine Mucus (None) /hpf 08/17/23 08/17/23 08/17/23 Range/Units 11:52 16:00 16:03 WBC (3.8-10.6) k/uL RBC (4.30-5.90) m/uL Hgb (13.0-17.5) gm/dL Hct (39.0-53.0) % Neutrophils # (Manual) (1.3-7.7) k/uL Monocytes # (Manual) (0-1.0) k/uL Sodium (137-145) mmol/L Chloride (98-107) mmol/L Carbon Dioxide (22-30) mmol/L BUN (9-20) mg/dL Creatinine (0.66-1.25) mg/dL Glucose (74-99) mg/dL POC Glucose (mg/dL) 149 H 173 H (70-110) mg/dL Calcium (8.4-10.2) mg/dL Total Bilirubin (0.2-1.3) mg/dL AST (17-59) U/L Alkaline Phosphatase (38-126) U/L C-Reactive Protein (<1.0) mg/dL Total Protein (6.3-8.2) g/dL Albumin (3.5-5.0) g/dL Urine Glucose (UA) 2+ H (Negative) Urine Blood Trace H (Negative) Urine WBC 6 H (0-5) /hpf Urine Bacteria Rare H (None) /hpf Urine Mucus Rare H (None) /hpf Microbiology - Last 24 Hours (Table) 08/14/23 06:00 Blood Culture - Preliminary Blood 08/15/23 05:24 Blood Culture Gram Stain - Preliminary Blood Blood Culture - Preliminary Presumptive Staph aureus 08/11/23 11:04 Blood Culture - Final Blood
--- NOTE | 2023-08-17 19:16 | P.PCN ---
Date of Procedure: 08/17/23 Preoperative Diagnosis: urinary retention Postoperative Diagnosis: same Procedure(s) Performed: stephenson catheter placement Indications for Procedure: patient clinical status continues to worsen, his white count is up to 40 now. His postvoid residual is 500, continues to have incomplete bladder emptying despite deactivating AUS. At this time given this finding decision was made to proceed with the Stephenson catheter placement Description of Procedure: the AUS cuff was deflated, and was maintained in a locked position. It was insured on exam that the AUS was deactivated. After deactivating the AUS the penis was prepped . Next a 12-Armenian Stephenson catheter was placed without resistance with return of clear urine, the balloon was inflated to 10 mL. Patient tolerated procedure well. We will keep the Stephenson catheter in for a short time given his AUS
[2023-08-17 20:28] LABS: Glucose,Whole Blood 177 mg/dL (70-110)
[2023-08-17] MEDS: ATORVASTATIN 80 MG TAB PO SCH (21:08)
[2023-08-17] MEDS: ALPRAZolam 0.5 MG TAB PO PRN (21:40)
[2023-08-18] MEDS: NAFCILLIN 2 GM in DEXTROSE 5% IN WATER 100 ML IVPB SCH ×8 (00:30→12:10)
[2023-08-18] MEDS: MORPHINE SULFATE 4 MG/ML SYRINGE IV PRN (00:30)
[2023-08-18] MEDS: DEXTROSE 5% IN WATER 1,000 ML IV SCH ×2 (02:27→04:03)
[2023-08-18 06:31] LABS: Glucose,Whole Blood 391 mg/dL (70-110)
[2023-08-18 06:33] LABS: Glucose,Whole Blood 329 mg/dL (70-110)
[2023-08-18] MEDS: INSULIN ASPART (NovoLOG) 100 UNIT/ML VIAL SQ SCH ×7 (06:38→20:08)
[2023-08-18] MEDS: MIDODRINE 5 MG TAB PO SCH ×3 (06:38→18:53)
[2023-08-18 08:04] LABS: Anisocytosis Slight; Basophils % (A) 0 %; Eosinophils # (A) 0.1 k/uL (0-0.7); Eosinophils % (A) 0 %; HCT 32.2 % (39.0-53.0); HGB 10.2 gm/dL (13.0-17.5); Hypochromasia Slight; Lymphocytes # (A) 0.7 k/uL (1.0-4.8); Lymphocytes % (A) 3 %; MCH 30.7 pg (25.0-35.0); MCHC 31.8 g/dL (31.0-37.0); MCV 96.4 fL (80.0-100.0); Mean Platelet Volume 10.5; Monocytes # (A) 0.7 k/uL (0-1.0); Monocytes % (A) 3 %; Neutrophils # (A) 21.9 k/uL (1.3-7.7); Neutrophils % (A) 93 %; Platelet Count 267 k/uL (150-450); RBC 3.34 m/uL (4.30-5.90); RDW 16.1 % (11.5-15.5); WBC 23.6 k/uL (3.8-10.6)
[2023-08-18 08:20] LABS: African American GFR (CKD) 26 (>60 ml/min/1.73 sqM); Anion Gap 15 mmol/L; Carbon Dioxide 21 mmol/L (22-30); Chloride 111 mmol/L (98-107); Glucose 350 mg/dL (74-99); Magnesium 2.8 mg/dL (1.6-2.3); Non-African American GFR(CKD) 22 (>60 ml/min/1.73 sqM); Potassium 3.9 mmol/L (3.5-5.1); Sodium 147 mmol/L (137-145)
[2023-08-18 08:24] LABS: Blood Urea Nitrogen 101 mg/dL (9-20)
[2023-08-18] MEDS ORDERED: HYDROmorphone 1 MG/ML 1 ML SYRINGE IVP PRN (10:11)
[2023-08-18] MEDS ORDERED: HYDROmorphone 0.5 MG/0.5 ML SYRINGE IVP PRN (10:11)
[2023-08-18] MEDS: ACETAMINOPHEN IV (For NPO) 1,000 MG in EMPTY BAG 1 BAG IVPB PRN ×2 (10:35→19:04)
--- NOTE | 2023-08-18 10:45 | P.PN ---
Subjective Patient is seen in follow-up for acute kidney injury. Renal function worsening. Creatinine 2.67 today. Now has a Lee catheter. Nonoliguric. Received IV Lasix yesterday. On D5W. Sodium level trending down. Unable to take oral meds today. Vital signs are stable. General: Resting in bed. Lethargic. HEENT: Head exam is unremarkable. On nasal cannula. LUNGS: No audible rhonchi or wheezes. HEART: Rate and Rhythm are regular. ABDOMEN: Nontender. EXTREMITITES: 1+ edema. Objective - Vital Signs Vital signs: Vital Signs Temp 98 F 08/18/23 08:00 Pulse 96 08/18/23 10:00 Resp 12 08/18/23 10:00 BP 97/67 08/18/23 10:00 Pulse Ox 96 08/18/23 10:00 FiO2 Intake & Output 08/17/23 08/18/23 08/18/23 18:59 06:59 18:59 Intake Total 975 1525 150 Output Total 1645 805 100 Balance -670 720 50 Weight 86 kg 92 kg Intake: IV 775 1175 150 0.9 250 50 Dextrose 5% in Water 1, 525 825 150 000 ml @ 75 mls/hr IV . [id number] YESSICA Rx#:[id number] Nafcillin 2 gm In 300 Dextrose 5% in Water 100 ml @ 50 mls/hr IVPB Q4HR YESSICA Rx#:[id number] Oral 200 350 Output: Urine 1645 805 100 Other: Voiding Method Urinal Indwelling Catheter Indwelling Catheter # Bowel Movements 1 1 - Labs CBC & Chem 7: 08/18/23 07:55 08/18/23 07:55 Labs: Abnormal Lab Results - Last 24 Hours (Table) 08/17/23 08/17/23 08/17/23 Range/Units 08:09 08:09 11:52 WBC (3.8-10.6) k/uL RBC (4.30-5.90) m/uL Hgb (13.0-17.5) gm/dL Hct (39.0-53.0) % RDW (11.5-15.5) % Neutrophils # (1.3-7.7) k/uL Neutrophils # (Manual) 41.30 H (1.3-7.7) k/uL Lymphocytes # (1.0-4.8) k/uL Monocytes # (Manual) 1.76 H (0-1.0) k/uL Sodium (137-145) mmol/L Chloride (98-107) mmol/L Carbon Dioxide (22-30) mmol/L BUN (9-20) mg/dL Creatinine (0.66-1.25) mg/dL Glucose (74-99) mg/dL POC Glucose (mg/dL) 149 H (70-110) mg/dL Calcium (8.4-10.2) mg/dL Magnesium (1.6-2.3) mg/dL C-Reactive Protein 19.4 H (<1.0) mg/dL Urine Glucose (UA) (Negative) Urine Blood (Negative) Urine WBC (0-5) /hpf Urine Bacteria (None) /hpf Urine Mucus (None) /hpf 08/17/23 08/17/23 08/17/23 Range/Units 16:00 16:03 20:27 WBC (3.8-10.6) k/uL RBC (4.30-5.90) m/uL Hgb (13.0-17.5) gm/dL Hct (39.0-53.0) % RDW (11.5-15.5) % Neutrophils # (1.3-7.7) k/uL Neutrophils # (Manual) (1.3-7.7) k/uL Lymphocytes # (1.0-4.8) k/uL Monocytes # (Manual) (0-1.0) k/uL Sodium (137-145) mmol/L Chloride (98-107) mmol/L Carbon Dioxide (22-30) mmol/L BUN (9-20) mg/dL Creatinine (0.66-1.25) mg/dL Glucose (74-99) mg/dL POC Glucose (mg/dL) 173 H 177 H (70-110) mg/dL Calcium (8.4-10.2) mg/dL Magnesium (1.6-2.3) mg/dL C-Reactive Protein (<1.0) mg/dL Urine Glucose (UA) 2+ H (Negative) Urine Blood Trace H (Negative) Urine WBC 6 H (0-5) /hpf Urine Bacteria Rare H (None) /hpf Urine Mucus Rare H (None) /hpf 08/18/23 08/18/23 08/18/23 Range/Units 06:30 06:32 07:55 WBC 23.6 H (3.8-10.6) k/uL RBC 3.34 L (4.30-5.90) m/uL Hgb 10.2 L (13.0-17.5) gm/dL Hct 32.2 L (39.0-53.0) % RDW 16.1 H (11.5-15.5) % Neutrophils # 21.9 H (1.3-7.7) k/uL Neutrophils # (Manual) (1.3-7.7) k/uL Lymphocytes # 0.7 L (1.0-4.8) k/uL Monocytes # (Manual) (0-1.0) k/uL Sodium (137-145) mmol/L Chloride (98-107) mmol/L Carbon Dioxide (22-30) mmol/L BUN (9-20) mg/dL Creatinine (0.66-1.25) mg/dL Glucose (74-99) mg/dL POC Glucose (mg/dL) 391 H 329 H (70-110) mg/dL Calcium (8.4-10.2) mg/dL Magnesium (1.6-2.3) mg/dL C-Reactive Protein (<1.0) mg/dL Urine Glucose (UA) (Negative) Urine Blood (Negative) Urine WBC (0-5) /hpf Urine Bacteria (None) /hpf Urine Mucus (None) /hpf 08/18/23 Range/Units 07:55 WBC (3.8-10.6) k/uL RBC (4.30-5.90) m/uL Hgb (13.0-17.5) gm/dL Hct (39.0-53.0) % RDW (11.5-15.5) % Neutrophils # (1.3-7.7) k/uL Neutrophils # (Manual) (1.3-7.7) k/uL Lymphocytes # (1.0-4.8) k/uL Monocytes # (Manual) (0-1.0) k/uL Sodium 147 H (137-145) mmol/L Chloride 111 H (98-107) mmol/L Carbon Dioxide 21 L (22-30) mmol/L BUN 101 H* (9-20) mg/dL Creatinine 2.67 H (0.66-1.25) mg/dL Glucose 350 H (74-99) mg/dL POC Glucose (mg/dL) (70-110) mg/dL Calcium 7.0 L (8.4-10.2) mg/dL Magnesium 2.8 H (1.6-2.3) mg/dL C-Reactive Protein (<1.0) mg/dL Urine Glucose (UA) (Negative) Urine Blood (Negative) Urine WBC (0-5) /hpf Urine Bacteria (None) /hpf Urine Mucus (None) /hpf Microbiology - Last 24 Hours (Table) 08/15/23 05:24 Blood Culture Gram Stain - Final Blood Blood Culture - Preliminary Presumptive Staph aureus 08/14/23 06:00 Blood Culture - Preliminary Blood Assessment and Plan Plan: Assessment: 1. Acute kidney injury secondary to ATN secondary to severe sepsis. Also received IV contrast on August 10 for CTA and cardiac catheterization. Creatinine 1 on admission and is up to 2.67 today. UA from 08/17/2023 shows no proteinuria or RBCs. No hydronephrosis noted on CAT scan. 2. MSSA bacteremia being followed by ID. Possible source knee versus lower back. No vegetation noted on LAURA. 3. Acute on chronic systolic CHF ejection fraction of 40-45% with mild aortic insufficiency. 4. Lower extremity edema. Status post IV Lasix 08/17/2023. 5. Hypernatremia from lack of oral water intake. Improving with D5W. 6. Metabolic acidosis secondary to acute kidney injury and IV fluids. Improved. 7. A. fib. Currently rate controlled. 8. Diabetes mellitus. 9. Urinary incontinence. Patient has an artificial urinary sphincter. Seen by urology. Also has Lee catheter. Plan: Increase rate of D5W to 100 mL an hour. Increase dose of midodrine. Hold for systolic blood pressure greater than 110. Avoid nephrotoxins. Continue to monitor renal function and urine output. Check urine eosinophils. No need for renal replacement therapy at this time. Continue to assess on a daily basis. Case discussed with primary attending and family present at bedside. Avoid contrast with MRI due to GFR <30.
[2023-08-18 11:15] LABS: Glucose,Whole Blood 293 mg/dL (70-110)
--- NOTE | 2023-08-18 12:16 | XR ---
EXAMINATION TYPE: XR chest 1V portable DATE OF EXAM: 08/18/2023 COMPARISON: NONE HISTORY: NG tube placement. TECHNIQUE: Single frontal view of the chest is obtained. FINDINGS: There is no focal air space opacity, pleural effusion, or pneumothorax seen. The cardiac silhouette size is within normal limits. The osseous structures are intact. Left-sided pacemaker ge nerator has leads overlying the right atrium and right ventricle. NG tube tip projects in the expecte d location of the gastroesophageal junction. IMPRESSION: NG tube projects over the expected location of the gastroesophageal junction. Recommend advancement.
[2023-08-18] MEDS: SODIUM BICARBONATE TAB 650 MG TAB PO SCH ×2 (12:46→18:53)
[2023-08-18] MEDS: VIT A,C & E-LUTEIN-MINERALS 1 EACH TAB PO SCH (12:47)
[2023-08-18] MEDS: ASPIRIN 81 MG PO SCH (12:47)
[2023-08-18] MEDS: METOPROLOL TARTRATE 50 MG TAB PO SCH (12:47)
[2023-08-18] MEDS: APIXABAN 5 MG TAB PO SCH (12:47)
[2023-08-18] MEDS: CLOPIDOGREL 75 MG TAB PO SCH (12:47)
--- NOTE | 2023-08-18 13:55 | P.PN ---
Subjective Progress Note Date: 08/18/23 This is a pleasant 73-year-old male patient with a known history of diabetes mellitus, hypertension, hyperlipidemia, atrial fibrillation, left bundle branch block, post permanent pacemaker insertion 2 years ago in [place], peripheral vascular disease with stenting to the lower extremities, former smoker however quit 20 oh. 4 days ago the patient had complaints of significant low back pain and weakness and was seen in [facility] treated and discharged home. He represented there again yesterday with low back pain and was found to have elevated troponin levels and subsequently transferred to our emergency department. EKG reveals a ventricular paced rhythm. CT angiogram revealed no evidence of pulmonary embolism. There is moderate emphysematous changes throughout the lung jaquez but otherwise clear. Labs revealed a troponin of 0.076, 0.108. ProBNP 5990. Pro-calcitonin 38.40. Urinalysis with moderate blood and 4+ glucose, 2+ ketones. Influenza screen negative. RSV screen ne gative. COVID-19 screen negative. White count 10.8. Hemoglobin 14.4. Platelets 105. Sodium 136. Potassium 4.2. Bicarb 20. BUN 35. Creatinine 1.01. Glucose 126. He is seen today in consultation in the emergency department. He's currently sitting up in a stretcher. Awake and alert. He de nies any chest pain currently. She denies any worsening shortness of breath however he is requiring 15 L per nonrebreather mask to maintain O2 saturations in the 90s. He was down to 82% at one point. Current O2 saturation 97%. He is febrile with temperature of 102.7. He is clammy. He's been initiated on a heparin drip and. Initiated on ceftriaxone and azithromycin. Echocardiogram is pending. Patient was reevaluated today on 08/11/23, remains in the ICU. Patient underwent cardiac catheterization yesterday and he was found to have normal coronaries, normal left ventricular end-diastolic pressures which basically rules out congestive heart failure patient was also found to have normal LV function according to Dr. Saleh, however after looking at the echocardiogram which was read by Dr. Vivas, he estimated his ejection fraction of 35-40%, and Dr. Saleh is going to reevaluate that echocardiogram and let us know if the report these to be modified. At any rate since yesterday the patient was found to have gram-positive bacteremia, presumptive staph aureus in the blood, and the patient is now on vancomycin empirically. In the meantime it is necessary to know the primary site of this infection, looking back at the clinical history, patient presented with severe acute onset back pain, which makes me concerned about the possibility of discitis causing his back pain/relatively new onset patient did have history of chronic back pain but this pain that he presented with was hyperacute and debilitating not to mention the patient came in with significantly elevated pro calcitonin level, and mild leukocytosis. His sed rate was 63 on admission. Hence I'm recommending CT of the lumbosacral spine, multiple recommending infectious disease consultation, and will continue to monitor her blood cultures in the meantime. Chest x-ray this morning showed chronic changes but no acute evidence of any active pulmonary disease and no evidence of congestive heart failure. Patient is now on Cardizem for atrial fibrillation with RVR but again no evidence of congestive heart failure. Asking the about his smoking history patient did have remote smoking history and at one point he did have inhalers for underlying COPD severity of which is not clear. Reevaluated today on 08/12/23, patient remains in the ICU, he was in December, continues to have positive blood cultures/MSSA, we are still trying to determine the primary site of infection, differential diagnoses includes lumbar/sacral discitis or osteomyelitis or abscess although CT of the lumbosacral spine was unremarkable and did not show such findings. Infectious diseases recommending MRI of the spine, and that is pending. In the meantime the patient is on antibiotics, his transthoracic echo did not reveal any vegetations, however if we continue to have no answer to explain the site of his bacteremia, the patient may have to have a transesophageal echocardiogram repeat blood cultures again came back positive and that is concerning. Clinically however the patient is feeling better, breathing easier, his CBC is relatively normal basic metabolic profile is normal BUN is 61 and creatinine 1.16, slightly improved compared to yesterday of 1.20. is at bedside, and I updated the and the patient on where we are and our concern about his gram-positive bacteremia and would like to find the source reevaluated today on 08/13/23, patient remains in the ICU, he is extremely weak, and now he has severe cervical pain, and low back pain, continues to have positive blood cultures patient is on antibiotics for his MSSA bacteremia, could not apparently have MRI because of his pacemaker although the hostel parent cleared him to have an MRI, but radiology declined. Considering the persistent positive blood cultures I'm recommending CT of the cervical spine and I'm also recommending LAURA on this patient, discussed this with Dr. Saleh on the case. Labs today W says 9.5 hemoglobin 12.6 basic metabolic profile is normal bicarb is 16 BUN is 61 creatinine 1.1 Reevaluated today on 08/14/23, patient is about the same, remains in the ICU, presently on room air, CT of the cervical spine is also nondiagnostic for his gram-positive sepsis, his LAURA showed no evidence of vegetations, patient didn't have significant findings on the cervical spine explaining his cervical pain, showed mostly degenerative changes and moderate severe stenosis at C5-C6 and spurring at C5-C6 with severe neural foraminal stenosis at C5-C6, but no osteomyelitis and no abscess is still believe the patient will likely need an MRI of the spine however radiology is reluctant to agree to MRI because of his pacemaker although the patient had a pacemaker which is compatible with MRI and should be no problem. Cardiology felt strongly that the patient could have MRI and should be no issue with the pacemaker in addition to this the told me that the patient had MRI in the past without any problems. WBC count today is 12.5 hemoglobin 12.4 basic metabolic profile is normal bicarb is a bit low at 17 BUN is 53 creatinine 1.06. Her blood cultures remain positive. And more blood cultures are pending from the The patient is seen today 08/15/2023 in follow-up in the intensive care unit. He is currently resting in bed. Awake and alert. Maintaining good O2 saturations in the 90s on room air. He's afebrile. He is still quite uncomfortable with his neck pain and back pain. His blood cultures are positive for methicillin sensitive Staphylococcus aureus. Follow-up blood cultures are pending. White count 14.0. Hemoglobin 11.5. Platelets 200,000. Sodium 145. Potassium 4.4. Bicarb 21. BUN 68. Creatinine 1.22. Glucose 215. He is continued on nafcillin. Anticoagulated with Eliquis. Still trying to identify the source of his infection. Cervical C-spine, lumbar C-spine and LAURA rule out infection. MRI is recommended. He is currently tolerating a dysphagia level II ground diet with one-to-one supervision. Aspiration precautions remain in place. The patient is seen today 08/16/2023 in follow-up in the intensive care unit. He is currently awake and alert. Continues with complaints of neck and low back pain. Initial blood cultures were positive for methicillin sensitive Staphylococcus aureus. Source still pending. White count 18.9. Hemoglobin 11.2. Platelets 278. Sodium 147. Potassium 3.9. Bicarb 17. BUN 77. Creatinine 1.81. Glucose 233. He remains on nafcillin. Anticoagulated with Eliquis. The patient is seen today 08/17/2023 in follow-up in the intensive care unit. He is currently resting in bed. Awake and alert. Maintaining O2 saturations in the mid to upper 90s on 2 L/m per nasal cannula. Afebrile. Hemodynamically stable. He has normal saline at 50 MLS per hour. White count 44.0. Hemoglobin 12.0. Platelets 288. Sodium 149. Potassium 4.6. Bicarb 14. BUN 88. Creatinine 2.19. Glucose 192. AST 79. ALT 24. Alk phos 130. C-reactive protein 19.4. He remains on nafcillin. Anticoagulated with Eliquis. He did have some swelling of the right knee. X-ray revealed no acute fracture or dislocation. He does have an artificial urinary sphincter that had not been functioning. Urology had seen and consulted yesterday and was able to reactivate the device. The patient is seen today 08/18/2023 in follow-up in the intensive care unit. He is awake and alert. Quite weak. Difficulty swallowing. He remains nothing by mouth. Nasogastric tube has been inserted. Chest x-ray reveals good location. Continues with pain in his neck and lower back. He is maintaining O2 saturations in the 90s on 2 L/m per nasal cannula. He is D5 W at 100 ML's per hour. Blood cultures continue with methicillin sensitive staph aureus. He remains on nafcillin. He has a follow-up tagged WBC test at 4:00 today. White count 23.6. Hemoglobin 10.2. Sodium 147. Potassium 3.9. Bicarb 21. BUN 101. Creatinine 2.67. Glucose 350. Magnesium 2.8. Objective - Vital Signs Vital signs: Vital Signs Temp 97.9 F 08/18/23 11:00 Pulse 98 08/18/23 13:00 Resp 28 H 08/18/23 13:00 BP 97/62 08/18/23 13:00 Pulse Ox 94 L 08/18/23 13:00 FiO2 Intake & Output 08/17/23 08/18/23 08/18/23 18:59 06:59 18:59 Intake Total 975 1525 850 Output Total 1645 805 340 Balance -670 720 510 Weight 86 kg 92 kg Intake: IV 775 1175 650 0.9 250 50 Dextrose 5% in Water 1, 525 825 550 000 ml @ 100 mls/hr IV . Q10H YESSICA Rx#:[id number] Nafcillin 2 gm In 300 100 Dextrose 5% in Water 100 ml @ 50 mls/hr IVPB Q4HR YESSICA Rx#:[id number] Intake, IV Titration 200 Amount DAPTOmycin 600 mg In 200 Sodium Chloride 0.9% 50 ml @ 100 mls/hr IVPB Q24HR@1200 YESSICA Rx#: [id number] Oral 200 350 Output: Urine 1645 805 340 Other: Voiding Method Urinal Indwelling Catheter Indwelling Catheter # Bowel Movements 1 1 - Exam GENERAL EXAM: Alert, frail 73-year-old male, on 2 L nasal cannula, fairly comfortable in no apparent distress. HEAD: Normocephalic. EYES: Normal reaction of pupils, equal size. NOSE: Clear with pink turbinates. THROAT: No erythema or exudates. NECK: No masses, no JVD. CHEST: No chest wall deformity. LUNGS: Equal air entry with no crackles, wheeze, rhonchi or dullness. CVS: S1 and S2 normal with no audible murmur, regular rhythm. ABDOMEN: No hepatosplenomegaly, normal bowel sounds, no guarding or rigidity. SPINE: Neck and low spine pain SKIN: No rashes CENTRAL NERVOUS SYSTEM: No focal deficits, tone is normal in all 4 extremities. EXTREMITIES: There is no peripheral edema. No clubbing, no cyanosis. Peripheral pulses are intact. - Labs CBC & Chem 7: 08/18/23 07:55 08/18/23 07:55 Labs: Abnormal Lab Results - Last 24 Hours (Table) 08/17/23 08/17/23 08/17/23 Range/Units 16:00 16:03 20:27 WBC (3.8-10.6) k/uL RBC (4.30-5.90) m/uL Hgb (13.0-17.5) gm/dL Hct (39.0-53.0) % RDW (11.5-15.5) % Neutrophils # (1.3-7.7) k/uL Lymphocytes # (1.0-4.8) k/uL Sodium (137-145) mmol/L Chloride (98-107) mmol/L Carbon Dioxide (22-30) mmol/L BUN (9-20) mg/dL Creatinine (0.66-1.25) mg/dL Glucose (74-99) mg/dL POC Glucose (mg/dL) 173 H 177 H (70-110) mg/dL Calcium (8.4-10.2) mg/dL Magnesium (1.6-2.3) mg/dL Urine Glucose (UA) 2+ H (Negative) Urine Blood Trace H (Negative) Urine WBC 6 H (0-5) /hpf Urine Bacteria Rare H (None) /hpf Urine Mucus Rare H (None) /hpf 08/18/23 08/18/23 08/18/23 Range/Units 06:30 06:32 07:55 WBC 23.6 H (3.8-10.6) k/uL RBC 3.34 L (4.30-5.90) m/uL Hgb 10.2 L (13.0-17.5) gm/dL Hct 32.2 L (39.0-53.0) % RDW 16.1 H (11.5-15.5) % Neutrophils # 21.9 H (1.3-7.7) k/uL Lymphocytes # 0.7 L (1.0-4.8) k/uL Sodium (137-145) mmol/L Chloride (98-107) mmol/L Carbon Dioxide (22-30) mmol/L BUN (9-20) mg/dL Creatinine (0.66-1.25) mg/dL Glucose (74-99) mg/dL POC Glucose (mg/dL) 391 H 329 H (70-110) mg/dL Calcium (8.4-10.2) mg/dL Magnesium (1.6-2.3) mg/dL Urine Glucose (UA) (Negative) Urine Blood (Negative) Urine WBC (0-5) /hpf Urine Bacteria (None) /hpf Urine Mucus (None) /hpf 08/18/23 08/18/23 Range/Units 07:55 11:10 WBC (3.8-10.6) k/uL RBC (4.30-5.90) m/uL Hgb (13.0-17.5) gm/dL Hct (39.0-53.0) % RDW (11.5-15.5) % Neutrophils # (1.3-7.7) k/uL Lymphocytes # (1.0-4.8) k/uL Sodium 147 H (137-145) mmol/L Chloride 111 H (98-107) mmol/L Carbon Dioxide 21 L (22-30) mmol/L BUN 101 H* (9-20) mg/dL Creatinine 2.67 H (0.66-1.25) mg/dL Glucose 350 H (74-99) mg/dL POC Glucose (mg/dL) 293 H (70-110) mg/dL Calcium 7.0 L (8.4-10.2) mg/dL Magnesium 2.8 H (1.6-2.3) mg/dL Urine Glucose (UA) (Negative) Urine Blood (Negative) Urine WBC (0-5) /hpf Urine Bacteria (None) /hpf Urine Mucus (None) /hpf Microbiology - Last 24 Hours (Table) 08/13/23 05:46 Blood Culture - Final Blood 08/15/23 05:24 Blood Culture Gram Stain - Final Blood Blood Culture - Preliminary Presumptive Staph aureus 08/14/23 06:00 Blood Culture - Preliminary Blood Assessment and Plan Assessment: Acute gram-positive sepsis /MSSA of unclear etiology. Tagged WBCs pending. Remains on nafcillin Acute hypoxemic respiratory failure secondary to above, and possible underlying component of COPD, improved on 2 L nasal cannula Hypotension secondary to sepsis/gram-positive sepsis/MSSA Recurrent significant leukocytosis, currently white count 23.6 Febrile illness secondary to above Acute kidney injury Hypernatremia Dysphagia, requiring nasogastric tube placement Diabetes mellitus Hypertension, history of Hyperlipidemia Atrial fibrillation, being addressed by cardiology on the case History of bundle-branch block Status post permanent pacemaker implantation 2 years ago in [place] Peripheral vascular disease with previous stent to the lower extremity Former smoker however quit 20 years ago, questionable underlying COPD. inactive. Severe cervical spine pain and limitation in range of motion of cervical spine Artificial urinary sphincter placed approximately 6 years ago, reactivated by urology 08/16/2023 Plan: The patient was seen and evaluated Labs, chest x-ray and medications reviewed Nasogastric tube placed for nutritional support Continue nafcillin, ID is following Anticoagulated with Eliquis Still pending transfer to tertiary care center for MRI and further workup I have personally seen and examined the patient, performed the documentation and the assessment and plan as written. Number of minutes spent on the visit: 10.
--- NOTE | 2023-08-18 15:37 | XR ---
EXAMINATION TYPE: XR chest 1V portable DATE OF EXAM: 08/18/2023 COMPARISON: 08/18/2023 HISTORY: NG tube placement TECHNIQUE: Single frontal view of the chest is obtained. FINDINGS: There is no pleural effusion or pneumothorax. Left basilar atelectasis favored over pneumo astrid. Findings stable.. The cardiac silhouette size is within normal limits. Hypertrophic and degener ative change of the spine. Cardiac device noted. NG tube appears in good position with the tip overly ing the region of the stomach.. IMPRESSION: 1. NG tube is seen with tip overlying the left upper quadrant likely within the gastric fundus. 2. Left basilar atelectasis versus early infiltrate.
[2023-08-18 15:45] LABS: Glucose,Whole Blood 354 mg/dL (70-110)
--- NOTE | 2023-08-18 16:09 | P.PN ---
Subjective Progress Note Date: 08/10/23 Principal diagnosis: Reason for follow-up is MSSA bacteremia Patient is a 73-year-old male with a past medical history significant for diabetes mellitus hypertension hyperlipidemia [place] COPD atrial fibrillation patient presenting to the hospital on 08/09/2023 for evaluation of weakness and significant pain to the lower back area patient was febrile and did have a positive blood culture with MSSA, CT of the lumbar spine without contrast no evidence of discitis or osteomyelitis MRI could not be done as the patient did have a pacemaker, patient did have a LAURA that was negative for any vegetation On today's visit and that is 08/17/2023, the patient remains to be febrile, the patient is breathing comfortably on 2 L nasal cannula oxygen The patient denies having any shortness of breath no chest pain or cough, patient denies Abdominal pain, no nausea/vomiting or diarrhea Patient white count is 44,000, creatinine 2.12 , blood cultures 08/10/2023 as well as 08/11/2023 are positive, blood culture from 08/13/2023 at 08/14/2023 are so far negative Objective - Vital Signs Vital signs: Vital Signs Temp 99.5 F 08/17/23 08:00 Pulse 96 08/17/23 11:00 Resp 25 H 08/17/23 11:00 BP 103/57 08/17/23 11:00 Pulse Ox 98 08/17/23 11:00 FiO2 Intake & Output 08/16/23 08/17/23 08/17/23 18:59 06:59 18:59 Intake Total 900 650 350 Output Total 100 550 450 Balance 800 100 -100 Weight 86 kg Intake: IV 900 650 250 0.9 250 Nafcillin 2 gm In 300 300 Dextrose 5% in Water 100 ml @ 50 mls/hr IVPB Q4HR YESSICA Rx#:[id number] Sodium Chloride 0.9% 1, 600 350 000 ml @ 50 mls/hr IV . Q20H YESSICA Rx#:[id number] Oral 100 Output: Urine 100 550 450 Other: Voiding Method Urinal Urinal Urinal # Voids 1 0 # Bowel Movements 1 1 - Exam GENERAL DESCRIPTION: An elderly male lying in bed in no distress RESPIRATORY SYSTEM: Unlabored breathing , decreased breath sound at the base HEART: S1 S2 regular rate and rhythm , ABDOMEN: Soft , no tenderness EXTREMITIES: No edema feet - Labs CBC & Chem 7: 08/18/23 07:55 08/18/23 07:55 Labs: Abnormal Lab Results - Last 24 Hours (Table) 08/16/23 08/16/23 08/17/23 Range/Units 17:20 20:01 06:19 WBC (3.8-10.6) k/uL RBC (4.30-5.90) m/uL Hgb (13.0-17.5) gm/dL Hct (39.0-53.0) % Neutrophils # (Manual) (1.3-7.7) k/uL Monocytes # (Manual) (0-1.0) k/uL Sodium (137-145) mmol/L Chloride (98-107) mmol/L Carbon Dioxide (22-30) mmol/L BUN (9-20) mg/dL Creatinine (0.66-1.25) mg/dL Glucose (74-99) mg/dL POC Glucose (mg/dL) 284 H 121 H 39 L (70-110) mg/dL Calcium (8.4-10.2) mg/dL Total Bilirubin (0.2-1.3) mg/dL AST (17-59) U/L Alkaline Phosphatase (38-126) U/L C-Reactive Protein (<1.0) mg/dL Total Protein (6.3-8.2) g/dL Albumin (3.5-5.0) g/dL 08/17/23 08/17/23 08/17/23 Range/Units 06:21 06:44 08:09 WBC 44.0 H (3.8-10.6) k/uL RBC 3.76 L (4.30-5.90) m/uL Hgb 12.0 L (13.0-17.5) gm/dL Hct 35.6 L (39.0-53.0) % Neutrophils # (Manual) 41.30 H (1.3-7.7) k/uL Monocytes # (Manual) 1.76 H (0-1.0) k/uL Sodium (137-145) mmol/L Chloride (98-107) mmol/L Carbon Dioxide (22-30) mmol/L BUN (9-20) mg/dL Creatinine (0.66-1.25) mg/dL Glucose (74-99) mg/dL POC Glucose (mg/dL) 30 L 146 H (70-110) mg/dL Calcium (8.4-10.2) mg/dL Total Bilirubin (0.2-1.3) mg/dL AST (17-59) U/L Alkaline Phosphatase (38-126) U/L C-Reactive Protein (<1.0) mg/dL Total Protein (6.3-8.2) g/dL Albumin (3.5-5.0) g/dL 08/17/23 08/17/23 Range/Units 08:09 11:52 WBC (3.8-10.6) k/uL RBC (4.30-5.90) m/uL Hgb (13.0-17.5) gm/dL Hct (39.0-53.0) % Neutrophils # (Manual) (1.3-7.7) k/uL Monocytes # (Manual) (0-1.0) k/uL Sodium 149 H (137-145) mmol/L Chloride 121 H (98-107) mmol/L Carbon Dioxide 14 L (22-30) mmol/L BUN 88 H (9-20) mg/dL Creatinine 2.12 H (0.66-1.25) mg/dL Glucose 192 H (74-99) mg/dL POC Glucose (mg/dL) 149 H (70-110) mg/dL Calcium 7.0 L (8.4-10.2) mg/dL Total Bilirubin 2.2 H (0.2-1.3) mg/dL AST 79 H (17-59) U/L Alkaline Phosphatase 130 H (38-126) U/L C-Reactive Protein 19.4 H (<1.0) mg/dL Total Protein 4.9 L (6.3-8.2) g/dL Albumin 1.9 L (3.5-5.0) g/dL Microbiology - Last 24 Hours (Table) 08/15/23 05:24 Blood Culture Gram Stain - Preliminary Blood Blood Culture - Preliminary Presumptive Staph aureus 08/11/23 11:04 Blood Culture - Final Blood 08/14/23 06:00 Blood Culture - Preliminary Blood 08/13/23 05:46 Blood Culture - Preliminary Blood Assessment and Plan (1) MSSA bacteremia Current Visit: Yes Status: Acute Code(s): R78.81 - BACTEREMIA; B95.61 - METHICILLIN SUSCEP STAPH INFCT CAUSING DIS CLASSD [id number] SNOMED Code(s): 262575625 (2) Sepsis Current Visit: Yes Status: Acute Priority: Medium Code(s): A41.9 - SEPSIS, UNSPECIFIED ORGANISM SNOMED Code(s): 01036859 Plan: 1patient with excruciating lower back pain in this patient who did have a fever elevated white count elevated lactic acid meeting criteria for sepsis/SIRS now with evidence of MSSA bacteremia high clinical suspicious for lumbosacral spine disease such as discitis osteomyelitis 2-blood cultures repeated on 08/13/2023 as well as 08/14/2023 has been negative 3-patient benefit from MRI of the lower back with contrast to better define underlying pathology, however MRI could not be done at this facility as the patient did have a pacemaker, possible plan is for transfer the patient to tertiary care 4Patient to continue with Naficillin and monitor his clinical course closely Dictation was produced using [employer] dictation software. please excuse any grammatical, word or spelling errors. Time with Patient: Less than 30
--- NOTE | 2023-08-18 16:12 | P.PN ---
Subjective Progress Note Date: 08/18/23 Principal diagnosis: Reason for follow-up is MSSA bacteremia Patient is a 73-year-old male with a past medical history significant for diabetes mellitus hypertension hyperlipidemia [place] COPD atrial fibrillation patient presenting to the hospital on 08/09/2023 for evaluation of weakness and significant pain to the lower back area patient was febrile and did have a positive blood culture with MSSA, CT of the lumbar spine without contrast no evidence of discitis or osteomyelitis MRI could not be done as the patient did have a pacemaker, patient did have a LAURA that was negative for any vegetation On today's visit and that is 08/18/2023, the patient denies any fever or any chills, the patient is breathing comfortably on 2 L nasal cannula oxygen, the patient denies any chest pain, no cough or sputum production, patient noticed to have some abdominal distention requiring a CT however that was negative for any renal stone or hydronephrosis no bowel obstruction or appendicitis Patient white count is down to 23.6, creatinine is up to 2.67, blood cultures from 08/15/2023 came back positive Objective - Vital Signs Vital signs: Vital Signs Temp 98 F 08/18/23 08:00 Pulse 96 08/18/23 10:00 Resp 12 08/18/23 10:00 BP 97/67 08/18/23 10:00 Pulse Ox 96 08/18/23 10:00 FiO2 Intake & Output 08/17/23 08/18/23 08/18/23 18:59 06:59 18:59 Intake Total 975 1525 150 Output Total 1645 805 100 Balance -670 720 50 Weight 86 kg 92 kg Intake: IV 775 1175 150 0.9 250 50 Dextrose 5% in Water 1, 525 825 150 000 ml @ 75 mls/hr IV . [id number] YESSICA Rx#:[id number] Nafcillin 2 gm In 300 Dextrose 5% in Water 100 ml @ 50 mls/hr IVPB Q4HR YESSICA Rx#:[id number] Oral 200 350 Output: Urine 1645 805 100 Other: Voiding Method Urinal Indwelling Catheter Indwelling Catheter # Bowel Movements 1 1 - Exam GENERAL DESCRIPTION: An elderly male lying in bed in no distress RESPIRATORY SYSTEM: Unlabored breathing , decreased breath sound at the base HEART: S1 S2 regular rate and rhythm , ABDOMEN: Soft , no tenderness EXTREMITIES: No edema feet - Labs CBC & Chem 7: 08/18/23 07:55 08/18/23 07:55 Labs: Abnormal Lab Results - Last 24 Hours (Table) 08/17/23 08/17/23 08/17/23 Range/Units 08:09 08:09 11:52 WBC (3.8-10.6) k/uL RBC (4.30-5.90) m/uL Hgb (13.0-17.5) gm/dL Hct (39.0-53.0) % RDW (11.5-15.5) % Neutrophils # (1.3-7.7) k/uL Neutrophils # (Manual) 41.30 H (1.3-7.7) k/uL Lymphocytes # (1.0-4.8) k/uL Monocytes # (Manual) 1.76 H (0-1.0) k/uL Sodium (137-145) mmol/L Chloride (98-107) mmol/L Carbon Dioxide (22-30) mmol/L BUN (9-20) mg/dL Creatinine (0.66-1.25) mg/dL Glucose (74-99) mg/dL POC Glucose (mg/dL) 149 H (70-110) mg/dL Calcium (8.4-10.2) mg/dL Magnesium (1.6-2.3) mg/dL C-Reactive Protein 19.4 H (<1.0) mg/dL Urine Glucose (UA) (Negative) Urine Blood (Negative) Urine WBC (0-5) /hpf Urine Bacteria (None) /hpf Urine Mucus (None) /hpf 08/17/23 08/17/23 08/17/23 Range/Units 16:00 16:03 20:27 WBC (3.8-10.6) k/uL RBC (4.30-5.90) m/uL Hgb (13.0-17.5) gm/dL Hct (39.0-53.0) % RDW (11.5-15.5) % Neutrophils # (1.3-7.7) k/uL Neutrophils # (Manual) (1.3-7.7) k/uL Lymphocytes # (1.0-4.8) k/uL Monocytes # (Manual) (0-1.0) k/uL Sodium (137-145) mmol/L Chloride (98-107) mmol/L Carbon Dioxide (22-30) mmol/L BUN (9-20) mg/dL Creatinine (0.66-1.25) mg/dL Glucose (74-99) mg/dL POC Glucose (mg/dL) 173 H 177 H (70-110) mg/dL Calcium (8.4-10.2) mg/dL Magnesium (1.6-2.3) mg/dL C-Reactive Protein (<1.0) mg/dL Urine Glucose (UA) 2+ H (Negative) Urine Blood Trace H (Negative) Urine WBC 6 H (0-5) /hpf Urine Bacteria Rare H (None) /hpf Urine Mucus Rare H (None) /hpf 08/18/23 08/18/23 08/18/23 Range/Units 06:30 06:32 07:55 WBC 23.6 H (3.8-10.6) k/uL RBC 3.34 L (4.30-5.90) m/uL Hgb 10.2 L (13.0-17.5) gm/dL Hct 32.2 L (39.0-53.0) % RDW 16.1 H (11.5-15.5) % Neutrophils # 21.9 H (1.3-7.7) k/uL Neutrophils # (Manual) (1.3-7.7) k/uL Lymphocytes # 0.7 L (1.0-4.8) k/uL Monocytes # (Manual) (0-1.0) k/uL Sodium (137-145) mmol/L Chloride (98-107) mmol/L Carbon Dioxide (22-30) mmol/L BUN (9-20) mg/dL Creatinine (0.66-1.25) mg/dL Glucose (74-99) mg/dL POC Glucose (mg/dL) 391 H 329 H (70-110) mg/dL Calcium (8.4-10.2) mg/dL Magnesium (1.6-2.3) mg/dL C-Reactive Protein (<1.0) mg/dL Urine Glucose (UA) (Negative) Urine Blood (Negative) Urine WBC (0-5) /hpf Urine Bacteria (None) /hpf Urine Mucus (None) /hpf 08/18/23 Range/Units 07:55 WBC (3.8-10.6) k/uL RBC (4.30-5.90) m/uL Hgb (13.0-17.5) gm/dL Hct (39.0-53.0) % RDW (11.5-15.5) % Neutrophils # (1.3-7.7) k/uL Neutrophils # (Manual) (1.3-7.7) k/uL Lymphocytes # (1.0-4.8) k/uL Monocytes # (Manual) (0-1.0) k/uL Sodium 147 H (137-145) mmol/L Chloride 111 H (98-107) mmol/L Carbon Dioxide 21 L (22-30) mmol/L BUN 101 H* (9-20) mg/dL Creatinine 2.67 H (0.66-1.25) mg/dL Glucose 350 H (74-99) mg/dL POC Glucose (mg/dL) (70-110) mg/dL Calcium 7.0 L (8.4-10.2) mg/dL Magnesium 2.8 H (1.6-2.3) mg/dL C-Reactive Protein (<1.0) mg/dL Urine Glucose (UA) (Negative) Urine Blood (Negative) Urine WBC (0-5) /hpf Urine Bacteria (None) /hpf Urine Mucus (None) /hpf Microbiology - Last 24 Hours (Table) 08/15/23 05:24 Blood Culture Gram Stain - Final Blood Blood Culture - Preliminary Presumptive Staph aureus 08/14/23 06:00 Blood Culture - Preliminary Blood Assessment and Plan (1) MSSA bacteremia Current Visit: Yes Status: Acute Code(s): R78.81 - BACTEREMIA; B95.61 - METHICILLIN SUSCEP STAPH INFCT CAUSING DIS CLASSD [id number] SNOMED Code(s): 942490647 (2) Sepsis Current Visit: Yes Status: Acute Priority: Medium Code(s): A41.9 - SEPSIS, UNSPECIFIED ORGANISM SNOMED Code(s): 89380123 Plan: 1patient with excruciating lower back pain in this patient who did have a fever elevated white count elevated lactic acid meeting criteria for sepsis/SIRS now with evidence of MSSA bacteremia high clinical suspicious for lumbosacral spine disease such as discitis osteomyelitis 2-blood cultures repeated on 08/13/2023 as well as 08/14/2023 has been negative 3-patient will benefit from MRI of the lower back with contrast to better define underlying pathology, however MRI could not be done at this facility as the pat ient did have a pacemaker, currently waiting for transfer to tertiary care 4Patient also noticed to have worsening of his kidney function and elevated white count with concern for possible interstitial nephritis related to Naficillin which will be discontinued and the patient will be started on da ptomycin and daughter at the bedside and multiple questions concerned were answered Dictation was produced using [email or web address] software. please excuse any grammatical, word or spelling errors. Time with Patient: Less than 30
--- NOTE | 2023-08-18 17:16 | NM ---
EXAMINATION TYPE: NM WBC whole body DATE OF EXAM: 08/18/2023 COMPARISON: CT 08/17/2023 CLINICAL INDICATION: Male, 73 years old with history of sepsis. TECHNIQUE: Following administration of 22.1 mages were obtained 4 hours post injection. FINDINGS: Normal physiological tracer activity is noted in the liver, spleen, and bone marrow of the axial and appendicular skeleton, with normal faint uptake in the lungs. No focal abnormalities. IMPRESSION: Normal white blood cell scan.
--- NOTE | 2023-08-18 17:49 | P.PN ---
Subjective Progress Note Date: 08/18/23 Patient is a 73-year-old male with known left bundle branch block status post pacemaker placement, hypertension, hyperlipidemia, type 2 insulin-dependent diabetes mellitus, atrial fibrillation not on anticoagulation, and peripheral vascular disease status post stenting in right lower extremity who was transferred to our facility from [facility] due to elevated troponin levels. Initial labs at our facility were remarkable for white blood cell count 11.4, platelets 112, troponin 0.076, BNP 5900. COVID-19/RSV/influenza testing was negative. He was admitted and started on low intensity heparin infusion for treatment of NSTEMI Cardiology was consulted. Pro-calcitonin was elevated at 30.40. Patient pulled hypotension and shock which was initially thought to be cardiogenic versus septic.. Cardiac cath showed mild CAD, LVEDP was 10-12. Echocardiogram showed LVEF of 35-40%. Blood cultures came back positive for staph aureus. ID consulted. Initially the patient was started on IV cefazolin and vancomycin but when blood cultures came back with MSSA he was transitioned to nafcillin. He was able to be weaned off of vasopressors. Lumbar CT did not show any evidence of discitis or osteomyelitis, but did show multilevel degenerative disc disease and multilevel central canal stenosis. Initially it was felt that he would benefit from MRI of the lumbar spine, however this is limited in our facility given his pacemaker. Patient continued to have gram- positive bacteremia and multiple blood cultures and unclear source. He underwent LAURA which did not show evidence of endocarditis. ervical spine CT report reviewed, shows severe neural foraminal stenosis at C5 to 6 on the right, moderate to severe cervical stenosis at C5 to 6, degenerative disc disease. [facility]ospine consulted. Attempted to get patient transferred to [facility] and currently awaiting bed. 08/18/23 He developed worsening renal failure and hypernatremia and nephrology was consulted. 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 Patient seen and examined at bedside. He is present. He complains of neck rebel n, he has a headache at the base of his neck which wraps or word. He has some difficulty with light health lights on in the room, patient's feels this is just a preference but not really a photophobia. He also complains of diffuse weakness grade reports that 2 weeks ago he was independent in all his ADLs and IADLs. This is significant change in her over the last 2 weeks. Nursing updates include that patient has failed his swallow study today and unable to take any of his medications. His blood pressures have been stable as well as heart rate have been stable with very concerned considering he cannot give him any oral medications. Vital signs reviewed General: Ill appearing, mild distress, appears at stated age Cardiovascular: [S1S2 reg], [no murmur], [positive posterior tibial pulse bilateral], Lungs: [Decreased breath sounds bilateral], [no rhonchi, no rales] , [no accessory muscle use] Abdominal: [soft], [ nontender to palpation], [no guarding], [no appreciable organomegaly] Ext: [no gross muscle atrophy], [no edema b/l lower extremities], [no contractures] Neuro: [ CN II-XI grossly intact], weakness and bilateral upper and lower extremities at 3-4 out of 5, patient unable to lift head off the bed due to pain, he also reports pain with moving his head to the right and the left. Psych: [Alert], [oriented], [appropriate affect] Assessment/Plan: Persistent MSSA bacteremia, undetermined source Septic shock, resolved Acute hypoxic respiratory failure Cervical and lumbar spinal stenosis, severe -Nafcillin 2 g IV every 4 hours - Blood culturees from 08/15 remain positive -Currently awaiting bed at [facility] patient has been unable to have MRI cervical and lumbar spine due to pacemaker. -Orthopedic spine no reviewed: X-ray of the knee reviewed does not appear to have septic knee. - Await tagged WBC scan - Pulm note reviewed from 08/17; continue current care, await transfer. Acute kidney injury, likely postrenal, worsening Mild hypernatremia Metabolic acidosis, anion gap 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 -Nephrology consultation reviewed from 08/17. Start D5 W with sodium bicarb, Lasix 40 mg IV 1, add Midrin that time systolic blood pressure greater than 1 10, check renal ultrasound. -Midodrine 5 mg TID times daily (patient was on at home) -Sodium bicarb 650 mg oral 3 times daily NSTEMI, mild CAD Paroxysmal atrial fibrillation with RVR s/p PPM -Cardiology note reviewed: Continue current medical regimen. Would avoid amiodarone due to encephalopathy patient cleared to undergo MRI from cardiac vessel standpoint pacemaker is compatible with MRI. -Eliquis 5 mg twice daily, aspirin 81 mg daily, Lipitor 80 mg daily, Plavix 75 mg daily, Lopressor 50 mg twice daily Type 2 insulin-dependent diabetes mellitus Hypoglycemia while on insulin - SSI, follow BS - hold lantus 15 units - A1C 7.7 Resolved: Thrombocytopenia, resolved Constipation Chronic: Peripheral vascular disease History of Hypertension Hyperlipidemia -COVID-19/RSV/influenza A/B negative Imaging: CT abdomen and pelvis: No renal stones or hydrocodone, no bulge structure appendicitis, small bilateral pleural effusions Renal ultrasound: No evidence of hydronephrosis or shadowing stones, no solid renal mass Data Review: Labs reviewed from today include CBC and basic metabolic profile which are re markable for white blood cell count 23.6, sodium 147, chloride 111, BUN 101, creatinine 2.67 Blood cultures positive from 08/15 with staph aureus DVT prophylaxis: Eliquis Anticipated discharge date: Awaiting bed at [facility] This dictation was prepared using [employer] voice recognition software. Th ough every attempt is made to correct errors during dictation some may still exist. Objective - Vital Signs Vital signs: Vital Signs Temp 98 F 08/18/23 08:00 Pulse 87 08/18/23 08:00 Resp 11 L 08/18/23 08:00 BP 108/64 08/18/23 08:00 Pulse Ox 96 08/18/23 08:24 FiO2 Intake & Output 08/17/23 08/18/23 08/18/23 18:59 06:59 18:59 Intake Total 975 1525 Output Total 1645 805 Balance -670 720 Weight 86 kg 92 kg Intake: IV 775 1175 0.9 250 50 Dextrose 5% in Water 1, 525 825 000 ml @ 75 mls/hr IV . [id number] YESSICA Rx#:[id number] Nafcillin 2 gm In 300 Dextrose 5% in Water 100 ml @ 50 mls/hr IVPB Q4HR YESSICA Rx#:[id number] Oral 200 350 Output: Urine 1645 805 Other: Voiding Method Urinal Indwelling Catheter Indwelling Catheter # Bowel Movements 1 1 - Labs CBC & Chem 7: 08/18/23 07:55 08/18/23 07:55 Labs: Abnormal Lab Results - Last 24 Hours (Table) 08/17/23 08/17/23 08/17/23 Range/Units 08:09 08:09 11:52 WBC 44.0 H (3.8-10.6) k/uL RBC 3.76 L (4.30-5.90) m/uL Hgb 12.0 L (13.0-17.5) gm/dL Hct 35.6 L (39.0-53.0) % RDW (11.5-15.5) % Neutrophils # (1.3-7.7) k/uL Neutrophils # (Manual) 41.30 H (1.3-7.7) k/uL Lymphocytes # (1.0-4.8) k/uL Monocytes # (Manual) 1.76 H (0-1.0) k/uL Sodium 149 H (137-145) mmol/L Chloride 121 H (98-107) mmol/L Carbon Dioxide 14 L (22-30) mmol/L BUN 88 H (9-20) mg/dL Creatinine 2.12 H (0.66-1.25) mg/dL Glucose 192 H (74-99) mg/dL POC Glucose (mg/dL) 149 H (70-110) mg/dL Calcium 7.0 L (8.4-10.2) mg/dL Magnesium (1.6-2.3) mg/dL Total Bilirubin 2.2 H (0.2-1.3) mg/dL AST 79 H (17-59) U/L Alkaline Phosphatase 130 H (38-126) U/L C-Reactive Protein 19.4 H (<1.0) mg/dL Total Protein 4.9 L (6.3-8.2) g/dL Albumin 1.9 L (3.5-5.0) g/dL Urine Glucose (UA) (Negative) Urine Blood (Negative) Urine WBC (0-5) /hpf Urine Bacteria (None) /hpf Urine Mucus (None) /hpf 08/17/23 08/17/23 08/17/23 Range/Units 16:00 16:03 20:27 WBC (3.8-10.6) k/uL RBC (4.30-5.90) m/uL Hgb (13.0-17.5) gm/dL Hct (39.0-53.0) % RDW (11.5-15.5) % Neutrophils # (1.3-7.7) k/uL Neutrophils # (Manual) (1.3-7.7) k/uL Lymphocytes # (1.0-4.8) k/uL Monocytes # (Manual) (0-1.0) k/uL Sodium (137-145) mmol/L Chloride (98-107) mmol/L Carbon Dioxide (22-30) mmol/L BUN (9-20) mg/dL Creatinine (0.66-1.25) mg/dL Glucose (74-99) mg/dL POC Glucose (mg/dL) 173 H 177 H (70-110) mg/dL Calcium (8.4-10.2) mg/dL Magnesium (1.6-2.3) mg/dL Total Bilirubin (0.2-1.3) mg/dL AST (17-59) U/L Alkaline Phosphatase (38-126) U/L C-Reactive Protein (<1.0) mg/dL Total Protein (6.3-8.2) g/dL Albumin (3.5-5.0) g/dL Urine Glucose (UA) 2+ H (Negative) Urine Blood Trace H (Negative) Urine WBC 6 H (0-5) /hpf Urine Bacteria Rare H (None) /hpf Urine Mucus Rare H (None) /hpf 08/18/23 08/18/23 08/18/23 Range/Units 06:30 06:32 07:55 WBC 23.6 H (3.8-10.6) k/uL RBC 3.34 L (4.30-5.90) m/uL Hgb 10.2 L (13.0-17.5) gm/dL Hct 32.2 L (39.0-53.0) % RDW 16.1 H (11.5-15.5) % Neutrophils # 21.9 H (1.3-7.7) k/uL Neutrophils # (Manual) (1.3-7.7) k/uL Lymphocytes # 0.7 L (1.0-4.8) k/uL Monocytes # (Manual) (0-1.0) k/uL Sodium (137-145) mmol/L Chloride (98-107) mmol/L Carbon Dioxide (22-30) mmol/L BUN (9-20) mg/dL Creatinine (0.66-1.25) mg/dL Glucose (74-99) mg/dL POC Glucose (mg/dL) 391 H 329 H (70-110) mg/dL Calcium (8.4-10.2) mg/dL Magnesium (1.6-2.3) mg/dL Total Bilirubin (0.2-1.3) mg/dL AST (17-59) U/L Alkaline Phosphatase (38-126) U/L C-Reactive Protein (<1.0) mg/dL Total Protein (6.3-8.2) g/dL Albumin (3.5-5.0) g/dL Urine Glucose (UA) (Negative) Urine Blood (Negative) Urine WBC (0-5) /hpf Urine Bacteria (None) /hpf Urine Mucus (None) /hpf 08/18/23 Range/Units 07:55 WBC (3.8-10.6) k/uL RBC (4.30-5.90) m/uL Hgb (13.0-17.5) gm/dL Hct (39.0-53.0) % RDW (11.5-15.5) % Neutrophils # (1.3-7.7) k/uL Neutrophils # (Manual) (1.3-7.7) k/uL Lymphocytes # (1.0-4.8) k/uL Monocytes # (Manual) (0-1.0) k/uL Sodium 147 H (137-145) mmol/L Chloride 111 H (98-107) mmol/L Carbon Dioxide 21 L (22-30) mmol/L BUN 101 H* (9-20) mg/dL Creatinine 2.67 H (0.66-1.25) mg/dL Glucose 350 H (74-99) mg/dL POC Glucose (mg/dL) (70-110) mg/dL Calcium 7.0 L (8.4-10.2) mg/dL Magnesium 2.8 H (1.6-2.3) mg/dL Total Bilirubin (0.2-1.3) mg/dL AST (17-59) U/L Alkaline Phosphatase (38-126) U/L C-Reactive Protein (<1.0) mg/dL Total Protein (6.3-8.2) g/dL Albumin (3.5-5.0) g/dL Urine Glucose (UA) (Negative) Urine Blood (Negative) Urine WBC (0-5) /hpf Urine Bacteria (None) /hpf Urine Mucus (None) /hpf Microbiology - Last 24 Hours (Table) 08/14/23 06:00 Blood Culture - Preliminary Blood 08/15/23 05:24 Blood Culture Gram Stain - Preliminary Blood Blood Culture - Preliminary Presumptive Staph aureus
--- NOTE | 2023-08-18 18:01 | P.DS ---
Providers Date of admission: 08/09/23 19:10 Expected date of discharge: 08/18/23 Attending physician: Gustavo Bobby MD Consults: 08/09/23 19:09 Consult Physician Urgent Consulting Provider: Jewel Bowles Consult Reason/Comments: elevTrop,Paced Do you want consulting provider notified?: Yes 08/10/23 09:18 Consult Physician Urgent Consulting Provider: Charli River Consult Reason/Comments: acute hypoxic respiratory failure Do you want consulting provider notified?: Yes 08/11/23 09:09 Consult Physician Routine Consulting Provider: Letty Blanco Consult Reason/Comments: Bacteremia Do you want consulting provider notified?: Yes 08/15/23 08:17 Consult Physician Routine Consulting Provider: Marva Olivares Consult Reason/Comments: neck and back pain Do you want consulting provider notified?: Already Contacted 08/16/23 11:22 Consult Physician Routine Consulting Provider: Placido Perera Consult Reason/Comments: [id number] urinary sphincter device Do you want consulting provider notified?: Already Contacted 08/17/23 09:44 Consult Physician Urgent Consulting Provider: Estrada Galdamez Consult Reason/Comments: BRETT Do you want consulting provider notified?: Yes Primary care physician: REYNA Hospital Course: Discharge Diagnosis: Persistent MSSA bacteremia, undetermined source Septic shock, resolved Acute hypoxic respiratory failure Cervical and lumbar spinal stenosis, severe Acute kidney injury, likely postrenal, worsening Mild hypernatremia Metabolic acidosis, anion gap 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 NSTEMI, mild CAD Paroxysmal atrial fibrillation with RVR s/p PPM Type 2 insulin-dependent diabetes mellitus Hypoglycemia while on insulin Thrombocytopenia, resolved Constipation Peripheral vascular disease History of Hypertension Hyperlipidemia Dysphagia Hospital Course: Patient is a 73-year-old male with known left bundle branch block status post pacemaker placement, hypertension, hyperlipidemia, type 2 insulin-dependent diabetes mellitus, atrial fibrillation not on anticoagulation, and peripheral vascular disease status post stenting in right lower extremity who was transferred to our facility from [facility] due to elevated troponin levels. Initial labs at our facility were remarkable for white blood cell count 11.4, platelets 112, troponin 0.076, BNP 5900. COVID-19/RSV/influenza testing was negative. He was admitted and started on low intensity heparin infusion for treatment of NSTEMI Cardiology was consulted. Pro-calcitonin was elevated at 30 .40. Patient developed hypotension and shock which was initially thought to be cardiogenic versus septic. Cardiac cath showed mild CAD, LVEDP was 10-12. Echocardiogram showed LVEF of 35-40%. Blood cultures came back positive for staph aureus. ID consulted. Initially the patient was started on IV cefazolin and vancomycin but when blood cultures came back with MSSA he was transitioned to nafcillin. He was able to be weaned off of vasopressors. Lumbar CT did not show any evidence of discitis or osteomyelitis, but did show multilevel degenerative disc disease and multilevel central canal stenosis. Initially it was felt that he would benefit from MRI of the lumbar spine, however this is limited in our facility given his pacemaker. Patient continued to have gram- positive bacteremia and multiple blood cultures and unclear source. He underwent LAURA which did not show evidence of endocarditis. ervical spine CT report reviewed, shows severe neural foraminal stenosis at C5 to 6 on the right, moderate to severe cervical stenosis at C5 to 6, degenerative disc disease. [facility]ospine consulted. Attempted to get patient transferred to [facility] and currently awaiting bed. 08/18 updates: He developed worsening renal failure and hypernatremia and nephrology was consulted. 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 -Case discussed with Dr. Beckman there is no possible way to obtain an MRI at our facility as they cannot be monitored during MRI even if [employer] could come and reset his pacemaker. - Patient failed swallow eval: NGT placed -Infectious disease has discontinued nafcillin and initiated the patient on daptomycin 600 mg IV q 48 hours, for possible interstitial nephritis - Tagged WBC scan negative. Unable to obtain MRI at this facility. -Case discussed with nephrology at length. Will increase D5W continue to monitor sodium levels. We'll also check urine eosinophils. -Urine eosinbophils negative Patient seen and examined at bedside. He is present. He complains of neck pain, he has a headache at the base of his neck which wraps or word. He has so me difficulty with light health lights on in the room, patient's feels this is just a preference but not really a photophobia. He also complains of diffuse weakness grade reports that 2 weeks ago he was independent in all his ADLs and IADLs. This is significant change in her over the last 2 weeks. Vital signs reviewed and stable. General: Ill appearing, mild distress, appears at stated age Cardiovascular: S1S2 reg, no murmur, positive posterior tibial pulse bilateral, Lungs: Decreased breath sounds bilateral, no rhonchi, no rales , no accessory muscle use Abdominal: soft, nontender to palpation, no guarding, no appreciable organomegaly Ext: no gross muscle atrophy, no edema b/l lower extremities, no contractures Neuro: CN II-XI grossly intact, weakness and bilateral upper and lower extremities at 3-4 out of 5, patient unable to lift head off the bed due to pain, he also reports pain with moving his head to the right and the left. Psych: Alert, oriented, appropriate affect A total of minutes of time were spent preparing this complex discharge summary. Patient was discharged on . This dictation was prepared using [employer] voice recognition software. Though every attempt is made to correct errors during dictation some may still exist. Patient Condition at Discharge: Serious Plan - Discharge Summary Discharge Rx Participant: No New Discharge Prescriptions: No Action Midodrine [ProAmatine] 5 mg PO TID metFORMIN HCL ER [Glucophage XR] 1,000 mg PO BID Rosuvastatin [Crestor] 20 mg PO HS Empagliflozin [Jardiance] 25 mg PO DAILY Vit C/E/Zn/Coppr/Lutein/Zeaxan [Preservision Areds 2 Softgel] 1 cap PO BID Triamcinolone 0.025% Cream [Kenalog 0.025% Cream] 1 applic TOPICAL BID Clopidogrel [Plavix] 75 mg PO DAILY Gabapentin [Neurontin] 100 mg PO TID PRN PRN Reason: Pain Propranolol HCl 80 mg PO DAILY Cyclobenzaprine [Flexeril] 10 mg PO TID PRN PRN Reason: Muscle Pain Cholecalciferol [Vitamin D3 (25 Mcg = 1000 Iu)] 25 mcg PO DAILY Nystatin 100,000Unit/gm Cream [Mycostatin Cream] 1 applic TOPICAL BID Meloxicam [Mobic] 15 mg PO DAILY PRN PRN Reason: Pain Insulin Lispro [humaLOG Kwikpen] 8 - 10 unit SQ AC-TID MDD 30 units Insulin Glargine,Hum.rec.anlog [Lantus Solostar Pen] 15 units SQ DAILY HYDROcodone/APAP 7.5-325MG [Thebes 7.5-325] 1 tab PO Q6H PRN PRN Reason: Pain Discharge Medication List Cholecalciferol [Vitamin D3 (25 Mcg = 1000 Iu)] 25 mcg PO DAILY 08/09/23 [History] Clopidogrel [Plavix] 75 mg PO DAILY 08/09/23 [History] Cyclobenzaprine [Flexeril] 10 mg PO TID PRN 08/09/23 [History] Empagliflozin [Jardiance] 25 mg PO DAILY 08/09/23 [History] Gabapentin [Neurontin] 100 mg PO TID PRN 08/09/23 [History] HYDROcodone/APAP 7.5-325MG [Thebes 7.5-325] 1 tab PO Q6H PRN 08/09/23 [History] Insulin Glargine,Hum.rec.anlog [Lantus Solostar Pen] 15 units SQ DAILY 08/09/23 [History] Insulin Lispro [humaLOG Kwikpen] 8 - 10 unit SQ AC-TID MDD 30 units 08/09/23 [History] Meloxicam [Mobic] 15 mg PO DAILY PRN 08/09/23 [History] Midodrine [ProAmatine] 5 mg PO TID 08/09/23 [History] Nystatin 100,000Unit/gm Cream [Mycostatin Cream] 1 applic TOPICAL BID 08/09/23 [History] Propranolol HCl 80 mg PO DAILY 08/09/23 [History] Rosuvastatin [Crestor] 20 mg PO HS 08/09/23 [History] Triamcinolone 0.025% Cream [Kenalog 0.025% Cream] 1 applic TOPICAL BID 08/09/23 [History] Vit C/E/Zn/Coppr/Lutein/Zeaxan [Preservision Areds 2 Softgel] 1 cap PO BID 08/09/23 [History] metFORMIN HCL ER [Glucophage XR] 1,000 mg PO BID 08/09/23 [History] Follow up Appointment(s)/Referral(s): Anthony Patel MD [Primary Care Provider] - 1-2 days
--- NOTE | 2023-08-18 18:41 | P.PN ---
Subjective Progress Note Date: 08/18/23 Abnormal cardiac enzymes/atrial fibrillation The patient is a 73-year-old gentleman who sees a business continuity consultant out of this area with a past medical history significant for diabetes and hypertension and dyslip idemia and left bundle branch block and permanent pacemaker as well as lower extremities peripheral arterial disease and history of smoking. He was transferred from another facility to this hospital for further evaluation of shortness of breath and chest discomfort and he underwent a workup at [facility] including troponin came in to be abnormal and for that reason the patient was referred. He was seen at bedside in the emergency department where he was having ongoing chest discomfort. The troponin was mildly elevated. The EKG showed LBBB. He was also experiencing shortness of breath and he was hypoxic. He was given Lasix and some morphine as well and his pressure dropped down. The patient was started on some norepinephrine with improvement in the blood pressure. Beside that the risks of the blood work beside troponin came in to be unremarkable. Further investigation was performed including an echo which revealed normal biventricular dimension and systolic function and no significant valvular abnormalities. Because he continues to have ongoing chest discomfort he underwent a heart catheterization and that revealed normal coronaries with normal left-sided filling pressure. He was seen by the pulmonary/critical care service and he was diagnosed with acute hypoxic respiratory failure. He also might have a component of sepsis. He underwent urinary analysis and that showed what it seems to be possible UTI. The examination is remarkable for diminished breathing sounds bilaterally with regular rate and rhythm and distant heart sounds and mild bilateral lower extremity edema 08/11/2023 The patient was seen and evaluated this morning. He is feeling better. The chest discomfort has resolved. He seems to be in atrial fibrillation on the monitor and I'm going to perform a 12 please EKG to confirm that. Meanwhile he is on Cardizem IV which I'm going to wean him from and start him on beta twin was Toprol tartrate. Also he will be started on oral anticoagulation. He is getting treated for possible sepsis as well. Hemodynamically he is stable and not on any vasopressors at this point. The echo revealed normal LV systolic function was no significant valvular abnormalities. The examination is remarkable for regular rhythm with distant heart sounds and clear breathing sounds bilaterally and no lower extremity edema noted 08/12/2023 Patient was seen and evaluated this morning. Hemodynamically is stable. He is in atrial fibrillation with controlled heart rate. He is on metoprolol and he is on oral anticoagulation. Beside that he is still hypoxic requiring 2 L of oxygen. The chest x-ray did not show any acute abnormalities from yesterday. He has no pain in the chest. We need to review his echocardiogram to determine the exact ejection fraction. There is concern about an infection etiology and that is in process of workup on it. The examination is remarkable for irregular rhythm with diminished breathing sounds bilaterally and no edema in the lower extremities 08/13/2023 The patient was seen and evaluated this morning. He still tachycardic with heart rate above 100 treatment. Her pressure is stable. I'm going to increase the dose of metoprolol. Continue oral anticoagulation. The source of infection is still not clear as of yet. This possible need for transesophageal echocardiogram which is not unreasonable. The patient continues to be weak. Physical therapy is on the case. The examination is remarkable for irregular rhythm with diminished breathing sounds bilaterally and no lower extremity is edema noted. 08/14/2023 The patient was seen and evaluated this morning. He remains stable beside mild tachycardia with atrial fibrillation but the pressure remains a stable. He is on metoprolol as well as oral anticoagulation. The LAURA was performed yesterday and showed no evidence of endocarditis. The pacer lead appeared to have no vegetation attached to it. I would suggest continue workup to find that the source of infection meanwhile we can consider repeating the transesophageal echocardiogram in 48 hours to see if there is any changes. Meanwhile continue the current medical regimen. The examination is remarkable for irregular rhythm with diminished breathing sounds bilaterally and no lower extremity is edema noted 08/16/23 Patient continues to be in atrial fibrillation with rate controlled heart rate. Previously was on Cardizem drip and norepinephrine drip. He has been off these drips were last 24 hours. There is a plan for possible obtaining an MRI for spinal abscess evaluation in setting of bacteremia without any obvious source. As he is not able to get his MRI at [facility] due to a PPM, plan is to possibly transfer him to Center which is more comfortable doing inpatient MRI with PPM in place. His pacemaker is compatible. 08/17/2023 Patient continues to be in rate controlled atrial fibrillation. Blood pressure 109/65, heart rate 98. Creatinine 2.1-20. Yesterday was 1.8. Patient received 1 dose of 40 mg of IV Lasix as per Dr. Galdamez today. Patient has isolated right lower extremity swelling 1+ pitting edema. No swelling and left lower extremity. Patient is on appropriate dose of anticoagulation. 08/18/23 Patient continues to have metabolic encephalopathy and generalized weakness. His overall outcome appears very guarded. His creatinine is worsening. He continues to be in rate controlled atrial fibrillation with low normal blood pressure. Labs show sodium 147, bicarb 21, BUN 101, creatinine 2.6. Yesterday creatinine was 2.1. WBC 23, hemoglobin 10.2 Blood culture from 08/15/2023 still show staph aureus BP 99/48, heart rate 84. Continues to be in atrial fibrillation. Assessment Acute hypoxic respiratory failure Metabolic encephalopathy Sepsis of unknown source, LAURA negative for any evidence of endocarditis Cardiomyopathy with EF 35-40%, moderate LVH, unknown eitology Atrial fibrillation, rate controlled Permanent pacemaker Multiple comorbid conditions PAD smoker HTN Type II DM Plan Continue the current medical regimen Continue low-dose beta twin Hold any further diuretics. Would appreciate nephrology recommendations on worsening kidney function. Patient continues to have positive blood cultures. Infectious disease recommendations appreciate it. Patient underwent a WBC Scan today. Patient would benefit from rhythm control strategy especially due to his underlying cardiomyopathy. He is not the best candidate for amiodarone therapy due to metabolic encephalopathy. Best time to offer rhythm control would be once his infection improves and his blood cultures are negative Agree with transferring the patient will higher level of care facility where patient can be evaluated for spinal abscess using an MRI and get treated for emilie t. IV antibiotics and other comorbidities management as per primary team. Prognosis is very guarded. Poor prognosis discussed with family. Objective - Vital Signs Vital signs: Vital Signs Temp 97.9 F 08/18/23 11:00 Pulse 95 08/18/23 17:00 Resp 16 08/18/23 18:00 BP 99/48 08/18/23 15:00 Pulse Ox 96 08/18/23 15:00 FiO2 Intake & Output 08/17/23 08/18/23 08/18/23 18:59 06:59 18:59 Intake Total 975 1525 1400 Output Total 1645 805 590 Balance -670 720 810 Weight 86 kg 92 kg Intake: IV 775 1175 1200 0.9 250 50 DAPTOmycin 600 mg In 100 Sodium Chloride 0.9% 50 ml @ 100 mls/hr IVPB Q24HR@1200 [facility] Rx#: [id number] Dextrose 5% in Water 1, 623 680 7110 000 ml @ 100 mls/hr IV . Q10H YESSICA Rx#:[id number] Nafcillin 2 gm In 300 100 Dextrose 5% in Water 100 ml @ 50 mls/hr IVPB Q4HR YESSICA Rx#:[id number] Intake, IV Titration 200 Amount DAPTOmycin 600 mg In 200 Sodium Chloride 0.9% 50 ml @ 100 mls/hr IVPB Q24HR@1200 [facility] Rx#: [id number] Oral 200 350 Output: Urine 1645 805 590 Other: Voiding Method Urinal Indwelling Catheter Indwelling Catheter # Bowel Movements 1 1 - Labs CBC & Chem 7: 08/18/23 07:55 08/18/23 07:55 Labs: Abnormal Lab Results - Last 24 Hours (Table) 08/17/23 08/18/23 08/18/23 Range/Units 20:27 06:30 06:32 WBC (3.8-10.6) k/uL RBC (4.30-5.90) m/uL Hgb (13.0-17.5) gm/dL Hct (39.0-53.0) % RDW (11.5-15.5) % Neutrophils # (1.3-7.7) k/uL Lymphocytes # (1.0-4.8) k/uL Sodium (137-145) mmol/L Chloride (98-107) mmol/L Carbon Dioxide (22-30) mmol/L BUN (9-20) mg/dL Creatinine (0.66-1.25) mg/dL Glucose (74-99) mg/dL POC Glucose (mg/dL) 177 H 391 H 329 H (70-110) mg/dL Calcium (8.4-10.2) mg/dL Magnesium (1.6-2.3) mg/dL 08/18/23 08/18/23 08/18/23 Range/Units 07:55 07:55 11:10 WBC 23.6 H (3.8-10.6) k/uL RBC 3.34 L (4.30-5.90) m/uL Hgb 10.2 L (13.0-17.5) gm/dL Hct 32.2 L (39.0-53.0) % RDW 16.1 H (11.5-15.5) % Neutrophils # 21.9 H (1.3-7.7) k/uL Lymphocytes # 0.7 L (1.0-4.8) k/uL Sodium 147 H (137-145) mmol/L Chloride 111 H (98-107) mmol/L Carbon Dioxide 21 L (22-30) mmol/L BUN 101 H* (9-20) mg/dL Creatinine 2.67 H (0.66-1.25) mg/dL Glucose 350 H (74-99) mg/dL POC Glucose (mg/dL) 293 H (70-110) mg/dL Calcium 7.0 L (8.4-10.2) mg/dL Magnesium 2.8 H (1.6-2.3) mg/dL 08/18/23 Range/Units 15:44 WBC (3.8-10.6) k/uL RBC (4.30-5.90) m/uL Hgb (13.0-17.5) gm/dL Hct (39.0-53.0) % RDW (11.5-15.5) % Neutrophils # (1.3-7.7) k/uL Lymphocytes # (1.0-4.8) k/uL Sodium (137-145) mmol/L Chloride (98-107) mmol/L Carbon Dioxide (22-30) mmol/L BUN (9-20) mg/dL Creatinine (0.66-1.25) mg/dL Glucose (74-99) mg/dL POC Glucose (mg/dL) 354 H (70-110) mg/dL Calcium (8.4-10.2) mg/dL Magnesium (1.6-2.3) mg/dL Microbiology - Last 24 Hours (Table) 08/13/23 05:46 Blood Culture - Final Blood 08/15/23 05:24 Blood Culture Gram Stain - Final Blood Blood Culture - Preliminary Presumptive Staph aureus
[2023-08-18 18:53] VITALS: TEMP 98.4
[2023-08-18 20:05] LABS: Glucose,Whole Blood 328 mg/dL (70-110)
[2023-08-18 20:56] VITALS: BP 84/52; PULSE 92; RESP 22
--- NOTE | 2023-08-18 22:57 | XR ---
EXAMINATION: XR chest 1V portable DATE AND TIME: 08/18/2023 6:22 PM CLINICAL INDICATION: PHH; check placement of NEW NG TECHNIQUE: AP portable supine COMPARISON: 08/18/2023 at 2:49 PM FINDINGS: Presently the NG tube port is superimposed over the expected position of the distal thoracic esophagu s and its tip is superimposed over the gastric fundus. The NG tube may be better placed if advanced 7 cm distally. Two-lead cardiac pacemaker and EKG leads redemonstrated. The lungs are clear and the pleural spaces are negative. The cardiac silhouette is not enlarged. The skeletal structures and soft tissues are negative for acute findings. Note - Limitation of the study: Supine radiography cannot exclude pneumothorax or pneumoperitoneum. IMPRESSION: NG tube comments. No acute radiographic process.
== END 2023-08-18 21:00 | disposition short-term general hospital (02) | DRG 871 ==
LOC: EC 17:52 → 3SCARD 19:10 → 2SICU 08-10 12:34
PROVIDERS: ADMIT Internal Medicine; ATTEND Internal Medicine
PROC: B2111ZZ Fluoroscopy of Multiple Coronary Arteries using Low Osmolar Contrast (ICD-10-PCS; 2023-08-10)
PROC: 3E033XZ Introduction of Vasopressor into Peripheral Vein, Percutaneous Approach (ICD-10-PCS; 2023-08-10)
PROC: 4A023N7 Measurement of Cardiac Sampling and Pressure, Left Heart, Percutaneous Approach (ICD-10-PCS; principal; 2023-08-10 15:00)
PROC: B24BZZ4 Ultrasonography of Heart with Aorta, Transesophageal (ICD-10-PCS; 2023-08-13)
PROC: 0T9B70Z Drainage of Bladder with Drainage Device, Via Natural or Artificial Opening (ICD-10-PCS; 2023-08-17)
DX: A41.01 Sepsis due to Methicillin susceptible Staphylococcus aureus (principal); G93.41 Metabolic encephalopathy; J96.01 Acute respiratory failure with hypoxia; N17.0 Acute kidney failure with tubular necrosis; R65.21 Severe sepsis with septic shock; I21.4 Non-ST elevation (NSTEMI) myocardial infarction; I50.23 Acute on chronic systolic (congestive) heart failure; T83.110A Breakdown (mechanical) of urinary electronic stimulator device, initial encounter; E87.20 Acidosis, unspecified; I42.9 Cardiomyopathy, unspecified; I48.19 Other persistent atrial fibrillation; N39.0 Urinary tract infection, site not specified; E11.649 Type 2 diabetes mellitus with hypoglycemia without coma; D69.6 Thrombocytopenia, unspecified; I11.0 Hypertensive heart disease with heart failure; E11.65 Type 2 diabetes mellitus with hyperglycemia; E11.40 Type 2 diabetes mellitus with diabetic neuropathy, unspecified; I44.7 Left bundle-branch block, unspecified; E11.51 Type 2 diabetes mellitus with diabetic peripheral angiopathy without gangrene; J44.9 Chronic obstructive pulmonary disease, unspecified; I35.1 Nonrheumatic aortic (valve) insufficiency; E87.8 Other disorders of electrolyte and fluid balance, not elsewhere classified; Z79.4 Long term (current) use of insulin; Z95.820 Peripheral vascular angioplasty status with implants and grafts; M48.061 Spinal stenosis, lumbar region without neurogenic claudication; M48.02 Spinal stenosis, cervical region; R32 Unspecified urinary incontinence; M50.322 Other cervical disc degeneration at C5-C6 level; M51.36 Other intervertebral disc degeneration, lumbar region; K59.00 Constipation, unspecified; G47.30 Sleep apnea, unspecified; R13.10 Dysphagia, unspecified; I25.10 Atherosclerotic heart disease of native coronary artery without angina pectoris; R33.9 Retention of urine, unspecified; E78.5 Hyperlipidemia, unspecified; Y73.1 Therapeutic (nonsurgical) and rehabilitative gastroenterology and urology devices associated with adverse incidents; Z20.822 Contact with and (suspected) exposure to COVID-19; Z96.651 Presence of right artificial knee joint; Z87.891 Personal history of nicotine dependence; I25.2 Old myocardial infarction; Z90.79 Acquired absence of other genital organ(s); Z95.0 Presence of cardiac pacemaker; Z79.84 Long term (current) use of oral hypoglycemic drugs; Z79.1 Long term (current) use of non-steroidal anti-inflammatories (NSAID); Z79.02 Long term (current) use of antithrombotics/antiplatelets; Z79.899 Other long term (current) drug therapy; G89.29 Other chronic pain; M25.461 Effusion, right knee
CPT/HCPCS: 36415; 71045; 71275; 72125; 72131; 74176; 76770; 78306; 80048; 80053; 80061; 81001; 82550; 83036; 83605; 83690; 83735; 83880; 84132; 84145; 84484; 85025; 85027; 85610; 85652; 85730; 86140; 87040; 87077; 87186; 87205; 87636; 93005; 93306; 93312; 93320; 93325; 93458; 94660; 96365; 96366; 96367; 96368; 96375; 96376; 99291